=== PATIENT | female | born 1985 | race Caucasian/White ===

== ENCOUNTER 2018-04-23 23:20 | Emergency (ER) | payer MEDICAID, SELFPAY ==
--- NOTE | 2018-04-23 13:37 | EKG12_ITS ---
Test Reason : DIZZINESS Blood Pressure : / mmHG Vent. Rate : 071 BPM Atrial Rate : 071 BPM P-R Int : 126 ms QRS Dur : 092 ms QT Int : 412 ms P-R-T Axes : 044 021 024 degrees QTc Int : 447 ms Normal sinus rhythm Normal ECG Confirmed by TIGRE CALLAHAN, ROHINI ([id number]), associate editor TAMI UMANZOR ([id number]) on 04/26/2018 5:55:45 PM Referred By: Orion Clemons Confirmed By:ROHINI LANDEROS MD
--- NOTE | 2018-04-23 23:20 | DT_ITS ---
This patient was seen during an EMR downtime April 17, 2018 - April 24, 2018. This patient may have a combination of paper and electronic documentation or all paper documentation. All documentation is viewable within the e-chart portion of [facility] for each patient visit.
--- NOTE | 2018-04-24 00:03 | CT_ITS ---
STUDY: CTA OF THE BRAIN REASON FOR EXAM: Female, 32 years old. Vertigo, nausea, shortness of breath. Sensation of pressure inside head. RADIATION DOSAGE (If Supplied By Facility): CTDIvol = ( 26.12 ) mGy, DLP = ( 1205.43 ) mGycm TECHNIQUE: CT angiography was performed with a multi-detector CT scanner. Data acquisition was obtained from the skull base through the vertex following intravenous administration of 100 ml of Isovue-370 . MIP images were reconstructed from the axial data set. Post-processing of the angiographic images was performed, with multiplanar reformation and 3D reconstruction. Individualized dose optimization techniques were used for this CT. COMPARISON: None. FINDINGS: Normal bilateral petrous carotid arteries. Normal right cavernous carotid artery with a normal supraclinoid bifurcation. Normal left cavernous carotid artery with a normal supraclinoid bifurcation. Normal right A1 segments of the anterior cerebral artery. Normal left A1 segments of the anterior cerebral artery. Normal intact anterior communicating artery (ACOM). Normal bilateral A2 segments of the anterior cerebral arteries. Normal right M1 and M2 segments of the middle cerebral arteries, with a normal M1 bifurcation. Normal left M1 and M2 segments of the middle cerebral arteries, with a normal M1 bifurcation. Normal right posterior communicating artery (PCOM). Normal left posterior communicating artery (PCOM). Normal bilateral vertebral arteries. Normal basilar artery with a normal basilar bifurcation. The visualized bilateral superior cerebellar (SCA) arteries are normal. Normal bilateral P1, P2 and visualized P3 segments of the posterior cerebral arteries. There is no demonstrated aneurysm of the mohegan of Garza. There is no demonstrated abnormality of the visualized brain. CT/CTA Head W/WO Contrast IMPRESSION: Normal mohegan of [place] without a demonstrated aneurysm or hemodynamically significant stenosis. Electronically Signed: Brendan Segura MD at 1:28 EDT , Service support ,
[2018-04-25 11:20] LABS: Anion Gap 6 (5-15); BUN 12 mg/dL (7-18); Calcium,Total 8.7 mg/dL (8.5-10.1); Chloride 111 mmol/L (98-107); EST Glomerular Filtration Rate 55 mL/min (>60); Est Glom Filt Rate - Afr Amer 67 mL/min (>60); Glucose 113 mg/dL (74-106); Potassium 3.9 mmol/L (3.5-5.1); Sodium Level 141 mmol/L (136-145)
[2018-04-25 11:21] LABS: Pregnancy, Serum, hCG Quali. NEGATIVE Negative (0-9 Nonpreg)
[2018-04-25 13:38] LABS: Hematocrit 39.7 % (37-47); Mean Corp Hgb Conc 32.7 g/gl (32-36); Mean Corpuscular Hgb 30.9 pg (27.0-32.0); Mean Corpuscular Volume 94.3 fL (81-99); RBC Distribution Width CV 13.7 % (11.6-14.6); Red Blood Count 4.21 M/mm3 (4.2-5.4); White Blood Count 7.7 K/mm3 (4.4-11.0)
[2018-04-25 13:39] LABS: Absolute Lymphocyte Count 2.54 X10^3/ul (0.83-4.51); Absolute Neutrophil Count 4.4 X10^3/uL (2.0-7.7); Basophil% 0.5 % (0-1); Eosinophils% 2.3 % (0-5); Lymphocyte # 2.54 X10^3/ul (4.0); Lymphocyte % 32.9 % (19-41); Monocyte% 7.2 % (0-10); Neutrophil # 4.39 X10^3/uL (2.7-7.7); Neutrophil % 56.8 % (47-70); POSITIVE COUNT NO; POSITIVE DIFFERENTIAL NO; POSITIVE MORPHOLOGY NO; Platelet Count 421 K/mm3 (150-450); RBC Distribution Width SD 45.2 fl (35.1-43.9)
== END 2018-04-24 02:00 | disposition home or self-care (01) ==
PROVIDERS: Emergency Provider Emergency Medicine; Family Provider Student in an Organized Health Care Education/Training Program; PCP Student in an Organized Health Care Education/Training Program
DX: R42 Dizziness and giddiness (principal); R51 Headache; E78.00 Pure hypercholesterolemia, unspecified; M79.7 Fibromyalgia; F32.9 Major depressive disorder, single episode, unspecified; Z90.49 Acquired absence of other specified parts of digestive tract; Z79.899 Other long term (current) drug therapy
CPT/HCPCS: 70496; 80048; 84703; 85025; 93005; 96374; 96375; 99283; J7030; Q9967; A4216; J2405

== ENCOUNTER → 2018-12-14 18:08 | Outpatient (CLI) | payer MEDICAID, SELFPAY ==
--- NOTE | 2018-12-14 | IMM_PTH ---
PATIENT: SAAD ROBERT LOC: [facility] U#:[id number] AGE/SX: 40/F ROOM: RE12/14/[address]: Dr. Romana Zendejas MD : 1985 BED: DIS: SPEC #: [id number] RECD: 12/18/18 14:07 STATUS: MILLY JAMIE #: [id number] FIDEL: 12/14/18 00:[address]: Romana Zendejas DEPT: IMMUNOHISTOCHEMISTRY RECD BY: Bambi Luu ENTERED: 12/18/18 14:08 SP TYPE: IMMUNO OTHR DR: Dr. Victor Manuel Tyler DO Tissues: Vulva, NOS Procedures: p16 (initial) KI-67 (add) PHYSICIAN & INSTITUTION [place] [id number] SPECIMEN INFORMATION: Tissue Source: Left vulva, punch biopsy Clinical Info: Left vulva Specimen Number: [id number] CPT code: 15276, 07821 METHODOLOGY: Deparaffinized sections of prefer/formalin-fixed tissue or PAP/DQ stained slides are incubated with monoclonal/polyclonal antibodies/oligonucleotide probes. Localization is made via biotin free immunoperoxidase method. Appropriate controls are performed and reacted as expected. Results on target cell population are indicated in the following table: RESULTS: ANTIBODY / CLONE RESULT P16 (E6H4) negative Ki-67 (30-9) negative These tests were developed and their performance characteristics determined by [facility]. They may not have been cleared or approved by the U.S. Food and Drug Administration. The FDA has determined that such clearance or approval is not necessary. INTERPRETATION: Left vulva, punch biopsy: No evidence of dysplasia. AM:gonzalo 12/19/18
--- NOTE | 2018-12-14 | VUL_PTH ---
PATIENT: SAAD ROBERT LOC: [facility] U#:[id number] AGE/SX: 40/F ROOM: RE12/14/[address]: Dr. Romana Zendejas MD : 1985 BED: DIS: SPEC #: [id number] RECD: 12/15/18 18:06 STATUS: MILLY JAMIE #: [id number] FIDEL: 12/14/18 00:[address]: Romana Zendejas DEPT: SURGICAL PATHOLOGY RECD BY: Silvino Grijalva ENTERED: 12/15/18 09:11 SP TYPE: VULVA BX OTHR DR: Dr. Victor Manuel Tyler DO Tissues: Vulva, NOS Procedures: PAS Fungus (control) Special Stain Group I Surgery Specimen Level IV HEADER OPERATION: Punch biopsy vulva PRE-OP DIAGNOSIS: Punch biopsy vulva TISSUE SUBMITTED: Left vulva MICROSCOPIC DIAGNOSIS Left vulva, punch biopsy: Fragments of squamous mucosa with mild chronic inflammation and vascular ectasia. Focal acute inflammation. Negative for fungal organisms. See comment. AM:gonzalo 12/18/18 COMMENT Results from immunohistochemistry ([id number]) for surrogate HPV marker (p16) will be reported separately. PASF stain with matched control was used in the evaluation of this case. MICROSCOPIC DESCRIPTION Slides are reviewed. GROSS DESCRIPTION Received is one container labeled with the patient's name and not further designated. The specimen consists of an irregular fragment of light limon soft tissue measuring 0.1 x 0.1 x <0.1 cm. The specimen is totally submitted in one cassette. / AM:gonzalo 12/15/18 TC:2 CPT: 15076, 81865
[2018-12-14 15:30] VITALS: BMI 35.4
== END ==
PROVIDERS: Family Provider Student in an Organized Health Care Education/Training Program; PCP Student in an Organized Health Care Education/Training Program; Referring Provider Obstetrics & Gynecology; Visit Provider Obstetrics & Gynecology
DX: N89.8 Other specified noninflammatory disorders of vagina (principal)
CPT/HCPCS: 87070; 87077; 87106; 87205; 88305; 88312; 88341; 88342

== ENCOUNTER 2019-04-16 09:55 | Day surgery (SDC) | payer MEDICAID, SELFPAY ==
[2019-01-29 10:51] VITALS: BMI 35.4
--- NOTE | 2019-04-11 13:54 | EKG12_ITS ---
Test Reason : HJ Blood Pressure : / mmHG Vent. Rate : 085 BPM Atrial Rate : 085 BPM P-R Int : 118 ms QRS Dur : 086 ms QT Int : 390 ms P-R-T Axes : 063 055 021 degrees QTc Int : 464 ms Normal sinus rhythm Normal ECG Confirmed by MAYANK ZURITA ([id number]), electronic news gathering editor JACEK NEGRO ([id number]) on 04/12/2019 8:26:13 AM Referred By: Clinton Horne Confirmed By:MAYANK ZURITA
[2019-04-11 15:09] LABS: Hematocrit 40.6 % (37-47); Hemoglobin 13.2 g/dl (12.0-15.0); Mean Corp Hgb Conc 32.5 g/gl (32-36); Mean Corpuscular Hgb 29.9 pg (27.0-32.0); Mean Corpuscular Volume 91.9 fL (81-99); Mean Platelet Vol. 9.1 fl (6.2-12.0); Platelet Count 380 K/mm3 (150-450); RBC Distribution Width CV 13.8 % (11.6-14.6); RBC Distribution Width SD 46.4 fl (35.1-43.9); Red Blood Count 4.42 M/mm3 (4.2-5.4); White Blood Count 10.2 K/mm3 (4.4-11.0)
[2019-04-11 15:13] LABS: Scan Indicated on CBC? Y/N NO
[2019-04-11 15:17] LABS: Anion Gap 8 (5-15); BUN 14 mg/dL (7-18); Calcium,Total 8.8 mg/dL (8.5-10.1); Chloride 112 mmol/L (98-107); EST Glomerular Filtration Rate 68 mL/min (>60); Est Glom Filt Rate - Afr Amer 82 mL/min (>60); Glucose 86 mg/dL (74-106); Sodium Level 143 mmol/L (136-145)
[2019-04-16 10:30] VITALS: BP 106/63; PULSE 84; RESP 14; TEMP 36.4; O2SAT 97; BMI 35.5
[2019-04-16 10:46] LABS: Internal QC Validated? YES +Cl - CLEAR BKGD; Pregnancy, Urine Negative Negative
--- NOTE | 2019-04-16 11:30 | TUR_PTH ---
PATIENT: SAAD ROBERT LOC: [facility] [place] U#:[id number] AGE/SX: 33/F ROOM: RE04/16/[address]: Dr. Clinton Horne MD : 1985 BED: DIS: 04/16/2019 SPEC #: [id number] RECD: 04/16/19 16:16 STATUS: MILLY JAMIE #: [id number] FIDEL: 04/16/19 11:[address]: Clinton Horne DEPT: SURGICAL PATHOLOGY RECD BY: Bob Buck ENTERED: 04/17/19 09:25 SP TYPE: TURBINATES OTHR DR: Dr. Victor Manuel Tyler, DO Tissues: Nasal turbinate, NOS Procedures: Surgery Specimen Level III HEADER OPERATION: Septoplasty PRE-OP DIAGNOSIS: Nasal congestion, hypertrophy nasal turbinates TISSUE SUBMITTED: Inferior turbinates MICROSCOPIC DIAGNOSIS Inferior turbinates, excision: Benign respiratory epithelial tissue and organizing blood clots. AM:gonzalo 04/18/19 MICROSCOPIC DESCRIPTION Slides are reviewed. GROSS DESCRIPTION Received in fixative is one container labeled with the patient's name and designated inferior turbinates. The specimen consists of multiple irregular fragments of dark limon soft tissue that in aggregate measure 2.1 x 0.5 x <0.1 cm. The specimen is totally submitted in one cassette. / AM:gonzalo 04/17/19 TC:5 CPT: 59717
--- NOTE | 2019-04-16 11:46 | PCM.DC ---
You will use the following diet at home:: Regular Your food should be the consistency of: Regular Discharge Activity: Return to Normal Activity Additional Activity Instructions:: No nose blowing. Use saline nasal spray 3 sprays each nostril 3x/day starting 04/17/19. Allergies/Adverse Reactions: Allergies adhesive tape Allergy (Mild, Verified 04/10/19 13:21) Other sumatriptan [From Imitrex] Allergy (Mild, Verified 04/10/19 13:21) Other Medications to take at Discharge cholecalciferol (vitamin D3) 2,000 unit capsule 2,000 unit PO DAILY 12/14/18 cyclobenzaprine 10 mg tablet 10 mg PO TID PRN 12/14/18 dextroamphetamine-amphetamine 10 mg tablet 10 mg PO 1400 12/14/18 dextroamphetamine-amphetamine ER 20 mg 24hr capsule,extend release 40 mg PO DAILY 12/14/18 duloxetine 60 mg capsule,delayed release 60 mg PO DAILY 12/14/18 levocetirizine 5 mg tablet 5 mg PO QHS 12/14/18 montelukast 10 mg tablet 10 mg PO QPM 12/14/18 norethindrone acetate-ethinyl estradiol 1.5 mg-30 mcg tablet 1 tab PO DAILY 12/14/18 rizatriptan 5 mg disintegrating tablet 5 mg PO ONCE PRN 12/14/18 simvastatin 10 mg tablet 10 mg PO QHS 12/14/18 topiramate 50 mg tablet 50 mg PO QHS 12/14/18 trazodone 100 mg tablet 400 mg PO QHS 12/14/18 zinc oxide 20 % topical ointment 1 applic TOPICAL 4-8XD PRN #30 g 12/14/18 lidocaine 4 % topical gel 1 applic TOPICAL BID-QID PRN #10 g 12/19/18 Cyanocobalamin [Vitamin B12] 100 mcg IM Q30D 04/10/19 Fluconazole 150 mg PO QWEEK 04/10/19 Pantoprazole Sodium [Protonix] 40 mg PO DAILY 04/10/19 Orders to be completed after discharge: 12 Lead EKG [CVS] Time Frame: 04/10/19, Facility: [facility], Location: Cardiovascular Services Basic Metabolic Profile (BMP) Time Frame: 04/10/19, Location: Laboratory CBC-Complete Blood Cnt No Diff Time Frame: 04/10/19, Location: Laboratory Primary Care Physician: Victor Manuel Tyler DO [Primary Care Provider] - Test Results: Test results from this visit will be discussed in further detail at your follow-up appointment, if applicable.
--- NOTE | 2019-04-16 12:48 | PCM.OPRPT ---
Report of Operation Date of Procedure: 04/16/19 Pre-Operative Diagnosis: nasal airway obstruction. inferior turbinate hypertrophy Post-Operative Diagnosis: same Surgery/Procedure Performed:: bilateral submucous resection inferior turbinates Type of Anesthesia:: General Anesthesiologist: Tu Golden Specimen's removed: turbinate contents Estimated Blood Loss (mL): minimal Description of Procedure: The patient was taken to the OR on . She was placed in the supine position on the OR table. She was given sufficient general anesthesia. The head of the bed was elevated 30 degrees. She was draped steriley. An incision was made at the anterior aspect of the right inferior turbinate at the mucocutaneous junction. A submucous plane was established with a [place] elevator. Submucous resection was carried out with a microdebrider. The incision was closed with 4-0 chromic. Next, an incision was made and the anterior aspect of the left inferior turbinate at the mucocutaneous junction. A submucous plane was established with a Graeme elevator. Submucous resection was carried out with a microdebrider. The incision was closed with 4-0 chromic. Hemostasis was achieved with Afrin on pledgets and Ruben. Yarbrough nasal splints were applied to each side of the septum and sewn through and through with 3-0 silk. The patient was then awoken and brought to the recovery room in stable condition. Blood loss minimal, replacement none. Sponge, needle and instrument count were correct at the end of the procedure.
--- NOTE | 2019-04-16 12:51 | OP.PCM_ITS ---
Report of Operation Date of Procedure: 04/16/19 Pre-Operative Diagnosis: nasal airway obstruction. inferior turbinate hyp ertrophy Post-Operative Diagnosis: same Surgery/Procedure Performed:: bilateral submucous resection inferior turbinates Type of Anesthesia:: General Anesthesiologist: Tu Golden Specimen's removed: turbinate contents Estimated Blood Loss (mL): minimal Description of Procedure: The patient was taken to the OR on . She was placed in the supine position on the OR table. She was given sufficient general anesthesia. The head of the bed was elevated 30 degrees. She was draped steriley. An incision was made at the anterior aspect of the right inferior turbinate at the mucocutaneous junction. A submucous plane was established with a Teller elevator. Submucous resection was carried out with a microdebrider. The incision was closed with 4- 0 chromic. Next, an incision was made and the anterior aspect of the left inferior turbinate at the mucocutaneous junction. A submucous plane was established with a Graeme elevator. Submucous resection was carried out with a microdebrider. The incision was closed with 4-0 chromic. Hemostasis was achieved with Afrin on pledgets and Ruben. Yarbrough nasal splints were applied to each side of the septum and sewn through and through with 3-0 silk. The patient was then awoken and brought to the recovery room in stable condition. Blood loss minimal, replacement none. Sponge, needle and instrument count were correct at the end of the procedure.
[2019-04-16 12:55] VITALS: BP 106/63; BP 119/75; PULSE 88; RESP 16; TEMP 36.1; O2SAT 98
[2019-04-16 13:00] VITALS: BP 106/63; BP 119/77; PULSE 75; RESP 16; O2SAT 97
[2019-04-16 13:15] VITALS: BP 106/63; BP 114/68; PULSE 84; RESP 16; O2SAT 97
[2019-04-16 13:30] VITALS: BP 106/63; BP 108/67; PULSE 78; RESP 16; TEMP 36.4; O2SAT 95
[2019-04-16] MEDS: HYDROcodone Bitartrate/Apap 5/325 Tablet PO (14:12)
[2019-04-16 14:55] VITALS: BP 106/63; BP 116/83; PULSE 90; RESP 18; TEMP 36.9; O2SAT 98
== END 2019-04-16 14:57 | disposition home or self-care (01) ==
LOC: SDC 11:29 → AC 12:14
PROVIDERS: Anesthesiology; Family Provider Student in an Organized Health Care Education/Training Program; PCP Student in an Organized Health Care Education/Training Program; Referring Provider Otolaryngology; Visit Provider Otolaryngology
PROC: (CPT 30520; principal; 2019-04-16 11:15)
DX: J34.3 Hypertrophy of nasal turbinates (principal); E78.00 Pure hypercholesterolemia, unspecified; F32.9 Major depressive disorder, single episode, unspecified; F41.9 Anxiety disorder, unspecified; M79.7 Fibromyalgia; D89.89 Other specified disorders involving the immune mechanism, not elsewhere classified; G47.30 Sleep apnea, unspecified; G43.909 Migraine, unspecified, not intractable, without status migrainosus; K21.9 Gastro-esophageal reflux disease without esophagitis; Z79.899 Other long term (current) drug therapy
CPT/HCPCS: 30140; 36415; 80048; 81025; 85027; 88304; 93005; J7120; J2405

== ENCOUNTER → 2019-11-19 17:37 | Outpatient (CLI) | payer MEDICAID, SELFPAY ==
[2019-11-19 14:25] VITALS: BMI 35.5
== END ==
PROVIDERS: Family Provider Student in an Organized Health Care Education/Training Program; PCP Student in an Organized Health Care Education/Training Program; Visit Provider Obstetrics & Gynecology
DX: N76.0 Acute vaginitis (principal)
CPT/HCPCS: 87070; 87205

== ENCOUNTER → 2020-02-04 15:56 | Outpatient (CLI) | payer MEDICAID, SELFPAY ==
[2020-02-04 13:11] VITALS: BMI 35.5
[2020-02-06 20:33] LABS: HPV APTIMA, High Risk Negative (Negative)
== END ==
PROVIDERS: PCP Student in an Organized Health Care Education/Training Program; Visit Provider Nurse Practitioner Women's Health
DX: Z12.4 Encounter for screening for malignant neoplasm of cervix (principal)
CPT/HCPCS: 87624; 88175; G0145

== ENCOUNTER 2020-11-19 15:55 | Emergency (ER) | payer MEDICAID, SELFPAY ==
[2020-02-04 13:11] VITALS: BMI 35.5
[2020-11-19 15:55] VITALS: BP 138/79; PULSE 62; PULSE 69; RESP 22; TEMP 35.8; O2SAT 98; BMI 33.1
--- NOTE | 2020-11-19 16:11 | ED.VIS.GEN ---
History of Present Illness Chief Complaint: Abd Pain Informant: Patient Narrative: 35-year-old female with history of fibromyalgia and IBS presenting with left lower quadrant abdominal pain. She states it started at 1630 and is slowly progressed to intense pain. She states that she has associated symptoms of nausea/vomiting. She does admit to some left flank pain as well. Patient has no history of kidney stones or diverticulitis. Has not had a fever, chills. No urinary symptoms. No vaginal complaints. - Past Medical History (1) Anxiety and depression Status: Chronic (2) Fibromyalgia Status: Chronic (3) IBS (irritable colon syndrome) Status: Chronic Past Medical History - Allergies and Home Meds Allergies/Adverse Reactions: Allergies adhesive tape Allergy (Mild, Verified 02/04/20 13:07) Other sumatriptan [From Imitrex] Allergy (Mild, Verified 02/04/20 13:07) Other Primary Care Physician: Victor Manuel Tyler DO [Primary Care Provider] - Prior records reviewed: Yes Past Medical History: - - Reviewed in problem list Surgical History: cholecystectomy Lives: Alone Smoking Status: Never smoker Alcohol: None Drugs: None Review of Systems General: Denies: Chills, Fever, Sweats Eyes: Denies: Visual changes - bilaterally, Diplopia ENT: Denies: Rhinorrhea, Sore throat Cardiovascular: Denies: Chest pain, Palpitations Respiratory: Denies: Dyspnea, Cough, Dyspnea on exertion Gastrointestinal: Reports: Abdominal pain, Nausea, Vomiting. Denies: Diarrhea, Constipation Genitourinary: Denies: Dysuria, Hematuria Musculoskeletal: Denies: Myalgias, Arthralgias Skin: Denies: Rash, Abscess Neurological: Denies: Headache, Parasthesia, Numbness Psych: Denies: Depression, Anxiety Physical Exam Vital Signs/Narrative: Vital Signs Temp Pulse Resp BP Pulse Ox 11/19/20 15:55 96.4 F L 69 22 H 138/79 H 98 Inital Vital Signs reviewed: Yes General: Well nourished, - - Holding left lower quadrant appears to be in pain. Head: Normocephalic, Atraumatic Eyes: Perrl, EOMI. Negative for: Pale conjunctiva ENT: Moist mucous membranes, No rhinorrhea Cardiovascular: Regular rate, Regular rhythm Respiratory: No distress, CTA bilaterally Abdomen: Soft, Nondistended, Tender - Tenderness to palpation left lower quadrant. Back: CVA tenderness - Left. Negative for: Spinal tenderness Extremities: Nontender, No edema Skin: Normal color, No rash Neurological: Alert, Oriented x3, Cranial nerves II-XII grossly intact Psychological: Tearful, Agitated Diagnostic/Tx/Re-eval Clinical Impression(s) from Imaging Studies Transvaginal US 11/19/20 16:45 IMPRESSION: 2 small intrauterine fibroids measuring 2.4 x 2.7 x 2.2 cm and 1.4 x 1 x 0.7 cm Electronically Signed: Yonis Castillo MD at 17:58 EST , Service support , Abdomen/Pelvis CT 11/19/20 18:26 IMPRESSION: No acute abnormality status post cholecystectomy Electronically Signed: Yonis Castillo MD at 19:11 EST , Service support , Laboratory Data 11/19/20 11/19/20 11/19/20 17:03 17:03 17:03 WBC 10.1 RBC 4.31 Hgb 13.4 Hct 40.6 MCV 94.2 MCH 31.1 MCHC 33.0 RDW Std Deviation 44.3 H RDW Coeff of Kulwinder 12.7 Plt Count 393 MPV 8.6 Immature Gran % (Auto) 0.300 Neut % (Auto) 70.6 H Lymph % (Auto) 20.5 [place] % (Auto) 7.2 Eos % (Auto) 1.0 Baso % (Auto) 0.4 Absolute Neuts (auto) 7.1 Absolute Lymphs (auto) 2.07 Nucleated RBC % 0 Sodium 138 Potassium 3.3 L Chloride 110 H Carbon Dioxide 20.0 L Anion Gap 8 BUN 11 Creatinine 1.28 H Estim Creat Clear Calc 55.20 Est GFR (MDRD) Af Amer 61 Est GFR (MDRD) Non-Af 50 L BUN/Creatinine Ratio 8.6 L Glucose 120 H Calcium 8.9 Serum , Qual NEGATIVE Urine Color Urine Clarity Urine pH Ur Specific [place] Urine Protein Urine Glucose (UA) Urine Ketones Urine Occult Blood Urine Nitrite Urine Bilirubin Urine Urobilinogen Ur Leukocyte Esterase Urine RBC Urine WBC Ur Squamous Epith Cells Urine Bacteria Urine Mucus 11/19/20 18:20 WBC RBC Hgb Hct MCV MCH MCHC RDW Std Deviation RDW Coeff of Kulwinder Plt Count MPV Immature Gran % (Auto) Neut % (Auto) Lymph % (Auto) [place] % (Auto) Eos % (Auto) Baso % (Auto) Absolute Neuts (auto) Absolute Lymphs (auto) Nucleated RBC % Sodium Potassium Chloride Carbon Dioxide Anion Gap BUN Creatinine Estim Creat Clear Calc Est GFR (MDRD) Af Amer Est GFR (MDRD) Non-Af BUN/Creatinine Ratio Glucose Calcium Serum , Qual Urine Color Yellow Urine Clarity Clear Urine pH 6.0 Ur Specific [place] 1.025 Urine Protein 30 H Urine Glucose (UA) Normal Urine Ketones 50 H Urine Occult Blood 250 H Urine Nitrite Negative Urine Bilirubin Negative Urine Urobilinogen 1 H Ur Leukocyte Esterase 100 H Urine RBC 5-10 SEEN Urine WBC 0-5 SEEN Ur Squamous Epith Cells 5-10 SEEN Urine Bacteria 0 SEEN Urine Mucus 2+ - Medical Decision Making 35-year-old female presenting with left lower quadrant abdominal pain. It did appear to be lower in the pelvis on first examination. For this reason patient had transvaginal ultrasound to rule out there ovarian torsion which was negative. She does have uterine fibroids. Patient's urinalysis shows hematuria without UTI. CBC is unremarkable. BMP shows slight increase in creatinine and a potassium of 3.3 which I do not feel that he needs to be emergently treated. Patient was treated with 2 doses of morphine as well as Zofran and while awaiting CT she passed a kidney stone in the ED. This was approximately 2 mm. Patient still wanted to have a CT of her abdomen and pelvis to make sure she did not have any more kidney stones that she has not had this in the past. I did obtain 1 which was negative for calculi or other acute process. Patient was given oxycodone and Zofran prior to discharge. Should be sent home with oxycodone, Zofran for home and was counseled on the use as if needed. Patient acknowledged understanding. She can return precautions. Patient stable for discharge at this time. Impression: 1. Hematuria 2. Passed kidney stone ED Disposition - Plan for ED Patient: Disposition: Home or Assisted Living Instructions: ED Kidney Stone, Passed Prescriptions: Oxycodone [Oxyir] 5 mg PO Q6H PRN PRN 3 Days #12 tab PRN Reason: Pain Prescription Printed Ondansetron [Zofran Odt] 4 mg PO Q8H PRN PRN #10 tab PRN Reason: Nausea Prescription Printed Referrals: Victor Manuel Tyler DO [Primary Care Provider] -
--- NOTE | 2020-11-19 16:45 | US_ITS ---
STUDY: ULTRASOUND OF THE FEMALE PELVIS - COMPLETE REASON FOR EXAM: Female, 35 years old. SEVERE LLQ PAIN LMP: TECHNIQUE: Transabdominal and transvaginal TECHNICAL QUALITY: Adequate. COMPARISON: None. FINDINGS: The uterus is anteverted and is in a midline position. The uterus measures 6.9 x 4.8 x 3.4 cm. Normal uterine cervix. The endometrium measures 4 mm in thickness, and is hyperechoic. There is no demonstrated endometrial mass. There are 2 fibroids measuring 2.4 x 2.7 x 2.2 cm and 1.4 x 1 x 0.7 cm.. I.U.D. - The patient does not have an I.U.D. The right ovary is visualized. The right ovary measures 2.1 x 1.2 x 1.1 cm. There is no right ovarian cyst or ovarian mass. There is no visualized right adnexal mass or complex lesion. There is normal arterial and normal venous vascularity. The left ovary is visualized. The left ovary measures 1.9 x 1.3 x 1.3 cm. There is no left ovarian cyst or ovarian mass. There is no visualized left adnexal mass or complex lesion. There is normal arterial and normal venous vascularity. There is no fluid in the cul-de-sac. . US/Transvaginal Non- IMPRESSION: 2 small intrauterine fibroids measuring 2.4 x 2.7 x 2.2 cm and 1.4 x 1 x 0.7 cm Electronically Signed: Yonis Castillo MD at 17:58 EST , Service support ,
[2020-11-19] MEDS: Morphine 4 MG/ML Syringe IM (16:49)
[2020-11-19] MEDS: 0.9% Normal Saline 1,000 ML 1000 ML IV (17:08)
[2020-11-19] MEDS: Ondansetron 4 MG/2 ML Vial IV (17:08)
[2020-11-19] MEDS: Morphine 4 MG/ML Syringe IV (17:08)
[2020-11-19] MEDS: Ketorolac 15 MG/ML Vial IV (17:08)
[2020-11-19 17:18] LABS: Absolute Lymphocyte Count 2.07 X10^3/uL (0.83-4.51); Absolute Neutrophil Count 7.1 X10^3/uL (2.0-7.7); Basophil# 0.04 X10^3/uL; Basophil% 0.4 % (0-1); Hematocrit 40.6 % (37-47); Hemoglobin 13.4 g/dL (12.0-15.0); Lymphocyte # 2.07 X10^3/ul (4.0); Lymphocyte % 20.5 % (19-41); Mean Corpuscular Hgb 31.1 pg (27.0-32.0); Mean Corpuscular Volume 94.2 fL (81-99); Mean Platelet Vol. 8.6 fl (6.2-12.0); Monocyte# 0.73 X10^3/uL; Monocyte% 7.2 % (0-10); NRBC Flagged by Analyzer 0 % (0-5); Neutrophil # 7.12 X10^3/uL (2.7-7.7); Neutrophil % 70.6 % (47-70); Platelet Count 393 K/mm3 (150-450); RBC Distribution Width CV 12.7 % (11.6-14.6); RBC Distribution Width SD 44.3 fl (35.1-43.9); Red Blood Count 4.31 M/mm3 (4.2-5.4); White Blood Count 10.1 K/mm3 (4.4-11.0)
[2020-11-19 17:32] LABS: Internal QC Validated? YES +Cl - CLEAR BKGD; Pregnancy, Serum, hCG Quali. NEGATIVE Negative
[2020-11-19 17:39] LABS: Anion Gap 8 (5-15); BUN 11 mg/dL (7-18); BUN/Creat Ratio 8.6 RATIO (10-20); Calcium,Total 8.9 mg/dL (8.5-10.1); Chloride 110 mmol/L (98-107); Creatinine, Serum 1.28 mg/dL (0.55-1.02); EST Glomerular Filtration Rate 50 mL/min (>60); Est Glom Filt Rate - Afr Amer 61 mL/min (>60); Glucose 120 mg/dL (74-106); Potassium 3.3 mmol/L (3.5-5.1); Sodium Level 138 mmol/L (136-145)
--- NOTE | 2020-11-19 18:26 | CT_ITS ---
STUDY: CT ABDOMEN AND PELVIS WITHOUT CONTRAST REASON FOR EXAM: Female, 35 years old. LLQ PAIN TODAY STARTED AT 2:30 PM. H/O FIBROIDS. RADIATION DOSAGE (If Supplied By Facility): CTDIvol = ( 13.81 ) mGy, DLP = ( 724.32 ) mGycm TECHNIQUE: Transaxial images were obtained from the dome of the diaphragm to the symphysis pubis without oral contrast, and without intravenous contrast. Sagittal and coronal images were reconstructed. Individualized dose optimization techniques were used for this CT. COMPARISON: None. FINDINGS: The visualized lung bases are unremarkable. The visualized portions of the heart are within normal limits. Normal liver. Gallbladder not visualized which may be consistent with cholecystectomy.. Normal spleen. Normal pancreas. Normal bilateral adrenal glands. Normal right kidney. Normal left kidney. Normal visualized stomach. Normal small intestine. Normal colon. No evidence for acute appendicitis. Normal abdominal aorta. Normal inferior vena cava. Normal retroperitoneum. Incompletely distended thick-walled bladder likely of no significance. Normal abdominal wall. Normal osseous structures. CT/Abdomen/Pelvis without Cont IMPRESSION: No acute abnormality status post cholecystectomy Electronically Signed: Yonis Castillo MD at 19:11 EST , Service support ,
[2020-11-19 18:28] LABS: Bacteria 0 SEEN /hpf (None Seen)
[2020-11-19 18:34] LABS: Color, Urine Yellow (Yellow); Glucose, Dipstick Normal (Normal); Ketone-Dipstick 50 mg/dl (Negative); Leukocyte Esterase-Dipstick 100 /ul (Negative); Nitrite-Dipstick Negative (Negative); Occult Blood-Urine 250 /ul (Negative); Protein-Dipstick 30 mg/dl (Negative); Specific Gravity, Urine 1.025 (1.002-1.030); Urine Bilirubin Dipstick Negative (Negative); Urine Clarity Clear (Clear); Urine Urobilinogen 1 mg/dl (Normal)
[2020-11-19 18:40] LABS: Red Blood Cells-Urine 5-10 SEEN /hpf (0-5)
[2020-11-19 18:41] LABS: Mucous, Urine 2+ /hpf (<or=2+); Squamous Epithelial Cells - UA 5-10 SEEN /hpf (5-10); White Blood Cells 0-5 SEEN /hpf (0-5)
[2020-11-19 19:16] VITALS: BP 135/82; PULSE 81; RESP 18; O2SAT 98
[2020-11-19] MEDS: oxyCODONE 5 MG Tablet PO (19:49)
[2020-11-19] MEDS: Ondansetron ODT 4 MG Tablet PO (19:49)
== END 2020-11-19 19:52 | disposition home or self-care (01) ==
PROVIDERS: Emergency Provider Student in an Organized Health Care Education/Training Program; PCP Student in an Organized Health Care Education/Training Program
DX: N20.0 Calculus of kidney (principal); D25.9 Leiomyoma of uterus, unspecified; K58.9 Irritable bowel syndrome, unspecified; M79.7 Fibromyalgia; Z90.49 Acquired absence of other specified parts of digestive tract
CPT/HCPCS: 74176; 76830; 80048; 81001; 84703; 85025; 93976; 96361; 96372; 96374; 96375; 96376; 99283; J7030; A4216; J2405

== ENCOUNTER 2022-07-13 15:59 | Outpatient (CLI) | payer MEDICAID, SELFPAY ==
[2022-07-22 16:36] LABS: HPV APTIMA, High Risk Negative (Negative)
== END 2022-07-13 23:59 | disposition home or self-care (01) ==
LOC: LABSPEC 16:00
PROVIDERS: PCP Student in an Organized Health Care Education/Training Program; Referring Provider Obstetrics & Gynecology; Visit Provider Obstetrics & Gynecology
DX: Z12.4 Encounter for screening for malignant neoplasm of cervix (principal)
CPT/HCPCS: 87624; 88175; G0145

== ENCOUNTER → 2023-08-01 | Outpatient (CLI) | payer MEDICAID, SELFPAY ==
--- NOTE | 2023-08-01 10:02 | RAD_ITS ---
STUDY: X-RAY - ESOPHAGUS (BARIUM SWALLOW) WITH FLUOROSCOPY REASON FOR EXAM: Female, 37 years old. DYSPHAGIA TECHNIQUE: 17 view(s) of the esophagus were obtained following swallowing of barium. FLUOROSCOPY TIME (if supplied): (36 seconds) minutes/seconds. 22.95 mGy COMPARISON: None. FINDINGS: There is no demonstrated esophageal foreign body. There is no demonstrated stricture or mucosal abnormality. Normal gastroesophageal junction, without a demonstrated hiatal hernia. The patient ingested a 12 mm tablet of barium without any difficulty. There is evidence of organoaxial rotation of the stomach on the upright projection. This reverts to normal on the supine projection. Normal visualized aortic arch and descending thoracic aorta. Normal visualized pulmonary parenchyma. Normal visualized osseous structures of the thorax. RAD/Esophagus Dual Contrast IMPRESSION: Normal plain film x-ray examination (barium swallow) of the esophagus. Electronically Signed: Darek Ahumada MD at 11:00 EDT ,
== END | disposition home or self-care (01) ==
LOC: RAD 09:55
PROVIDERS: PCP Student in an Organized Health Care Education/Training Program; Referring Provider Otolaryngology; Visit Provider Otolaryngology
DX: R13.10 Dysphagia, unspecified (principal)
CPT/HCPCS: 74221

== ENCOUNTER → 2023-10-13 | Outpatient (CLI) | payer MEDICAID, SELFPAY ==
--- NOTE | 2023-10-13 11:23 | US_ITS ---
STUDY: ULTRASOUND OF THE FEMALE PELVIS - COMPLETE REASON FOR EXAM: Female, 38 years old. endometriosis LMP: TECHNIQUE: Transabdominal and Transvaginal TECHNICAL QUALITY: Adequate. COMPARISON: 11/19/2020 FINDINGS: The uterus is anteverted and is in a midline position. The uterus measures 7.9 x 4.8 x 3.7 cm. Normal uterine cervix. The endometrium measures 6 mm in thickness, and is hyperechoic. There is no demonstrated endometrial mass. 2.2 cm round hypoechoic mass within the left side of the uterus consistent with a subserosal fibroid. 1 cm hypoechoic mass within the posterior fundus the uterus consistent with an intramural fibroid. I.U.D. - The patient does not have an I.U.D. The right ovary is visualized. The right ovary measures 1.6 x 1.2 x 0.9 cm. There is no right ovarian cyst or ovarian mass. There is no visualized right adnexal mass or complex lesion. There is normal arterial and normal venous vascularity. The left ovary is visualized. The left ovary measures 2.2 x 1.9 x 1.1 cm. There is no left ovarian cyst or ovarian mass. There is no visualized left adnexal mass or complex lesion. There is normal arterial and normal venous vascularity. There is no fluid in the cul-de-sac. The pre void volume of the bladder was ml. The post void volume of the bladder was ml. Polycystic ovary disease: No. US/Pelvic w/ Transvaginal IMPRESSION: Small fibroids but overall normal size of the uterus. Electronically Signed: Maurice Park MD at 22:46 EST ,
== END | disposition home or self-care (01) ==
LOC: US 11:22
PROVIDERS: PCP Student in an Organized Health Care Education/Training Program; Referring Provider Obstetrics & Gynecology; Visit Provider Obstetrics & Gynecology
DX: R10.2 Pelvic and perineal pain (principal); N80.9 Endometriosis, unspecified
CPT/HCPCS: 76830; 76856

== ENCOUNTER → 2023-12-15 | Outpatient (CLI) | payer MEDICAID, SELFPAY ==
--- NOTE | 2023-12-15 07:03 | CT_ITS ---
STUDY: CT ABDOMEN AND PELVIS WITHOUT CONTRAST REASON FOR EXAM: Female, 38 years old. PAINFUL DEFECATION WHEN ON MENSES KNOWN FIBROIDS SURG-GB RADIATION DOSAGE (If Supplied By Facility): CTDIvol = ( 12.45 ) mGy, DLP = ( 628.38 ) mGycm TECHNIQUE: Transaxial images were obtained from the dome of the diaphragm to the symphysis pubis with oral contrast, and without intravenous contrast. Sagittal and coronal images were reconstructed. Individualized dose optimization techniques were used for this CT. COMPARISON: CT of abdomen and pelvis dated November 19, 2020. Pelvic ultrasound dated October 13, 2023. FINDINGS: The visualized lung bases are unremarkable. The visualized portions of the heart are within normal limits. Normal liver. Normal gallbladder and extrahepatic biliary system. Normal spleen. Normal pancreas. Normal bilateral adrenal glands. Normal right kidney. Normal left kidney. No radiopaque kidney stones or hydronephrosis or hydroureter is present. Normal visualized stomach. Normal small intestine. There are multiple descending and sigmoid colonic diverticula consistent with diverticulosis. The remaining colonic loops are unremarkable. A small amount of stool is present in the proximal and transverse colon. There is no evidence of bowel dilatation or obstruction. No inflammatory stranding is present. No abscess or free air is present. The appendix is visualized and appears normal. Normal abdominal aorta. Normal inferior vena cava. Normal retroperitoneum. Normal urinary bladder. Grossly unremarkable uterus and adnexa by CT criteria. Pelvic ultrasound revealed fibroids please refer to that study. Normal abdominal wall. Normal osseous structures. CT/Abdomen/Pel W ORAL Cont Only IMPRESSION: Colonic diverticulosis 1. There are multiple descending and sigmoid colonic diverticula consistent with diverticulosis. The remaining colonic loops are unremarkable. A small amount of stool is present in the proximal and transverse colon. There is no evidence of bowel dilatation or obstruction. No inflammatory stranding is present. No abscess or free air is present. The appendix is visualized and appears normal. Electronically Signed: Hunter Limon MD at 9:18 EST ,
--- OUTSIDE RECORDS SUMMARY | 2023-12-15 07:07 | XMS RPT_ITS | CCD ---
Author Name Unknown Address [address] [place] [address] Organization [facility] Care Team Providers Care Specialty Plant Supervisor Name Role Phone MANAN SHOEMAKER (BONE PROCESS OPERATOR) Unavailable Unavailable TylerVictor Manuel palencia DO Primary Care Provider Fatoumata Arrieta PA-C Unavailable [phone] TylerVictor Manuel somers DO Primary Care Provider Victor Manuel Tyler DO Primary Care Provider [phone] TylerVictor Manuel somers DO Primary Care Provider [phone] SELF Referring Unavailable TYLER, VICTOR MANUEL L Primary Care Unavailable PONCE, IMAN K Attending Unavailable TYLER, VICTOR MANUEL L Primary Care Unavailable ALLIE DURAN Attending Unavailable TYLER, VICTOR MANUEL L Primary Care Unavailable ALONDRA RING J Attending Unavailable TYLER, VICTOR MANUEL L Primary Care Unavailable ALLIE DURAN Attending Unavailable YUE ALEXANDRE Referring Unavailable TYLER, VICTOR MANUEL Lise Primary Care Unavailable TYLER, VICTOR MANUEL L Primary Care Unavailable PONCE, IMAN K Referring Unavailable PONCE, IMAN K Attending Unavailable TYLER, VICTOR MANUEL L Primary Care Unavailable JENNYFER, ALONDRA J Attending Unavailable TYLER, VICTOR MANUEL L Primary Care Unavailable TYLER, VICTOR MANUEL L Attending Unavailable TYLER, VICTOR MANUEL L Primary Care Unavailable TYLER, VICTOR MANUEL L Attending Unavailable PATY SHI Attending Unavailable TYLER, VICTOR MANUEL L Primary Care Unavailable PONCE, IMAN K Referring Unavailable ASHLY JOHN Attending Unavaila ble TYLER, VICTOR MANUEL L Primary Care Unavailable TYLER, VICTOR MANUEL L Primary Care Unavailable ALONDRA RING Attending Unavailable YUE ALEXANDRE Attending Unavailable TYLER, VICTOR MANUEL Lise Primary Care Unavailable TYLER, VICTOR MANUEL L Referring Unavailable EMILY CABRAL Attending Unavailable TYLER, VICTOR MANUEL L Primary Care Unavailable TESTYUE ADAN Referring Unavailable TYLER, VICTOR MANUEL L Primary Care Unavailable TYLER, VICTOR MANUEL L Primary Care Unavailable TYLER, VICTOR MANUEL L Referring Unavailable TYLER, VICTOR MANUEL L Primary Care Unavailable ALONDRA RING Attending Unavailable TYLER, VICTOR MANULE L Primary Care Unavailable TYLER, VICTOR MANUEL L Referring Unavailable TYLER, VICTOR MANUEL L Primary Care Unavailable TYLER, VICTOR MANUEL L Attending Unavailable TYLER, VICTOR MANUEL L Primary Care Unavailable TYLER, VICTOR MANUEL L Referring Unavailable CABRAL, EMILY Referring Unavailable TYLER, VICTOR MANUEL L Primary Care Unavailable TYLER, VICTOR MANUEL L Primary Care Unavailable RAJGUSALBADOR, ALONDRA J Attending Unavailable CABRAL, EMILY Referring Unavailable TYLER, VICTOR MANUEL L Primary Care Unavailable TYLER, VICTOR MANUEL L Primary Care Unavailable RAJALONDRA NINA J Attending Unavailable TYLER, VICTOR MANUEL L Primary Care Unavailable ALONDRA RING J Attending Unavailable TYLER, VICTOR MANUEL L Primary Care Unavailable ALLIE DURAN Attending Unavailable SALUD GARCIA Attending Unavailable TYLER, VICTOR MANUEL L Primary Care Unavailable TYLER, VICTOR MANUEL L Attending Unavailable TYLER, VICTOR MANUEL L Primary Care Unavailable QUINTANA, IVETT Referring Unavailable CABRAL, EMILY Attending Unavailable TYLER, VICTOR MANUEL L Primary Care Unavailable TYLER, VICTOR MANUEL L Primary Care Unavailable TYLER, VICTOR MANUEL L Primary Care Unavailable YUE ALEXANDRE Referring Unavailable YUE ALEXANDRE Attending Unavailable TYLER, VICTOR MANUEL L Primary Care Unavailable QUINTANA, IVETT Attending Unavailable TYLER, VICTOR MANUEL L Primary Care Unavailable TYLER, VICTOR MANUEL L Primary Care Unavailable SOHAM HENRY Referring Unavailable Allergies Allergy Classification Reported Allergen(s) Allergy Type Date of Onset Reaction(s) Facility (1 source) Latex; Translations: [LATEX] Propensity to adverse reactions to drug (disorder) 5 AOF [facility] Repository (20 sources) Seasonal allergy; Translations: [SEASONAL ALLERGIES] Propensity to adverse reactions (disorder) 7 Unknown [facility] Repository (17 sources) Angiotensin-con verting enzyme inhibitor agent; Translations: [JANE INHIBITORS] Propensity to adverse reactions to drug 9 Contraindicati on-Medical Surgical [facility] Work Phone: (16 sources) beta-Blocking agent; Translations: [BETA-BLOCKERS (BETA-ADRENERGI C BLOCKING AGTS)] Propensity to adverse reactions to drug 9 Contraindicati on-Medical Surgical [facility] Work Phone: (20 sources) [place] silk preparation; Translations: [CORN] Drug Allergy 1 Hives [facility] Work Phone: (20 sources) DULoxetine; Translations: [DULOXETINE] Drug Allergy 9 Other: See Comments [facility] Work Phone: (20 sources) linaclotide; Translations: [LINACLOTIDE] Drug Allergy 9 Diarrhea [facility] Work Phone: (20 sources) SUMAtriptan; Translations: [SUMATRIPTAN SUCCINATE] Drug Allergy 8 Vomiting [facility] Work Phone: (20 sources) venlafaxine; Translations: [VENLAFAXINE ANALOGUES] Drug Allergy 9 Other: See Comments [facility] Work Phone: (16 sources) Marijuana Drug Intolerance 0 Intolerance [facility] Work Phone: (1 source) Adrenergic Beta-Antagonist s drug allergy 2 [facility] Work Phone: (1 source) House dust mite; Translations: [DUST MITES] allergy to substance 2 [facility] Work Phone: (1 source) [place] Animal[place]; Translations: [ANIMALS] allergy to substance 2 [facility] Work Phone: (1 source) Mold Extract; Translations: [MOLD] Drug Allergy 2 [facility] Work Phone: (1 source) Pollen; Translations: [POLLEN] allergy to substance 2 [facility] Work Phone: (1 source) ADHESIVES; Translations: [ADHESIVES] allergy to substance 2 [facility] Work Phone: (20 sources) Angiotensin-con verting enzyme inhibitor agent Propensity to adverse reactions to drug 9 Contraindicati on-Medical Surgical [facility] Work Phone: (20 sources) beta-Blocking agent Propensity to adverse reactions to drug 9 Contraindicati on-Medical Surgical [facility] Work Phone: (20 sources) Marijuana (Cannabis); Translations: [MARIJUANA (CANNABIS)] Drug Intolerance 0 Intolerance [facility] Work Phone: (20 sources) Adhesive Tape-Silicones; Translations: [ADHESIVE TAPE-SILICONES] Propensity to adverse reactions to drug 2 Intolerance [facility] (20 sources) Nirmatrelvir-Ri tonavir; Translations: [NIRMATRELVIR-R ITONAVIR] Drug Intolerance 2 Other: See Comments [facility] Work Phone: Medications Current Medications Medication Drug Class(es) Dates Sig (Normalized) Sig (Original) acetaminophen 325 mg oral tablet (3 sources) Start: 06-10-2022 End: 06-29-2022 take 2 tablets by mouth every six hours acetaminophen (TYLENOL) 325 mg tablet Take 2 tablets by mouth every 6 hours for 5 days, THEN 2 tablets every 6 hours as needed for pain for up to 14 days. Do not take more than 4,000 mg of acetaminophen (Tylenol) from ALL sources in a 24 hour period. Do not take more than 2,000 mg per day if you have a history of liver disease.. 0 06/10/2022 06/29/2022 Active Completed/Discontinued Medications Medication Drug Class(es) Dates Sig (Normalized) Sig (Original) amylase 664392 unt / lipase 96214 unt / protease [id number] unt delayed release oral capsule (20 sources) Start: 01-19-2021 take 1 capsule by mouth at mealtime CREON 36,000-114,000- 180,000 unit capsule TAKE 1 CAPSULE BY MOUTH PRIOR TO ALL MEALS AND SNACKS 0 01/19/2021 Active Problems Active Problems Problem Classification Problem Date Documented Da te Episodic/Chronic Adjustment disorders (20 sources) Adjustment disorder with mixed anxiety and depressed mood; Translations: [Adjustment disorder with mixed anxiety and depressed mood] Onset: 5 11-28-2014 Chronic Anxiety disorders (20 sources) Generalized anxiety disorder; Translations: [Generalized anxiety disorder] Onset: 1 10-17-2021 Chronic Contraceptive and procreative management (1 source) Oral contraception; Translations: [Encounter for surveillance of contraceptive pills] Episodic Disorders of lipid metabolism (20 sources) Pure hypercholesterolemia; Translations: [Pure hypercholesterolemia, unspecified] Onset: 8 10-31-2018 Chronic Esophageal disorders (20 sources) Gastroesophageal reflux disease; Translations: [Gastro-esophageal reflux disease without esophagitis] Onset: 6 06-17-2016 Chronic Genitourinary symptoms and ill-defined conditions (20 sources) Female stress incontinence; Translations: [Stress incontinence (female) (male)] Onset: 6 10-08-2016 Chronic Headache; including migraine (20 sources) Migraine; Translations: [Migraine, unspecified, not intractable, without status migrainosus] Onset: 4 12-24-2013 Chronic Hemorrhoids (1 source) Internal hemorrhoids; Translations: [Other hemorrhoids] Episodic Malaise and fatigue (20 sources) Fatigue; Translations: [Chronic fatigue, unspecified] Onset: 7 Chronic Menstrual disorders (20 sources) Irregular periods; Translations: [Irregular menstruation, unspecified] Onset: 3 10-23-2013 Chronic Miscellaneous mental health disorders (20 sources) Insomnia; Translations: [Other insomnia not due to a substance or known physiological condition] Onset: 4 08-05-2021 Chronic Mood disorders (20 sources) Bipolar II disorder; Translations: [Bipolar II disorder] Onset: 1 10-17-2021 Chronic Nutritional deficiencies (20 sources) Vitamin D deficiency; Translations: [Vitamin D deficiency, unspecified] Onset: 8 01-24-2018 Chronic Osteoarthritis (1 source) Osteoarthrosis of the carpometacarpal joint of the thumb; Translations: [Osteoarthritis of first carpometacarpal joint, unspecified] Onset: 2 03-04-2022 Chronic Other congenital anomalies (3 sources) Talipes cavus; Translations: [Congenital pes cavus, unspecified foot] Chronic Other connective tissue disease (3 sources) Disorder of lower extremity; Translations: [Other muscle spasm] Episodic Other connective tissue disease (1 source) Tendinitis of hip; Translations: [Other specified enthesopathies of left lower limb, excluding foot] Onset: 2 02-22-2022 Episodic Other disorders of stomach and duodenum (1 source) Functional dyspepsia; Translations: [Functional dyspepsia] Onset: 8 Episodic Other endocrine disorders (1 source) Lockport's syndrome, unspecified; 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)] Onset: 3 Chronic Other eye disorders (1 source) Meibomian gland dysfunction of bilateral eyes; Translations: [Meibomian gland dysfunction right eye, upper and lower eyelids] 08-03-2023 Episodic Other eye disorders (1 source) Epiphora of right eye due to tear drainage disorder; Translations: [Epiphora due to insufficient drainage, right side] 08-12-2023 Episodic Other eye disorders (1 source) Acquired nasolacrimal duct obstruction; Translations: [Acquired stenosis of right nasolacrimal duct] 08-12-2023 Episodic Other eye disorders (1 source) Bilateral epiphora of eyes; Translations: [Unspecified epiphora, bilateral] 09-26-2023 Episodic Other gastrointestinal disorders (20 sources) Intolerance to food; Translations: [Malabsorption due to intolerance, not elsewhere classified] Onset: 2 Chronic Other gastrointestinal disorders (20 sources) Irritable bowel syndrome; Translations: [Irritable bowel syndrome without diarrhea] Onset: 4 09-25-2014 Chronic Other gastrointestinal disorders (1 source) Mixed irritable bowel syndrome; Translations: [Irritable bowel syndrome with both constipation and diarrhea] Onset: 9 Chronic Other gastrointestinal disorders (1 source) Functional intestinal disorder, unspecified; Translations: [Functional intestinal disorder, unspecified] Onset: 8 Episodic Other inflammatory condition of skin (11 sources) Rosacea; Translations: [Rosacea, unspecified] Onset: 4 07-13-2023 Chronic Other injuries and conditions due to external causes (1 source) Other injury of unspecified body region, initial encounter; Translations: [Open wound(s) (multiple) of unspecified site(s), without mention of complication] Episodic Other nervous system disorders (20 sources) Bilateral carpal tunnel syndrome; Translations: [Carpal tunnel syndrome, bilateral upper limbs] Onset: 9 01-29-2019 Chronic Other nervous system disorders (20 sources) Disturbance of attention; Translations: [Attention and concentration deficit] Onset: 2 Chronic Other nervous system disorders (1 source) Numbness of hand; Translations: [Anesthesia of skin] Onset: 2 03-04-2022 Episodic Other nervous system disorders (20 sources) H/O: Fagan's palsy; Translations: [Personal history of other diseases of the nervous system and sense organs] Episodic Other nutritional; endocrine; and metabolic disorders (20 sources) Obese class I; Translations: [Obesity, unspecified] Onset: 3 05-11-2021 Chronic Other nutritional; endocrine; and metabolic disorders (20 sources) Central obesity; Translations: [Localized adiposity] Onset: 2 Chronic Other nutritional; endocrine; and metabolic disorders (20 sources) Metabolic syndrome X; Translations: [Metabolic syndrome] Onset: 2 Chronic Other nutritional; endocrine; and metabolic disorders (1 source) Metabolic syndrome; Translations: [Dysmetabolic syndrome] Onset: 2 Chronic Other skin disorders (1 source) Eruption; Translations: [Rash and other nonspecific skin eruption] Episodic Other skin disorders (1 source) Papular eruption; Translations: [Rash and other nonspecific skin eruption] Episodic Other skin disorders (1 source) Ingrowing nail of toe of right foot; Translations: [Ingrowing nail] 06-20-2023 Episodic Other upper respiratory disease (2 sources) Seasonal allergic rhinitis; Translations: [Other allergic rhinitis] Chronic Other upper respiratory disease (20 sources) Allergic rhinitis; Translations: [Allergic rhinitis, unspecified] Onset: 8 02-09-2022 Chronic Other upper respiratory disease (20 sources) Allergic rhinitis due to pollen; Translations: [Allergic rhinitis due to pollen] Onset: 9 12-21-2018 Chronic Pneumonia (except that caused by tuberculosis or sexually transmitted disease) (19 sources) Bacterial pneumonia; Translations: [Unspecified bacterial pneumonia] Onset: 2 Episodic Residual codes; unclassified (20 sources) Obstructive sleep apnea syndrome; Translations: [Obstructive sleep apnea (adult) (pediatric)] Onset: 5 03-16-2021 Chronic Residual codes; unclassified (2 sources) Postoperative state; Translations: [Other specified postprocedural states] Episodic Residual codes; unclassified (1 source) History of hepatitis B vaccination; Translations: [Personal history of other drug therapy] Episodic Residual codes; unclassified (1 source) Memory impairment; Translations: [Other amnesia] 11-27-2023 Episodic Thyroid disorders (20 sources) T>3< thyrotoxicosis; Translations: [Thyrotoxicosis, unspecified without thyrotoxic crisis or storm] Onset: 7 08-31-2017 Chronic Unclassified (16 sources) SUMMARY Onset: 4 11-09-2021 Unclassified (1 source) APPOINTMENT CANCELLED Unclassified (1 source) Congenital pes cavus, unspecified foot; Translations: [High foot arch] Onset: 3 Viral infection (1 source) Disease caused by 2019-nCoV; Translations: [COVID-19] Episodic Past or Other Problems Problem Classification Problem Date Documented Da te Episodic/Chronic Abdominal pain (20 sources) Generalized abdominal pain; Translations: [Unspecified abdominal pain] Onset: 02-17-2018 02-15-2020 Episodic Acute and unspecified renal failure (16 sources) Acute injury of kidney; Translations: [Acute kidney failure, unspecified] Onset: 07-11-2020 07-11-2020 Episodic Allergic reactions (20 sources) Eczema; Translations: [Dermatitis, unspecified] Onset: 05-22-2014 05-22-2014 Episodic Cardiac dysrhythmias (20 sources) Palpitations; Translations: [Palpitations] Onset: 02-09-2022 Episodic Genitourinary symptoms and ill-defined conditions (16 sources) Abnormal urine odor; Translations: [Unspecified abnormal findings in urine] Onset: 08-31-2017 08-31-2017 Episodic Inflammatory diseases of female pelvic organs (16 sources) Acute vaginitis; Translations: [Acute vaginitis] Onset: 10-31-2018 10-31-2018 Episodic Nausea and vomiting (2 sources) Nausea; Translations: [Nausea] Onset: 12-01-2022 Episodic Nonmalignant breast conditions (20 sources) Large breast; Translations: [Hypertrophy of breast] Onset: 05-12-2022 Episodic Nutritional deficiencies (20 sources) Cobalamin deficiency; Translations: [Deficiency of other specified B group vitamins] Onset: 01-04-2023 Episodic Other connective tissue disease (20 sources) Fibromyalgia; Translations: [Fibromyalgia] Onset: 04-06-2016 Episodic Other connective tissue disease (20 sources) Iliotibial band friction syndrome; Translations: [Iliotibial band syndrome, unspecified leg] Onset: 10-26-2017 10-26-2017 Episodic Other connective tissue disease (20 sources) Trochanteric bursitis; Translations: [Trochanteric bursitis, right hip] Onset: 10-26-2017 10-26-2017 Episodic Other connective tissue disease (20 sources) Muscle spasm of cervical muscle of neck; Translations: [Other muscle spasm] Onset: 12-10-2019 12-10-2019 Episodic Other connective tissue disease (20 sources) Cramp; Translations: [Cramp and spasm] Onset: 07-11-2020 07-11-2020 Episodic Other connective tissue disease (20 sources) Tenosynovitis of right radial styloid; Translations: [Radial styloid tenosynovitis [de Quervain]] Onset: 08-05-2021 08-05-2021 Episodic Other connective tissue disease (14 sources) Pain in both feet; Translations: [Pain in right foot] Onset: 07-12-2023 Episodic Other connective tissue disease (1 source) Fibromyalgia; Translations: [Fibromyalgia] Onset: 04-06-2016 Episodic Other connective tissue disease (1 source) Pain in right foot; Translations: [Foot pain, bilateral] Onset: 05-02-2023 Episodic Other connective tissue disease (1 source) Pain in left foot; Translations: [Foot pain, bilateral] Onset: 05-02-2023 Episodic Other eye disorders (20 sources) Tear film insufficiency; Translations: [Dry eye syndrome of unspecified lacrimal gland] Onset: 02-07-2017 02-07-2017 Episodic Other eye disorders (9 sources) Epiphora of left eye due to excessive tear production; Translations: [Epiphora due to excess lacrimation, left lacrimal gland] Onset: 07-13-2023 07-13-2023 Episodic Other eye disorders (10 sources) Obstruction of lacrimal canaliculus; Translations: [Stenosis of left lacrimal canaliculi] Onset: 07-13-2023 07-13-2023 Episodic Other eye disorders (9 sources) Discharge from eye; Translations: [Other specified disorders of eye and adnexa] Onset: 07-13-2023 07-13-2023 Episodic Other eye disorders (1 source) Epiphora due to insufficient drainage, right side; Translations: [Epiphora due to insufficient drainage of right side] Onset: 08-12-2023 Episodic Other eye disorders (1 source) Acquired stenosis of right nasolacrimal duct; Translations: [Nldo, acquired (nasolacrimal duct obstruction), right] Onset: 08-12-2023 Episodic Other eye disorders (1 source) Dry eye syndrome of bilateral lacrimal glands; Translations: [Dry eye syndrome of both eyes] Onset: 02-07-2017 Episodic Other eye disorders (1 source) Meibomian gland dysfunction right eye, upper and lower eyelids; Translations: [Meibomian gland dysfunction (MGD) of upper and lower lids of both eyes] Onset: 03-02-2023 Episodic Other eye disorders (1 source) Meibomian gland dysfunction left eye, upper and lower eyelids; Translations: [Meibomian gland dysfunction (MGD) of upper and lower lids of both eyes] Onset: 03-02-2023 Episodic Other gastrointestinal disorders (20 sources) Abdominal bloating; Translations: [Abdominal distension (gaseous)] Onset: 02-15-2020 02-15-2020 Episodic Other gastrointestinal disorders (1 source) Abdominal distension (gaseous); Translations: [Bloating] Onset: 02-15-2020 Episodic Other non-traumatic joint disorders (20 sources) Ankle pain; Translations: [Pain in right ankle and joints of right foot] Onset: 07-17-2015 08-05-2021 Episodic Other non-traumatic joint disorders (20 sources) Multiple joint pain; Translations: [Pain in unspecified joint] Onset: 01-29-2019 01-29-2019 Episodic Other non-traumatic joint disorders (20 sources) Shoulder joint pain; Translations: [Pain in left shoulder] Onset: 12-10-2019 12-10-2019 Episodic Other non-traumatic joint disorders (15 sources) Shoulder pain; Translations: [Pain in right shoulder] Onset: 05-25-2021 05-25-2021 Episodic Other non-traumatic joint disorders (20 sources) Bilateral chronic pain of upper limbs; Translations: [Pain in right shoulder] Onset: 05-25-2021 05-25-2021 Episodic Other nutritional; endocrine; and metabolic disorders (11 sources) Overweight in adulthood with body mass index of 25 or more but less than 30; Translations: [Overweight] Onset: 07-12-2023 07-12-2023 Episodic Other screening for suspected conditions (not mental disorders or infectious disease) (20 sources) Elevated C-reactive protein; Translations: [Elevated C-reactive protein (CRP)] Onset: 04-22-2016 Episodic Other skin disorders (20 sources) Keratosis pilaris; Translations: [Other specified epidermal thickening] Onset: 05-22-2014 05-22-2014 Episodic Other skin disorders (20 sources) Skin lesion; Translations: [Disorder of the skin and subcutaneous tissue, unspecified] Onset: 05-22-2014 Episodic Other skin disorders (1 source) Ingrowing nail; Translations: [Ingrown nail of fifth toe of right foot] Onset: 06-20-2023 Episodic Other upper respiratory disease (16 sources) Nasal obstruction; Translations: [Other specified disorders of nose and nasal sinuses] Onset: 12-27-2018 12-27-2018 Episodic Other upper respiratory infections (16 sources) Acute maxillary sinusitis; Translations: [Acute maxillary sinusitis, unspecified] Onset: 01-29-2019 01-29-2019 Episodic Otitis media and related conditions (20 sources) Bacterial ear infection; Translations: [Otitis media, unspecified, bilateral] Onset: 01-07-2023 Episodic Residual codes; unclassified (1 source) Other specified postprocedural states; Translations: [S/P LASIK (laser assisted in situ keratomileusis) of both eyes] Onset: 03-02-2023 Episodic Spondylosis; intervertebral disc disorders; other back problems (20 sources) Neck pain; Translations: [Cervicalgia] Onset: 05-12-2022 Episodic Unclassified (1 source) Problem Results Test Name Value Interpretation Reference Range Facil ity Vital Signs Date Time Vital Sign Value Performing Clinician Facility 11-22-2023 09:32-0500 Body weight 86.18 kg Alondra Rajishmaelru CANDY FORMING MACHINE OPERATOR.WAREHOUSE OPERATOR Work Phone: [facility] 11-22-2023 09:32-0500 Diastolic blood pressure 70 mm[Hg] Alondra Rajguru CANDY FORMING MACHINE OPERATOR.WAREHOUSE OPERATOR Work Phone: [facility] 11-22-2023 09:32-0500 Heart rate 84 /min Alondra Rajishmaelru CANDY FORMING MACHINE OPERATOR.WAREHOUSE OPERATOR Work Phone: [facility] 11-22-2023 09:32-0500 Systolic blood pressure 120 mm[Hg] Alondra Rajguru CANDY FORMING MACHINE OPERATOR.WAREHOUSE OPERATOR Work Phone: [facility] 10-12-2023 10:04-0500 Body temperature 97 [degF] Victor Manuel Tyler DO Work Phone: [facility] 10-12-2023 10:04-0500 Body weight 85.73 kg Victor Manuel Tyler DO Work Phone: [facility] 10-12-2023 10:04-0500 Diastolic blood pressure 80 mm[Hg] Victor Manuel Tyler DO Work Phone: [facility] 10-12-2023 10:04-0500 Heart rate 80 /min Victor Manuel Tyler DO Work Phone: [facility] 10-12-2023 10:04-0500 Respiratory rate 16 /min Victor Manuel Tyler DO Work Phone: [facility] 10-12-2023 10:04-0500 Systolic blood pressure 120 mm[Hg] Victor Manuel Tyler DO Work Phone: [facility] 07-12-2023 09:42-0400 Body temperature 97.5 [degF] Victor Manuel Tyler DO Work Phone: [facility] 07-12-2023 09:42-0400 Body weight 83.01 kg Victor Manuel Tyler DO Work Phone: [facility] 07-12-2023 09:42-0400 Diastolic blood pressure 80 mm[Hg] Victor Manuel Tyler DO Work Phone: [facility] 07-12-2023 09:42-0400 Heart rate 88 /min Victor Manuel Tyler DO Work Phone: [facility] 07-12-2023 09:42-0400 Respiratory rate 16 /min Victor Manuel Tyler DO Work Phone: [facility] 07-12-2023 09:42-0400 Systolic blood pressure 110 mm[Hg] Victor Manuel Tyler DO Work Phone: [facility] 06-20-2023 14:37-0400 Body weight 82.46 kg Ivett Quintana CANDY FORMING MACHINE OPERATOR.WAREHOUSE OPERATOR Work Phone: [facility] 06-20-2023 14:37-0400 Diastolic blood pressure 62 mm[Hg] Ivett Quintana CANDY FORMING MACHINE OPERATOR.WAREHOUSE OPERATOR Work Phone: [facility] 06-20-2023 14:37-0400 Heart rate 72 /min Ivett Quintana CANDY FORMING MACHINE OPERATOR.WAREHOUSE OPERATOR Work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 LAPAROSCOPY DIAGNOSTIC 05/06/2015 [place] LAPS SURG CHOLECYSTECTOMY W/CHOLANGIOGRAPHY 05/04/2016 Normal IOC PAST SURGICAL HISTORY OF 03/2019 nasal turbinate removed REVISE MEDIAN N/CARPAL TUNNEL SURG Right 04/2022 SEPTOPLASTY 02/17/2015 Current Outpatient Medications Medication Sig Dispense Refill cyclobenzaprine (FLEXERIL) 10 mg tablet Take 1 tablet by mouth three times a day as needed for muscle spasm. 90 tablet 3 [START ON 12/23/2023] amphetamine-dextroamphetamine XR (ADDERALL XR) 20 mg capsule Take 2 capsules by mouth once daily for 30 days. Do not start before December 23, 2023. 60 capsule 0 [START ON 11/24/2023] amphetamine-dextroamphetamine XR (ADDERALL XR) 20 mg capsule Take 2 capsules by mouth once daily for 30 days. Do not start before November 24, 2023. 60 capsule 0 amphetamine-dextroamphetamine XR (ADDERALL XR) 20 mg capsule Take 2 capsules by mouth once daily for 30 days. Do not start before October 26, 2023. 60 capsule 0 ketoconazole (NIZORAL) 2 % cream Apply to affected area two times a day. 60 g 1 lamoTRIgine (LAMICTAL) 100 mg tablet Take 1 tablet by mouth daily at bedtime. [address] (PROTONIX) 40 mg tablet Take 1 tablet by mouth daily before breakfast. Take on empty stomach, 1/2 hr before meal. 90 tablet 3 Cholecalciferol, Vitamin D3, 125 mcg (5,000 unit) cap Take 1 capsule by mouth once daily. 90 capsule 3 busPIRone HCl 30 mg tablet traZODone (DESYREL) 100 mg tablet Take 2 tablets at bedtime 360 tablet 3 TAB-A-YESSI MULTIVITAMIN W-IRON 15 mg iron- 400 mcg tab Take 1 tablet by mouth once daily. 100 tablet 3 montelukast (SINGULAIR) 10 mg tablet Take 1 tablet by mouth daily at bedtime. 90 tablet 3 loratadine-pseudoephedrine ER (CLARITIN-D 12 HOUR) 5-120 mg per tablet Take 1 tablet by mouth twice daily. 60 tablet 3 fluorometholone (FML LIQUID FILM) 0.1 % ophthalmic suspension Use 1 Drop in both eyes twice daily. 5 mL 0 lifitegrast (XIIDRA) 5 % ophthalmic drops Use 1 Drop in both eyes twice daily. 60 Each 3 mupirocin (BACTROBAN) 2 % ointment Apply 1 application to affected area three times daily. 30 g 2 cyanocobalamin 1,000 mcg/mL 1 mL SQ monthly 10 mL 3 Norethindrone Acet-Ethinyl Est (LOESTRIN .5,) 1.5-30 mg-mcg Take 1 tablet by mouth once daily. Take continuously. Do not take inactive pills 84 tablet 0 ondansetron orally disintegrating (ZOFRAN ODT) 8 mg disintegrating tablet Take 1 tablet by mouth every 8 hours as needed for nausea/vomiting. 6 tablet 0 Mghgeshq-Ktfv-Ykc-Folic Acid 18-0.4 mg tab Take 1 tablet by mouth once daily. 100 tablet 3 fluconazole (DIFLUCAN) 100 mg tablet Take 100 mg by mouth once daily. Daily MAGNESIUM ORAL Take 1,500 mg by mouth daily at bedtime. Clindamycin Phosphate (CLEOCIN T) 1 % lotion Apply to affected area twice daily. On face as needed for rosacea 60 mL 2 Clobetasol Propionate (TEMOVATE) 0.05 % external solution Apply 1 application to affected area once daily as needed (arm and leg skin lesion). 50 mL 1 famotidine (PEPCID) 10 mg tablet Take 20 mg by mouth twice daily. docusate sodium (COLACE) 100 mg capsule Take 200 mg by mouth twice daily. Lactobacillus acidophilus (ACIDOPHILUS ORAL) Take by mouth. rizatriptan (MAXALT TAKE OFF WORKER) 5 mg disintegrating tablet Take 1 tablet by mouth as needed. For migraine., May repeat in 2 hours if needed 10 tablet 3 diclofenac (VOLTAREN ARTHRITIS PAIN) 1 % topical gel Apply 2 g to affected area four times daily as needed (right thumb pain). 100 g 0 CPAP New set up: AutoBiPAP Settings IPAP max 12 & EPAP min 4 and PS 4- 6 cm H2O, suitable mask per pt preference, chin strap, head gear, humidity, tubing, lifetime supplies. G47.33 JYOTHI 1 Device 0 CREON 36,000-114,000- 180,000 unit capsule TAKE 1 CAPSULE BY MOUTH PRIOR TO ALL MEALS AND SNACKS erythromycin ophthalmic ointment Use 1 application in both eyes daily at bedtime. 3.5 g 2 Insulin Syringe-Needle U-100 (BD INSULIN SYRINGE ULTRA-FINE) 1 mL 31 gauge x 5/16 1 Each as directed. 1 Box 1 PEG 400-Propylene Glycol (SYSTANE HYDRATION PF) 0.4-0.3 % dpet Use 1 Each in both eyes four times daily. 1 Each 4 Back Brace misc 1 Device as directed. 1 Each 0 clobetasol (TEMOVATE) 0.05 % ointment Apply 1 application to affected area twice daily. For 2 weeks then once a day for 2 weeks (Patient taking differently: Apply 1 application to affected area as needed. For 2 weeks then once a day for 2 weeks) 60 g 1 CARBOXYMETHYLCELLULOSE SODIUM (REFRESH TEARS OPHTHALMIC) Use 1 Drop in eyes four times daily. as needed No current facility-administered medications for this visit. ROS: See HPI PFSH: See HPI VITAL SIGNS: 11/22/23 0932 BP: 120/70 Pulse: 84 Weight: 86.2 kg (190 lb) MENTAL STATUS EXAM: CONSTITUTIONAL: Well groomed, Appropriately dressed ORIENTATION: Person, Place, Time and Situation MEMORY: Recent intact, Remote intact, Immediate intact CONCENTRATION: Variable MOOD: sad about the recent situation with AFFECT: Full and appropriate to topic SPEECH : Clear & distinct LANGUAGE : Normal ASSOCIATIONS: Intact THOUGHT PROCESS : Logical, Coherent, and Rational PROGRESSION : There was no evidence of disturbance in thought perception or progression. FUND OF KNOWLEDGE : Appropriate and Adequate SUICIDE: None HOMICIDE: None DATA REVIEWED: Psychiatric scales, Labs, and Electronic medical record DIAGNOSIS: PRIMARY: Bipolar 2 disorder Secondary : Generalized Anxiety Disorder Other : OCD and Memory difficulty GAF: -60-51 Moderate symptoms or moderate difficulty in social, occupational or school functioning. TREATMENT PLAN: 1. Increase Lamictal back to the previous dose due to patient not being able to tolerate the lower dose due to difficulty with sleep. 2. Continue Buspar, Trazodone, and Celebrex at the same dose. 3. Schedule an appointment for neuropsychiatric testing. 4. Schedule an appointment for individual psychiatric testing. MEDICATION CHANGES: - Lamictal was increased back to 200 mg. Prescriptions given - Reviewed Lamictal titration & risk of severe rash. Instructed to call [facility]LE[facility] if this occurs. Follow Up: 2 months I spent a total of 38 minutes on the date of the service which included preparing to see the patient, [id number] patient care, completing clinical documentation, obtaining and/or reviewing separately obtained history, performing a medically appropriate examination, counseling and educating the patient/family/caregiver, ordering medications, tests, or procedures, communicating with other HCPs (not separately reported), independently interpreting results (not separately reported), and communicating results to the patient/family/caregiver. ADD ON PSYCHOTHERAPY CODE : No SIGNATURE: Alondra Ring APRN.CNP PATIENT NAME: Sharri Menon DATE: November 22, 2023 TIME: 9:42 AM documented in this encounter [facility] 10-12-2023 Note HNO ID: [id number] Author: Victor Manuel Tyler, DO Service: ? Author Type: Physician Type: Progress Notes Filed: 10/12/2023 10:31 PM Note Text: CC: Sharri Menon is a 38 year old female who presents to the office for follow up HPI: Last seen in office June 2023 as below Saw Linux Programmer. Was told to try shoe inserts. Feels like this bothered her after 10 minutes, caused foot pain. Didn't feel like it fit her arches well. Feels that she wears out the heel of her shoes quickly, more than having arch or toe concerns. ADD, taking Adderall as prescribed. No SE with medication. Tearing of left > right eye. Seems to be worse when wearing makeup. Has tried to cut down on use of eye liner without improvement. Has been using Xidra drops and Refresh tears. Knows needs to make appt with [facility] Allergic rhinitis, hasn't recently had immunotherapy. Has had a lot of PND which is causing irritation with tonsil stones. Has noticed some swallowing concerns. Getting symptoms that pills are getting stuck in the back of her throat/esophagus area. Wondering if this is causing her tonsil stones to be worse GERD, taking Protonix medication still. Feels this has been stable. Also tries to diet control with avoiding spicy foods etc. Fibromyalgia, knows she would benefit from routine massage therapy and rn care manager. States doesn't feel she can afford these therapies at this time due to insurance limited coverage. Taking medications as prescribed. Anxiety, depression. Knows she is in a relationship with her long standing boyfriend that isn't likely a healthy relationship with emotional and verbal control over her. No physical or sexual abuse. Hasn't discussed extensively with therapy but plans on doing this. Seeing Alondra BRITO with Psychiatry and taking medications as prescribed. Currently Anxiety, depression. Knows she is in a relationship with her long standing boyfriend that isn't likely a healthy relationship with emotional and verbal control over her. No physical or sexual abuse. Has begun to discuss extensively with therapy and has met with 180 to see if any other resources available to her. Seeing Alondra BRITO with Psychiatry and taking medications as prescribed. ADD, taking Adderall as prescribed. No SE with medication. Does get some lip licking as a side effect occasionally Fibromyalgia, knows she would benefit from routine massage therapy and rn care manager. States doesn't feel she can afford these therapies at this time due to insurance limited coverage. Taking medications as prescribed. Recently neck and mid back and low back pain has been flared up due to helping her boyfriend cut and stack wood for winter and cleaning out the pond. Needing rx refilled for muscle relaxant PAST MEDICAL HISTORY Diagnosis Date Abnormal biliary HIDA scan 04/22/2016 Acne vulgaris: Inflammatory Grade II to III 05/25/2014 Acute and chronic cholecystitis 05/13/2016 Adjustment disorder with mixed anxiety and depressed mood 11/28/2014 Ankle weakness 07/17/2015 Bilateral low back pain with sciatica 01/26/2016 Calculus, tonsil 12/17/2013 Chronic fatigue Depression, major, recurrent, mild (HCC) 08/14/2015 Deviated nasal septum s/p septoplasty Dry eye syndrome 12/27/2016 Eczematous dermatitis 05/22/2014 Exposure keratopathy 01/01/2016 Fatigue 02/05/2015 Female stress incontinence 10/08/2016 Fibromyalgia Flushing reaction 04/04/2014 GERD (gastroesophageal reflux disease) 06/17/2016 Hemorrhoids 09/25/2014 Hiatal hernia History of Fagan's palsy IBS (irritable bowel syndrome) 2006 had EGD, colonoscopy Insomnia 10/23/2014 Irregular periods 10/23/2013 Left ankle pain 07/17/2015 Migraines 12/24/2013 Milial cyst 05/22/2014 Nasal septal deviation 01/22/2015 Obesity (BMI 30-39.9) 10/23/2013 JYOTHI (obstructive sleep apnea) ahi 16 52r 01/01/2015 Photodermatitis 04/04/2014 Rosacea 04/04/2014 S/P LASIK (laser assisted in situ keratomileusis) of both eyes - Both Eyes 04/2014 Snoring 11/05/2015 Steroid acne 04/04/2014 Urinary leakage 04/06/2016 Vitreous floaters of both eyes 12/27/2016 Weakness of both lower extremities 01/26/2016 Xerosis cutis 05/22/2014 PAST SURGICAL HISTORY Procedure Laterality Date COLONOSCOPY 2005 COLONOSCOPY FLX DX W/COLLJ SPEC WHEN PFRMD 07/01/2016 CYSTOSCOPY with hydrodistention for IC EGD 2006 ESOPHAGOGASTRODUODENOSCOPY TRANSORAL DIAGNOSTIC 04/21/2016 L'SCOPE DX W/WO BRUSHINGS/WASHINGS 2006 LAPAROSCOPY DIAGNOSTIC 05/06/2015 [place] LAPS SURG CHOLECYSTECTOMY W/CHOLANGIOGRAPHY 05/04/2016 Normal IOC PAST SURGICAL HISTORY OF 03/2019 nasal turbinate removed REVISE MEDIAN N/CARPAL TUNNEL SURG Right 04/2022 SEPTOPLASTY 02/17/2015 Current Outpatient Medications Medication Sig lamoTRIgine (LAMICTAL) 100 mg tablet Take 1 tablet by mouth daily at bedtime. pantoprazole DR (PROTONIX) 40 mg tablet Take 1 tablet by (more content not included)... [facility] 10-12-2023 History of Present illness Narrative CC: Sharri Menon is a 38 year old female who presents to the office for follow up HPI: Last seen in office June 2023 as below Saw Linux Programmer. Was told to try shoe inserts. Feels like this bothered her after 10 minutes, caused foot pain. Didn't feel like it fit her arches well. Feels that she wears out the heel of her shoes quickly, more than having arch or toe concerns. ADD, taking Adderall as prescribed. No SE with medication. Tearing of left > right eye. Seems to be worse when wearing makeup. Has tried to cut down on use of eye liner without improvement. Has been using Xidra drops and Refresh tears. Knows needs to make appt with Home Performance Consultant Allergic rhinitis, hasn't recently had immunotherapy. Has had a lot of PND which is causing irritation with tonsil stones. Has noticed some swallowing concerns. Getting symptoms that pills are getting stuck in the back of her throat/esophagus area. Wondering if this is causing her tonsil stones to be worse GERD, taking Protonix medication still. Feels this has been stable. Also tries to diet control with avoiding spicy foods etc. Fibromyalgia, knows she would benefit from routine massage therapy and rn care manager. States doesn't feel she can afford these therapies at this time due to insurance limited coverage. Taking medications as prescribed. Anxiety, depression. Knows she is in a relationship with her long standing boyfriend that isn't likely a healthy relationship with emotional and verbal control over her. No physical or sexual abuse. Hasn't discussed extensively with therapy but plans on doing this. Seeing Alondra BRITO with Psychiatry and taking medications as prescribed. Currently Anxiety, depression. Knows she is in a relationship with her long standing boyfriend that isn't likely a healthy relationship with emotional and verbal control over her. No physical or sexual abuse. Has begun to discuss extensively with therapy and has met with 180 to see if any other resources available to her. Seeing Alondra BRITO with Psychiatry and taking medications as prescribed. ADD, taking Adderall as prescribed. No SE with medication. Does get some lip licking as a side effect occasionally Fibromyalgia, knows she would benefit from routine massage therapy and rn care manager. States doesn't feel she can afford these therapies at this time due to insurance limited coverage. Taking medications as prescribed. Recently neck and mid back and low back pain has been flared up due to helping her boyfriend cut and stack wood for winter and cleaning out the pond. Needing rx refilled for muscle relaxant PAST MEDICAL HISTORY Diagnosis Date Abnormal biliary HIDA scan 04/22/2016 Acne vulgaris: Inflammatory Grade II to III 05/25/2014 Acute and chronic cholecystitis 05/13/2016 Adjustment disorder with mixed anxiety and depressed mood 11/28/2014 Ankle weakness 07/17/2015 Bilateral low back pain with sciatica 01/26/2016 Calculus, tonsil 12/17/2013 Chronic fatigue Depression, major, recurrent, mild (HCC) 08/14/2015 Deviated nasal septum s/p septoplasty Dry eye syndrome 12/27/2016 Eczematous dermatitis 05/22/2014 Exposure keratopathy 01/01/2016 Fatigue 02/05/2015 Female stress incontinence 10/08/2016 Fibromyalgia Flushing reaction 04/04/2014 GERD (gastroesophageal reflux disease) 06/17/2016 Hemorrhoids 09/25/2014 Hiatal hernia History of Fagan's palsy IBS (irritable bowel syndrome) 2006 had EGD, colonoscopy Insomnia 10/23/2014 Irregular periods 10/23/2013 Left ankle pain 07/17/2015 Migraines 12/24/2013 Milial cyst 05/22/2014 Nasal septal deviation 01/22/2015 Obesity (BMI 30-39.9) 10/23/2013 JYOTHI (obstructive sleep apnea) ahi 16 52r 01/01/2015 Photodermatitis 04/04/2014 Rosacea 04/04/2014 S/P LASIK (laser assisted in situ keratomileusis) of both eyes - Both Eyes 04/2014 Snoring 11/05/2015 Steroid acne 04/04/2014 Urinary leakage 04/06/2016 Vitreous floaters of both eyes 12/27/2016 Weakness of both lower extremities 01/26/2016 Xerosis cutis 05/22/2014 PAST SURGICAL HISTORY Procedure Laterality Date COLONOSCOPY 2006 COLONOSCOPY FLX DX W/COLLJ SPEC WHEN PFRMD 07/01/2016 CYSTOSCOPY with hydrodistention for IC EGD 2006 ESOPHAGOGASTRODUODENOSCOPY TRANSORAL DIAGNOSTIC 04/21/2016 L'SCOPE DX W/WO BRUSHINGS/WASHINGS 2005 LAPAROSCOPY DIAGNOSTIC 05/06/2015 [place] LAPS SURG CHOLECYSTECTOMY W/CHOLANGIOGRAPHY 05/04/2016 Normal IOC PAST SURGICAL HISTORY OF 03/2019 nasal turbinate removed REVISE MEDIAN N/CARPAL TUNNEL SURG Right 04/2022 SEPTOPLASTY 02/17/2015 Current Outpatient Medications Medication Sig lamoTRIgine (LAMICTAL) 100 mg tablet Take 1 tablet by mouth daily at bedtime. pantoprazole DR (PROTONIX) 40 mg tablet Take 1 tablet by mouth daily before breakfast. Take on empty stomach, 1/2 hr before meal. Cholecalciferol, Vitamin D3, 125 mcg (5,000 unit) cap Take 1 capsule by mouth once daily. busPIRone HCl 30 mg tablet traZODone (DESYREL) 100 mg tablet Take 2 tablets at bedtime celecoxib (CELEBREX) 100 mg capsule Take 2 capsules by mouth twice daily. TAB-A-YESSI MULTIVITAMIN W-IRON 15 mg iron- 400 mcg tab Take 1 tablet by mouth once daily. montelukast (SINGULAIR) 10 mg tablet Take 1 tablet by mouth daily at bedtime. loratadine-pseudoephedrine ER (CLARITIN-D 12 HOUR) 5-120 mg per tablet Take 1 tablet by mouth twice daily. fluorometholone (FML LIQUID FILM) 0.1 % ophthalmic suspension Use 1 Drop in both eyes twice daily. lifitegrast (XIIDRA) 5 % ophthalmic drops Use 1 Drop in both eyes twice daily. mupirocin (BACTROBAN) 2 % ointment Apply 1 application to affected area three times daily. cyanocobalamin 1,000 mcg/mL 1 mL SQ monthly Norethindrone Acet-Ethinyl Est (LOESTRIN 1.5/30, 21,) 1.5-30 mg-mcg Take 1 tablet by mouth once daily. Take continuously. Do not take inactive pills ondansetron orally disintegrating (ZOFRAN ODT) 8 mg disintegrating tablet Take 1 tablet by mouth every 8 hours as needed for nausea/vomiting. Ybzvvsvs-Vxtv-Sfm-Folic Acid 18-0.4 mg tab Take 1 tablet by mouth once daily. fluconazole (DIFLUCAN) 100 mg tablet Take 100 mg by mouth once daily. Daily MAGNESIUM ORAL Take 1,500 mg by mouth daily at bedtime. Clindamycin Phosphate (CLEOCIN T) 1 % lotion Apply to affected area twice daily. On face as needed for rosacea Clobetasol Propionate (TEMOVATE) 0.05 % external solution Apply 1 application to affected area once daily as needed (arm and leg skin lesion). famotidine (PEPCID) 10 mg tablet Take 20 mg by mouth twice daily. docusate sodium (COLACE) 100 mg capsule Take 200 mg by mouth twice daily. Lactobacillus acidophilus (ACIDOPHILUS ORAL) Take by mouth. rizatriptan (MAXALT TAKE OFF WORKER) 5 mg disintegrating tablet Take 1 tablet by mouth as needed. For migraine., May repeat in 2 hours if needed diclofenac (VOLTAREN ARTHRITIS PAIN) 1 % topical gel Apply 2 g to affected area four times daily as needed (right thumb pain). CPAP New set up: AutoBiPAP Settings IPAP max 12 & EPAP min 4 and PS 4- 6 cm H2O, suitable mask per pt preference, chin strap, head gear, humidity, tubing, lifetime supplies. G47.33 JYOTHI CREON 36,000-114,000- 180,000 unit capsule TAKE 1 CAPSULE BY MOUTH PRIOR TO ALL MEALS AND SNACKS erythromycin ophthalmic ointment Use 1 application in both eyes daily at bedtime. Insulin Syringe-Needle U-100 (BD INSULIN SYRINGE ULTRA-FINE) 1 mL 31 gauge x 5/16 1 Each as directed. PEG 400-Propylene Glycol (SYSTANE HYDRATION PF) 0.4-0.3 % dpet Use 1 Each in both eyes four times daily. Back Brace misc 1 Device as directed. clobetasol (TEMOVATE) 0.05 % ointment Apply 1 application to affected area twice daily. For 2 weeks then once a day for 2 weeks (Patient taking differently: Apply 1 application to affected area as needed. For 2 weeks then once a day for 2 weeks) CARBOXYMETHYLCELLULOSE SODIUM (REFRESH TEARS OPHTHALMIC) Use 1 Drop in eyes four times daily. as needed cyclobenzaprine (FLEXERIL) 10 mg tablet Take 1 tablet by mouth three times a day as needed for muscle spasm. methylPREDNISolone (MEDROL, TOÑA,) 4 mg Dose-Pack Follow dosing instructions, take with food. [START ON 12/23/2023] amphetamine-dextroamphetamine XR (ADDERALL XR) 20 mg capsule Take 2 capsules by mouth once daily for 30 days. Do not start before December 23, 2023. [START ON 11/24/2023] amphetamine-dextroamphetamine XR (ADDERALL XR) 20 mg capsule Take 2 capsules by mouth once daily for 30 days. Do not start before November 24, 2023. [START ON 10/26/2023] amphetamine-dextroamphetamine XR (ADDERALL XR) 20 mg capsule Take 2 capsules by mouth once daily for 30 days. Do not start before October 26, 2023. No current facility-administered medications for this visit. ALLERGIES Allergen Reactions Adhesive Tape-Silic* Intolerance Burn Beta Blockers [Beta* Contraindication-Medical Surgical Avoid use of beta blockers while patient is on allergy immunotherapy [place] Hives Cymbalta [Duloxetin* Other: See Comments Sweating side effect Effexor [Venlafaxin* Other: See Comments Sweating side effect Imitrex [Sumatripta* Vomiting GI upset and vomiting Linzess [Linaclotid* Diarrhea Vomiting, diarrhea Marijuana (Cannabis) Intolerance GI distress, diarrhea with oral use -sublingual tincture Paxlovid (Eua) [Cj* Other: See Comments Restless legs, leg pain Seasonal Allergies Unknown Molds and grasses verified by skin testing Social History Tobacco Use Smoking status: Never Smokeless tobacco: Never Vaping Use Vaping Use: Never used Substance Use Topics Alcohol use: Yes Comment: 1 drink per month Drug use: Not Currently Types: Marijuana Comment: has medical marijuana script but gave GI sx ROS: See HPI PE: BP 120/80 Pulse 80 Temp (Src) 97 (Right Tympanic) Resp 16 Wt 189 lb (85.7kg) LMP 10/12/2023 Gen: A&OX3, NAD, non-toxic appearing HEENT: PERRLA, EOMs intact b/l, nares without drainage, pharynx without erythema, exudate, lesions, or drainage. Uvula midline. Neck: No LAD, no thyromegaly, no meningismus. CV: RRR, no murmur, normal s1s2 Lungs: CTA b/l, no wheezing Skin: No rashes, lesions, or wounds on exposed skin. Restricted ROM cervical and thoracic and lumbar spine No edema legs, normal peripheral pulses ASSESSMENT/PLAN: 1. Muscle spasms of both lower extremities - ICD9: 728.85, ICD10: M62.838 (primary diagnosis) rx refilled for prn use, if symptoms increase with pain, consider starting Medrol rx as prescribed, need for good sleep and stress mgmt - CYCLOBENZAPRINE 10 MG TABLET 2. Fibromyalgia - ICD9: 729.1, ICD10: M79.7 rx refilled for prn use, if symptoms increase with pain, consider starting Medrol rx as prescribed, need for good sleep and stress mgmt - METHYLPREDNISOLONE 4 MG TABLETS IN A DOSE PACK - DEXTROAMPHETAMINE-AMPHETAMINE ER 20 MG 24HR CAPSULE,EXTEND RELEASE - DEXTROAMPHETAMINE-AMPHETAMINE ER 20 MG 24HR CAPSULE,EXTEND RELEASE - DEXTROAMPHETAMINE-AMPHETAMINE ER 20 MG 24HR CAPSULE,EXTEND RELEASE - TSH BLD - T4 FREE/FREE THYROX - T3 FREE BLD - COMP METABOLIC PANEL - CBC + DIFF - C-REACTIVE PROTEIN (CRP) - SED RATE WESTERGREN 3. Chronic fatigue - ICD9: 780.79, ICD10: R53.82 rx refilled for prn use, if symptoms increase with pain, consider starting Medrol rx as prescribed, need for good sleep and stress mgmt - DEXTROAMPHETAMINE-AMPHETAMINE ER 20 MG 24HR CAPSULE,EXTEND RELEASE - DEXTROAMPHETAMINE-AMPHETAMINE ER 20 MG 24HR CAPSULE,EXTEND RELEASE - DEXTROAMPHETAMINE-AMPHETAMINE ER 20 MG 24HR CAPSULE,EXTEND RELEASE - TSH BLD - T4 FREE/FREE THYROX - T3 FREE BLD - COMP METABOLIC PANEL - CBC + DIFF - C-REACTIVE PROTEIN (CRP) - SED RATE WESTERGREN 4. Hyperlipidemia, mixed - ICD9: 272.2, ICD10: E78.2 - Control undetermined, due for labs - Counseled on healthy diet and regular exercise - LIPID PANEL BASIC 5. Vitamin D deficiency - ICD9: 268.9, ICD10: E55.9 Continue supplement 6. URIEL (generalized anxiety disorder) - ICD9: 300.02, ICD10: F41.1 Continue mgmt per psychiatrist 7. Multiple joint pain - ICD9: 719.49, ICD10: M25.50 rx refilled for prn use, if symptoms increase with pain, consider starting Medrol rx as prescribed, need for good sleep and stress mgmt 8. High serum triiodothyronine (T3) - ICD9: 790.99, ICD10: R79.89 Recheck labs today 9. Vitamin B12 deficiency - ICD9: 266.2, ICD10: E53.8 Continue supplement Victor Manuel Tyler DO PDMP website checked and validated. All prescriptions have been APPROPRIATELY filled. No suspicious activity was identified. 10/12/2023 by Victor Manuel Tyler DO Return if no improvement. Follow up with Victor Manuel Tyler DO. To ER if develops chest pain, shortness of breath. Discussed risks, benefits, alternatives, and potential side effects of medications. Patient/Guardian expressed understanding and agreed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 affected area four times daily as needed (right thumb pain). CPAP New set up: AutoBiPAP Settings IPAP max 12 & EPAP min 4 and PS 4- 6 cm H2O, suitable mask per pt preference, chin strap, head gear, humidity, tubing, lifetime supplies. G47.33 JYOTHI CREON 36,000-114,000- 180,000 unit capsule TAKE 1 CAPSULE BY MOUTH PRIOR TO ALL MEALS AND SNACKS erythromycin ophthalmic ointment Use 1 application in both eyes daily at bedtime. Insulin Syringe-Needle U-100 (BD INSULIN SYRINGE ULTRA-FINE) 1 mL 31 gauge x 5/16 1 Each as directed. PEG 400-Propylene Glycol (SYSTANE HYDRATION PF) 0.4-0.3 % dpet Use 1 Each in both eyes four times daily. Back Brace misc 1 Device as directed. clobetasol (TEMOVATE) 0.05 % ointment Apply 1 application to affected area twice daily. For 2 weeks then once a day for 2 weeks (Patient taking differently: Apply 1 application to affected area as needed. For 2 weeks then once a day for 2 weeks) CARBOXYMETHYLCELLULOSE SODIUM (REFRESH TEARS OPHTHALMIC) Use 1 Drop in eyes four times daily. as needed [START ON 09/17/2023] amphetamine-dextroamphetamine XR (ADDERALL XR) 20 mg capsule Take 2 capsules by mouth once daily for 30 days. Do not start before September 17, 2023. topiramate (TOPAMAX) 25 mg tablet Take 1 tablet by mouth daily at bedtime. TAB-A-YESSI MULTIVITAMIN W-IRON 15 mg iron- 400 mcg tab Take 1 tablet by mouth once daily. Cholecalciferol, Vitamin D3, 125 mcg (5,000 unit) cap Take 1 capsule by mouth once daily. montelukast (SINGULAIR) 10 mg tablet Take 1 tablet by mouth daily at bedtime. loratadine-pseudoephedrine ER (CLARITIN-D 12 HOUR) 5-120 mg per tablet Take 1 tablet by mouth twice daily. [START ON 08/19/2023] amphetamine-dextroamphetamine XR (ADDERALL XR) 20 mg capsule Take 2 capsules by mouth once daily for 30 days. Do not start before August 19, 2023. [START ON 07/22/2023] amphetamine-dextroamphetamine XR (ADDERALL XR) 20 mg capsule Take 2 capsules by mouth once daily for 30 days. Do not start before July 22, 2023. methylPREDNISolone (MEDROL, TOÑA,) 4 mg Dose-Pack Follow dosing instructions, take with food. Allergies: ALLERGIES Allergen Reactions Adhesive Tape-Silic* Intolerance Burn Beta Blockers [Beta* Contraindication-Medical Surgical Avoid use of beta blockers while patient is on allergy immunotherapy [place] Hives Cymbalta [Duloxetin* Other: See Comments Sweating side effect Effexor [Venlafaxin* Other: See Comments Sweating side effect Imitrex [Sumatripta* Vomiting GI upset and vomiting Linzess [Linaclotid* Diarrhea Vomiting, diarrhea Marijuana (Cannabis) Intolerance GI distress, diarrhea with oral use -sublingual tincture Paxlovid (Eua) [Cj* Other: See Comments Restless legs, leg pain Seasonal Allergies Unknown Molds and grasses verified by skin testing ROS: See HPI PE: 07/12/23 0942 BP: 110/80 Pulse: 88 Resp: 16 Temp: 36.4 C (97.5 F) TempSrc: Right Tympanic Weight: 83 kg (183 lb) Gen: A&O, NAD, non-toxic appearing, Pleasant, cooperative HEENT: NT/AC, PERRLA, watery drainage from left >right eye, EOMs intact b/l, nares clear and patent b/l, pharynx without erythema, exudate or lesions. Uvula midline. MMM, EACs without erythema or debris. TMs pearly leong with intact landmarks b/l. Neck: supple, No cervical LAD, no thyromegaly, no carotid bruits CV: RRR, normal S1 and S2, no murmurs, no gallops, no rubs, Pulses 2+ and symmetric in UE and LE b/l Lungs: normal respiratory effort, CTA b/l, no wheezing or rhonchi or rales Abd: soft, NT, ND, +BS, no hepatosplenomegaly MS: reduced ROM of spine and neck, muscle tension spinal present, no bony TTP Neuro: CN II-XII intact b/l, strength 5/5 b/l UE and LE, DTRs 2/4 UE and LE, sensation intact. Skin: warm, dry, intact, No rashes or lesions on exposed skin. ASSESSMENT/PLAN: 1. Fibromyalgia - ICD9: 729.1, ICD10: M79.7 (primary diagnosis) Recommend follow up with massage therapy and chiropractic or accupuncture to help her manage her symptoms as well as stretches and routine exercise as d/w her today - DEXTROAMPHETAMINE-AMPHETAMINE ER 20 MG 24HR CAPSULE,EXTEND RELEASE - TOPIRAMATE 25 MG TABLET - DEXTROAMPHETAMINE-AMPHETAMINE ER 20 MG 24HR CAPSULE,EXTEND RELEASE - DEXTROAMPHETAMINE-AMPHETAMINE ER 20 MG 24HR CAPSULE,EXTEND RELEASE - METHYLPREDNISOLONE 4 MG TABLETS IN A DOSE PACK 2. Chronic fatigue - ICD9: 780.79, ICD10: R53.82 Recommend follow up with massage therapy and chiropractic or accupuncture to help her manage her symptoms as well as stretches and routine exercise as d/w her today rx refilled. - DEXTROAMPHETAMINE-AMPHETAMINE ER 20 MG 24HR CAPSULE,EXTEND RELEASE - DEXTROAMPHETAMINE-AMPHETAMINE ER 20 MG 24HR CAPSULE,EXTEND RELEASE - DEXTROAMPHETAMINE-AMPHETAMINE ER 20 MG 24HR CAPSULE,EXTEND RELEASE 3. Vitamin D deficiency - ICD9: 268.9, ICD10: E55.9 Continue supplement - CHOLECALCIFEROL (VITAMIN D3) 125 MCG (5,000 UNIT) CAPSULE 4. Seasonal allergic rhinitis due to other allergic trigger - ICD9: 477.8, ICD10: J30.89 Continue rx prn, f/u with [employer] T[employer] if interested in immunotherapy again - CLARITIN-D 12 HOUR 5 MG-120 MG TABLET,EXTENDED RELEASE 5. Foot pain, bilateral - ICD9: 729.5, ICD10: M79.671, M79.672 - f/u with Linux Programmer, agree with need for good supportive shoes. 6. URIEL (generalized anxiety disorder) - ICD9: 300.02, ICD10: F41.1 - chronic, situational stressors with her unstable relationship with her boyfriend. Needs to be taking with therapist 7. Dysmetabolic syndrome - ICD9: 277.7, ICD10: E88.81 See above, weight is decreasing 8. Multiple joint pain - ICD9: 719.49, ICD10: M25.50 - see above 9. Overweight with body mass index (BMI) of 29 to 29.9 in adult - ICD9: 278.02, V85.25, ICD10: E66.3, Z68.29 Stable - Behavioral intervention, - PSMF, and - Eat well program Victor Manuel Tyler DO PDMP website checked and validated. All prescriptions have been APPROPRIATELY filled. No suspicious activity was identified. 07/12/2023 by Victor Manuel Tyler DO To ER if develops chest pain, shortness of breath, or severe worsening of symptoms. Discussed risks, benefits, alternatives, and potential side effects of medications. Patient expressed understanding and agreed with the plan. Victor Manuel Tyler DO [address] [place] [address] documented in this encounter [facility] 07-04-2023 Note HNO ID: [id number] Author: Padmini Valenzuela RT(R) Service: ? Author Type: Technologist Type: Progress Notes Filed: 07/04/2023 8:11 AM Note Text: Radiology Service Progress Note PATIENT NAME: Sharri Menon DATE OF SERVICE: July 04, 2023 TIME: 8:06 AM PATIENT IDENTITY VERIFICATION COMPLETED USING TWO (2) IDENTIFIERS: Name and Date of confirmed by patient verbally. FALL SCREENING: Has the patient had 2 falls in the last year or 1 fall with injury or currently using an Ambulatory Assistive Device (Walker, Cane, Wheelchair, Crutches, etc.)? No PATIENT GENDER DATA: Female. status: : No status: NO. PATIENT RELEVANT IMPLANT DATA REVIEWED: Yes RADIOLOGY DEPARTMENT: MR; Exam(s) Completed: Spine: Lumbar spine PERIPHERAL IV DATA: Not applicable SIGNED BY: RT Aidan(R) July 04, 2023 8:06 AM [facility] 07-04-2023 History of Present illness Narrative Radiology Service Progress Note PATIENT NAME: Sharri Menon DATE OF SERVICE: July 04, 2023 TIME: 8:06 AM PATIENT IDENTITY VERIFICATION COMPLETED USING TWO (2) IDENTIFIERS: Name and Date of confirmed by patient verbally. FALL SCREENING: Has the patient had 2 falls in the last year or 1 fall with injury or currently using an Ambulatory Assistive Device (Walker, Cane, Wheelchair, Crutches, etc.)? No PATIENT GENDER DATA: Female. status: : No status: NO. PATIENT RELEVANT IMPLANT DATA REVIEWED: Yes RADIOLOGY DEPARTMENT: MR; Exam(s) Completed: Spine: Lumbar spine PERIPHERAL IV DATA: Not applicable SIGNED BY: RT Aidan(Kapil) July 04, 2023 8:06 AM documented in this encounter [facility] 06-20-2023 Note HNO ID: [id number] Author: Ivett Quintana APRN.WAREHOUSE OPERATOR Service: ? Author Type: Nurse Practitioner Type: Progress Notes Filed: 06/20/2023 3:12 PM Note Text: Chief Complaint Patient presents with: Toe Injury: Kicked a door stoop by accident carrying things a week ago hurt second toe on rt foot HPI Sharri Menon is a 37 year old female who presents here today for Above Complaints. Sharri is an established patient of Dr. Jayson DO and myself. Concerns today... Toe pain -- 2nd toe of R foot was stumped about 1 week ago on cement stairs d/t tripping while carrying a box. Now c/o discomfort around the nail and drainage x2 episodes of creamy white/yellow pus. No hx of ingrown toe nails. Able to walk without difficulty. Able to bear weight. Able to wiggle toes normally. Area around toe is swollen and red. Sees Dr. Testrake routinely. Past medical history, appointments, medications, allergies reviewed. Previous Medical History PAST MEDICAL HISTORY Diagnosis Date Abnormal biliary HIDA scan 04/22/2016 Acne vulgaris: Inflammatory Grade II to III 05/25/2014 Acute and chronic cholecystitis 05/13/2016 Adjustment disorder with mixed anxiety and depressed mood 11/28/2014 Ankle weakness 07/17/2015 Bilateral low back pain with sciatica 01/26/2016 Calculus, tonsil 12/17/2013 Chronic fatigue Depression, major, recurrent, mild (HCC) 08/14/2015 Deviated nasal septum s/p septoplasty Dry eye syndrome 12/27/2016 Eczematous dermatitis 05/22/2014 Exposure keratopathy 01/01/2016 Fatigue 02/05/2015 Female stress incontinence 10/08/2016 Fibromyalgia Flushing reaction 04/04/2014 GERD (gastroesophageal reflux disease) 06/17/2016 Hemorrhoids 09/25/2014 Hiatal hernia History of Fagan's palsy IBS (irritable bowel syndrome) 2006 had EGD, colonoscopy Insomnia 10/23/2014 Irregular periods 10/23/2013 Left ankle pain 07/17/2015 Migraines 12/24/2013 Milial cyst 05/22/2014 Nasal septal deviation 01/22/2015 Obesity (BMI 30-39.9) 10/23/2013 JYOTHI (obstructive sleep apnea) ahi 16 52r 01/01/2015 Photodermatitis 04/04/2014 Rosacea 04/04/2014 S/P LASIK (laser assisted in situ keratomileusis) of both eyes - Both Eyes 04/2014 Snoring 11/05/2015 Steroid acne 04/04/2014 Urinary leakage 04/06/2016 Vitreous floaters of both eyes 12/27/2016 Weakness of both lower extremities 01/26/2016 Xerosis cutis 05/22/2014 Previous Surgical History PAST SURGICAL HISTORY Procedure Laterality Date COLONOSCOPY 2006 COLONOSCOPY FLX DX W/COLLJ SPEC WHEN PFRMD 07/01/2016 CYSTOSCOPY with hydrodistention for IC EGD 2006 ESOPHAGOGASTRODUODENOSCOPY TRANSORAL DIAGNOSTIC 04/21/2016 L'SCOPE DX W/WO BRUSHINGS/WASHINGS 2006 LAPAROSCOPY DIAGNOSTIC 05/06/2015 [place] LAPS SURG CHOLECYSTECTOMY W/CHOLANGIOGRAPHY 05/04/2016 Normal IOC PAST SURGICAL HISTORY OF 03/2019 nasal turbinate removed REVISE MEDIAN N/CARPAL TUNNEL SURG Right 04/2022 SEPTOPLASTY 02/17/2015 Family History FAMILY HISTORY Problem Relation Age of Onset Hypertension Father Lipids Father Cataract Father Hypertension Mother Hyperlipidemia Mother other (drug addiction) Sister Headache Sister Cataract Maternal Grandmother Heart Maternal Grandfather Thyroid Paternal Grandmother Cataract Paternal Grandmother Patient Allergies ALLERGIES Allergen Reactions Adhesive Tape-Silic* Intolerance Burn Beta Blockers [Beta* Contraindication-Medical Surgical Avoid use of beta blockers while patient is on allergy immunotherapy [place] Hives Cymbalta [Duloxetin* Other: See Comments Sweating side effect Effexor [Venlafaxin* Other: See Comments Sweating side effect Imitrex [Sumatripta* Vomiting GI upset and vomiting Linzess [Linaclotid* Diarrhea Vomiting, diarrhea Marijuana (Cannabis) Intolerance GI distress, diarrhea with oral use -sublingual tincture Paxlovid (Eua) [Cj* Other: See Comments Restless legs, leg pain Seasonal Allergies Unknown Molds and grasses verified by skin testing Current Medications Current Outpatient Medications on File Prior to Visit Medication Sig amphetamine-dextroamphetamine XR (ADDERALL XR) 20 mg biphasic capsule Take 2 capsules by mouth once daily for 30 days. fluorometholone (FML LIQUID FILM) 0.1 % ophthalmic suspension Use 1 Drop in both eyes twice daily. lamoTRIgine (LAMICTAL) 200 mg tablet Take 0.5 tablets by mouth every morning AND 1 tablet daily at bedtime. traZODone (DESYREL) 100 mg tablet Take 2 tablets at bedtime TAB-A-YESSI MULTIVITAMIN W-IRON 15 mg iron- 400 mcg tab Take 1 tablet by mouth once daily. lifitegrast (XIIDRA) 5 % ophthalmic drops Use 1 Drop in both eyes twice daily. topiramate (TOPAMAX) 25 mg tablet Take 1 tablet by mouth daily at bedtime. mupirocin (BACTROBAN) 2 % ointment Apply 1 application to affected area three times daily. cyanocobalamin 1,000 mcg/mL 1 mL SQ monthly Cholecalciferol, Vitamin D3, 125 mcg (5,000 unit) cap Fransico (more content not included)... [facility] 06-20-2023 History of Present illness Narrative Chief Complaint Patient presents with: Toe Injury: Kicked a door stoop by accident carrying things a week ago hurt second toe on rt foot HPI Sharri Menon is a 37 year old female who presents here today for Above Complaints. Sharri is an established patient of Dr. Tyler, and myself. Concerns today... Toe pain -- 2nd toe of R foot was stumped about 1 week ago on cement stairs d/t tripping while carrying a box. Now c/o discomfort around the nail and drainage x2 episodes of creamy white/yellow pus. No hx of ingrown toe nails. Able to walk without difficulty. Able to bear weight. Able to wiggle toes normally. Area around toe is swollen and red. Sees Dr. Alexandre routinely. Past medical history, appointments, medications, allergies reviewed. Previous Medical History PAST MEDICAL HISTORY Diagnosis Date Abnormal biliary HIDA scan 04/22/2016 Acne vulgaris: Inflammatory Grade II to III 05/25/2014 Acute and chronic cholecystitis 05/13/2016 Adjustment disorder with mixed anxiety and depressed mood 11/28/2014 Ankle weakness 07/17/2015 Bilateral low back pain with sciatica 01/26/2016 Calculus, tonsil 12/17/2013 Chronic fatigue Depression, major, recurrent, mild (HCC) 08/14/2015 Deviated nasal septum s/p septoplasty Dry eye syndrome 12/27/2016 Eczematous dermatitis 05/22/2014 Exposure keratopathy 01/01/2016 Fatigue 02/05/2015 Female stress incontinence 10/08/2016 Fibromyalgia Flushing reaction 04/04/2014 GERD (gastroesophageal reflux disease) 06/17/2016 Hemorrhoids 09/25/2014 Hiatal hernia History of Fagan's palsy IBS (irritable bowel syndrome) 2006 had EGD, colonoscopy Insomnia 10/23/2014 Irregular periods 10/23/2013 Left ankle pain 07/17/2015 Migraines 12/24/2013 Milial cyst 05/22/2014 Nasal septal deviation 01/22/2015 Obesity (BMI 30-39.9) 10/23/2013 JYOTHI (obstructive sleep apnea) ahi 16 52r 01/01/2015 Photodermatitis 04/04/2014 Rosacea 04/04/2014 S/P LASIK (laser assisted in situ keratomileusis) of both eyes - Both Eyes 04/2014 Snoring 11/05/2015 Steroid acne 04/04/2014 Urinary leakage 04/06/2016 Vitreous floaters of both eyes 12/27/2016 Weakness of both lower extremities 01/26/2016 Xerosis cutis 05/22/2014 Previous Surgical History PAST SURGICAL HISTORY Procedure Laterality Date COLONOSCOPY 2006 COLONOSCOPY FLX DX W/COLLJ SPEC WHEN PFRMD 07/01/2016 CYSTOSCOPY with hydrodistention for IC EGD 2006 ESOPHAGOGASTRODUODENOSCOPY TRANSORAL DIAGNOSTIC 04/21/2016 L'SCOPE DX W/WO BRUSHINGS/WASHINGS 2006 LAPAROSCOPY DIAGNOSTIC 05/06/2015 [place] LAPS SURG CHOLECYSTECTOMY W/CHOLANGIOGRAPHY 05/04/2016 Normal IOC PAST SURGICAL HISTORY OF 03/2019 nasal turbinate removed REVISE MEDIAN N/CARPAL TUNNEL SURG Right 04/2022 SEPTOPLASTY 02/17/2015 Family History FAMILY HISTORY Problem Relation Age of Onset Hypertension Father Lipids Father Cataract Father Hypertension Mother Hyperlipidemia Mother other (drug addiction) Sister Headache Sister Cataract Maternal Grandmother Heart Maternal Grandfather Thyroid Paternal Grandmother Cataract Paternal Grandmother Patient Allergies ALLERGIES Allergen Reactions Adhesive Tape-Silic* Intolerance Burn Beta Blockers [Beta* Contraindication-Medical Surgical Avoid use of beta blockers while patient is on allergy immunotherapy [place] Hives Cymbalta [Duloxetin* Other: See Comments Sweating side effect Effexor [Venlafaxin* Other: See Comments Sweating side effect Imitrex [Sumatripta* Vomiting GI upset and vomiting Linzess [Linaclotid* Diarrhea Vomiting, diarrhea Marijuana (Cannabis) Intolerance GI distress, diarrhea with oral use -sublingual tincture Paxlovid (Eua) [Cj* Other: See Comments Restless legs, leg pain Seasonal Allergies Unknown Molds and grasses verified by skin testing Current Medications Current Outpatient Medications on File Prior to Visit Medication Sig amphetamine-dextroamphetamine XR (ADDERALL XR) 20 mg biphasic capsule Take 2 capsules by mouth once daily for 30 days. fluorometholone (FML LIQUID FILM) 0.1 % ophthalmic suspension Use 1 Drop in both eyes twice daily. lamoTRIgine (LAMICTAL) 200 mg tablet Take 0.5 tablets by mouth every morning AND 1 tablet daily at bedtime. traZODone (DESYREL) 100 mg tablet Take 2 tablets at bedtime TAB-A-YESSI MULTIVITAMIN W-IRON 15 mg iron- 400 mcg tab Take 1 tablet by mouth once daily. lifitegrast (XIIDRA) 5 % ophthalmic drops Use 1 Drop in both eyes twice daily. topiramate (TOPAMAX) 25 mg tablet Take 1 tablet by mouth daily at bedtime. mupirocin (BACTROBAN) 2 % ointment Apply 1 application to affected area three times daily. cyanocobalamin 1,000 mcg/mL 1 mL SQ monthly Cholecalciferol, Vitamin D3, 125 mcg (5,000 unit) cap Take 1 capsule by mouth once daily. pantoprazole DR (PROTONIX) 40 mg tablet Take 1 tablet by mouth daily before breakfast. Take on empty stomach, 1/2 hr before meal. montelukast (SINGULAIR) 10 mg tablet Take 1 tablet by mouth daily at bedtime. Norethindrone Acet-Ethinyl Est (LOESTRIN 1.5, ,) 1.5-30 mg-mcg Take 1 tablet by mouth once daily. Take continuously. Do not take inactive pills ondansetron orally disintegrating (ZOFRAN ODT) 8 mg disintegrating tablet Take 1 tablet by mouth every 8 hours as needed for nausea/vomiting. Sdwtuqrt-Gpcv-Zhl-Folic Acid 18-0.4 mg tab Take 1 tablet by mouth once daily. fluconazole (DIFLUCAN) 100 mg tablet Take 100 mg by mouth once daily. Daily MAGNESIUM ORAL Take 1,500 mg by mouth daily at bedtime. Clindamycin Phosphate (CLEOCIN T) 1 % lotion Apply to affected area twice daily. On face as needed for rosacea Clobetasol Propionate (TEMOVATE) 0.05 % external solution Apply 1 application to affected area once daily as needed (arm and leg skin lesion). cyclobenzaprine (FLEXERIL) 10 mg tablet Take 1 tablet by mouth three times daily as needed for muscle spasm. loratadine-pseudoephedrine ER (CLARITIN-D 12 HOUR) 5-120 mg per tablet Take 1 tablet by mouth twice daily. (Patient taking differently: Take 1 tablet by mouth as needed.) famotidine (PEPCID) 10 mg tablet Take 20 mg by mouth twice daily. docusate sodium (COLACE) 100 mg capsule Take 200 mg by mouth twice daily. Lactobacillus acidophilus (ACIDOPHILUS ORAL) Take by mouth. rizatriptan (MAXALT TAKE OFF WORKER) 5 mg disintegrating tablet Take 1 tablet by mouth as needed. For migraine., May repeat in 2 hours if needed diclofenac (VOLTAREN ARTHRITIS PAIN) 1 % topical gel Apply 2 g to affected area four times daily as needed (right thumb pain). CPAP New set up: AutoBiPAP Settings IPAP max 12 & EPAP min 4 and PS 4- 6 cm H2O, suitable mask per pt preference, chin strap, head gear, humidity, tubing, lifetime supplies. G47.33 JYOTHI CREON 36,000-114,000- 180,000 unit capsule TAKE 1 CAPSULE BY MOUTH PRIOR TO ALL MEALS AND SNACKS erythromycin ophthalmic ointment Use 1 application in both eyes daily at bedtime. Insulin Syringe-Needle U-100 (BD INSULIN SYRINGE ULTRA-FINE) 1 mL 31 gauge x 5/16 1 Each as directed. PEG 400-Propylene Glycol (SYSTANE HYDRATION PF) 0.4-0.3 % dpet Use 1 Each in both eyes four times daily. Back Brace misc 1 Device as directed. clobetasol (TEMOVATE) 0.05 % ointment Apply 1 application to affected area twice daily. For 2 weeks then once a day for 2 weeks (Patient taking differently: Apply 1 application to affected area as needed. For 2 weeks then once a day for 2 weeks) CARBOXYMETHYLCELLULOSE SODIUM (REFRESH TEARS OPHTHALMIC) Use 1 Drop in eyes four times daily. as needed No current facility-administered medications on file prior to visit. Social History Social History Tobacco Use Smoking status: Never Smokeless tobacco: Never Vaping Use Vaping Use: Never used Substance Use Topics Alcohol use: Yes Comment: 1 drink per month Drug use: Not Currently Types: Marijuana Comment: has medical marijuana script but gave GI sx REVIEW OF SYSTEMS: as above Reviewed relevant PMHx, PSHx, Social Hx, current medications and allergies. Review of Symptoms REVIEW OF SYSTEMS See HPI. EXAM: BP 104/62 (BP Site: Left Arm, BP Position: Sitting, BP Cuff Size: Large Adult) Pulse 72 Resp 14 Wt 82.5 kg (181 lb 12.8 oz) LMP 04/28/2022 (Approximate) BMI 29.79 kg/m General Appearance: Well appearing, alert, in no acute distress, well-hydrated, well nourished.. Extremities: Positive findings: R foot, 2nd digit with R sided swelling and erythema around nailbed. No drainage noted. No bruising. Health Maintenance List HIV SCREENING Never done HEPATITIS B(3 of 3 - 19+ 3-dose series) due on 07/07/2023 COVID-19 VACCINE(1) due on 11/24/2023 INFLUENZA(1) due on 07/15/2023 PAP TESTING due on 02/03/2025 HPV TESTING due on 02/03/2025 DTAP,TDAP,TD(3 - Td or Tdap) due on 04/25/2029 DEPRESSION ASSESSMENT Completed HEPATITIS C SCREENING Completed HPV VACCINE Aged Out ASSESSMENT/PLAN: 1. Ingrown nail of fifth toe of right foot - ICD9: 703.0, ICD10: L60.0 Concern for infection vs irritation Doxcycyline BID x 5 days. Soak foot in warm, soapy water or epsom salt solution. Wear comfortable foot wear. OTC tylenol or motrin as needed. If no improvement, follow-up with Dr. Alexandre for possible removal of part of the nail. - DOXYCYCLINE HYCLATE 100 MG TABLET RTO if no improvement in 5 days. Prescription instructions reviewed with patient as applicable. Potential red flag symptoms discussed with the patient. Reviewed appropriate action plan to take if red flag symptoms occur. Patient agreeable to treatment plan. Ivett Strange APRN.CNP [address] [place] [address] documented in this encounter [facility] 05-10-2023 Note HNO ID: [id number] Author: Yue Alexandre Service: ? Author Type: Physician Type: Progress Notes Filed: 05/10/2023 12:00 PM Note Text: FOLLOW UP PODIATRIC OFFICE VISIT Chief Complaint: This 37 year old who presents for follow up:numbness and burning in both lower extremity Patient presents to clinic for follow-up numbness and burning of b/l lower extremity She continues to experience burning in both lower extremity. She has tried the powerstep inserts and found the inserts to be uncomfortable. She has purchased new shoes (asics) and has found that the new shoes do help but when she is stationary, she still experiences tingling in her toes. She does have emg which was negative. She was on lyrica in the past but she did not tolerate the side effects. Patient does see pain management in [place]. PAIN EVALUATION 05/10/2023 0939 Pain Level: 0 2/10 when on her feet Pain Location: Other: See Comment bilateral feet Description: Aching Frequency: Intermittent Intervention/Comfort measure: Relaxation;Reposition Hemoglobin A1C Date Value Ref Range Status 07/14/2022 5.0 4.3 - 5.6 % Final Comment: [place] [employer] guidelines indicate that patients with HgbA1c in the range 5.7-6.4% are at increased risk for development of diabetes, and intervention by lifestyle modification may be beneficial. HgbA1c greater or equal to 6.5% is considered diagnostic of diabetes. PCP: Victor Manuel Tyler DO PAST MEDICAL HISTORY Diagnosis Date Abnormal biliary HIDA scan 04/22/2016 Acne vulgaris: Inflammatory Grade II to III 05/25/2014 Acute and chronic cholecystitis 05/13/2016 Adjustment disorder with mixed anxiety and depressed mood 11/28/2014 Ankle weakness 07/17/2015 Bilateral low back pain with sciatica 01/26/2016 Calculus, tonsil 12/17/2013 Chronic fatigue Depression, major, recurrent, mild (HCC) 08/14/2015 Deviated nasal septum s/p septoplasty Dry eye syndrome 12/27/2016 Eczematous dermatitis 05/22/2014 Exposure keratopathy 01/01/2016 Fatigue 02/05/2015 Female stress incontinence 10/08/2016 Fibromyalgia Flushing reaction 04/04/2014 GERD (gastroesophageal reflux disease) 06/17/2016 Hemorrhoids 09/25/2014 Hiatal hernia History of Fagan's palsy IBS (irritable bowel syndrome) 2006 had EGD, colonoscopy Insomnia 10/23/2014 Irregular periods 10/23/2013 Left ankle pain 07/17/2015 Migraines 12/24/2013 Milial cyst 05/22/2014 Nasal septal deviation 01/22/2015 Obesity (BMI 30-39.9) 10/23/2013 JYOTHI (obstructive sleep apnea) ahi 16 52r 01/01/2015 Photodermatitis 04/04/2014 Rosacea 04/04/2014 S/P LASIK (laser assisted in situ keratomileusis) of both eyes - Both Eyes 04/2014 Snoring 11/05/2015 Steroid acne 04/04/2014 Urinary leakage 04/06/2016 Vitreous floaters of both eyes 12/27/2016 Weakness of both lower extremities 01/26/2016 Xerosis cutis 05/22/2014 Current Outpatient Medications Medication Sig fluorometholone (FML LIQUID FILM) 0.1 % ophthalmic suspension Use 1 Drop in both eyes twice daily. amphetamine-dextroamphetamine XR (ADDERALL XR) 20 mg 24 hr capsule Take 2 capsules by mouth once daily for 30 days. Do not start before April 21, 2023. busPIRone HCl 30 mg tablet Take 1 tablet by mouth daily at bedtime. celecoxib (CELEBREX) 100 mg capsule Take 2 capsules by mouth twice daily. lamoTRIgine (LAMICTAL) 200 mg tablet Take 0.5 tablets by mouth every morning AND 1 tablet daily at bedtime. traZODone (DESYREL) 100 mg tablet Take 2 tablets at bedtime TAB-A-YESSI MULTIVITAMIN W-IRON 15 mg iron- 400 mcg tab Take 1 tablet by mouth once daily. lifitegrast (XIIDRA) 5 % ophthalmic drops Use 1 Drop in both eyes twice daily. topiramate (TOPAMAX) 25 mg tablet Take 1 tablet by mouth daily at bedtime. mupirocin (BACTROBAN) 2 % ointment Apply 1 application to affected area three times daily. cyanocobalamin 1,000 mcg/mL 1 mL SQ monthly Cholecalciferol, Vitamin D3, 125 mcg (5,000 unit) cap Take 1 capsule by mouth once daily. pantoprazole DR (PROTONIX) 40 mg tablet Take 1 tablet by mouth daily before breakfast. Take on empty stomach, 1/2 hr before meal. montelukast (SINGULAIR) 10 mg tablet Take 1 tablet by mouth daily at bedtime. Norethindrone Acet-Ethinyl Est (LOESTRIN 1.,) 1.5-30 mg-mcg Take 1 tablet by mouth once daily. Take continuously. Do not take inactive pills ondansetron orally disintegrating (ZOFRAN ODT) 8 mg disintegrating tablet Take 1 tablet by mouth every 8 hours as needed for nausea/vomiting. Acnesbmm-Xglm-Mqh-Folic Acid 18-0.4 mg tab Take 1 tablet by mouth once daily. fluconazole (DIFLUCAN) 100 mg tablet Take 100 mg by mouth once daily. Daily MAGNESIUM ORAL Take 1,500 mg by mouth daily at bedtime. Clindamycin Phosphate (CLEOCIN T) 1 % lotion Apply to affected area twice daily. On face as needed for rosacea Clobetasol Propionate (TEMOVATE) 0.05 % external solution Apply 1 application to affected (more content not included)... [facility] 05-10-2023 Note HNO ID: [id number] Author: Breonna Perez RN Service: ? Author Type: Registered Nurse Type: Progress Notes Filed: 05/10/2023 12:00 PM Note Text: AMB ROOMING INTAKE FLOWSHEET DATA Pain Pain Level: 0 (2/10 when on her feet) Pain Location: Other: See Comment (bilateral feet) Description: Aching Frequency: Intermittent Intervention/Comfort measure: Relaxation, Reposition Patient presents with: Left Foot - Established Patient, Follow Up, Pain Right Foot - Established Patient, Follow Up, Pain Patient presents for follow up of results EMG and X-Rays. Patient states that she has been trying to use the Powerstep Original inserts, but she states that after about a half hour they make her feet hurt. She did get a pair of Asic shoes and they help when walking, but she states when she stands still her toes get tingly. [facility] 05-10-2023 History of Present illness Narrative Images from the original note were not included. FOLLOW UP PODIATRIC OFFICE VISIT Chief Complaint: This 37 year old who presents for follow up:numbness and burning in both lower extremity Patient presents to clinic for follow-up numbness and burning of b/l lower extremity She continues to experience burning in both lower extremity. She has tried the powerstep inserts and found the inserts to be uncomfortable. She has purchased new shoes (asics) and has found that the new shoes do help but when she is stationary, she still experiences tingling in her toes. She does have emg which was negative. She was on lyrica in the past but she did not tolerate the side effects. Patient does see pain management in [place]. PAIN EVALUATION 05/10/2023 0939 Pain Level: 0 2/10 when on her feet Pain Location: Other: See Comment bilateral feet Description: Aching Frequency: Intermittent Intervention/Comfort measure: Relaxation;Reposition Hemoglobin A1C Date Value Ref Range Status 07/14/2022 5.0 4.3 - 5.6 % Final Comment: [place] [employer] guidelines indicate that patients with HgbA1c in the range 5.7-6.4% are at increased risk for development of diabetes, and intervention by lifestyle modification may be beneficial. HgbA1c greater or equal to 6.5% is considered diagnostic of diabetes. PCP: Victor Manuel Tyler DO PAST MEDICAL HISTORY Diagnosis Date Abnormal biliary HIDA scan 04/22/2016 Acne vulgaris: Inflammatory Grade II to III 05/25/2014 Acute and chronic cholecystitis 05/13/2016 Adjustment disorder with mixed anxiety and depressed mood 11/28/2014 Ankle weakness 07/17/2015 Bilateral low back pain with sciatica 01/26/2016 Calculus, tonsil 12/17/2013 Chronic fatigue Depression, major, recurrent, mild (HCC) 08/14/2015 Deviated nasal septum s/p septoplasty Dry eye syndrome 12/27/2016 Eczematous dermatitis 05/22/2014 Exposure keratopathy 01/01/2016 Fatigue 02/05/2015 Female stress incontinence 10/08/2016 Fibromyalgia Flushing reaction 04/04/2014 GERD (gastroesophageal reflux disease) 06/17/2016 Hemorrhoids 09/25/2014 Hiatal hernia History of Fagan's palsy IBS (irritable bowel syndrome) 2006 had EGD, colonoscopy Insomnia 10/23/2014 Irregular periods 10/23/2013 Left ankle pain 07/17/2015 Migraines 12/24/2013 Milial cyst 05/22/2014 Nasal septal deviation 01/22/2015 Obesity (BMI 30-39.9) 10/23/2013 JYOTHI (obstructive sleep apnea) ahi 16 52r 01/01/2015 Photodermatitis 04/04/2014 Rosacea 04/04/2014 S/P LASIK (laser assisted in situ keratomileusis) of both eyes - Both Eyes 04/2014 Snoring 11/05/2015 Steroid acne 04/04/2014 Urinary leakage 04/06/2016 Vitreous floaters of both eyes 12/27/2016 Weakness of both lower extremities 01/26/2016 Xerosis cutis 05/22/2014 Current Outpatient Medications Medication Sig fluorometholone (FML LIQUID FILM) 0.1 % ophthalmic suspension Use 1 Drop in both eyes twice daily. amphetamine-dextroamphetamine XR (ADDERALL XR) 20 mg 24 hr capsule Take 2 capsules by mouth once daily for 30 days. Do not start before April 21, 2023. busPIRone HCl 30 mg tablet Take 1 tablet by mouth daily at bedtime. celecoxib (CELEBREX) 100 mg capsule Take 2 capsules by mouth twice daily. lamoTRIgine (LAMICTAL) 200 mg tablet Take 0.5 tablets by mouth every morning AND 1 tablet daily at bedtime. traZODone (DESYREL) 100 mg tablet Take 2 tablets at bedtime TAB-A-YESSI MULTIVITAMIN W-IRON 15 mg iron- 400 mcg tab Take 1 tablet by mouth once daily. lifitegrast (XIIDRA) 5 % ophthalmic drops Use 1 Drop in both eyes twice daily. topiramate (TOPAMAX) 25 mg tablet Take 1 tablet by mouth daily at bedtime. mupirocin (BACTROBAN) 2 % ointment Apply 1 application to affected area three times daily. cyanocobalamin 1,000 mcg/mL 1 mL SQ monthly Cholecalciferol, Vitamin D3, 125 mcg (5,000 unit) cap Take 1 capsule by mouth once daily. pantoprazole DR (PROTONIX) 40 mg tablet Take 1 tablet by mouth daily before breakfast. Take on empty stomach, 1/2 hr before meal. montelukast (SINGULAIR) 10 mg tablet Take 1 tablet by mouth daily at bedtime. Norethindrone Acet-Ethinyl Est (LOESTRIN 1.5, ,) 1.5-30 mg-mcg Take 1 tablet by mouth once daily. Take continuously. Do not take inactive pills ondansetron orally disintegrating (ZOFRAN ODT) 8 mg disintegrating tablet Take 1 tablet by mouth every 8 hours as needed for nausea/vomiting. Rvrmxgxz-Qaaw-Nyc-Folic Acid 18-0.4 mg tab Take 1 tablet by mouth once daily. fluconazole (DIFLUCAN) 100 mg tablet Take 100 mg by mouth once daily. Daily MAGNESIUM ORAL Take 1,500 mg by mouth daily at bedtime. Clindamycin Phosphate (CLEOCIN T) 1 % lotion Apply to affected area twice daily. On face as needed for rosacea Clobetasol Propionate (TEMOVATE) 0.05 % external solution Apply 1 application to affected area once daily as needed (arm and leg skin lesion). cyclobenzaprine (FLEXERIL) 10 mg tablet Take 1 tablet by mouth three times daily as needed for muscle spasm. loratadine-pseudoephedrine ER (CLARITIN-D 12 HOUR) 5-120 mg per tablet Take 1 tablet by mouth twice daily. (Patient taking differently: Take 1 tablet by mouth as needed.) famotidine (PEPCID) 10 mg tablet Take 20 mg by mouth twice daily. docusate sodium (COLACE) 100 mg capsule Take 200 mg by mouth twice daily. Lactobacillus acidophilus (ACIDOPHILUS ORAL) Take by mouth. rizatriptan (MAXALT TAKE OFF WORKER) 5 mg disintegrating tablet Take 1 tablet by mouth as needed. For migraine., May repeat in 2 hours if needed diclofenac (VOLTAREN ARTHRITIS PAIN) 1 % topical gel Apply 2 g to affected area four times daily as needed (right thumb pain). CPAP New set up: AutoBiPAP Settings IPAP max 12 & EPAP min 4 and PS 4- 6 cm H2O, suitable mask per pt preference, chin strap, head gear, humidity, tubing, lifetime supplies. G47.33 JYOTHI CREON 36,000-114,000- 180,000 unit capsule TAKE 1 CAPSULE BY MOUTH PRIOR TO ALL MEALS AND SNACKS erythromycin ophthalmic ointment Use 1 application in both eyes daily at bedtime. Insulin Syringe-Needle U-100 (BD INSULIN SYRINGE ULTRA-FINE) 1 mL 31 gauge x 5/16 1 Each as directed. PEG 400-Propylene Glycol (SYSTANE HYDRATION PF) 0.4-0.3 % dpet Use 1 Each in both eyes four times daily. Back Brace misc 1 Device as directed. clobetasol (TEMOVATE) 0.05 % ointment Apply 1 application to affected area twice daily. For 2 weeks then once a day for 2 weeks (Patient taking differently: Apply 1 application to affected area as needed. For 2 weeks then once a day for 2 weeks) CARBOXYMETHYLCELLULOSE SODIUM (REFRESH TEARS OPHTHALMIC) Use 1 Drop in eyes four times daily. as needed No current facility-administered medications for this visit. ALLERGIES Allergen Reactions Adhesive Tape-Silic* Intolerance Burn Beta Blockers [Beta* Contraindication-Medical Surgical Avoid use of beta blockers while patient is on allergy immunotherapy [place] Hives Cymbalta [Duloxetin* Other: See Comments Sweating side effect Effexor [Venlafaxin* Other: See Comments Sweating side effect Imitrex [Sumatripta* Vomiting GI upset and vomiting Linzess [Linaclotid* Diarrhea Vomiting, diarrhea Marijuana (Cannabis) Intolerance GI distress, diarrhea with oral use -sublingual tincture Paxlovid (Eua) [Cj* Other: See Comments Restless legs, leg pain Seasonal Allergies Unknown Molds and grasses verified by skin testing PAST SURGICAL HISTORY Procedure Laterality Date COLONOSCOPY 2006 COLONOSCOPY FLX DX W/COLLJ SPEC WHEN PFRMD 07/01/2016 CYSTOSCOPY with hydrodistention for IC EGD 2006 ESOPHAGOGASTRODUODENOSCOPY TRANSORAL DIAGNOSTIC 04/21/2016 L'SCOPE DX W/WO BRUSHINGS/WASHINGS 2005 LAPAROSCOPY DIAGNOSTIC 05/06/2015 [place] LAPS SURG CHOLECYSTECTOMY W/CHOLANGIOGRAPHY 05/04/2016 Normal IOC PAST SURGICAL HISTORY OF 03/2019 nasal turbinate removed REVISE MEDIAN N/CARPAL TUNNEL SURG Right 04/2022 SEPTOPLASTY 02/17/2015 Physical Exam: OBJECTIVE: Constitutional: Pt is a well developed 37 year old female who is alert, oriented, cooperative and in no apparent distress. Eyes: Following during examination. No redness or drainage. Respiratory: RR normal and nonlabored. Even breathing. No evidence of distress. Psychology: Patient is engaged during conversation. Normal affect and mood. Does not appear depressed or anxious. Vascular: DP and PT pulses are palpable to b/l lower extremity. CFT is brisk. Skin temperature is warm to warm. Dermatological: Nails 1-5 b/l are normal. Webspaces clean and dry 1-4 b/l. Skin appears well hydrated and supple. good color, texture, turgor. No open lesions present. No callosities present. Musculoskeletal/Orthopaedic: Patient has no pain to palpation of b/l feet Slightly elevated arch of b/l feet Emg is normal ASSESSMENT: (M79.671, M79.672) Foot pain, bilateral (primary encounter diagnosis) (Q66.70) High foot arch (M54.17) Radiculopathy, lumbosacral region PLAN: Discussed burning in both feet Reviewed emg which was normal Would continue with good supportive shoes. Discussed possible use of neurontin. She will discuss with pain management. Follow-up prn Yue Alexandre DPM AMB ROOMING INTAKE FLOWSHEET DATA Pain Pain Level: 0 (2/10 when on her feet) Pain Location: Other: See Comment (bilateral feet) Description: Aching Frequency: Intermittent Intervention/Comfort measure: Relaxation, Reposition Patient presents with: Left Foot - Established Patient, Follow Up, Pain Right Foot - Established Patient, Follow Up, Pain Patient presents for follow up of results EMG and X-Rays. Patient states that she has been trying to use the Powerstep Original inserts, but she states that after about a half hour they make her feet hurt. She did get a pair of Asic shoes and they help when walking, but she states when she stands still her toes get tingly. documented in this encounter [facility] 05-02-2023 Note HNO ID: [id number] Author: Fady Ford MD Service: ? Author Type: Physician Type: Progress Notes Filed: 05/02/2023 12:12 PM Note Text: UNIVERSAL PROTOCOL / SAFETY CHECKLIST Procedure to be Performed: EMG Sign In: A Moment of CARE was completed. Personnel directly involved with the procedure wore the appropriate PPE (Personal Protective Equipment). Patient/Surrogate Stated/Verified: PATIENT VERIFIED(optional for EMERGENT procedures): Patient name, Date of , Relevant allergies, and The intended procedure Time Out Communication: Intended patient and procedure match the source documents. Correct side/site marked and visible. Sign Out: SIGN OUT (optional for EMERGENT procedures): Post-procedure follow-up management communicated and Plan of Care Visit completed when applicable. Kapil Kamara MD [facility] 05-02-2023 History of Present illness Narrative UNIVERSAL PROTOCOL / SAFETY CHECKLIST Procedure to be Performed: EMG Sign In: A Moment of CARE was completed. Personnel directly involved with the procedure wore the appropriate PPE (Personal Protective Equipment). Patient/Surrogate Stated/Verified: PATIENT VERIFIED(optional for EMERGENT procedures): Patient name, Date of , Relevant allergies, and The intended procedure Time Out Communication: Intended patient and procedure match the source documents. Correct side/site marked and visible. Sign Out: SIGN OUT (optional for EMERGENT procedures): Post-procedure follow-up management communicated and Plan of Care Visit completed when applicable. Kapil Kamara Spolter, MD documented in this encounter [facility] 04-28-2023 Note HNO ID: [id number] Author: RT Zeinab(R) Service: Radiology Author Type: Technologist Type: Progress Notes Filed: 04/28/2023 1:13 PM Note Text: Radiology Service Progress Note PATIENT NAME: Sharri Menon DATE OF SERVICE: April 28, 2023 TIME: 12:56 PM PATIENT IDENTITY VERIFICATION COMPLETED USING TWO (2) IDENTIFIERS: Name and Date of confirmed by patient verbally. FALL SCREENING: Has the patient had 2 falls in the last year or 1 fall with injury or currently using an Ambulatory Assistive Device (Walker, Cane, Wheelchair, Crutches, etc.)? No PATIENT GENDER DATA: Female. status: : No status: NO. PATIENT RELEVANT IMPLANT DATA REVIEWED: Yes RADIOLOGY DEPARTMENT: General X-ray: Exam(s) Completed: Spine X-Ray(s): Lumbar AP / LAT / L5-S1 Lower Extremity X-Ray(s): Foot, Bilateral and Wt. Bearing PERIPHERAL IV DATA: Not applicable SIGNED BY: Amparo Wolf RT(R) April 28, 2023 12:56 PM [facility] 04-28-2023 History of Present illness Narrative Radiology Service Progress Note PATIENT NAME: Sharri Menon DATE OF SERVICE: April 28, 2023 TIME: 12:56 PM PATIENT IDENTITY VERIFICATION COMPLETED USING TWO (2) IDENTIFIERS: Name and Date of confirmed by patient verbally. FALL SCREENING: Has the patient had 2 falls in the last year or 1 fall with injury or currently using an Ambulatory Assistive Device (Walker, Cane, Wheelchair, Crutches, etc.)? No PATIENT GENDER DATA: Female. status: : No status: NO. PATIENT RELEVANT IMPLANT DATA REVIEWED: Yes RADIOLOGY DEPARTMENT: General X-ray: Exam(s) Completed: Spine X-Ray(s): Lumbar AP / LAT / L5-S1 Lower Extremity X-Ray(s): Foot, Bilateral and Wt. Bearing PERIPHERAL IV DATA: Not applicable SIGNED BY: RT Zeinab(R) April 28, 2023 12:56 PM documented in this encounter [facility] 04-27-2023 Note HNO ID: [id number] Author: Allie Duran MD Service: ? Author Type: Physician Type: Progress Notes Filed: 04/27/2023 9:18 AM Note Text: Assessment and Plan 1. Dry eye syndrome of both eyes - Main complaint is watering, foreign body sensation - Previous use of Xiidra was not effective - Eye symptoms flared up at time of Fibromyalgia flare-up - seeing pain medicine (Dr. Mackenzie in [place] - had nerve block injection recently) - Patient has history use of Restasis, but only used for 1 week -concerned that punctal plugs would be very painful in setting of fibromyalgia and would rather not have them placed -restasis made things worse -Ivizia (did not work noticed that eyelashes were falling out used for 1 week twice daily) -Systane Ultra (did not help used for about 1 month more than twice daily) -Refresh (did not help used for about 1 month more than twice daily) -Systane Ultra gel (did not help used for about 1 month more than twice daily) -Systane Complete (did not help used for about 1 month more than twice daily) 2. Hx of LASIK -Bilateral in April 2014 -Patient happy with visual outcome Plan: -was doing better now flare-up (mother diagnosed with AML) -underlying neuropathic component -significant Meibomian gland dysfunction and ocular surface staining on exam -Hot compresses twice a day -artificial tears four times daily in both eyes -xiidra twice a day both eyes (helps) -will try FML twice a day both eyes x 1 week then stop -erythromycin ointment at bedtime both eyes -to consider serum tear vs albumin drops vs punctal plugs Follow up in 3 months / sooner as needed -functional medicine if worse in the future? I have confirmed and edited as necessary the relevant ophthalmic history, ROS, and the neuro exam findings as obtained by others. I have seen and examined Sharri Menon. I have discussed the case and the management of this patient's care with the Resident/Fellow, if applicable. I also have reviewed and agree with the assessment and plan as stated above and agree with all of its relevant components. Allie Duran MD [facility] 04-21-2023 Miscellaneous Notes Faxed. Kanchan Mays MA Order ready to be faxed. Pt has a referral to allergy/immunology placed by pcp however pt states her insurance requires the referral to include the drs name that she is seeing. Pt is seeing Dr Wade Veliz & appt is today at 9:40AM. Can Dr Veliz's name be added to referral? Please fax to [phone]. Kallie Pena LPN documented in this encounter [facility] 04-07-2023 Note HNO ID: [id number] Author: Yue Alexandre Service: ? Author Type: Physician Type: Progress Notes Filed: 04/07/2023 10:31 AM Note Text: Consultation requested by Dr. Tyler for an opinion regarding pain in foot. My final recommendations will be communicated back to the requesting physician by way of shared Medical record or letter to requesting physician via US mail. Initial Podiatric Office Visit: Chief Complaint: This 37 year old female who presents with chief complaint:left foot pain and numbness HPI Patient presents to clinic for evaluation of left foot. Patient's largest complaint is numbness in the left foot. Patient notes numbness in her arch extending to her toes. She states this happens the longer she is on her foot. She states the numbness has been present for several months She also has noticed that there is pain with increased walking. She states that she is trying to lose weight so she is doing more walking. When she is walking, she states that she will experience numbness in both feet and it extends up her legs She hsa history of fibromyalgia. PAIN EVALUATION 04/07/2023 0957 Pain Level: 2 7/10 at end of the day left worse than right Pain Location: Other: See Comment bilateral feet and legs Description: Tingling;Aching Duration Amount of Time: 3 Duration Units: Months Frequency: Intermittent Intervention/Comfort measure: Relaxation;Reposition Hemoglobin A1C (%) Date Value 07/14/2022 5.0 11/12/2021 5.6 07/11/2020 5.4 11/19/2019 5.4 01/24/2019 5.4 PCP: Victor Manuel Tyler DO PAST MEDICAL HISTORY Diagnosis Date Abnormal biliary HIDA scan 04/22/2016 Acne vulgaris: Inflammatory Grade II to III 05/25/2014 Acute and chronic cholecystitis 05/13/2016 Adjustment disorder with mixed anxiety and depressed mood 11/28/2014 Ankle weakness 07/17/2015 Bilateral low back pain with sciatica 01/26/2016 Calculus, tonsil 12/17/2013 Chronic fatigue Depression, major, recurrent, mild (HCC) 08/14/2015 Deviated nasal septum s/p septoplasty Dry eye syndrome 12/27/2016 Eczematous dermatitis 05/22/2014 Exposure keratopathy 01/01/2016 Fatigue 02/05/2015 Female stress incontinence 10/08/2016 Fibromyalgia Flushing reaction 04/04/2014 GERD (gastroesophageal reflux disease) 06/17/2016 Hemorrhoids 09/25/2014 Hiatal hernia History of Fagan's palsy IBS (irritable bowel syndrome) 2006 had EGD, colonoscopy Insomnia 10/23/2014 Irregular periods 10/23/2013 Left ankle pain 07/17/2015 Migraines 12/24/2013 Milial cyst 05/22/2014 Nasal septal deviation 01/22/2015 Obesity (BMI 30-39.9) 10/23/2013 JYOTHI (obstructive sleep apnea) ahi 16 52r 01/01/2015 Photodermatitis 04/04/2014 Rosacea 04/04/2014 S/P LASIK (laser assisted in situ keratomileusis) of both eyes - Both Eyes 04/2014 Snoring 11/05/2015 Steroid acne 04/04/2014 Urinary leakage 04/06/2016 Vitreous floaters of both eyes 12/27/2016 Weakness of both lower extremities 01/26/2016 Xerosis cutis 05/22/2014 Current Outpatient Medications Medication Sig methylPREDNISolone (MEDROL, TOÑA,) 4 mg Dose-Pack Follow dosing instructions, take with food. [START ON 04/21/2023] amphetamine-dextroamphetamine XR (ADDERALL XR) 20 mg 24 hr capsule Take 2 capsules by mouth once daily for 30 days. Do not start before April 21, 2023. busPIRone HCl 30 mg tablet Take 1 tablet by mouth daily at bedtime. busPIRone (BUSPAR) 10 mg tablet Take 1 tablet by mouth three times daily as needed. celecoxib (CELEBREX) 100 mg capsule Take 2 capsules by mouth twice daily. lamoTRIgine (LAMICTAL) 200 mg tablet Take 0.5 tablets by mouth every morning AND 1 tablet daily at bedtime. traZODone (DESYREL) 100 mg tablet Take 2 tablets at bedtime lifitegrast (XIIDRA) 5 % ophthalmic drops Use 1 Drop in both eyes twice daily. topiramate (TOPAMAX) 25 mg tablet Take 1 tablet by mouth daily at bedtime. mupirocin (BACTROBAN) 2 % ointment Apply 1 application to affected area three times daily. cyanocobalamin 1,000 mcg/mL 1 mL SQ monthly Cholecalciferol, Vitamin D3, 125 mcg (5,000 unit) cap Take 1 capsule by mouth once daily. pantoprazole DR (PROTONIX) 40 mg tablet Take 1 tablet by mouth daily before breakfast. Take on empty stomach, 1/2 hr before meal. montelukast (SINGULAIR) 10 mg tablet Take 1 tablet by mouth daily at bedtime. Norethindrone Acet-Ethinyl Est (LOESTRIN .,) 1.5-30 mg-mcg Take 1 tablet by mouth once daily. Take continuously. Do not take inactive pills ondansetron orally disintegrating (ZOFRAN ODT) 8 mg disintegrating tablet Take 1 tablet by mouth every 8 hours as needed for nausea/vomiting. Qzrivjsa-Xgpf-Rxq-Folic Acid 18-0.4 mg tab Take 1 tablet by mouth once daily. fluconazole (DIFLUCAN) 100 mg tablet Take 100 mg by mouth once daily. Daily MAGNESIUM ORAL Take 1,500 mg by mouth daily at bedtime. Clindamycin Phosphate (CLEOCIN T) 1 % lotion Apply to affected area twice daily. On (more content not included)... [facility] 04-07-2023 Note HNO ID: [id number] Author: Breonna Perez RN Service: ? Author Type: Registered Nurse Type: Progress Notes Filed: 04/07/2023 10:31 AM Note Text: AMB ROOMING INTAKE FLOWSHEET DATA Pain Pain Level: 2 (7/10 at end of the day left worse than right) Pain Location: Other: See Comment (bilateral feet and legs) Description: Tingling, Aching Duration Amount of Time: 3 Duration Units: Months Frequency: Intermittent Intervention/Comfort measure: Relaxation, Reposition Patient presents with: Left Foot - New, Pain Right Foot - New, Pain Patient presents for bilateral foot pain that has gotten worse over the last few months. States that she is on her feet all day and by the end of the day her left leg is tingly. Patient states that she has increased her walking in the last month and a half. Has a history of sciatica, high arches and heel walking. Patient states that she wears shoes inside the home as well and makes sure she wears shoes with thick soles. [facility] 04-06-2023 Note HNO ID: [id number] Author: Victor Manuel Tyler DO Service: ? Author Type: Physician Type: Progress Notes Filed: 04/06/2023 12:07 PM Note Text: CC: Sharri Menon is a 37 year old female who presents to the office for follow up HPI: ADD, taking Adderall as prescribed, no SE with medication Has been regularly exercising at least 2 miles or 30 minutes of power walking. Is working on weight loss. Has lost about 20 lbs in the last 3 months. Has had some pain since then so has started to back off- feet were developing paresthesias. Has also had referral of pain up calves and thighs and hips. Has high arches. High T3 levels. Last checked of Dec Still having some skin concerns. Sun triggers, some skin burning/stinging feeling even when sun protection is used. Skin isn't dry. + skin itches and then feels like when she goes to scratch her arms then causes her to have burning/irritation. Hands, arms and upper back- seemed to improve somewhat with Cerave Tub cream. Upper neck skin flares as well. Not improved with clindamycin. Did seem to improve with clobetasol. Fibromyalgia, hasn't seen the pain physician in [place] x 1 year, interested in a 2nd opinion some time. PAST MEDICAL HISTORY Diagnosis Date Abnormal biliary HIDA scan 04/22/2016 Acne vulgaris: Inflammatory Grade II to III 05/25/2014 Acute and chronic cholecystitis 05/13/2016 Adjustment disorder with mixed anxiety and depressed mood 11/28/2014 Ankle weakness 07/17/2015 Bilateral low back pain with sciatica 01/26/2016 Calculus, tonsil 12/17/2013 Chronic fatigue Depression, major, recurrent, mild (HCC) 08/14/2015 Deviated nasal septum s/p septoplasty Dry eye syndrome 12/27/2016 Eczematous dermatitis 05/22/2014 Exposure keratopathy 01/01/2016 Fatigue 02/05/2015 Female stress incontinence 10/08/2016 Fibromyalgia Flushing reaction 04/04/2014 GERD (gastroesophageal reflux disease) 06/17/2016 Hemorrhoids 09/25/2014 Hiatal hernia History of Fagan's palsy IBS (irritable bowel syndrome) 2006 had EGD, colonoscopy Insomnia 10/23/2014 Irregular periods 10/23/2013 Left ankle pain 07/17/2015 Migraines 12/24/2013 Milial cyst 05/22/2014 Nasal septal deviation 01/22/2015 Obesity (BMI 30-39.9) 10/23/2013 JYOTHI (obstructive sleep apnea) ahi 16 52r 01/01/2015 Photodermatitis 04/04/2014 Rosacea 04/04/2014 S/P LASIK (laser assisted in situ keratomileusis) of both eyes - Both Eyes 04/2014 Snoring 11/05/2015 Steroid acne 04/04/2014 Urinary leakage 04/06/2016 Vitreous floaters of both eyes 12/27/2016 Weakness of both lower extremities 01/26/2016 Xerosis cutis 05/22/2014 PAST SURGICAL HISTORY Procedure Laterality Date COLONOSCOPY 2006 COLONOSCOPY FLX DX W/COLLJ SPEC WHEN PFRMD 07/01/2016 CYSTOSCOPY with hydrodistention for IC EGD 2006 ESOPHAGOGASTRODUODENOSCOPY TRANSORAL DIAGNOSTIC 04/21/2016 L'SCOPE DX W/WO BRUSHINGS/WASHINGS 2006 LAPAROSCOPY DIAGNOSTIC 05/06/2015 [place] LAPS SURG CHOLECYSTECTOMY W/CHOLANGIOGRAPHY 05/04/2016 Normal IOC PAST SURGICAL HISTORY OF 03/2019 nasal turbinate removed REVISE MEDIAN N/CARPAL TUNNEL SURG Right 04/2022 SEPTOPLASTY 02/17/2015 Current Outpatient Medications Medication Sig busPIRone HCl 30 mg tablet Take 1 tablet by mouth daily at bedtime. busPIRone (BUSPAR) 10 mg tablet Take 1 tablet by mouth three times daily as needed. celecoxib (CELEBREX) 100 mg capsule Take 2 capsules by mouth twice daily. lamoTRIgine (LAMICTAL) 200 mg tablet Take 0.5 tablets by mouth every morning AND 1 tablet daily at bedtime. traZODone (DESYREL) 100 mg tablet Take 2 tablets at bedtime TAB-A-YESSI MULTIVITAMIN W-IRON 15 mg iron- 400 mcg tab Take 1 tablet by mouth once daily. lifitegrast (XIIDRA) 5 % ophthalmic drops Use 1 Drop in both eyes twice daily. topiramate (TOPAMAX) 25 mg tablet Take 1 tablet by mouth daily at bedtime. amphetamine-dextroamphetamine XR (ADDERALL XR) 20 mg 24 hr capsule Take 2 capsules by mouth once daily for 30 days. mupirocin (BACTROBAN) 2 % ointment Apply 1 application to affected area three times daily. cyanocobalamin 1,000 mcg/mL 1 mL SQ monthly Cholecalciferol, Vitamin D3, 125 mcg (5,000 unit) cap Take 1 capsule by mouth once daily. pantoprazole DR (PROTONIX) 40 mg tablet Take 1 tablet by mouth daily before breakfast. Take on empty stomach, 1/2 hr before meal. montelukast (SINGULAIR) 10 mg tablet Take 1 tablet by mouth daily at bedtime. Norethindrone Acet-Ethinyl Est (LOESTRIN 1.5, ,) 1.5-30 mg-mcg Take 1 tablet by mouth once daily. Take continuously. Do not take inactive pills ondansetron orally disintegrating (ZOFRAN ODT) 8 mg disintegrating tablet Take 1 tablet by mouth every 8 hours as needed for nausea/vomiting. Dzkzgjoe-Wzaz-Ezw-Folic Acid 18-0.4 mg tab Take 1 tablet by mouth once daily. fluconazole (DIFLUCAN) 100 mg tablet Take 100 mg by mouth once daily. Daily MAGNESIUM ORAL Take 1,500 mg by mouth (more content not included)... [facility] 03-14-2023 Note HNO ID: [id number] Author: ROGER Buenrostro Service: ? Author Type: Clinical Corporate Communications Specialist Type: Progress Notes Filed: 03/14/2023 8:58 AM Note Text: LACTULOSE HYDROGEN BREATH TEST FOR SMALL BOWEL BACTERIAL OVERGROWTH Date: March 14, 2023 Referring Physician: Emily Alicea PA-C Chief Complaint Bloating Constipation Acid Reflux/Heartburn Flatulence/Gas Diarrhea Symptoms prior to start of study: None [] 4 week restrictions [] 72 hour restrictions [] 12 hour fasting [] Followed the special diet Baseline Hydrogen PPM: 1 Methane PPM: 1 Manolo [place], [place] Lactulose 15mL given at: 940am Start Time:945am 20 minutes Hydrogen PPM: 5 Methane PPM: 0 Manolo Hannah, CT 40 minutes Hydrogen PPM: 8 Methane PPM: 2 Manolo Hannah, CT 1 hour Hydrogen PPM: 5 Methane PPM: 3 Manolo Hannah, CT 1 hour 20 minutes Hydrogen PPM: 6 Methane PPM: 2 Manolo Hannah, CT 1 hour, 40 minutes Hydrogen PPM: 4 Methane PPM: 2 Manolo Hannah, CT 2 hours Hydrogen PPM: 8 Methane PPM: 0 Manolo Hannah, CT 2 hours, 20 minutes Hydrogen PPM: 4 Methane PPM: 2 Manolo Hannah, CT 2 hours, 40 minutes Hydrogen PPM: 2 Methane PPM: 2 Manolo Hannah, CT 3 hours Hydrogen PPM: 2 Methane PPM: 2 Manolo Hannah, CT Symptoms developed during the study period: Abdominal bloating, Flatulence/Gas Patient Results Preliminary Test Results (not given to patient): pending ROGER Buenrostro [facility] 03-08-2023 Note HNO ID: [id number] Author: Alondra Ring APRN.[facility] Service: ? Author Type: Nurse Practitioner Type: Progress Notes Filed: 03/08/2023 9:25 AM Note Text: PSYC FOLLOW UP - PSYCHIATRIC PROGRESS NOTE DIAGNOSIS: Bipolar 2 disorder OCD Generalized Anxiety Disorder Chronic Fatigue Fibromyalgia GAF: -70-61 Some mild symptoms or some difficulty in social, occupational, or school functioning, but generally functioning pretty well. TREATMENT PLAN: Utilize Buspar 10 mg PRN dose during the day to help with anxiety that may be manifesting in irritability. Continue bedtime dose of Buspar. Continue Lamictal and Trazodone at the same dose. Encouraged to consistently take the Celebrex dose twice daily. Has been consistent with it for the past 10 days. Schedule an appointment for individual psychotherapy. Continue Adderall as prescribed by PCP for chronic fatigue. Follow up in July Medication Update: Buspar 10 mg - take 1 tablet up to three times daily as needed. 2. Continue the rest of the psychiatric medications at the same dose. The effects and side effects of all the medications were reviewed in detail with the patient. She is in agreement with the treatment plan and aware to reach out with any questions, concerns, or worsening of symptoms prior to the next appointment. Patient is aware of the rash side effect associated with Lamictal. CC: Follow up regarding mood and anxiety With the patient consent, visit was performed virtually. I have communicated my name and active licensure. The patient's identity and physical location were verified at the time of this visit. Either the patient or their legal u.s. representative has been informed of the risks and benefits of -- and alternatives to -- treatment through a remote evaluation and consents to proceed with the evaluation remotely. HPI: Sharri Menon is a 37 year old Female with a history of Bipolar 2 disorder, OCD, URIEL, chronic fatigue, and fibromyalgia presenting today for follow-up. Date of last visit: 01/31/2023 Plan from last visit: Increase Lamictal to see if it helps with her increased irritability symptoms. Take an additional dose of Buspar as needed at night to help with her anxiety. Continue the rest of the psychiatric medications at the same dose. Discussed the importance of scheduling an appointment for individual psychotherapy. Follow up in 4 to 6 weeks. Today Sharri shares that yesterday was a busy day as they are trying to get work done around the house. Reports that anxiety and stress levels are up. She does report improvement since last month. She continues to worry about her mother not listening to doctors. She is working on letting go and not letting it bother her. Her mother asked her to be her caregiver and patient had a hard time saying no but wanted to set a boundary. She was able to get a note from her PCP. She felt better after that. Doesn't feel that her parents understand her physical limitations. Her father will be her mother's primary career coach. Her mother has had her transplant. She will be attending a meeting at the hospital for mom's after care. She has been more active and doing more things around the yard outside. Denies any changes in her appetite. She has been feeling much better since she has been taking Adderall versus Vyvanse. She still has the minor tic of licking her lips. She is using gum as a way of redirecting herself. It has been more helpful. Her is trying to diet. She has noticed that when she eats healthier, she feels better the next day. She has switched from coffee to green tea. Denies any side effects from increase in Lamictal and PRN Buspar at night in addition to her routine dose of Buspar. It helps with her anxiety, ruminating thoughts, and sleep. She has been consistent in taking the Celebrex for the past 10 days. Continues to experience some episodes of irritability and anxiety. In agreement to try Buspar during the day as we discussed how irritability could be a side effect of Adderall as well as a manifestation of her anxiety. She has not scheduled for individual psychotherapy therapy yet. The importance of this was discussed and and resources discussed. Patient is motivated to work on identifying a therapist. Interval Progress: Slightly improved Risks and benefits of the medication, including any black box warnings, were discussed with the patient. Social History: See HPI PATIENT DATA: Generalized Anxiety Disorder Scale (URIEL-7) URIEL - 7 SCORES 01/30/2023 03/07/2023 03/08/2023 URIEL-7 Score 6 11 9 (0-4) minimal anxiety, (5-9) mild anxiety, (10-14) moderate anxiety, (15-21) severe anxiety Patient Health Questionnaire (PHQ-9) PHQ-9 01/30/2023 03/07/2023 03/08/2023 Score 5 3 4 (0-4) minimal depression, (5-9) mild depression, (10-14) moderate depression, (15-19) moderately severe depression, (20-27) severe depression ROS: See (more content not included)... [facility] 03-08-2023 History of Present illness Narrative Images from the original note were not included. PSYC FOLLOW UP - PSYCHIATRIC PROGRESS NOTE DIAGNOSIS: Bipolar 2 disorder OCD Generalized Anxiety Disorder Chronic Fatigue Fibromyalgia GAF: -70-61 Some mild symptoms or some difficulty in social, occupational, or school functioning, but generally functioning pretty well. TREATMENT PLAN: Utilize Buspar 10 mg PRN dose during the day to help with anxiety that may be manifesting in irritability. Continue bedtime dose of Buspar. Continue Lamictal and Trazodone at the same dose. Encouraged to consistently take the Celebrex dose twice daily. Has been consistent with it for the past 10 days. Schedule an appointment for individual psychotherapy. Continue Adderall as prescribed by PCP for chronic fatigue. Follow up in July Medication Update: Buspar 10 mg - take 1 tablet up to three times daily as needed. 2. Continue the rest of the psychiatric medications at the same dose. The effects and side effects of all the medications were reviewed in detail with the patient. She is in agreement with the treatment plan and aware to reach out with any questions, concerns, or worsening of symptoms prior to the next appointment. Patient is aware of the rash side effect associated with Lamictal. CC: Follow up regarding mood and anxiety With the patient consent, visit was performed virtually. I have communicated my name and active licensure. The patient's identity and physical location were verified at the time of this visit. Either the patient or their legal u.s. representative has been informed of the risks and benefits of -- and alternatives to -- treatment through a remote evaluation and consents to proceed with the evaluation remotely. HPI: Sharri Menon is a 37 year old Female with a history of Bipolar 2 disorder, OCD, URIEL, chronic fatigue, and fibromyalgia presenting today for follow-up. Date of last visit: 01/31/2023 Plan from last visit: Increase Lamictal to see if it helps with her increased irritability symptoms. Take an additional dose of Buspar as needed at night to help with her anxiety. Continue the rest of the psychiatric medications at the same dose. Discussed the importance of scheduling an appointment for individual psychotherapy. Follow up in 4 to 6 weeks. Today Sharri shares that yesterday was a busy day as they are trying to get work done around the house. Reports that anxiety and stress levels are up. She does report improvement since last month. She continues to worry about her mother not listening to doctors. She is working on letting go and not letting it bother her. Her mother asked her to be her caregiver and patient had a hard time saying no but wanted to set a boundary. She was able to get a note from her PCP. She felt better after that. Doesn't feel that her parents understand her physical limitations. Her father will be her mother's primary career coach. Her mother has had her transplant. She will be attending a meeting at the hospital for mom's after care. She has been more active and doing more things around the yard outside. Denies any changes in her appetite. She has been feeling much better since she has been taking Adderall versus Vyvanse. She still has the minor tic of licking her lips. She is using gum as a way of redirecting herself. It has been more helpful. Her is trying to diet. She has noticed that when she eats healthier, she feels better the next day. She has switched from coffee to green tea. Denies any side effects from increase in Lamictal and PRN Buspar at night in addition to her routine dose of Buspar. It helps with her anxiety, ruminating thoughts, and sleep. She has been consistent in taking the Celebrex for the past 10 days. Continues to experience some episodes of irritability and anxiety. In agreement to try Buspar during the day as we discussed how irritability could be a side effect of Adderall as well as a manifestation of her anxiety. She has not scheduled for individual psychotherapy therapy yet. The importance of this was discussed and and resources discussed. Patient is motivated to work on identifying a therapist. Interval Progress: Slightly improved Risks and benefits of the medication, including any black box warnings, were discussed with the patient. Social History: See HPI PATIENT DATA: Generalized Anxiety Disorder Scale (URIEL-7) URIEL - 7 SCORES 01/30/2023 03/07/2023 03/08/2023 URIEL-7 Score 6 11 9 (0-4) minimal anxiety, (5-9) mild anxiety, (10-14) moderate anxiety, (15-21) severe anxiety Patient Health Questionnaire (PHQ-9) PHQ-9 01/30/2023 03/07/2023 03/08/2023 Score 5 3 4 (0-4) minimal depression, (5-9) mild depression, (10-14) moderate depression, (15-19) moderately severe depression, (20-27) severe depression ROS: See HPI General: Negative for fever, malaise, unintentional weight loss HEENT: Negative for recent changes in vision or hearing, no nasal drainage Respiratory: Negative for cough, wheezing or SOB Cardiovascular: Negative for chest pain GI: Negative for nausea, vomiting, change in bowel habits MUSCULOSKELETAL: Negative for acute back or joint pain SKIN: Negative for rash NEURO: Negative for headaches, seizures, focal neurological deficits All other systems negative. VITAL SIGNS: BP Temp Pulse Resp SpO2 MENTAL STATUS EXAMINATION: Appearance: Appropriately groomed, appears stated age Behavior: Appropriately engaged Psychomotor: No psychomotor agitation Cognition Level of Consciousness: Awake and alert. No fluctuation in wakefulness. Orientation: Grossly oriented Memory: Intact Attention/Concentration: Good Fund of Knowledge: Able to demonstrate an awareness of current events. Mood: Euthymic Affect: Congruent to mood Speech/Language: Appropriate tone, prosody, presley, phonetics, and syntax Thought Form: Goal-directed. No loosening of associations. Thought Content: No delusions noted or endorsed. Perceptual Disturbances: Did not appear to respond to auditory stimuli. Safety: Suicidal Ideations: No suicidal ideation, intent or plan. Homicidal Ideations: No homicidal ideation, intent or plan. Insight: Appropriate Judgment: Appropriate I spent a total of 52 minutes on the date of the service which included preparing to see the patient, [id number] patient care, completing clinical documentation, and counseling and educating the patient/family/caregiver, ordering medications/labs, and communicating with other healthcare providers. Alondra Ring APRN.CNP March 08, 2023 8:30 AM This note was partially generated using [employer] voice recognition system. Note was reviewed for accuracy. There may be minor misspellings or grammar miscues with [employer] voice recognition. documented in this encounter [facility] 03-07-2023 Note HNO ID: [id number] Author: Alondra Ring APRN.CNP Service: ? Author Type: Nurse Practitioner Type: Progress Notes Filed: 03/07/2023 9:37 AM Note Text: Patient requested to reschedule the visit due to having individuals working in her house who were running late. Has been rescheduled for tomorrow morning. [facility] 03-07-2023 History of Present illness Narrative Patient requested to reschedule the visit due to having individuals working in her house who were running late. Has been rescheduled for tomorrow morning. documented in this encounter [facility] 03-02-2023 Note HNO ID: [id number] Author: Allie Duran MD Service: ? Author Type: Physician Type: Progress Notes Filed: 03/02/2023 8:52 AM Note Text: Assessment and Plan 1. Dry eye syndrome of both eyes - Main complaint is watering, foreign body sensation - Previous use of Xiidra was not effective - Eye symptoms flared up at time of Fibromyalgia flare-up - seeing pain medicine (Dr. Mackenzie in [place] - had nerve block injection recently) - Patient has history use of Restasis, but only used for 1 week -concerned that punctal plugs would be very painful in setting of fibromyalgia and would rather not have them placed -restasis made things worse -Ivizia (did not work noticed that eyelashes were falling out used for 1 week twice daily) -Systane Ultra (did not help used for about 1 month more than twice daily) -Refresh (did not help used for about 1 month more than twice daily) -Systane Ultra gel (did not help used for about 1 month more than twice daily) -Systane Complete (did not help used for about 1 month more than twice daily) 2. Hx of LASIK - Bilateral in April 2014 - Patient happy with visual outcome Plan: -was doing better now flare-up (mother diagnosed with AML) -underlying neuropathic component -Hot compresses twice a day -artificial tears four times daily in both eyes -xiidra twice a day both eyes (helps) -erythromycin ointment at bedtime both eyes Follow up in 1-2 months / sooner as needed. To consider serum tears then? -functional medicine if worse in the future? I have confirmed and edited as necessary the relevant ophthalmic history, ROS, and the neuro exam findings as obtained by others. I have seen and examined Sharri Menon. I have discussed the case and the management of this patient's care with the Resident/Fellow, if applicable. I also have reviewed and agree with the assessment and plan as stated above and agree with all of its relevant components. Allie Duran MD [facility] 02-15-2023 Miscellaneous Notes Patient has been identified by name and date of : Patient phones for refill(s): Requested Prescriptions Pending Prescriptions Disp Refills topiramate (TOPAMAX) 25 mg tablet 90 tablet 1 Sig: Take 1 tablet by mouth daily at bedtime. Date of last office visit in primary care: 01/07/23 Last 2 Encounter Wt Readings: Date: Wt: 01/11/2023 92.2 kg (203 lb 4.8 oz) 01/07/2023 90.3 kg (199 lb) Previous labs/tests for medication: Not applicable Please advise. Thank you. Ashly Bourgeois LPN documented in this encounter [facility] 01-31-2023 Note HNO ID: [id number] Author: Alondra Ring APRN.WAREHOUSE OPERATOR Service: ? Author Type: Nurse Practitioner Type: Progress Notes Filed: 01/31/2023 10:40 AM Note Text: PSYC FOLLOW UP - PSYCHIATRIC PROGRESS NOTE DIAGNOSIS: Bipolar 2 disorder OCD Generalized Anxiety Disorder GAF: -60-51 Moderate symptoms or moderate difficulty in social, occupational or school functioning. TREATMENT PLAN: Increase Lamictal to see if it helps with her increased irritability symptoms. Take an additional dose of Buspar as needed at night to help with her anxiety. Continue the rest of the psychiatric medications at the same dose. Discussed the importance of scheduling an appointment for individual psychotherapy. Follow up in 4 to 6 weeks. Medication Update: Lamictal 200 mg - take 1/2 tablet in the morning and 1 tablet at bedtime. Buspar 10 mg - take 1 tablet at bedtime as needed to manage sleep anxiety. Continue Buspar 30 mg at the same dose. Continue the rest of the psychiatric medications at the same dose. The effects and side effects of all the medications were reviewed in detail with the patient. She is aware of the rash side effect associated with Lamictal. Patient is in agreement with the treatment plan and aware to reach out with any questions, concerns, or worsening of symptoms prior to the next appointment. CC: Follow up regarding mood and anxiety With the patient consent, visit was performed virtually. I have communicated my name and active licensure. The patient's identity and physical location were verified at the time of this visit. Either the patient or their legal u.s. representative has been informed of the risks and benefits of -- and alternatives to -- treatment through a remote evaluation and consents to proceed with the evaluation remotely. HPI: Sharri Menon is a 37 year old Female with a history of Bipolar 2 disorder, OCD, and URIEL presenting today for follow-up. Date of last visit: 11/22/2022 Plan from last visit: Encouraged to consistently take her Celebrex morning dose Encouraged to schedule an appointment for individual psychotherapy. Encouraged to engage in more self-care and exercise based activities. Continue the rest of the psychiatric medications at the same dose. Follow up in 2 to 3 months. Today Sharri shares that things have been very busy for her. Her mother has been back home in between chemotherapy. She completed round 2 of chemotherapy. Mom is scheduled for a bone marrow transplant in February. She has been very involved in taking care of her mother and planning her treatments. Her young sister who has 4 children was caught by her father having drugs in the house. They decided to call children services. Her older sister has been willing to take the 4 children. Her mother had guardianship of the older 2 children. She has been better at managing the stress related to her family. Her mother's behavior still tends to trigger irritability. She worries about her mother not being as careful due to her immunocompromised state. She did well in consistently taking her medications for 1 month. Her morning routine is challenging and different. This has made it hard for her take her morning medications consistently. She was switched from Vyvanse to Adderall. Has noticed some minor tics related behavior. She has noticed that she is struggling to manage interruptions from her or anyone. She feels better on the Adderall. She has more energy and desire to do more things. Concerned about more irritability related to interruptions. In agreement to try a higher dose of Lamictal. She does struggle with anxiety related to sleep. She takes an extra Buspar 10 mg on certain days and it helps with her sleep and ruminations. She has not had a chance to find a new counselor yet. She plans on working on it after her mother goes in the hospital at the beginning of February. Interval Progress: Slightly worse Risks and benefits of the medication, including any black box warnings, were discussed with the patient. Social History: See HPI PATIENT DATA: Generalized Anxiety Disorder Scale (URIEL-7) URIEL - 7 SCORES 09/20/2022 11/21/2022 01/30/2023 URIEL-7 Score 10 10 6 (0-4) minimal anxiety, (5-9) mild anxiety, (10-14) moderate anxiety, (15-21) severe anxiety Patient Health Questionnaire (PHQ-9) PHQ-9 09/20/2022 11/21/2022 01/30/2023 Score 6 5 5 (0-4) minimal depression, (5-9) mild depression, (10-14) moderate depression, (15-19) moderately severe depression, (20-27) severe depression ROS: See HPI General: Negative for fever, malaise, unintentional weight loss HEENT: Negative for recent changes in vision or hearing, no nasal drainage Respiratory: Negative for cough, wheezing or SOB Cardiovascular: Negative for chest pain GI: Negative for nausea, vomiting, change in bowel habits MUSCULOSKELETAL: Negative for acute back or joint pain SKIN: Negative for rash NEURO: Negativ (more content not included)... [facility] 01-31-2023 Instructions Alondra Ring APRN.CNP - 01/31/2023 10:33 AM EDT Queenie Harrell, It was good to talk with you today. Below is a summary of the plan that we discussed during your appointment for reference. Of course, if you have any questions or concerns do not hesitate to reach out to me via a message or call. Best, Alondra Ring APRN.CNP PLAN AND FOLLOW UP: YOU SHOULD SEEK IMMEDIATE MEDICAL ATTENTION AT THE NEAREST EMERGENCY DEPARTMENT OR BY CALLING 911, IF ANY OF THE FOLLOWING OCCURS: - New or worsening thoughts of harming yourself (suicidal thoughts) or others (homicidal thoughts) - Not feeling safe at home or worrying about your ability to remain safe at home If you are having thoughts of harming yourself or others, then you can: - Call the National Suicide Hotline at 8-956-UIJGKGD ( ) or 0-957-936-TALK (7625) - Text 4HOPE to 163431 Medication Update: Lamictal 200 mg - take 1/2 tablet in the morning and 1 tablet at bedtime. Buspar 10 mg - take 1 tablet at bedtime as needed to manage sleep anxiety. Continue Buspar 30 mg at the same dose. Continue the rest of the psychiatric medications at the same dose. Next appointment: --Schedule in 4 to 6 weeks or sooner if needed -- You may call the department appointment line at [phone] to schedule your appointment. -- Please call my nurse Miriam at [phone] or send me a message in [employer] with any questions or concerns between appointments. documented in this encounter [facility] 01-31-2023 History of Present illness Narrative Images from the original note were not included. PSYC FOLLOW UP - PSYCHIATRIC PROGRESS NOTE DIAGNOSIS: Bipolar 2 disorder OCD Generalized Anxiety Disorder GAF: -60-51 Moderate symptoms or moderate difficulty in social, occupational or school functioning. TREATMENT PLAN: Increase Lamictal to see if it helps with her increased irritability symptoms. Take an additional dose of Buspar as needed at night to help with her anxiety. Continue the rest of the psychiatric medications at the same dose. Discussed the importance of scheduling an appointment for individual psychotherapy. Follow up in 4 to 6 weeks. Medication Update: Lamictal 200 mg - take 1/2 tablet in the morning and 1 tablet at bedtime. Buspar 10 mg - take 1 tablet at bedtime as needed to manage sleep anxiety. Continue Buspar 30 mg at the same dose. Continue the rest of the psychiatric medications at the same dose. The effects and side effects of all the medications were reviewed in detail with the patient. She is aware of the rash side effect associated with Lamictal. Patient is in agreement with the treatment plan and aware to reach out with any questions, concerns, or worsening of symptoms prior to the next appointment. CC: Follow up regarding mood and anxiety With the patient consent, visit was performed virtually. I have communicated my name and active licensure. The patient's identity and physical location were verified at the time of this visit. Either the patient or their legal u.s. representative has been informed of the risks and benefits of -- and alternatives to -- treatment through a remote evaluation and consents to proceed with the evaluation remotely. HPI: Sharri Menon is a 37 year old Female with a history of Bipolar 2 disorder, OCD, and URIEL presenting today for follow-up. Date of last visit: 11/22/2022 Plan from last visit: Encouraged to consistently take her Celebrex morning dose Encouraged to schedule an appointment for individual psychotherapy. Encouraged to engage in more self-care and exercise based activities. Continue the rest of the psychiatric medications at the same dose. Follow up in 2 to 3 months. Today Sharri shares that things have been very busy for her. Her mother has been back home in between chemotherapy. She completed round 2 of chemotherapy. Mom is scheduled for a bone marrow transplant in February. She has been very involved in taking care of her mother and planning her treatments. Her young sister who has 4 children was caught by her father having drugs in the house. They decided to call children services. Her older sister has been willing to take the 4 children. Her mother had guardianship of the older 2 children. She has been better at managing the stress related to her family. Her mother's behavior still tends to trigger irritability. She worries about her mother not being as careful due to her immunocompromised state. She did well in consistently taking her medications for 1 month. Her morning routine is challenging and different. This has made it hard for her take her morning medications consistently. She was switched from Vyvanse to Adderall. Has noticed some minor tics related behavior. She has noticed that she is struggling to manage interruptions from her or anyone. She feels better on the Adderall. She has more energy and desire to do more things. Concerned about more irritability related to interruptions. In agreement to try a higher dose of Lamictal. She does struggle with anxiety related to sleep. She takes an extra Buspar 10 mg on certain days and it helps with her sleep and ruminations. She has not had a chance to find a new counselor yet. She plans on working on it after her mother goes in the hospital at the beginning of February. Interval Progress: Slightly worse Risks and benefits of the medication, including any black box warnings, were discussed with the patient. Social History: See HPI PATIENT DATA: Generalized Anxiety Disorder Scale (URIEL-7) URIEL - 7 SCORES 09/20/2022 11/21/2022 01/30/2023 URIEL-7 Score 10 10 6 (0-4) minimal anxiety, (5-9) mild anxiety, (10-14) moderate anxiety, (15-21) severe anxiety Patient Health Questionnaire (PHQ-9) PHQ-9 09/20/2022 11/21/2022 01/30/2023 Score 6 5 5 (0-4) minimal depression, (5-9) mild depression, (10-14) moderate depression, (15-19) moderately severe depression, (20-27) severe depression ROS: See HPI General: Negative for fever, malaise, unintentional weight loss HEENT: Negative for recent changes in vision or hearing, no nasal drainage Respiratory: Negative for cough, wheezing or SOB Cardiovascular: Negative for chest pain GI: Negative for nausea, vomiting, change in bowel habits MUSCULOSKELETAL: Negative for acute back or joint pain SKIN: Negative for rash NEURO: Negative for headaches, seizures, focal neurological deficits All other systems negative. VITAL SIGNS: BP Temp Pulse Resp SpO2 MENTAL STATUS EXAMINATION: Appearance: Appropriately groomed, appears stated age Behavior: Appropriately engaged Psychomotor: No psychomotor agitation Cognition Level of Consciousness: Awake and alert. No fluctuation in wakefulness. Orientation: Grossly oriented Memory: Intact Attention/Concentration: Good Fund of Knowledge: Able to demonstrate an awareness of current events. Mood: Sad, Anxious Affect: Congruent to mood Speech/Language: Appropriate tone, prosody, presley, phonetics, and syntax Thought Form: Goal-directed. No loosening of associations. Thought Content: No delusions noted or endorsed. Perceptual Disturbances: Did not appear to respond to auditory stimuli. Safety: Suicidal Ideations: No suicidal ideation, intent or plan. Homicidal Ideations: No homicidal ideation, intent or plan. Insight: Appropriate Judgment: Appropriate I spent a total of 38 minutes on the date of the service which included preparing to see the patient, [id number] patient care, completing clinical documentation, and counseling and educating the patient/family/caregiver, ordering medications/labs. Alondra Ring APRN.CNP January 31, 2023 9:56 AM This note was partially generated using [employer] voice recognition system. Note was reviewed for accuracy. There may be minor misspellings or grammar miscues with [employer] voice recognition. documented in this encounter [facility] 01-11-2023 Note HNO ID: [id number] Author: Emily Alicea PA-C Service: ? Author Type: Physician Tool Design Draftsperson Type: Progress Notes Filed: 01/11/2023 11:09 AM Note Text: CHIEF COMPLAINT: Patient presents with: Recheck: IBS-stool testing and xray done [place] HPI Sharri Menon is a 37 year old female here today for Recheck (IBS-stool testing and xray done [place] ) PMHx of migraine, insomnia, fibromyalgia, JYOTHI Patient tells me that she had another flare of her symptoms on Tuesday. Thinking nuts and seeds are her biggest trigger. Did eat oatmeal with liza seeds on Tuesday. Gets diarrhea and gas with these flares. Bowel movements are regular. On Diflucan 100 mg daily by her osteopathic neurologist. Abdominal x-ray 12/01/2022: IMPRESSION: No acute process is seen. Last OV with me 11/30/2022: Assessment/Plan (K58.2) Irritable bowel syndrome with both constipation and diarrhea (primary encounter diagnosis) (R11.0) Nausea (K64.8) Internal hemorrhoids 1. Irritable bowel syndrome with both constipation and diarrhea -- Patient with IBS mixed. Notes that she is having small, liquid stools. -- Concern for potential overflow diarrhea -- Will check abd x-ray -- Calprotectin, fecal fat, pancreatic elastase ordered - CALPROTECTIN,FECAL - FAT, FECAL QUAL - PANC ELASTASE, FECAL - XR ABDOMEN 2V ROUTINE SUPINE W UPRIGHT/DECUB/CTL; Future 2. Nausea -- Concern for potential overflow diarrhea -- Will check abd x-ray -- Calprotectin, fecal fat, pancreatic elastase ordered -- Consider SIBO testing - CALPROTECTIN,FECAL - FAT, FECAL QUAL - PANC ELASTASE, FECAL - XR ABDOMEN 2V ROUTINE SUPINE W UPRIGHT/DECUB/CTL; Future 3. Internal hemorrhoids - hydrocortisone (ANUSOL-HC) 2.5 % rectal cream; by RECTAL route twice daily for 10 days. Dispense: 28 g; Refill: 1 Follow up in office 6 weeks/PRN. Component Latest Ref Rng AND Units 12/13/2022 01/07/2023 Fat,Fecal-Neutral Normal Normal Fat, Fecal - Split Normal Normal TSI Qualitative Negative Negative TSI <0.55 IU/L <0.10 Calprotectin, Fecal 0 - 50 mg/kg 47.0 Panc Elastase, Fecal >=100 ug/g 358 Current Outpatient Medications Medication Sig triamcinolone acetonide (KENALOG) 0.1 % ointment Apply to affected area three times daily for 14 days. On groin skin sore amoxicillin-clavulanic acid (AUGMENTIN) 875-125 mg per tablet Take 1 tablet by mouth twice daily for 10 days. amphetamine-dextroamphetamine XR (ADDERALL XR) 20 mg 24 hr capsule Take 2 capsules by mouth once daily for 30 days. lamoTRIgine (LAMICTAL) 200 mg tablet Take 1 tablet by mouth daily at bedtime. traZODone (DESYREL) 100 mg tablet Take 2 tablets at bedtime mupirocin (BACTROBAN) 2 % ointment Apply 1 application to affected area three times daily. lisdexamfetamine (VYVANSE) 40 mg capsule Take 1 capsule by mouth once daily for 30 days. Do not start before December 20, 2022. cyanocobalamin 1,000 mcg/mL 1 mL SQ monthly Cholecalciferol, Vitamin D3, 125 mcg (5,000 unit) cap Take 1 capsule by mouth once daily. pantoprazole DR (PROTONIX) 40 mg tablet Take 1 tablet by mouth daily before breakfast. Take on empty stomach, 1/2 hr before meal. montelukast (SINGULAIR) 10 mg tablet Take 1 tablet by mouth daily at bedtime. topiramate (TOPAMAX) 25 mg tablet Take 1 tablet by mouth daily at bedtime. Norethindrone Acet-Ethinyl Est (LOESTRIN 1.5, ,) 1.5-30 mg-mcg Take 1 tablet by mouth once daily. Take continuously. Do not take inactive pills ondansetron orally disintegrating (ZOFRAN ODT) 8 mg disintegrating tablet Take 1 tablet by mouth every 8 hours as needed for nausea/vomiting. Oicqerrd-Facb-Bow-Folic Acid 18-0.4 mg tab Take 1 tablet by mouth once daily. fluconazole (DIFLUCAN) 100 mg tablet Take 100 mg by mouth once daily. Daily MAGNESIUM ORAL Take 1,500 mg by mouth daily at bedtime. Clindamycin Phosphate (CLEOCIN T) 1 % lotion Apply to affected area twice daily. On face as needed for rosacea Clobetasol Propionate (TEMOVATE) 0.05 % external solution Apply 1 application to affected area once daily as needed (arm and leg skin lesion). cyclobenzaprine (FLEXERIL) 10 mg tablet Take 1 tablet by mouth three times daily as needed for muscle spasm. loratadine-pseudoephedrine ER (CLARITIN-D 12 HOUR) 5-120 mg per tablet Take 1 tablet by mouth twice daily. (Patient taking differently: Take 1 tablet by mouth as needed.) famotidine (PEPCID) 10 mg tablet Take 20 mg by mouth twice daily. docusate sodium (COLACE) 100 mg capsule Take 200 mg by mouth twice daily. Lactobacillus acidophilus (ACIDOPHILUS ORAL) Take by mouth. rizatriptan (MAXALT TAKE OFF WORKER) 5 mg disintegrating tablet Take 1 tablet by mouth as needed. For migraine., May repeat in 2 hours if needed diclofenac (VOLTAREN ARTHRITIS PAIN) 1 % topical gel Apply 2 g to affected area four times daily as needed (right thumb pain). CREON 36,000-114,000- 180,000 unit capsule TAKE 1 CAPSULE BY MOUTH PRIOR TO ALL MEALS AND SNACKS erythromycin ophthalm (more content not included)... [facility] 01-11-2023 History of Present illness Narrative CHIEF COMPLAINT: Patient presents with: Recheck: IBS-stool testing and xray done [place] HPI Sharri Menon is a 37 year old female here today for Recheck (IBS-stool testing and xray done [place] ) PMHx of migraine, insomnia, fibromyalgia, JYOTHI Patient tells me that she had another flare of her symptoms on Tuesday. Thinking nuts and seeds are her biggest trigger. Did eat oatmeal with liza seeds on Tuesday. Gets diarrhea and gas with these flares. Bowel movements are regular. On Diflucan 100 mg daily by her osteopathic neurologist. Abdominal x-ray 12/01/2022: IMPRESSION: No acute process is seen. Last OV with me 11/30/2022: Assessment/Plan (K58.2) Irritable bowel syndrome with both constipation and diarrhea (primary encounter diagnosis) (R11.0) Nausea (K64.8) Internal hemorrhoids 1. Irritable bowel syndrome with both constipation and diarrhea -- Patient with IBS mixed. Notes that she is having small, liquid stools. -- Concern for potential overflow diarrhea -- Will check abd x-ray -- Calprotectin, fecal fat, pancreatic elastase ordered - CALPROTECTIN,FECAL - FAT, FECAL QUAL - PANC ELASTASE, FECAL - XR ABDOMEN 2V ROUTINE SUPINE W UPRIGHT/DECUB/CTL; Future 2. Nausea -- Concern for potential overflow diarrhea -- Will check abd x-ray -- Calprotectin, fecal fat, pancreatic elastase ordered -- Consider SIBO testing - CALPROTECTIN,FECAL - FAT, FECAL QUAL - PANC ELASTASE, FECAL - XR ABDOMEN 2V ROUTINE SUPINE W UPRIGHT/DECUB/CTL; Future 3. Internal hemorrhoids - hydrocortisone (ANUSOL-HC) 2.5 % rectal cream; by RECTAL route twice daily for 10 days. Dispense: 28 g; Refill: 1 Follow up in office 6 weeks/PRN. Component Latest Ref Rng & Units 12/13/2022 01/07/2023 Fat,Fecal-Neutral Normal Normal Fat, Fecal - Split Normal Normal TSI Qualitative Negative Negative TSI <0.55 IU/L <0.10 Calprotectin, Fecal 0 - 50 mg/kg 47.0 Panc Elastase, Fecal >=100 ug/g 358 Current Outpatient Medications Medication Sig triamcinolone acetonide (KENALOG) 0.1 % ointment Apply to affected area three times daily for 14 days. On groin skin sore amoxicillin-clavulanic acid (AUGMENTIN) 875-125 mg per tablet Take 1 tablet by mouth twice daily for 10 days. amphetamine-dextroamphetamine XR (ADDERALL XR) 20 mg 24 hr capsule Take 2 capsules by mouth once daily for 30 days. lamoTRIgine (LAMICTAL) 200 mg tablet Take 1 tablet by mouth daily at bedtime. traZODone (DESYREL) 100 mg tablet Take 2 tablets at bedtime mupirocin (BACTROBAN) 2 % ointment Apply 1 application to affected area three times daily. lisdexamfetamine (VYVANSE) 40 mg capsule Take 1 capsule by mouth once daily for 30 days. Do not start before December 20, 2022. cyanocobalamin 1,000 mcg/mL 1 mL SQ monthly Cholecalciferol, Vitamin D3, 125 mcg (5,000 unit) cap Take 1 capsule by mouth once daily. pantoprazole DR (PROTONIX) 40 mg tablet Take 1 tablet by mouth daily before breakfast. Take on empty stomach, 1/2 hr before meal. montelukast (SINGULAIR) 10 mg tablet Take 1 tablet by mouth daily at bedtime. topiramate (TOPAMAX) 25 mg tablet Take 1 tablet by mouth daily at bedtime. Norethindrone Acet-Ethinyl Est (LOESTRIN 1.530, 21,) 1.5-30 mg-mcg Take 1 tablet by mouth once daily. Take continuously. Do not take inactive pills ondansetron orally disintegrating (ZOFRAN ODT) 8 mg disintegrating tablet Take 1 tablet by mouth every 8 hours as needed for nausea/vomiting. Cxvbyspk-Krqm-Gwf-Folic Acid 18-0.4 mg tab Take 1 tablet by mouth once daily. fluconazole (DIFLUCAN) 100 mg tablet Take 100 mg by mouth once daily. Daily MAGNESIUM ORAL Take 1,500 mg by mouth daily at bedtime. Clindamycin Phosphate (CLEOCIN T) 1 % lotion Apply to affected area twice daily. On face as needed for rosacea Clobetasol Propionate (TEMOVATE) 0.05 % external solution Apply 1 application to affected area once daily as needed (arm and leg skin lesion). cyclobenzaprine (FLEXERIL) 10 mg tablet Take 1 tablet by mouth three times daily as needed for muscle spasm. loratadine-pseudoephedrine ER (CLARITIN-D 12 HOUR) 5-120 mg per tablet Take 1 tablet by mouth twice daily. (Patient taking differently: Take 1 tablet by mouth as needed.) famotidine (PEPCID) 10 mg tablet Take 20 mg by mouth twice daily. docusate sodium (COLACE) 100 mg capsule Take 200 mg by mouth twice daily. Lactobacillus acidophilus (ACIDOPHILUS ORAL) Take by mouth. rizatriptan (MAXALT TAKE OFF WORKER) 5 mg disintegrating tablet Take 1 tablet by mouth as needed. For migraine., May repeat in 2 hours if needed diclofenac (VOLTAREN ARTHRITIS PAIN) 1 % topical gel Apply 2 g to affected area four times daily as needed (right thumb pain). CREON 36,000-114,000- 180,000 unit capsule TAKE 1 CAPSULE BY MOUTH PRIOR TO ALL MEALS AND SNACKS erythromycin ophthalmic ointment Use 1 application in both eyes daily at bedtime. Insulin Syringe-Needle U-100 (BD INSULIN SYRINGE ULTRA-FINE) 1 mL 31 gauge x 5/16 1 Each as directed. PEG 400-Propylene Glycol (SYSTANE HYDRATION PF) 0.4-0.3 % dpet Use 1 Each in both eyes four times daily. Back Brace misc 1 Device as directed. clobetasol (TEMOVATE) 0.05 % ointment Apply 1 application to affected area twice daily. For 2 weeks then once a day for 2 weeks (Patient taking differently: Apply 1 application to affected area as needed. For 2 weeks then once a day for 2 weeks) CARBOXYMETHYLCELLULOSE SODIUM (REFRESH TEARS OPHTHALMIC) Use 1 Drop in eyes four times daily. as needed hydrocortisone (ANUSOL-HC) 25 mg suppository 1 Suppository by RECTAL route twice daily as needed (hemorrhoids/rectal pain). (Patient not taking: Reported on 01/11/2023) fluconazole (DIFLUCAN) 150 mg tablet Take 1 tablet by mouth one time a week. For yeast prophylaxis. (Patient not taking: Reported on 01/11/2023) CPAP New set up: AutoBiPAP Settings IPAP max 12 & EPAP min 4 and PS 4- 6 cm H2O, suitable mask per pt preference, chin strap, head gear, humidity, tubing, lifetime supplies. G47.33 JYOTHI (Patient not taking: Reported on 01/11/2023) No current facility-administered medications for this visit. ALLERGIES Allergen Reactions Jane Inhibitors Contraindication-Medical Surgical Avoid use of JANE inhibitors while patient is on allergy immunotherapy Adhesive Tape-Silic* Intolerance Burn Beta Blockers [Beta* Contraindication-Medical Surgical Avoid use of beta blockers while patient is on allergy immunotherapy [place] Hives Cymbalta [Duloxetin* Other: See Comments Sweating side effect Effexor [Venlafaxin* Other: See Comments Sweating side effect Imitrex [Sumatripta* Vomiting GI upset and vomiting Linzess [Linaclotid* Diarrhea Vomiting, diarrhea Marijuana (Cannabis) Intolerance GI distress, diarrhea with oral use -sublingual tincture Paxlovid (Eua) [Cj* Other: See Comments Restless legs, leg pain Seasonal Allergies Unknown Molds and grasses verified by skin testing Social History Tobacco Use Smoking status: Never Smokeless tobacco: Never Vaping Use Vaping Use: Never used Substance Use Topics Alcohol use: Yes Comment: 1 drink per month Drug use: Not Currently Types: Marijuana Comment: has medical marijuana script but gave GI sx PAST MEDICAL HISTORY Diagnosis Date Abnormal biliary HIDA scan 04/22/2016 Acne vulgaris: Inflammatory Grade II to III 05/25/2014 Acute and chronic cholecystitis 05/13/2016 Adjustment disorder with mixed anxiety and depressed mood 11/28/2014 Ankle weakness 07/17/2015 Bilateral low back pain with sciatica 01/26/2016 Calculus, tonsil 12/17/2013 Chronic fatigue Depression, major, recurrent, mild (HCC) 08/14/2015 Deviated nasal septum s/p septoplasty Dry eye syndrome 12/27/2016 Eczematous dermatitis 05/22/2014 Exposure keratopathy 01/01/2016 Fatigue 02/05/2015 Female stress incontinence 10/08/2016 Fibromyalgia Flushing reaction 04/04/2014 GERD (gastroesophageal reflux disease) 06/17/2016 Hemorrhoids 09/25/2014 Hiatal hernia History of Fagan's palsy IBS (irritable bowel syndrome) 2006 had EGD, colonoscopy Insomnia 10/23/2014 Irregular periods 10/23/2013 Left ankle pain 07/17/2015 Migraines 12/24/2013 Milial cyst 05/22/2014 Nasal septal deviation 01/22/2015 Obesity (BMI 30-39.9) 10/23/2013 JYOTHI (obstructive sleep apnea) ahi 16 52r 01/01/2015 Photodermatitis 04/04/2014 Rosacea 04/04/2014 S/P LASIK (laser assisted in situ keratomileusis) of both eyes - Both Eyes 04/2014 Snoring 11/05/2015 Steroid acne 04/04/2014 Urinary leakage 04/06/2016 Vitreous floaters of both eyes 12/27/2016 Weakness of both lower extremities 01/26/2016 Xerosis cutis 05/22/2014 PAST SURGICAL HISTORY Procedure Laterality Date COLONOSCOPY 2006 COLONOSCOPY FLX DX W/COLLJ SPEC WHEN PFRMD 07/01/2016 CYSTOSCOPY with hydrodistention for IC EGD 2006 ESOPHAGOGASTRODUODENOSCOPY TRANSORAL DIAGNOSTIC 04/21/2016 L'SCOPE DX W/WO BRUSHINGS/WASHINGS 2006 LAPAROSCOPY DIAGNOSTIC 05/06/2015 [place] LAPS SURG CHOLECYSTECTOMY W/CHOLANGIOGRAPHY 05/04/2016 Normal IOC PAST SURGICAL HISTORY OF 03/2019 nasal turbinate removed REVISE MEDIAN N/CARPAL TUNNEL SURG Right 04/2022 SEPTOPLASTY 02/17/2015 FAMILY HISTORY Problem Relation Age of Onset Hypertension Mother Hyperlipidemia Mother Hypertension Father Lipids Father Cataract Father other (drug addiction) Sister Headache Sister Heart Maternal Grandfather Thyroid Paternal Grandmother Cataract Paternal Grandmother REVIEW OF SYSTEMS Review of Systems Gastrointestinal: Positive for abdominal distention and diarrhea. Heartburn All other systems reviewed and are negative. PHYSICAL EXAM BP 102/68 Pulse 96 Ht 5' 5.5 (1.66m) Wt 203 lb 4.8 oz (92.2kg) LMP 04/28/2022 BMI 33.30 kg/(m^2). Physical Exam Constitutional: Appearance: Normal appearance. She is obese. HENT: Head: Normocephalic and atraumatic. Eyes: General: No scleral icterus. Extraocular Movements: Extraocular movements intact. Conjunctiva/sclera: Conjunctivae normal. Pupils: Pupils are equal, round, and reactive to light. Cardiovascular: Rate and Rhythm: Normal rate and regular rhythm. Pulses: Normal pulses. Heart sounds: Normal heart sounds. Pulmonary: Effort: Pulmonary effort is normal. Breath sounds: Normal breath sounds. Abdominal: General: Abdomen is flat. Bowel sounds are normal. Palpations: Abdomen is soft. Tenderness: There is no abdominal tenderness. Musculoskeletal: General: Normal range of motion. Cervical back: Normal range of motion and neck supple. Skin: General: Skin is warm and dry. Coloration: Skin is not jaundiced. Neurological: General: No focal deficit present. Mental Status: She is alert and oriented to person, place, and time. Psychiatric: Mood and Affect: Mood normal. Behavior: Behavior normal. Thought Content: Thought content normal. Judgment: Judgment normal. Assessment/Plan (R10.32) LLQ pain (primary encounter diagnosis) (K58.2) Irritable bowel syndrome with both constipation and diarrhea (R14.0) Bloating 1. LLQ pain -- Patient with another flare of LLQ pain with diarrhea over the weekend. Does think nuts/seeds/popcorn are a big trigger. -- Recommend cutting out this from diet and monitor symptoms. -- Will order Lactulose breath test as patient is also having irregular bowel habits and bloating - BREATH TEST - LACTULOSE; Future 2. Irritable bowel syndrome with both constipation and diarrhea -- Will order Lactulose breath test as patient is also having irregular bowel habits and bloating - BREATH TEST - LACTULOSE; Future 3. Bloating -- Will order Lactulose breath test as patient is also having irregular bowel habits and bloating - BREATH TEST - LACTULOSE; Future Follow up in office PRN. Recommended to please call office/go to ER if fever, chills, chest pain, SOB, diarrhea, nausea, emesis, worsening abdominal pain, dehydration occurs I spent 20 minutes in the visit, with more than 50% of the total [id number] time of the visit in counseling / coordination of care. I have confirmed and edited as necessary, the PFSH and ROS obtained by others. Emily Alicea PA-C January 11, 2023 11:00 AM documented in this encounter [facility] 01-07-2023 Note HNO ID: [id number] Author: Victor Manuel Tyler, DO Service: ? Author Type: Physician Type: Progress Notes Filed: 01/07/2023 10:33 AM Note Text: CC: Sharri Menon is a 37 year old female who presents to the office for follow up HPI: Abdominal pain, diarrhea/constipation alternating, seeing Gastroenterology, adjusting her supplements to try to help with regularity of bowels. She is also still seeing [facility]. Skin spot, purplish in color and sore, no known injury, right groin area Need for hepatitis b vaccine. Is willing to have this done Elevated t3 levels, no known hx of hyperthyroidism, hasn't been on thyroid medication in the past. Struggling with lack of concentration and focusing seems to be getting worse, is taking the vyvnase 40 mg a day, interested in considering trying back on Adderall medication to see if better Mood, working with Alondra Ring CNP in Psychiatry with medication adjustment. Has a lot of stress with her mother and recent cancer diagnosis. Sinus pressure and ear pressure, trying Claritin D supplement and still having post nasal drainage, no fevers or chills. + sick contacts Orthopedics visit with Dr. Monk for her elbow pain, told likely is tendinitis. Had a steroid injection and pain improved only 2 days before the lateral elbow pain returned. Knows needs to be wearing her elbow brace again PAST MEDICAL HISTORY Diagnosis Date Abnormal biliary HIDA scan 04/22/2016 Acne vulgaris: Inflammatory Grade II to III 05/25/2014 Acute and chronic cholecystitis 05/13/2016 Adjustment disorder with mixed anxiety and depressed mood 11/28/2014 Ankle weakness 07/17/2015 Bilateral low back pain with sciatica 01/26/2016 Calculus, tonsil 12/17/2013 Chronic fatigue Depression, major, recurrent, mild (HCC) 08/14/2015 Deviated nasal septum s/p septoplasty Dry eye syndrome 12/27/2016 Eczematous dermatitis 05/22/2014 Exposure keratopathy 01/01/2016 Fatigue 02/05/2015 Female stress incontinence 10/08/2016 Fibromyalgia Flushing reaction 04/04/2014 GERD (gastroesophageal reflux disease) 06/17/2016 Hemorrhoids 09/25/2014 Hiatal hernia History of Fagan's palsy IBS (irritable bowel syndrome) 2006 had EGD, colonoscopy Insomnia 10/23/2014 Irregular periods 10/23/2013 Left ankle pain 07/17/2015 Migraines 12/24/2013 Milial cyst 05/22/2014 Nasal septal deviation 01/22/2015 Obesity (BMI 30-39.9) 10/23/2013 JYOTHI (obstructive sleep apnea) ahi 16 52r 01/01/2015 Photodermatitis 04/04/2014 Rosacea 04/04/2014 S/P LASIK (laser assisted in situ keratomileusis) of both eyes - Both Eyes 04/2014 Snoring 11/05/2015 Steroid acne 04/04/2014 Urinary leakage 04/06/2016 Vitreous floaters of both eyes 12/27/2016 Weakness of both lower extremities 01/26/2016 Xerosis cutis 05/22/2014 PAST SURGICAL HISTORY Procedure Laterality Date COLONOSCOPY 2006 COLONOSCOPY FLX DX W/COLLJ SPEC WHEN PFRMD 07/01/2016 CYSTOSCOPY with hydrodistention for IC EGD 2006 ESOPHAGOGASTRODUODENOSCOPY TRANSORAL DIAGNOSTIC 04/21/2016 L'SCOPE DX W/WO BRUSHINGS/WASHINGS 2006 LAPAROSCOPY DIAGNOSTIC 05/06/2015 [place] LAPS SURG CHOLECYSTECTOMY W/CHOLANGIOGRAPHY 05/04/2016 Normal IOC PAST SURGICAL HISTORY OF 03/2019 nasal turbinate removed REVISE MEDIAN N/CARPAL TUNNEL SURG Right 04/2022 SEPTOPLASTY 02/17/2015 Social History: Social History Tobacco Use Smoking status: Never Smokeless tobacco: Never Vaping Use Vaping Use: Never used Substance Use Topics Alcohol use: Yes Comment: 1 drink per month Drug use: Not Currently Types: Marijuana Comment: has medical marijuana script but gave GI sx FAMILY HISTORY Problem Relation Age of Onset Hypertension Mother Hyperlipidemia Mother Hypertension Father Lipids Father Cataract Father other (drug addiction) Sister Headache Sister Heart Maternal Grandfather Thyroid Paternal Grandmother Cataract Paternal Grandmother Current Outpatient prescriptions: lamoTRIgine (LAMICTAL) 200 mg tablet Take 1 tablet by mouth daily at bedtime. traZODone (DESYREL) 100 mg tablet Take 2 tablets at bedtime mupirocin (BACTROBAN) 2 % ointment Apply 1 application to affected area three times daily. lisdexamfetamine (VYVANSE) 40 mg capsule Take 1 capsule by mouth once daily for 30 days. Do not start before October 22, 2022. cyanocobalamin 1,000 mcg/mL 1 mL SQ monthly Cholecalciferol, Vitamin D3, 125 mcg (5,000 unit) cap Take 1 capsule by mouth once daily. pantoprazole DR (PROTONIX) 40 mg tablet Take 1 tablet by mouth daily before breakfast. Take on empty stomach, 1/2 hr before meal. montelukast (SINGULAIR) 10 mg tablet Take 1 tablet by mouth daily at bedtime. topiramate (TOPAMAX) 25 mg tablet Take 1 tablet by mouth daily at bedtime. Norethindrone Acet-Ethinyl Est (LOESTRIN 1.5, ,) 1.5-30 mg-mcg Take 1 tablet by mouth once daily. Take continuously. Do not take inactive pills ondansetron orally di (more content not included)... [facility] 01-07-2023 History of Present illness Narrative CC: Sharri Menon is a 37 year old female who presents to the office for follow up HPI: Abdominal pain, diarrhea/constipation alternating, seeing Gastroenterology, adjusting her supplements to try to help with regularity of bowels. She is also still seeing [facility]. Skin spot, purplish in color and sore, no known injury, right groin area Need for hepatitis b vaccine. Is willing to have this done Elevated t3 levels, no known hx of hyperthyroidism, hasn't been on thyroid medication in the past. Struggling with lack of concentration and focusing seems to be getting worse, is taking the vyvnase 40 mg a day, interested in considering trying back on Adderall medication to see if better Mood, working with Alondra Ring CNP in Psychiatry with medication adjustment. Has a lot of stress with her mother and recent cancer diagnosis. Sinus pressure and ear pressure, trying Claritin D supplement and still having post nasal drainage, no fevers or chills. + sick contacts Orthopedics visit with Dr. Monk for her elbow pain, told likely is tendinitis. Had a steroid injection and pain improved only 2 days before the lateral elbow pain returned. Knows needs to be wearing her elbow brace again PAST MEDICAL HISTORY Diagnosis Date Abnormal biliary HIDA scan 04/22/2016 Acne vulgaris: Inflammatory Grade II to III 05/25/2014 Acute and chronic cholecystitis 05/13/2016 Adjustment disorder with mixed anxiety and depressed mood 11/28/2014 Ankle weakness 07/17/2015 Bilateral low back pain with sciatica 01/26/2016 Calculus, tonsil 12/17/2013 Chronic fatigue Depression, major, recurrent, mild (HCC) 08/14/2015 Deviated nasal septum s/p septoplasty Dry eye syndrome 12/27/2016 Eczematous dermatitis 05/22/2014 Exposure keratopathy 01/01/2016 Fatigue 02/05/2015 Female stress incontinence 10/08/2016 Fibromyalgia Flushing reaction 04/04/2014 GERD (gastroesophageal reflux disease) 06/17/2016 Hemorrhoids 09/25/2014 Hiatal hernia History of Fagan's palsy IBS (irritable bowel syndrome) 2006 had EGD, colonoscopy Insomnia 10/23/2014 Irregular periods 10/23/2013 Left ankle pain 07/17/2015 Migraines 12/24/2013 Milial cyst 05/22/2014 Nasal septal deviation 01/22/2015 Obesity (BMI 30-39.9) 10/23/2013 JYOTHI (obstructive sleep apnea) ahi 16 52r 01/01/2015 Photodermatitis 04/04/2014 Rosacea 04/04/2014 S/P LASIK (laser assisted in situ keratomileusis) of both eyes - Both Eyes 04/2014 Snoring 11/05/2015 Steroid acne 04/04/2014 Urinary leakage 04/06/2016 Vitreous floaters of both eyes 12/27/2016 Weakness of both lower extremities 01/26/2016 Xerosis cutis 05/22/2014 PAST SURGICAL HISTORY Procedure Laterality Date COLONOSCOPY 2006 COLONOSCOPY FLX DX W/COLLJ SPEC WHEN PFRMD 07/01/2016 CYSTOSCOPY with hydrodistention for IC EGD 2005 ESOPHAGOGASTRODUODENOSCOPY TRANSORAL DIAGNOSTIC 04/21/2016 L'SCOPE DX W/WO BRUSHINGS/WASHINGS 2006 LAPAROSCOPY DIAGNOSTIC 05/06/2015 [place] LAPS SURG CHOLECYSTECTOMY W/CHOLANGIOGRAPHY 05/04/2016 Normal IOC PAST SURGICAL HISTORY OF 03/2019 nasal turbinate removed REVISE MEDIAN N/CARPAL TUNNEL SURG Right 04/2022 SEPTOPLASTY 02/17/2015 Social History: Social History Tobacco Use Smoking status: Never Smokeless tobacco: Never Vaping Use Vaping Use: Never used Substance Use Topics Alcohol use: Yes Comment: 1 drink per month Drug use: Not Currently Types: Marijuana Comment: has medical marijuana script but gave GI sx FAMILY HISTORY Problem Relation Age of Onset Hypertension Mother Hyperlipidemia Mother Hypertension Father Lipids Father Cataract Father other (drug addiction) Sister Headache Sister Heart Maternal Grandfather Thyroid Paternal Grandmother Cataract Paternal Grandmother Current Outpatient prescriptions: lamoTRIgine (LAMICTAL) 200 mg tablet Take 1 tablet by mouth daily at bedtime. traZODone (DESYREL) 100 mg tablet Take 2 tablets at bedtime mupirocin (BACTROBAN) 2 % ointment Apply 1 application to affected area three times daily. lisdexamfetamine (VYVANSE) 40 mg capsule Take 1 capsule by mouth once daily for 30 days. Do not start before October 22, 2022. cyanocobalamin 1,000 mcg/mL 1 mL SQ monthly Cholecalciferol, Vitamin D3, 125 mcg (5,000 unit) cap Take 1 capsule by mouth once daily. pantoprazole DR (PROTONIX) 40 mg tablet Take 1 tablet by mouth daily before breakfast. Take on empty stomach, 1/2 hr before meal. montelukast (SINGULAIR) 10 mg tablet Take 1 tablet by mouth daily at bedtime. topiramate (TOPAMAX) 25 mg tablet Take 1 tablet by mouth daily at bedtime. Norethindrone Acet-Ethinyl Est (LOESTRIN 1.5/30, 21,) 1.5-30 mg-mcg Take 1 tablet by mouth once daily. Take continuously. Do not take inactive pills ondansetron orally disintegrating (ZOFRAN ODT) 8 mg disintegrating tablet Take 1 tablet by mouth every 8 hours as needed for nausea/vomiting. fluconazole (DIFLUCAN) 100 mg tablet Take 100 mg by mouth once daily. Daily MAGNESIUM ORAL Take 1,500 mg by mouth daily at bedtime. Clindamycin Phosphate (CLEOCIN T) 1 % lotion Apply to affected area twice daily. On face as needed for rosacea Clobetasol Propionate (TEMOVATE) 0.05 % external solution Apply 1 application to affected area once daily as needed (arm and leg skin lesion). famotidine (PEPCID) 10 mg tablet Take 20 mg by mouth twice daily. docusate sodium (COLACE) 100 mg capsule Take 200 mg by mouth twice daily. Lactobacillus acidophilus (ACIDOPHILUS ORAL) Take by mouth. diclofenac (VOLTAREN ARTHRITIS PAIN) 1 % topical gel Apply 2 g to affected area four times daily as needed (right thumb pain). fluconazole (DIFLUCAN) 150 mg tablet Take 1 tablet by mouth one time a week. For yeast prophylaxis. CREON 36,000-114,000- 180,000 unit capsule TAKE 1 CAPSULE BY MOUTH PRIOR TO ALL MEALS AND SNACKS Insulin Syringe-Needle U-100 (BD INSULIN SYRINGE ULTRA-FINE) 1 mL 31 gauge x 5/16 1 Each as directed. PEG 400-Propylene Glycol (SYSTANE HYDRATION PF) 0.4-0.3 % dpet Use 1 Each in both eyes four times daily. clobetasol (TEMOVATE) 0.05 % ointment Apply 1 application to affected area twice daily. For 2 weeks then once a day for 2 weeks (Patient taking differently: Apply 1 application to affected area as needed. For 2 weeks then once a day for 2 weeks) CARBOXYMETHYLCELLULOSE SODIUM (REFRESH TEARS OPHTHALMIC) Use 1 Drop in eyes four times daily. as needed hydrocortisone (ANUSOL-HC) 25 mg suppository 1 Suppository by RECTAL route twice daily as needed (hemorrhoids/rectal pain). lisdexamfetamine (VYVANSE) 40 mg capsule Take 1 capsule by mouth once daily for 30 days. Do not start before November 20, 2022. lisdexamfetamine (VYVANSE) 40 mg capsule Take 1 capsule by mouth once daily for 30 days. Do not start before December 20, 2022. Bezyensa-Lahy-Pqr-Folic Acid 18-0.4 mg tab Take 1 tablet by mouth once daily. cyclobenzaprine (FLEXERIL) 10 mg tablet Take 1 tablet by mouth three times daily as needed for muscle spasm. loratadine-pseudoephedrine ER (CLARITIN-D 12 HOUR) 5-120 mg per tablet Take 1 tablet by mouth twice daily. (Patient taking differently: Take 1 tablet by mouth as needed.) rizatriptan (MAXALT TAKE OFF WORKER) 5 mg disintegrating tablet Take 1 tablet by mouth as needed. For migraine., May repeat in 2 hours if needed CPAP New set up: AutoBiPAP Settings IPAP max 12 & EPAP min 4 and PS 4- 6 cm H2O, suitable mask per pt preference, chin strap, head gear, humidity, tubing, lifetime supplies. G47.33 JYOTHI (Patient not taking: Reported on 11/24/2022) erythromycin ophthalmic ointment Use 1 application in both eyes daily at bedtime. Back Brace misc 1 Device as directed. Allergies: ALLERGIES Allergen Reactions Jane Inhibitors Contraindication-Medical Surgical Avoid use of JANE inhibitors while patient is on allergy immunotherapy Adhesive Tape-Silic* Intolerance Burn Beta Blockers [Beta* Contraindication-Medical Surgical Avoid use of beta blockers while patient is on allergy immunotherapy [place] Hives Cymbalta [Duloxetin* Other: See Comments Sweating side effect Effexor [Venlafaxin* Other: See Comments Sweating side effect Imitrex [Sumatripta* Vomiting GI upset and vomiting Linzess [Linaclotid* Diarrhea Vomiting, diarrhea Marijuana (Cannabis) Intolerance GI distress, diarrhea with oral use -sublingual tincture Paxlovid (Eua) [Cj* Other: See Comments Restless legs, leg pain Seasonal Allergies Unknown Molds and grasses verified by skin testing ROS: See HPI PE: 01/07/23 0748 BP: 100/60 Pulse: 80 Resp: 16 Temp: 36.7 C (98 F) TempSrc: Right Tympanic Weight: 90.3 kg (199 lb) Gen: A&O, NAD, non-toxic appearing, Pleasant, cooperative HEENT: NT/AC, PERRLA, EOMs intact b/l, nares congested and turbinates swollen, pharynx without erythema, exudate or lesions, + PND, MMM. Uvula midline. EACs without erythema or debris. TMs pearly leong with intact landmarks b/l. Neck: supple, No cervical LAD, no thyromegaly, no carotid bruits CV: RRR, normal S1 and S2, no murmurs, no gallops, no rubs, Pulses 2+ and symmetric in UE and LE b/l Lungs: normal respiratory effort, CTA b/l, no wheezing or rhonchi or rales Abd: soft, obese, NT, ND, +BS, no hepatosplenomegaly MS: FROM all 4 extremities Neuro: CN II-XII intact b/l, strength 5/5 b/l UE and LE, DTRs 2/4 UE and LE, sensation intact. Skin: warm, dry, intact, inflamed skin abrasion right groin without drainage No edema, normal pulses ASSESSMENT/PLAN: 1. High serum triiodothyronine (T3) - ICD9: 790.99, ICD10: R79.89 (primary diagnosis) Recheck thyroid labs as ordered. - REVERSE T3 - T3 BLD - T3 FREE BLD - T4 FREE/FREE THYROX - TSH BLD - THYROID PEROXIDASE ANTIBODY BLOOD - THYROID STIMULATING IMMUNOGLOBULIN BLOOD 2. Skin sore - ICD9: 709.9, ICD10: L98.9 rx as below, mix with mupirocin ointment - TRIAMCINOLONE ACETONIDE 0.1 % TOPICAL OINTMENT 3. Bacterial ear infection, bilateral - ICD9: 382.9, 041.9, ICD10: H66.93, B96.89 - Will begin treatment with as per antibiotic as written, see orders - AMOXICILLIN 875 MG-POTASSIUM CLAVULANATE 125 MG TABLET 4. Fibromyalgia - ICD9: 729.1, ICD10: M79.7 D/c vyvanse, trial of adderall rx again, she thinks this may have worked better prior - DEXTROAMPHETAMINE-AMPHETAMINE ER 20 MG 24HR CAPSULE,EXTEND RELEASE 5. Chronic fatigue - ICD9: 780.79, ICD10: R53.82 D/c vyvanse, trial of adderall rx again, she thinks this may have worked better prior - DEXTROAMPHETAMINE-AMPHETAMINE ER 20 MG 24HR CAPSULE,EXTEND RELEASE 6. URIEL (generalized anxiety disorder) - ICD9: 300.02, ICD10: F41.1 F/u with Alondra, chronic, stable 7. Irritable bowel syndrome with both constipation and diarrhea - ICD9: 564.1, ICD10: K58.2 Stable, f/u with Gastro 8. Dysmetabolic syndrome - ICD9: 277.7, ICD10: E88.81 - stable, need for weight loss. 9. Dyslipidemia - ICD9: 272.4, ICD10: E78.5 - to be determined upon return of lab results - Encouraged following a low fat, low cholesterol diet. - Discussed the benefits of regular aerobic exercise and weight loss. 10. Vitamin B12 deficiency - ICD9: 266.2, ICD10: E53.8 Continue supplement 11. Vitamin D deficiency - ICD9: 268.9, ICD10: E55.9 Continue supplement 12. Multiple joint pain - ICD9: 719.49, ICD10: M25.50 - stable 13. Concentration deficit - ICD9: 799.51, ICD10: R41.840 See above Victor Manuel Tyler DO PDMP website checked and validated. All prescriptions have been APPROPRIATELY filled. No suspicious activity was identified. 01/07/2023 by Victor Manuel Tyler DO To ER if develops chest pain, shortness of breath, or severe worsening of symptoms. Discussed risks, benefits, alternatives, and potential side effects of medications. Patient expressed understanding and agreed with the plan. Victor Manuel Tyler DO [address] [place] [address] documented in this encounter [facility] 12-01-2022 Note HNO ID: [id number] Author: RT Debbie(R) Service: ? Author Type: Corporate Communications Specialist Type: Progress Notes Filed: 12/01/2022 1:36 PM Note Text: Radiology Service Progress Note PATIENT NAME: Sharri Menon DATE OF SERVICE: December 01, 2022 TIME: 1:20 PM PATIENT IDENTITY VERIFICATION COMPLETED USING TWO (2) IDENTIFIERS: Name and Date of confirmed by patient verbally. FALL SCREENING: Has the patient had 2 falls in the last year or 1 fall with injury or currently using an Ambulatory Assistive Device (Walker, Cane, Wheelchair, Crutches, etc.)? No PATIENT GENDER DATA: Female. status: : No status: NO. PATIENT RELEVANT IMPLANT DATA REVIEWED: Yes RADIOLOGY DEPARTMENT: General X-ray: Exam(s) Completed: Abdomen X-Ray: Abdomen PERIPHERAL IV DATA: Not applicable SIGNED BY: RT Debbie(R) December 01, 2022 1:20 PM [facility] 11-30-2022 Note HNO ID: [id number] Author: Emily Alicea PA-C Service: ? Author Type: Physician Tool Design Draftsperson Type: Progress Notes Filed: 11/30/2022 4:00 PM Note Text: CHIEF COMPLAINT: Patient presents with: Irritable Bowel Syndrome: Labs 11/24/22. Ate lots of red meat on Barbie causing left sided abdominal pain, fatigue and nausea. Has not had a solid BM since Aug. Had another left sided abdominal pain attack last week. This consult was requested by Ivett Quintana APRN.CNP for an opinion regarding IBS. My final recommendations will be communicated to the requesting health care provider by way of the shared medical record for internal providers or letter via the [employer] for external providers. HPI: Sharri Menon is a 37 year old female who presents for Irritable Bowel Syndrome (Labs 11/24/22. Ate lots of red meat on [place] causing left sided abdominal pain, fatigue and nausea. Has not had a solid BM since Aug. Had another left sided abdominal pain attack last week.). PMHx of migraine, insomnia, fibromyalgia, JYOTHI Patient tells me that she hasn't had a formed stool since August. Taking 2,000 mg of Magnesium and 200 mg of Colace daily. Notes that if she reduces this, she will not go. Sometimes she feels like she isn't fully emptying. Has been working with an [employer]. Has tried fiber, Miralax, ex lax in the past as well. Notes she ate a lot of red meat from [place] through New Years. Had significant L sided pain with nausea and gas. Has not noticed any change with the Bentyl. Still very gassy and bloated. Notes more nausea recently. No vomiting. Appetite is good. Taking Creon 36,000 two pills with meals. Tells me that when she gets her period, she feels like something is blocking her rectum. Has to really strain to go. If she is on continuous control, she doesn't seem to have an issue. No smoking. Social alcohol use. Grandmother has diverticulitis. Component Latest Ref Rng AND Units 11/24/2022 WBC 3.70 - 11.00 k/uL 8.32 RBC 3.90 - 5.20 m/uL 4.65 Hemoglobin 11.5 - 15.5 g/dL 14.1 Hematocrit 36.0 - 46.0 % 45.0 MCV 80.0 - 100.0 fL 96.8 MCH 26.0 - 34.0 pg 30.3 MCHC 30.5 - 36.0 g/dL 31.3 RDW-CV 11.5 - 15.0 % 13.1 Platelet Count 150 - 400 k/uL 409 (H) MPV 9.0 - 12.7 fL 10.2 Neut% % 59.9 Abs Neut (ANC) 1.45 - 7.50 k/uL 4.99 Lymph% % 30.3 Abs Lymph 1.00 - 4.00 k/uL 2.52 Kingsbury% % 7.0 Abs [place] <0.87 k/uL 0.58 Eosin% % 1.7 Abs Eosin <0.46 k/uL 0.14 Baso% % 0.6 Abs Baso <0.11 k/uL 0.05 Immature Gran % % 0.5 IMMATURE GRANS (ABS) <0.10 k/uL 0.04 NRBC /100 WBC 0.0 Absolute nRBC <0.01 k/uL <0.01 DTYPE Auto Protein, Total 6.3 - 8.0 g/dL 7.1 Albumin 3.9 - 4.9 g/dL 4.4 Calcium 8.5 - 10.2 mg/dL 9.5 Bilirubin, Total 0.2 - 1.3 mg/dL 0.4 Alkaline Phosphatase 34 - 123 U/L 52 AST 13 - 35 U/L 20 ALT 7 - 38 U/L 16 Glucose 74 - 99 mg/dL 102 (H) BUN 7 - 21 mg/dL 15 Creatinine 0.58 - 0.96 mg/dL 1.13 (H) Sodium 136 - 144 mmol/L 139 Potassium 3.7 - 5.1 mmol/L 4.7 Chloride 97 - 105 mmol/L 107 (H) CO2 22 - 30 mmol/L 21 (L) Anion Gap 9 - 18 mmol/L 11 eGFR >=60 mL/min/1.73mA? 64 CRP <0.9 mg/dL 1.5 (H) WSR 0 - 20 mm/hr 12 YOUNG by EIA, Qual Negative Negative TSH 0.270 - 4.200 mIU/L 1.640 UltraSens C-Reactive Protein <3.1 mg/L 13.1 (H) Record Review: [facility] / Outside records reviewed. PAST MEDICAL HISTORY Diagnosis Date Abnormal biliary HIDA scan 04/22/2016 Acne vulgaris: Inflammatory Grade II to III 05/25/2014 Acute and chronic cholecystitis 05/13/2016 Adjustment disorder with mixed anxiety and depressed mood 11/28/2014 Ankle weakness 07/17/2015 Bilateral low back pain with sciatica 01/26/2016 Calculus, tonsil 12/17/2013 Chronic fatigue Depression, major, recurrent, mild (HCC) 08/14/2015 Deviated nasal septum s/p septoplasty Dry eye syndrome 12/27/2016 Eczematous dermatitis 05/22/2014 Exposure keratopathy 01/01/2016 Fatigue 02/05/2015 Female stress incontinence 10/08/2016 Fibromyalgia Flushing reaction 04/04/2014 GERD (gastroesophageal reflux disease) 06/17/2016 Hemorrhoids 09/25/2014 Hiatal hernia History of Fagan's palsy IBS (irritable bowel syndrome) 2006 had EGD, colonoscopy Insomnia 10/23/2014 Irregular periods 10/23/2013 Left ankle pain 07/17/2015 Migraines 12/24/2013 Milial cyst 05/22/2014 Nasal septal deviation 01/22/2015 Obesity (BMI 30-39.9) 10/23/2013 JYOTHI (obstructive sleep apnea) ahi 16 52r 01/01/2015 Photodermatitis 04/04/2014 Rosacea 04/04/2014 S/P LASIK (laser assisted in situ keratomileusis) of both eyes - Both Eyes 04/2014 Snoring 11/05/2015 Steroid acne 04/04/2014 Urinary leakage 04/06/2016 Vitreous floaters of both eyes 12/27/2016 Weakness of both lower extremities 01/26/2016 Xerosis cutis 05/22/2014 PAST SURGICAL HISTORY Procedure Laterality Date COLONOSCOPY 2006 COLONOSCOPY FLX DX W/COLLJ SPEC WHEN PFRMD 07/01/2016 CYSTOSCOPY with hydrodistention for IC EGD (more content not included)... [facility] 11-30-2022 History of Present illness Narrative CHIEF COMPLAINT: Patient presents with: Irritable Bowel Syndrome: Labs 11/24/22. Ate lots of red meat on Barbie causing left sided abdominal pain, fatigue and nausea. Has not had a solid BM since Aug. Had another left sided abdominal pain attack last week. This consult was requested by Ivett Quintana APRN.CNP for an opinion regarding IBS. My final recommendations will be communicated to the requesting health care provider by way of the shared medical record for internal providers or letter via the [employer] for external providers. HPI: Sharri Menon is a 37 year old female who presents for Irritable Bowel Syndrome (Labs 11/24/22. Ate lots of red meat on [place] causing left sided abdominal pain, fatigue and nausea. Has not had a solid BM since Aug. Had another left sided abdominal pain attack last week.). PMHx of migraine, insomnia, fibromyalgia, JYOTHI Patient tells me that she hasn't had a formed stool since August. Taking 2,000 mg of Magnesium and 200 mg of Colace daily. Notes that if she reduces this, she will not go. Sometimes she feels like she isn't fully emptying. Has been working with an [employer]. Has tried fiber, Miralax, ex lax in the past as well. Notes she ate a lot of red meat from [place] through New Years. Had significant L sided pain with nausea and gas. Has not noticed any change with the Bentyl. Still very gassy and bloated. Notes more nausea recently. No vomiting. Appetite is good. Taking Creon 36,000 two pills with meals. Tells me that when she gets her period, she feels like something is blocking her rectum. Has to really strain to go. If she is on continuous control, she doesn't seem to have an issue. No smoking. Social alcohol use. Grandmother has diverticulitis. Component Latest Ref Rng & Units 11/24/2022 WBC 3.70 - 11.00 k/uL 8.32 RBC 3.90 - 5.20 m/uL 4.65 Hemoglobin 11.5 - 15.5 g/dL 14.1 Hematocrit 36.0 - 46.0 % 45.0 MCV 80.0 - 100.0 fL 96.8 MCH 26.0 - 34.0 pg 30.3 MCHC 30.5 - 36.0 g/dL 31.3 RDW-CV 11.5 - 15.0 % 13.1 Platelet Count 150 - 400 k/uL 409 (H) MPV 9.0 - 12.7 fL 10.2 Neut% % 59.9 Abs Neut (ANC) 1.45 - 7.50 k/uL 4.99 Lymph% % 30.3 Abs Lymph 1.00 - 4.00 k/uL 2.52 [place]% % 7.0 Abs [place] <0.87 k/uL 0.58 Eosin% % 1.7 Abs Eosin <0.46 k/uL 0.14 Baso% % 0.6 Abs Baso <0.11 k/uL 0.05 Immature Gran % % 0.5 IMMATURE GRANS (ABS) <0.10 k/uL 0.04 NRBC /100 WBC 0.0 Absolute nRBC <0.01 k/uL <0.01 DTYPE Auto Protein, Total 6.3 - 8.0 g/dL 7.1 Albumin 3.9 - 4.9 g/dL 4.4 Calcium 8.5 - 10.2 mg/dL 9.5 Bilirubin, Total 0.2 - 1.3 mg/dL 0.4 Alkaline Phosphatase 34 - 123 U/L 52 AST 13 - 35 U/L 20 ALT 7 - 38 U/L 16 Glucose 74 - 99 mg/dL 102 (H) BUN 7 - 21 mg/dL 15 Creatinine 0.58 - 0.96 mg/dL 1.13 (H) Sodium 136 - 144 mmol/L 139 Potassium 3.7 - 5.1 mmol/L 4.7 Chloride 97 - 105 mmol/L 107 (H) CO2 22 - 30 mmol/L 21 (L) Anion Gap 9 - 18 mmol/L 11 eGFR >=60 mL/min/1.73m 64 CRP <0.9 mg/dL 1.5 (H) WSR 0 - 20 mm/hr 12 YOUNG by EIA, Qual Negative Negative TSH 0.270 - 4.200 mIU/L 1.640 UltraSens C-Reactive Protein <3.1 mg/L 13.1 (H) Record Review: [facility] / Outside records reviewed. PAST MEDICAL HISTORY Diagnosis Date Abnormal biliary HIDA scan 04/22/2016 Acne vulgaris: Inflammatory Grade II to III 05/25/2014 Acute and chronic cholecystitis 05/13/2016 Adjustment disorder with mixed anxiety and depressed mood 11/28/2014 Ankle weakness 07/17/2015 Bilateral low back pain with sciatica 01/26/2016 Calculus, tonsil 12/17/2013 Chronic fatigue Depression, major, recurrent, mild (HCC) 08/14/2015 Deviated nasal septum s/p septoplasty Dry eye syndrome 12/27/2016 Eczematous dermatitis 05/22/2014 Exposure keratopathy 01/01/2016 Fatigue 02/05/2015 Female stress incontinence 10/08/2016 Fibromyalgia Flushing reaction 04/04/2014 GERD (gastroesophageal reflux disease) 06/17/2016 Hemorrhoids 09/25/2014 Hiatal hernia History of Fagan's palsy IBS (irritable bowel syndrome) 2006 had EGD, colonoscopy Insomnia 10/23/2014 Irregular periods 10/23/2013 Left ankle pain 07/17/2015 Migraines 12/24/2013 Milial cyst 05/22/2014 Nasal septal deviation 01/22/2015 Obesity (BMI 30-39.9) 10/23/2013 JYOTHI (obstructive sleep apnea) ahi 16 52r 01/01/2015 Photodermatitis 04/04/2014 Rosacea 04/04/2014 S/P LASIK (laser assisted in situ keratomileusis) of both eyes - Both Eyes 04/2014 Snoring 11/05/2015 Steroid acne 04/04/2014 Urinary leakage 04/06/2016 Vitreous floaters of both eyes 12/27/2016 Weakness of both lower extremities 01/26/2016 Xerosis cutis 05/22/2014 PAST SURGICAL HISTORY Procedure Laterality Date COLONOSCOPY 2006 COLONOSCOPY FLX DX W/COLLJ SPEC WHEN PFRMD 07/01/2016 CYSTOSCOPY with hydrodistention for IC EGD 2006 ESOPHAGOGASTRODUODENOSCOPY TRANSORAL DIAGNOSTIC 04/21/2016 L'SCOPE DX W/WO BRUSHINGS/WASHINGS 2006 LAPAROSCOPY DIAGNOSTIC 05/06/2015 [place] LAPS SURG CHOLECYSTECTOMY W/CHOLANGIOGRAPHY 05/04/2016 Normal IOC PAST SURGICAL HISTORY OF 03/2019 nasal turbinate removed REVISE MEDIAN N/CARPAL TUNNEL SURG Right 04/2022 SEPTOPLASTY 02/17/2015 Allergies: ALLERGIES Allergen Reactions Jane Inhibitors Contraindication-Medical Surgical Avoid use of JANE inhibitors while patient is on allergy immunotherapy Adhesive Tape-Silic* Intolerance Burn Beta Blockers [Beta* Contraindication-Medical Surgical Avoid use of beta blockers while patient is on allergy immunotherapy [place] Hives Cymbalta [Duloxetin* Other: See Comments Sweating side effect Effexor [Venlafaxin* Other: See Comments Sweating side effect Imitrex [Sumatripta* Vomiting GI upset and vomiting Linzess [Linaclotid* Diarrhea Vomiting, diarrhea Marijuana (Cannabis) Intolerance GI distress, diarrhea with oral use -sublingual tincture Paxlovid (Eua) [Cj* Other: See Comments Restless legs, leg pain Seasonal Allergies Unknown Molds and grasses verified by skin testing Medications: metroNIDAZOLE (METROGEL) 1 % Topical Gel Apply 1 application to affected area once daily for 14 days. Location: face/cheeks as needed for rosacea dicyclomine (BENTYL) 10 mg capsule Take 1 capsule by mouth before meals and at bedtime. busPIRone HCl 30 mg tablet Take 1 tablet by mouth daily at bedtime. celecoxib (CELEBREX) 100 mg capsule Take 2 capsules by mouth twice daily. lamoTRIgine (LAMICTAL) 200 mg tablet Take 1 tablet by mouth daily at bedtime. mupirocin (BACTROBAN) 2 % ointment Apply 1 application to affected area three times daily. lisdexamfetamine (VYVANSE) 40 mg capsule Take 1 capsule by mouth once daily for 30 days. Do not start before October 22, 2022. cyanocobalamin 1,000 mcg/mL 1 mL SQ monthly Cholecalciferol, Vitamin D3, 125 mcg (5,000 unit) cap Take 1 capsule by mouth once daily. pantoprazole DR (PROTONIX) 40 mg tablet Take 1 tablet by mouth daily before breakfast. Take on empty stomach, 1/2 hr before meal. montelukast (SINGULAIR) 10 mg tablet Take 1 tablet by mouth daily at bedtime. topiramate (TOPAMAX) 25 mg tablet Take 1 tablet by mouth daily at bedtime. Norethindrone Acet-Ethinyl Est (LOESTRIN 1.5/30, 21,) 1.5-30 mg-mcg Take 1 tablet by mouth once daily. Take continuously. Do not take inactive pills ondansetron orally disintegrating (ZOFRAN ODT) 8 mg disintegrating tablet Take 1 tablet by mouth every 8 hours as needed for nausea/vomiting. Adohonhr-Mcia-Qgi-Folic Acid 18-0.4 mg tab Take 1 tablet by mouth once daily. fluconazole (DIFLUCAN) 100 mg tablet Take 100 mg by mouth once daily. Daily MAGNESIUM ORAL Take 1,500 mg by mouth daily at bedtime. Clindamycin Phosphate (CLEOCIN T) 1 % lotion Apply to affected area twice daily. On face as needed for rosacea cyclobenzaprine (FLEXERIL) 10 mg tablet Take 1 tablet by mouth three times daily as needed for muscle spasm. loratadine-pseudoephedrine ER (CLARITIN-D 12 HOUR) 5-120 mg per tablet Take 1 tablet by mouth twice daily. (Patient taking differently: Take 1 tablet by mouth as needed.) famotidine (PEPCID) 10 mg tablet Take 20 mg by mouth twice daily. docusate sodium (COLACE) 100 mg capsule Take 200 mg by mouth twice daily. Lactobacillus acidophilus (ACIDOPHILUS ORAL) Take by mouth. rizatriptan (MAXALT TAKE OFF WORKER) 5 mg disintegrating tablet Take 1 tablet by mouth as needed. For migraine., May repeat in 2 hours if needed diclofenac (VOLTAREN ARTHRITIS PAIN) 1 % topical gel Apply 2 g to affected area four times daily as needed (right thumb pain). CREON 36,000-114,000- 180,000 unit capsule TAKE 1 CAPSULE BY MOUTH PRIOR TO ALL MEALS AND SNACKS erythromycin ophthalmic ointment Use 1 application in both eyes daily at bedtime. Insulin Syringe-Needle U-100 (BD INSULIN SYRINGE ULTRA-FINE) 1 mL 31 gauge x 5/16 1 Each as directed. PEG 400-Propylene Glycol (SYSTANE HYDRATION PF) 0.4-0.3 % dpet Use 1 Each in both eyes four times daily. Back Brace misc 1 Device as directed. clobetasol (TEMOVATE) 0.05 % ointment Apply 1 application to affected area twice daily. For 2 weeks then once a day for 2 weeks (Patient taking differently: Apply 1 application to affected area as needed. For 2 weeks then once a day for 2 weeks) CARBOXYMETHYLCELLULOSE SODIUM (REFRESH TEARS OPHTHALMIC) Use 1 Drop in eyes four times daily. as needed hydrocortisone (ANUSOL-HC) 25 mg suppository 1 Suppository by RECTAL route twice daily as needed (hemorrhoids/rectal pain). traZODone (DESYREL) 100 mg tablet Take 2 tablets at bedtime lisdexamfetamine (VYVANSE) 40 mg capsule Take 1 capsule by mouth once daily for 30 days. Do not start before November 20, 2022. [START ON 12/20/2022] lisdexamfetamine (VYVANSE) 40 mg capsule Take 1 capsule by mouth once daily for 30 days. Do not start before December 20, 2022. Clobetasol Propionate (TEMOVATE) 0.05 % external solution Apply 1 application to affected area once daily as needed (arm and leg skin lesion). (Patient not taking: Reported on 11/24/2022) fluconazole (DIFLUCAN) 150 mg tablet Take 1 tablet by mouth one time a week. For yeast prophylaxis. (Patient not taking: Reported on 11/24/2022) CPAP New set up: AutoBiPAP Settings IPAP max 12 & EPAP min 4 and PS 4- 6 cm H2O, suitable mask per pt preference, chin strap, head gear, humidity, tubing, lifetime supplies. G47.33 JYOTHI (Patient not taking: Reported on 11/24/2022) FAMILY HISTORY Problem Relation Age of Onset Hypertension Mother Hyperlipidemia Mother Hypertension Father Lipids Father Cataract Father other (drug addiction) Sister Headache Sister Heart Maternal Grandfather Thyroid Paternal Grandmother Cataract Paternal Grandmother Employer And Job Title: None on file Years Of Education Completed: 12 years Marital Status: Single with no children Social History Tobacco Use Smoking status: Never Smokeless tobacco: Never Vaping Use Vaping Use: Never used Substance Use Topics Alcohol use: Yes Comment: 1 drink per month Drug use: Not Currently Types: Marijuana Comment: has medical marijuana script but gave GI sx Review of Systems: Review of Systems Constitutional: Positive for fatigue. HENT: Positive for trouble swallowing. Gastrointestinal: Positive for abdominal distention, abdominal pain, diarrhea and nausea. Change in bowel habits, Gas, Heartburn All other systems reviewed and are negative. Are you taking any blood thinners? No Physical Examination: Ht 5' 5.5 (1.66m) Wt 209 lb (94.8kg) LMP 04/28/2022 BMI 34.24 kg/(m^2). Physical Exam Constitutional: Appearance: Normal appearance. She is obese. HENT: Head: Normocephalic and atraumatic. Eyes: General: No scleral icterus. Extraocular Movements: Extraocular movements intact. Conjunctiva/sclera: Conjunctivae normal. Pupils: Pupils are equal, round, and reactive to light. Cardiovascular: Rate and Rhythm: Normal rate and regular rhythm. Pulses: Normal pulses. Heart sounds: Normal heart sounds. Pulmonary: Effort: Pulmonary effort is normal. Breath sounds: Normal breath sounds. Abdominal: General: Abdomen is flat. Palpations: Abdomen is soft. Tenderness: There is no abdominal tenderness. Comments: Hypoactive bowel sounds on exam Musculoskeletal: General: Normal range of motion. Cervical back: Normal range of motion and neck supple. Skin: General: Skin is warm and dry. Coloration: Skin is not jaundiced. Neurological: General: No focal deficit present. Mental Status: She is alert and oriented to person, place, and time. Psychiatric: Mood and Affect: Mood normal. Behavior: Behavior normal. Thought Content: Thought content normal. Judgment: Judgment normal. Assessment/Plan (K58.2) Irritable bowel syndrome with both constipation and diarrhea (primary encounter diagnosis) (R11.0) Nausea (K64.8) Internal hemorrhoids 1. Irritable bowel syndrome with both constipation and diarrhea -- Patient with IBS mixed. Notes that she is having small, liquid stools. -- Concern for potential overflow diarrhea -- Will check abd x-ray -- Calprotectin, fecal fat, pancreatic elastase ordered - CALPROTECTIN,FECAL - FAT, FECAL QUAL - PANC ELASTASE, FECAL - XR ABDOMEN 2V ROUTINE SUPINE W UPRIGHT/DECUB/CTL; Future 2. Nausea -- Concern for potential overflow diarrhea -- Will check abd x-ray -- Calprotectin, fecal fat, pancreatic elastase ordered -- Consider SIBO testing - CALPROTECTIN,FECAL - FAT, FECAL QUAL - PANC ELASTASE, FECAL - XR ABDOMEN 2V ROUTINE SUPINE W UPRIGHT/DECUB/CTL; Future 3. Internal hemorrhoids - hydrocortisone (ANUSOL-HC) 2.5 % rectal cream; by RECTAL route twice daily for 10 days. Dispense: 28 g; Refill: 1 Follow up in office 6 weeks/PRN. Recommended to please call office/go to ER if fever, chills, chest pain, SOB, diarrhea, nausea, emesis, worsening abdominal pain, dehydration occurs I spent 25 minutes in the visit, with more than 50% of the total [id number] time of the visit in counseling / coordination of care. I have confirmed and edited as necessary, the PFSH and ROS obtained by others. Emily Alicea PA-C November 30, 2022 3:52 PM documented in this encounter [facility] 11-26-2022 Miscellaneous Notes Pt. informed. Please call patient and let her know that lab work overall looks really good! I have discussed these findings with Dr. Tyler as well. The specific, diagnostic inflammatory markers were all negative. However, CRP ultra sensitive was positive which just tells us there is some kind of inflammatory, reactive process going on in your body. This can be from anything. Any illness, stress, weight gain, etc. Most likely diagnosis for skin rash is rosacea. I have prescribed some metronidazole ointment to use daily on this area. If no improvement within 2 weeks, I recommend dermatology consult. With intermittent inflammatory markers elevated -- we may want to consider return to rheumatology for further investigation. Lastly, T3 level is slightly elevated with TSH and T4 normal. I recommend repeat thyroid labs in 2 months. If still elevated, we may want to consider US of thyroid and thyroid reuptake testing. Labs ordered. Thank you, Ivett Quintana APRN.ALISHA documented in this encounter [facility] 11-22-2022 History of Present illness Narrative Images from the original note were not included. PSYC FOLLOW UP - PSYCHIATRIC PROGRESS NOTE DIAGNOSIS: Generalized Anxiety Disorder OCD Bipolar 2 disorder Fibromyalgia GAF: -60-51 Moderate symptoms or moderate difficulty in social, occupational or school functioning. TREATMENT PLAN: Encouraged to consistently take her Celebrex morning dose Encouraged to schedule an appointment for individual psychotherapy. Encouraged to engage in more self-care and exercise based activities. Continue the rest of the psychiatric medications at the same dose. Follow up in 2 to 3 months. The effects and side effects of all her medications were reviewed in detail with the patient. She is in agreement with the treatment plan and aware to reach out with any questions, concerns, or worsening of symptoms prior to the next appointment. CC: Follow up regarding mood and anxiety With the patient consent, visit was performed virtually. HPI: Sharri Menon is a 37 year old Female with a history of URIEL, OCD, Bipolar 2 disorder, and Fibromyalgia presenting today for follow-up. Date of last visit: 09/21/2022 Plan from last visit: Increase Buspar to help with her anxiety at bedtime. Discussed ways of being consistent in taking Celebrex. Discontinue Clomipramine as patient self-discontinued at the end of June due to side effects. Continue Lamictal and Trazodone at the same dose. Discussed joining a support group for caregivers of cancer patients. Follow up in 2 months. Today Sharri shares she is trying to hang in there. She still has stress related to caring for her mother. Mother was in the hospital for 6 weeks due to an intestinal infection post Chemo. Mom needed surgery had to have a colostomy bag. Her mom is home now but goes back for a round 2 of Chemo tomorrow. She has noticed that her stress has started taking a physical toll on her body. She has reached out to primary care to request some blood work. She has not had a solid bowel movement in 3 months. She denies concerns with her appetite. Her sleep is inconsistent. She is not able to go back to sleep if she wakes up from her sleep. Initially the Buspar increase was helping her at night. She has been struggling with taking the morning dose of celecoxib.She plans on taking it with her morning coffee. We discussed the importance of restarting therapy. Some referrals provided. With the increased stress, she has noticed some worsening of her OCD symptoms. Her only relaxation is playing games on the phone. She is not exercising. She has not been able to restart swimming. Interval Progress: Same Risks and benefits of the medication, including any black box warnings, were discussed with the patient. Social History: See HPI PATIENT DATA: Generalized Anxiety Disorder Scale (URIEL-7) URIEL - 7 SCORES 06/22/2022 09/20/2022 11/21/2022 URIEL-7 Score 7 10 10 (0-4) minimal anxiety, (5-9) mild anxiety, (10-14) moderate anxiety, (15-21) severe anxiety Patient Health Questionnaire (PHQ-9) PHQ-9 06/22/2022 09/20/2022 11/21/2022 Score 6 6 5 (0-4) minimal depression, (5-9) mild depression, (10-14) moderate depression, (15-19) moderately severe depression, (20-27) severe depression ROS: General: Negative for fever, malaise, unintentional weight loss HEENT: Negative for recent changes in vision or hearing, no nasal drainage Respiratory: Negative for cough, wheezing or SOB Cardiovascular: Negative for chest pain GI: Negative for nausea, vomiting, change in bowel habits MUSCULOSKELETAL: Negative for acute back or joint pain SKIN: Negative for rash NEURO: Negative for headaches, seizures, focal neurological deficits All other systems negative. VITAL SIGNS: BP Temp Pulse Resp SpO2 MENTAL STATUS EXAMINATION: Appearance: Appropriately groomed, appears stated age Behavior: Appropriately engaged Psychomotor: No psychomotor agitation Cognition Level of Consciousness: Awake and alert. No fluctuation in wakefulness. Orientation: Grossly oriented Memory: Intact Attention/Concentration: Good Fund of Knowledge: Able to demonstrate an awareness of current events. Mood: Anxious, Sad Affect: Congruent to mood Speech/Language: Appropriate tone, prosody, presley, phonetics, and syntax Thought Form: Goal-directed. No loosening of associations. Thought Content: No delusions noted or endorsed. Perceptual Disturbances: Did not appear to respond to auditory stimuli. Safety: Suicidal Ideations: No suicidal ideation, intent or plan. Homicidal Ideations: No homicidal ideation, intent or plan. Insight: Appropriate Judgment: Appropriate I spent a total of 45 minutes on the date of the service which included preparing to see the patient, [id number] patient care, completing clinical documentation, and counseling and educating the patient/family/caregiver, ordering medications/labs. Alondra Ring APRN.WAREHOUSE OPERATOR November 22, 2022 2:02 PM This note was partially generated using [employer] voice recognition system. Note was reviewed for accuracy. There may be minor misspellings or grammar miscues with [employer] voice recognition. documented in this encounter [facility] 11-03-2022 Miscellaneous Notes RX INSTRUCTIONS: Patient aware RX will be sent to pharmacy. No need to notify patient. Last OV: 10/12/22 VV with PCP Last refill: 11/25/20 With 30 G and 2 refills Follow up: 01/07/23-3 month F/U with PCP Sola Deleon MA documented in this encounter [facility] 11-03-2022 Miscellaneous Notes message turned into TE. Sola Deleon MA documented in this encounter [facility] 09-23-2022 Miscellaneous Notes The following approved medication requests have been transmitted electronically. Requested Prescriptions Signed Prescriptions Disp Refills lisdexamfetamine (VYVANSE) 40 mg capsule 30 capsule 0 Sig: Take 1 capsule by mouth once daily for 30 days. Authorizing Provider: CHRISTOS HOOVER APRN.ALISHA PDMP website checked and validated. All prescriptions have been APPROPRIATELY filled. No suspicious activity was identified. 09/23/2022 by Christos Hoover CNP. Tamiko--08/16/22 Nov--10/12/22 Last refill--08/11/22 30 with 0 refills Last labs--07/06/22 documented in this encounter [facility] 09-22-2022 Miscellaneous Notes Spoke to Jessee and clarification given Jessee with [facility] calling in regards to prescription received Buspirone 30 mg. Jessee states there are 2 sets of directions and if 2 per day do you want a qty of 60. Please review and advise pharmacy. Mercedes Godinez LPN documented in this encounter [facility] 08-20-2022 Miscellaneous Notes Call to pt who states that she takes 1500 mg of Magnesium nightly. In addition pt wants to add. Pt states that she's not taken new ADD medication Vyvanse, unsure if this helps with anything. She's restless, not sleeping, she's pacing. Feels exhausted when she does something but feels she has to move. Advised pt to complete Paxlovid. Latrice Caban Ma She can try taking magnesium 400-500 mg in the evening to see if this helps her symptoms. Would like her to try to finish out her Paxlovid if able Victor Manuel Tyler DO Pt called and states she has a day and 1/2 left of the medication Paxlovid. Pt states having the following and could the problems below be related to the Paxlovid: *not able to sleep and she is exhausted *having the feeling she needs to be doing something constant and can't focus *restless leg syndrome last night severe she was up pacing for hours last night Pt states she has taken the dose of medication this am. Does she take the dose tonight? What can she do to help with above symptoms. (Pt states she has had some trouble sleeping in the past but nothing like what is going on now). Pt asked to have this message sent to Dr. Tyler. Please advise pt. Mercedes Godinez LPN documented in this encounter [facility] 08-16-2022 History of Present illness Narrative VIRTUAL VISIT PROGRESS NOTE This is a virtual visit using [employer] video visit. It required patient-provider interaction for the medical decision making as documented below. Sharri Menon is a 36 year old female seen for COVID concern. Today: COVID-sx started on 08/15. Positive test today 08/16. Original sx were nasal drainage, cough and a burning sore throat. In the last hour-fever, cough that castro in throat, body weak and achy. Resting. No Tylenol or ibuprofen. Has been increasing her water intake. HISTORY REVIEWED (electronic chart updated): PAST MEDICAL HISTORY Diagnosis Date Abnormal biliary HIDA scan 04/22/2016 Acne vulgaris: Inflammatory Grade II to III 05/25/2014 Acute and chronic cholecystitis 05/13/2016 Adjustment disorder with mixed anxiety and depressed mood 11/28/2014 Ankle weakness 07/17/2015 Bilateral low back pain with sciatica 01/26/2016 Calculus, tonsil 12/17/2013 Chronic fatigue Depression, major, recurrent, mild (HCC) 08/14/2015 Deviated nasal septum s/p septoplasty Dry eye syndrome 12/27/2016 Eczematous dermatitis 05/22/2014 Exposure keratopathy 01/01/2016 Fatigue 02/05/2015 Female stress incontinence 10/08/2016 Fibromyalgia Flushing reaction 04/04/2014 GERD (gastroesophageal reflux disease) 06/17/2016 Hemorrhoids 09/25/2014 Hiatal hernia History of Fagan's palsy IBS (irritable bowel syndrome) 2006 had EGD, colonoscopy Insomnia 10/23/2014 Irregular periods 10/23/2013 Left ankle pain 07/17/2015 Migraines 12/24/2013 Milial cyst 05/22/2014 Nasal septal deviation 01/22/2015 Obesity (BMI 30-39.9) 10/23/2013 JYOTHI (obstructive sleep apnea) ahi 16 52r 01/01/2015 Photodermatitis 04/04/2014 Rosacea 04/04/2014 S/P LASIK (laser assisted in situ keratomileusis) of both eyes - Both Eyes 04/2014 Snoring 11/05/2015 Steroid acne 04/04/2014 Urinary leakage 04/06/2016 Vitreous floaters of both eyes 12/27/2016 Weakness of both lower extremities 01/26/2016 Xerosis cutis 05/22/2014 PAST SURGICAL HISTORY Procedure Laterality Date COLONOSCOPY 2005 COLONOSCOPY FLX DX W/COLLJ SPEC WHEN PFRMD 07/01/2016 CYSTOSCOPY with hydrodistention for IC EGD 2005 ESOPHAGOGASTRODUODENOSCOPY TRANSORAL DIAGNOSTIC 04/21/2016 L'SCOPE DX W/WO BRUSHINGS/WASHINGS 2006 LAPAROSCOPY DIAGNOSTIC 05/06/2015 [place] LAPS SURG CHOLECYSTECTOMY W/CHOLANGIOGRAPHY 05/04/2016 Normal IOC PAST SURGICAL HISTORY OF 03/2019 nasal turbinate removed REVISE MEDIAN N/CARPAL TUNNEL SURG Right 04/2022 SEPTOPLASTY 02/17/2015 FAMILY HISTORY Problem Relation Age of Onset Hypertension Mother Hyperlipidemia Mother Hypertension Father Lipids Father Cataract Father other (drug addiction) Sister Headache Sister Heart Maternal Grandfather Thyroid Paternal Grandmother Cataract Paternal Grandmother Social History Tobacco Use Smoking status: Never Smokeless tobacco: Never Vaping Use Vaping Use: Never used Substance Use Topics Alcohol use: Yes Comment: 1 drink per month Drug use: Not Currently Types: Marijuana Comment: has medical marijuana script but gave GI sx Current Outpatient Medications Medication Sig pantoprazole DR (PROTONIX) 40 mg tablet Take 1 tablet by mouth daily before breakfast. Take on empty stomach, 1/2 hr before meal. montelukast (SINGULAIR) 10 mg tablet Take 1 tablet by mouth daily at bedtime. topiramate (TOPAMAX) 25 mg tablet Take 1 tablet by mouth daily at bedtime. lisdexamfetamine (VYVANSE) 40 mg capsule Take 1 capsule by mouth once daily for 30 days. lamoTRIgine (LAMICTAL) 200 mg tablet Take 1 tablet by mouth daily at bedtime. terazosin (HYTRIN) 1 mg capsule Take 1 capsule by mouth daily at bedtime. Norethindrone Acet-Ethinyl Est (LOESTRIN 1.5/30, 21,) 1.5-30 mg-mcg Take 1 tablet by mouth once daily. Take continuously. Do not take inactive pills ondansetron orally disintegrating (ZOFRAN ODT) 8 mg disintegrating tablet Take 1 tablet by mouth every 8 hours as needed for nausea/vomiting. busPIRone (BUSPAR) 10 mg tablet TAKE 2 TABLETS BY MOUTH ONCE DAILY AT BEDTIME clomiPRAMINE (ANAFRANIL) 50 mg capsule Take 2 capsules by mouth daily at bedtime. Grftqoox-Pvjs-Hzu-Folic Acid 18-0.4 mg tab Take 1 tablet by mouth once daily. fluconazole (DIFLUCAN) 100 mg tablet Take 100 mg by mouth once daily. Daily MAGNESIUM ORAL Take 1,500 mg by mouth daily at bedtime. Clindamycin Phosphate (CLEOCIN T) 1 % lotion Apply to affected area twice daily. On face as needed for rosacea Clobetasol Propionate (TEMOVATE) 0.05 % external solution Apply 1 application to affected area once daily as needed (arm and leg skin lesion). cyclobenzaprine (FLEXERIL) 10 mg tablet Take 1 tablet by mouth three times daily as needed for muscle spasm. loratadine-pseudoephedrine ER (CLARITIN-D 12 HOUR) 5-120 mg per tablet Take 1 tablet by mouth twice daily. (Patient taking differently: Take 1 tablet by mouth as needed.) famotidine (PEPCID) 10 mg tablet Take 20 mg by mouth twice daily. docusate sodium (COLACE) 100 mg capsule Take 200 mg by mouth twice daily. Lactobacillus acidophilus (ACIDOPHILUS ORAL) Take by mouth. traZODone (DESYREL) 100 mg tablet Take 2 tablets at bedtime (Patient taking differently: Take 200 mg by mouth daily at bedtime.) rizatriptan (MAXALT TAKE OFF WORKER) 5 mg disintegrating tablet Take 1 tablet by mouth as needed. For migraine., May repeat in 2 hours if needed Cholecalciferol, Vitamin D3, (VITAMIN D-3) 50 mcg (2,000 unit) cap Take 1 capsule by mouth once daily. diclofenac (VOLTAREN ARTHRITIS PAIN) 1 % topical gel Apply 2 g to affected area four times daily as needed (right thumb pain). fluconazole (DIFLUCAN) 150 mg tablet Take 1 tablet by mouth one time a week. For yeast prophylaxis. CPAP New set up: AutoBiPAP Settings IPAP max 12 & EPAP min 4 and PS 4- 6 cm H2O, suitable mask per pt preference, chin strap, head gear, humidity, tubing, lifetime supplies. G47.33 JYOTHI CREON 36,000-114,000- 180,000 unit capsule TAKE 1 CAPSULE BY MOUTH PRIOR TO ALL MEALS AND SNACKS erythromycin ophthalmic ointment Use 1 application in both eyes daily at bedtime. cyanocobalamin 1,000 mcg/mL 1 mL SQ weekly for 4 weeks, then 1 mL every other week for 2 doses then 1 mL SQ monthly mupirocin (BACTROBAN) 2 % ointment Apply 1 application to affected area three times daily. (Patient taking differently: Apply 1 application to affected area as needed.) Insulin Syringe-Needle U-100 (BD INSULIN SYRINGE ULTRA-FINE) 1 mL 31 gauge x 5/16 1 Each as directed. PEG 400-Propylene Glycol (SYSTANE HYDRATION PF) 0.4-0.3 % dpet Use 1 Each in both eyes four times daily. Back Brace misc 1 Device as directed. clobetasol (TEMOVATE) 0.05 % ointment Apply 1 application to affected area twice daily. For 2 weeks then once a day for 2 weeks (Patient taking differently: Apply 1 application to affected area as needed. For 2 weeks then once a day for 2 weeks) CARBOXYMETHYLCELLULOSE SODIUM (REFRESH TEARS OPHTHALMIC) Use 1 Drop in eyes four times daily. as needed No current facility-administered medications for this visit. ALLERGIES Allergen Reactions Jane Inhibitors Contraindication-Medical Surgical Avoid use of JANE inhibitors while patient is on allergy immunotherapy Adhesive Tape-Silic* Intolerance Burn Beta Blockers [Beta* Contraindication-Medical Surgical Avoid use of beta blockers while patient is on allergy immunotherapy [place] Hives Cymbalta [Duloxetin* Other: See Comments Sweating side effect Effexor [Venlafaxin* Other: See Comments Sweating side effect Imitrex [Sumatripta* Vomiting GI upset and vomiting Linzess [Linaclotid* Diarrhea Vomiting, diarrhea Marijuana (Cannabis) Intolerance GI distress, diarrhea with oral use -sublingual tincture Seasonal Allergies Unknown Molds and grasses verified by skin testing REVIEW OF SYSTEMS: All other ROS: negative As noted in HPI PHYSICAL EXAMINATION: VIDEO EXAM: (if completed, performed via video enabled technology) No exam performed ASSESSMENT: (U07.1) COVID (primary encounter diagnosis) PLAN: Recommend supportive care. Continue with rest and pushing fluids/water. Discussed red flag s/s. Paxlovid. Follow up prn. Christos Hoover APRN.ALISHA Nirmatrelvir/Ritonavir (Paxlovid) Eligibility and Patient Discussion [facility] Formulary Restriction Criteria: Adult outpatients 18 years and older with ALL of the following: [x] Patient has positive SARS-COV-2 viral test (PCR or antigen test) during current illness [x] Patient has symptoms for 5 days or less [x] Not requiring hospitalization at any time for management of COVID-19 [x] Not requiring supplemental oxygen or a change in baseline supplemental oxygen [x] Not utilized for pre-exposure or post-exposure prophylaxis for prevention of COVID-19 [x] Patient does not have severe renal impairment (eGFR < 30 mL/min) or severe hepatic impairment (Child-Ferrari Class C) [x] Meeting at least one of the criteria for high risk of progression to severe COVID-19: [] Age over 65 years [] Cancer [] Chronic kidney disease [] Chronic liver disease [] Chronic lung diseases, including cystic fibrosis [] Dementia or other neurological conditions [] Diabetes (type 1 or type 2) [] Disabilities, including Down syndrome and neurodevelopmental disorders [] Heart conditions [] HIV infection [] Immunocompromised state [x] Mental health conditions [] Medical related technological dependence (tracheostomy, gastrostomy, or positive pressure ventilation (not related to COVID) [x] Overweight and obesity (BMI greater or equal to 25 for adults) [] Physical inactivity [] [] Sickle cell disease or thalassemia [] Smoking, current or former [] Solid organ or blood stem cell transplant [] Stroke or cerebrovascular disease [] Substance use disorders [] Tuberculosis [] People from racial and ethnic minority groups Criteria above are met: Yes Date of Positive Test:08/15/2022 Date of Symptom Onset:08/16/2022 Patient received COVID vaccine: Yes Drug-Drug interactions reviewed: Yes. No drug interactions were identified. I have discussed the use of the investigational therapeutic, nirmatrelvir/ritonavir, for the treatment of mild to moderate COVID-19 and its use under Emergency Use Authorization with the patient. The patient was informed that nirmatrelvir/ritonavir is not an FDA approved drug and that it is authorized for use under this Emergency Use Authorization. The patient was also informed of the significant known benefits and potential risks of nirmatrelvir/ritonavir, and the extent to which such potential risks and benefits are unknown. The patient was informed that there is mandatory reporting of all medication errors and serious adverse events potentially related to nirmatrelvir/ritonavir treatment within 7 calendar days from the onset of the event and that events up to 28 days after completion of therapy need to be reported. The discussion included alternatives to receiving nirmatrelvir/ritonavir, including clinical trials, and potential the risks and benefits of those alternatives. The patient was provided electronically with the Fact Sheet for Patients, Parents and Caregivers . The patient was also instructed that in addition to the treatment with nirmatrelvir/ritonavir, he/she should continue to self-isolate and use infection control measures (e.g., wear mask, isolate, social distance, avoid sharing personal items, clean and disinfect high touch surfaces, and frequent handwashing) according to CDC guidelines. The patient stated understanding and gave verbal consent to proceeding with nirmatrelvir/ritonavir treatment. Christos Hoover APRN.CNP August 16, 2022 3:27 PM documented in this encounter [facility] 08-16-2022 Miscellaneous Notes Noted, thank you. Christos Hoover APRN.CNP Patient calling for appointment to discuss COVID positive home test. Symptoms started 08/15. She has nasal drainage, cough and a burning sore throat. Transferred to timber management technician for virtual visit appointment. Teresita Levine RN documented in this encounter [facility] 07-22-2022 Miscellaneous Notes Pt informed, verbalized understanding. Pt reported that she would like to discuss results further with Jayson at upcoming appt in 3 months. Debbie Torrez Ma Please inform patient that her cortisol levels are slightly high, this may be due to stress or hypercortisolism, recheck in 1 month. Her cholesterol is very elevated. We need to consider her eating a low cholesterol diet, talking to voltmeter operator specialist and consider starting cholesterol medication Crestor 10 mg a day if this doesn't improve. Insulin assay levels are all normal. Her renal function shows creatinine is slightly elevated- needs to make sure she is drinking adequate water of at least 60-80 oz a day Her hepatitis B titer antibody is negative showing she is no longer immune to hep B. Would recommend repeating the hepatitis B series of vaccines as a nurse visit if willing Victor Manuel Tyler DO documented in this encounter [facility] 07-21-2022 Miscellaneous Notes Spoke with the patient in detail about side effects related to Clomipramine such as excessive sweating and some increase in anxiety. Patient discontinued Clomipramine 10 days ago. Continues to struggle with excessive sweating. Treatment options to address this side effects were discussed. Patient would like to monitor this side effect further before adding more medication. Patient will reach out on Tuesday to provide an update regarding the side effect. Patient States she is still experiencing side effects despite decreasing the dosage for one week, then tapering to every other day, then stopping medication. Is asking what she is to expect and when the side effects will subside. Her follow up with Dr. Cha had to be cancelled. Pt called and states she had to stop medication Clomipramine. She was having severe side effects. She tried to decrease medication and was still having the side effects. Pt would like to speak to Provider's nurse. Please call pt at [phone]. Mercedes Godinez LPN documented in this encounter [facility] 07-20-2022 History of Present illness Narrative Plastic Surgery Note CC: Post op 1 month HPI: Sharri is a 36 year old female returning today s/p bilateral breast reduction on 06/10/2022. She complains of pain to her right nipple that has started in the past few weeks, she describes as a stinging pain that occurs randomly. She also has a tight cord on either side of her abdomen leading up to her lateral chest. Pain: 5/10 when she stretches her arm over her head, can go up to 8/10 if she makes a sudden movement. SURG PATHOLOGY: A. Right breast, mammoplasty reduction: -Benign breast tissue and unremarkable skin - 628 grams B. Left breast, mammoplasty reduction: -Benign breast tissue and unremarkable skin -648 grams PE: No s/s of infection No evidence of seroma - breasts are symmetric and soft Bilateral breast incisions healing well Similar to Mondor's noted to bilateral chest with a band on each side with arm elevation Assessment: S/p bilateral breast reduction Plan: Doing well Expected post op course Ok to increase activity as tolerated back to baseline activity level Discontinue bra at night if uncomfortable Continue to monitor for healing, seroma, s/s infection Ok to use warm compress and take advil for pain to the area's of cording/mondor's on her sides - use caution with heat to avoid burn to the skin Follow up in 3 months The patient is seen and examined by Dr. Kelly and the following reflects his service. Scribed by Cata Hicks RN I agree with the Chief Complaint, ROS, and Past Histories independently gathered by the clinical customer support associate and the remaining scribed note accurately describes my personal service to the patient. Óscar Kelly MD documented in this encounter [facility] 07-12-2022 History of Present illness Narrative CC: Sharri Menon is a 36 year old female who presents to the office to physical and follow up. HPI: At appt on 08/03/21 Waiting on being set up for breast reduction surgery, looking forward to see if this helps her shoulder and neck and Upper back pain. Feels that recently she has had a lot of intermittent joint pain, b/l shoulders, wrists, hands, knees. Worse in AM. + associated with fatigue. Also with muscle aches as well. Has had a hard time feeling motivated to get anything done around the house due to this. No rashes. Taking her medications as prescribed, hasn't been overexerting with activity and denies any injuries. ADD, chronic fatigue, taking adderall as prescribed, no obvious SE to medication. Ankle pain, right side, would like 2nd opinion since this is still bothering her despite having seen Orthopedics foot/ankle specialist and assembly inspector helper. Right thumb pain, no known injury. No obvious swelling or skin redness, No use of ice or heating pad use or splint use. At OFFICE VISIT 11/11/21 ADD, chronic fatigue, taking adderall. Likely is what is causing her worsening OCD type symptoms. She is seeing Psychiatry to work on her mood and medication adjustment. She is tapering down on her dose of Trazodone at bedtime. Hasn't seen Gas Specialist or Orthopedics for her left hip pain- has been receiving SI joint and sacral nerve root injections by Dr. Mackenzie with minimal non lasting relief of symptoms. No bowel or bladder changes. Hasn't had inflammation markers rechecked recently Concerned about risk of diabetes, also would like to recheck cholesterol. Has been cutting down on her meat/red meats intake and wonders if this is improved yet. Has been seeing Press Tender [facility] Dr. Veliz, found to have corn allergy. Is trying to limit exposure to this Heart fluttering, palpitations, comes and goes, no known specific trigger, off and on for weeks/months. No chest pain or pressure or dyspnea. At follow up on 02/09/22 Has been seeing Press T[facility] Dr. Veliz, found to have corn allergy. Is trying to limit exposure to this. Is going to be having food testing when able to stop the Trazodone Mood, stable, working with Alondra Ring [facility] psychiatry with medication adjustments, feeling that the buspirone is helpful for her symptoms. Heart fluttering, palpitations, comes and goes, improved symptoms, did have sensitivity of skin to patch of ZIO, hasn't had repeated yet. no known specific trigger, off and on for weeks/months. No chest pain or pressure or dyspnea. ADD, chronic fatigue, stable, taking adderall without SE to medication Had multifocal pneumonia secondary to covid 19 on CXR, did complete antibiotic and feels symptoms have improved, hasn't had repeat CXR yet At last appt on 04/14/22 ADD, feels she is struggling with irritability, difficulty with sleeping at night and everything is bothering me like I can't stand to see a bug in the house, it worries me that there are bugs landing on me when I am outside and I feel like I am irritable lately. she isn't sure if this is due to the Adderall or another cause. Is going to be following up with Psychiatry Alondra Ring CNP in the next 2 weeks. Has a lot of stressors upcoming with carpal tunnel surgery on 05/03 and then also a breast reduction surgery on 06/10., is looking forward to these surgeries being done though. Skin irritation/redness, b/l facial areas, cheeks, no pain or blistering, seems to be worsening over the last few months. Also skin lesions of small areas of redness on arms and legs, individual lesions, no pain or drainage or itching. Unsure of cause- no new lotions or washes etc. Will be seeing Dr. Veliz upcoming for allergy opinion. At follow up on 05/24/22 ADD, stable, is taking the vyvanse 20 mg a day as prescribed, tolerating rx well. Thinks the dose needs to be adjusted up. Is seeing Psychiatrist as well to help with mood mgmt and medication adjustments for mood. Breast reduction surgery is upcoming on 06/10. Is looking forward to this being complete and able to work on healing. Currently Breast reduction surgery, overall is doing well about 1 month post operative now. Has a follow up with the surgeon in 1 week. Feels she is recovering well without many concerns. Mood, depression, anxiety, chronic fatigue. Working with Psychiatry regarding her medications. Struggled with medication Clomipramine recently with increased sweating, heart rate fluctuance and tachycardia as well as fluid retention in joints. She states that she has recently weaned herself off of this. She has a follow up with specialist to discuss further ADD, taking Vyvanse, overall tolerating rx well. Asking for slight dose increase since still struggling at times with work in the afternoon and losing her focus/concentration. No SE with medications. ear pressure, symptoms for a few weeks, popping and cracking. Has had some allergy drainage and PND as well. No fevers or chills. Central obesity, frustrated with difficulty with attempts at weight loss PAST MEDICAL HISTORY Diagnosis Date Abnormal biliary HIDA scan 04/22/2016 Acne vulgaris: Inflammatory Grade II to III 05/25/2014 Acute and chronic cholecystitis 05/13/2016 Adjustment disorder with mixed anxiety and depressed mood 11/28/2014 Ankle weakness 07/17/2015 Bilateral low back pain with sciatica 01/26/2016 Calculus, tonsil 12/17/2013 Chronic fatigue Depression, major, recurrent, mild (HCC) 08/14/2015 Deviated nasal septum s/p septoplasty Dry eye syndrome 12/27/2016 Eczematous dermatitis 05/22/2014 Exposure keratopathy 01/01/2016 Fatigue 02/05/2015 Female stress incontinence 10/08/2016 Fibromyalgia Flushing reaction 04/04/2014 GERD (gastroesophageal reflux disease) 06/17/2016 Hemorrhoids 09/25/2014 Hiatal hernia History of Fagan's palsy IBS (irritable bowel syndrome) 2006 had EGD, colonoscopy Insomnia 10/23/2014 Irregular periods 10/23/2013 Left ankle pain 07/17/2015 Migraines 12/24/2013 Milial cyst 05/22/2014 Nasal septal deviation 01/22/2015 Obesity (BMI 30-39.9) 10/23/2013 JYOTHI (obstructive sleep apnea) ahi 16 52r 01/01/2015 Photodermatitis 04/04/2014 Rosacea 04/04/2014 S/P LASIK (laser assisted in situ keratomileusis) of both eyes - Both Eyes 04/2014 Snoring 11/05/2015 Steroid acne 04/04/2014 Urinary leakage 04/06/2016 Vitreous floaters of both eyes 12/27/2016 Weakness of both lower extremities 01/26/2016 Xerosis cutis 05/22/2014 PAST SURGICAL HISTORY Procedure Laterality Date COLONOSCOPY 2006 COLONOSCOPY FLX DX W/COLLJ SPEC WHEN PFRMD 07/01/2016 CYSTOSCOPY with hydrodistention for IC EGD 2006 ESOPHAGOGASTRODUODENOSCOPY TRANSORAL DIAGNOSTIC 04/21/2016 L'SCOPE DX W/WO BRUSHINGS/WASHINGS 2006 LAPAROSCOPY DIAGNOSTIC 05/06/2015 Rhoda LILLY SURG CHOLECYSTECTOMY W/CHOLANGIOGRAPHY 05/04/2016 Normal IOC PAST SURGICAL HISTORY OF 03/2019 nasal turbinate removed REVISE MEDIAN N/CARPAL TUNNEL SURG Right 04/2022 SEPTOPLASTY 02/17/2015 Social History: Social History Tobacco Use Smoking status: Never Smokeless tobacco: Never Vaping Use Vaping Use: Never used Substance Use Topics Alcohol use: Yes Comment: 1 drink per month Drug use: Not Currently Types: Marijuana Comment: has medical marijuana script but gave GI sx FAMILY HISTORY Problem Relation Age of Onset Hypertension Mother Hyperlipidemia Mother Hypertension Father Lipids Father Cataract Father other (drug addiction) Sister Headache Sister Heart Maternal Grandfather Thyroid Paternal Grandmother Cataract Paternal Grandmother Current Outpatient prescriptions: Norethindrone Acet-Ethinyl Est (LOESTRIN 1.5, ,) 1.5-30 mg-mcg Take 1 tablet by mouth once daily. Take continuously. Do not take inactive pills celecoxib (CELEBREX) 100 mg capsule Take 2 capsules by mouth twice daily. ondansetron orally disintegrating (ZOFRAN ODT) 8 mg disintegrating tablet Take 1 tablet by mouth every 8 hours as needed for nausea/vomiting. busPIRone (BUSPAR) 10 mg tablet TAKE 2 TABLETS BY MOUTH ONCE DAILY AT BEDTIME clomiPRAMINE (ANAFRANIL) 50 mg capsule Take 2 capsules by mouth daily at bedtime. Ymetsfvb-Yrib-Mop-Folic Acid 18-0.4 mg tab Take 1 tablet by mouth once daily. lamoTRIgine (LAMICTAL) 200 mg tablet TAKE 1 TABLET BY MOUTH ONCE DAILY IN THE EVENING fluconazole (DIFLUCAN) 100 mg tablet Take 100 mg by mouth once daily. Daily MAGNESIUM ORAL Take 1,500 mg by mouth daily at bedtime. Clindamycin Phosphate (CLEOCIN T) 1 % lotion Apply to affected area twice daily. On face as needed for rosacea Clobetasol Propionate (TEMOVATE) 0.05 % external solution Apply 1 application to affected area once daily as needed (arm and leg skin lesion). cyclobenzaprine (FLEXERIL) 10 mg tablet Take 1 tablet by mouth three times daily as needed for muscle spasm. topiramate (TOPAMAX) 25 mg tablet Take 1 tablet by mouth daily at bedtime. loratadine-pseudoephedrine ER (CLARITIN-D 12 HOUR) 5-120 mg per tablet Take 1 tablet by mouth twice daily. (Patient taking differently: Take 1 tablet by mouth as needed. ) famotidine (PEPCID) 10 mg tablet Take 20 mg by mouth twice daily. docusate sodium (COLACE) 100 mg capsule Take 200 mg by mouth twice daily. Lactobacillus acidophilus (ACIDOPHILUS ORAL) Take by mouth. traZODone (DESYREL) 100 mg tablet Take 2 tablets at bedtime (Patient taking differently: Take 200 mg by mouth daily at bedtime. ) rizatriptan (MAXALT TAKE OFF WORKER) 5 mg disintegrating tablet Take 1 tablet by mouth as needed. For migraine., May repeat in 2 hours if needed pantoprazole DR (PROTONIX) 40 mg tablet Take 1 tablet by mouth daily before breakfast. Take on empty stomach, 1/2 hr before meal. montelukast (SINGULAIR) 10 mg tablet Take 1 tablet by mouth daily at bedtime. Cholecalciferol, Vitamin D3, (VITAMIN D-3) 50 mcg (2,000 unit) cap Take 1 capsule by mouth once daily. diclofenac (VOLTAREN ARTHRITIS PAIN) 1 % topical gel Apply 2 g to affected area four times daily as needed (right thumb pain). fluconazole (DIFLUCAN) 150 mg tablet Take 1 tablet by mouth one time a week. For yeast prophylaxis. CPAP New set up: AutoBiPAP Settings IPAP max 12 & EPAP min 4 and PS 4- 6 cm H2O, suitable mask per pt preference, chin strap, head gear, humidity, tubing, lifetime supplies. G47.33 JYOTHI CREON 36,000-114,000- 180,000 unit capsule TAKE 1 CAPSULE BY MOUTH PRIOR TO ALL MEALS AND SNACKS erythromycin ophthalmic ointment Use 1 application in both eyes daily at bedtime. cyanocobalamin 1,000 mcg/mL 1 mL SQ weekly for 4 weeks, then 1 mL every other week for 2 doses then 1 mL SQ monthly mupirocin (BACTROBAN) 2 % ointment Apply 1 application to affected area three times daily. (Patient taking differently: Apply 1 application to affected area as needed. ) Insulin Syringe-Needle U-100 (BD INSULIN SYRINGE ULTRA-FINE) 1 mL 31 gauge x 5/16 1 Each as directed. PEG 400-Propylene Glycol (SYSTANE HYDRATION PF) 0.4-0.3 % dpet Use 1 Each in both eyes four times daily. Back Brace misc 1 Device as directed. clobetasol (TEMOVATE) 0.05 % ointment Apply 1 application to affected area twice daily. For 2 weeks then once a day for 2 weeks (Patient taking differently: Apply 1 application to affected area as needed. For 2 weeks then once a day for 2 weeks ) CARBOXYMETHYLCELLULOSE SODIUM (REFRESH TEARS OPHTHALMIC) Use 1 Drop in eyes four times daily. as needed lisdexamfetamine (VYVANSE) 40 mg capsule Take 1 capsule by mouth once daily for 30 days. methylPREDNISolone (MEDROL, TOÑA,) 4 mg Dose-Pack Follow dosing instructions, take with food. Allergies: ALLERGIES Allergen Reactions Jane Inhibitors Contraindication-Medical Surgical Avoid use of JANE inhibitors while patient is on allergy immunotherapy Adhesive Tape-Silic* Intolerance Burn Beta Blockers [Beta* Contraindication-Medical Surgical Avoid use of beta blockers while patient is on allergy immunotherapy [place] Hives Cymbalta [Duloxetin* Other: See Comments Sweating side effect Effexor [Venlafaxin* Other: See Comments Sweating side effect Imitrex [Sumatripta* Vomiting GI upset and vomiting Linzess [Linaclotid* Diarrhea Vomiting, diarrhea Marijuana (Cannabis) Intolerance GI distress, diarrhea with oral use -sublingual tincture Seasonal Allergies Unknown Molds and grasses verified by skin testing ROS: See HPI PE: 07/12/22 1419 BP: 112/74 Pulse: 88 Resp: 20 Temp: 36.7 C (98 F) TempSrc: Right Tympanic Weight: 94.3 kg (208 lb) Height: 166.4 cm (5' 5.5 ) Gen: A&O, NAD, non-toxic appearing, Pleasant, cooperative HEENT: NT/AC, PERRLA, EOMs intact b/l, nares clear and patent b/l, pharynx without erythema, exudate or lesions. + clear PND and posteior pharynx cobblestoning present, Uvula midline. MMM, EACs without erythema or debris. TMs pearly leong with serous clear effusion b/l Neck: supple, No cervical LAD, no thyromegaly, no carotid bruits CV: RRR, normal S1 and S2, no murmurs, no gallops, no rubs, Pulses 2+ and symmetric in UE and LE b/l Lungs: normal respiratory effort, CTA b/l, no wheezing or rhonchi or rales Abd: soft, obese, NT, ND, +BS, no hepatosplenomegaly MS: FROM all 4 extremities Neuro: CN II-XII intact b/l Trace leg edema non pitting Skin: warm, dry, intact, No rashes or lesions on exposed skin. ASSESSMENT/PLAN: 1. Routine physical examination - ICD9: V70.0, ICD10: Z00.00 (primary diagnosis) - Counseled on healthy diet and regular exercise - Calcium intake with supplements or by diet of 1000 mg/day for under 50, 6123-7287 mg/day for 50+ - Discussed need and benefit for weight loss. BMI 34.09 kg/(m^2) 2. Fibromyalgia - ICD9: 729.1, ICD10: M79.7 Need for weight loss, adequate sleep and good eating routine. 3. Central obesity - ICD9: 278.1, ICD10: E65 - labs as ordered, unsure if any insulin resistance or other cause, consider follow up with Blending Coordinator - HGB A1C - INSULIN ASSAY BLOOD - C-PEPTIDE BLD - COMP METABOLIC PANEL - CBC + DIFF - CORTISOL BLD - TSH BLD - T3 FREE BLD - T4 FREE/FREE THYROX 4. Dysmetabolic syndrome - ICD9: 277.7, ICD10: E88.81 - labs as ordered, unsure if any insulin resistance or other cause, consider follow up with Blending Coordinator - HGB A1C - INSULIN ASSAY BLOOD - C-PEPTIDE BLD - COMP METABOLIC PANEL - CBC + DIFF - CORTISOL BLD - LIPID PANEL BASIC - TSH BLD - T3 FREE BLD - T4 FREE/FREE THYROX 5. Dyslipidemia - ICD9: 272.4, ICD10: E78.5 - to be determined upon return of lab results - Encouraged following a low fat, low cholesterol diet. - Discussed the benefits of regular aerobic exercise and weight loss. - LIPID PANEL BASIC 6. History of hepatitis B vaccination - ICD9: V49.89, ICD10: Z92.29 - HEP B SURF AB QUAL 7. Acute effusion of both middle ears - ICD9: 381.00, ICD10: H65.193 - rx as below, continue antihistamine and nasal spray as well - METHYLPREDNISOLONE 4 MG TABLETS IN A DOSE PACK 8. Concentration deficit - ICD9: 799.51, ICD10: R41.840 - increase dose to 40 mg Vyvanse daily and f/u in 2-3 months in office - LISDEXAMFETAMINE 40 MG CAPSULE 9. Chronic fatigue - ICD9: 780.79, ICD10: R53.82 - see above 10. Multiple joint pain - ICD9: 719.49, ICD10: M25.50 - see above 11. Obesity, Class I, BMI 30-34.9 - ICD9: 278.00, ICD10: E66.9 Stable - Behavioral intervention Victor Manuel Tyler DO PDMP website checked and validated. All prescriptions have been APPROPRIATELY filled. No suspicious activity was identified. 07/13/2022 by Victor Manuel Tyler DO To ER if develops chest pain, shortness of breath, or severe worsening of symptoms. Discussed risks, benefits, alternatives, and potential side effects of medications. Patient expressed understanding and agreed with the plan. Victor Manuel Tylre DO [address] [place] [address] documented in this encounter [facility] 06-28-2022 Miscellaneous Notes Last annual with 06/10/21. [employer] message sent. Requested Prescriptions Pending Prescriptions Disp Refills Norethindrone Acet-Ethinyl Est (LOESTRIN 1.,) 1.5-30 mg-mcg 84 tablet 0 Sig: Take 1 tablet by mouth once daily. Take continuously. Do not take inactive pills RX INSTRUCTIONS: Mychart request Marci Richey RN documented in this encounter [facility] 06-22-2022 History of Present illness Narrative Images from the original note were not included. PSYC FOLLOW UP - PSYCHIATRIC PROGRESS NOTE DIAGNOSIS: Bipolar 2 Disorder Fibromyalgia URIEL OCD GAF: 55-60-51 Moderate symptoms or moderate difficulty in social, occupational or school functioning. TREATMENT PLAN: Begin Celecoxib 200 mg BID Continue Clomipramine 100 mg Continue Lamictal, Trazodone and Buspar at the same dose. Discussed the possibility and indications of the use of Celocoxib as a possible treatment for depression. Collaborate care with PCP regarding this treatment decision. Follow up in 4 weeks. The effects and side effects of all the medications were reviewed in detail with the patient. She is in agreement with the treatment plan and aware to reach out with any questions, concerns, or worsening of symptoms prior to the next appointment. CC: OCD, anxiety, mood, and sleep difficulties. With the patient consent, visit was performed virtually. HPI: Sharri Menon is a 36 year old female with a history of bipolar 2 disorder, URIEL, OCD chronic fatigue and fibromyalgia presenting today for follow-up. Date of last visit: 05/25/2022 Plan from last visit: Continue Clomipramine 100 mg at the same dose. Patient has only taken the 100 mg dose of 1 week at the time of this appointment. Continue Lamictal , Trazodone and Buspar at the same dose. Discussed the possibility and indications of the use of Celocoxib as a possible treatment for depression. Collaborate care with PCP regarding this treatment decision. Follow up in 4 weeks. Patient was seen for her appointment by Dr. Mayte Cha along with this provider. Sharri states that she has been feeling better and has felt more energy to be able to do various activities in her life. Sharri has had no trouble going to sleep but has been having trouble staying asleep around 3-4 AM each night. She states that her night sweats have come back since starting the clomipramine. She has a areli size bed and has had to use the whole bed each night due to having to move to a dry spot multiple times overnight. We decided that, for now, we will add celecoxib and continue the clomipramine for now. We discussed that it would be off-label use and the risks and benefits of the medication, which she understood and agreed with. Interval Progress: Slightly improved Risks and benefits of the medication, including any black box warnings, were discussed with the patient. Social History: No change PATIENT DATA: Generalized Anxiety Disorder Scale (URIEL-7) URIEL - 7 SCORES 04/27/2022 05/25/2022 06/22/2022 URIEL-7 Score 5 8 7 (0-4) minimal anxiety, (5-9) mild anxiety, (10-14) moderate anxiety, (15-21) severe anxiety Patient Health Questionnaire (PHQ-9) PHQ-9 04/27/2022 05/25/2022 06/22/2022 Score 4 7 6 (0-4) minimal depression, (5-9) mild depression, (10-14) moderate depression, (15-19) moderately severe depression, (20-27) severe depression ROS: General: Negative for fever, malaise, unintentional weight loss HEENT: Negative for recent changes in vision or hearing, no nasal drainage Respiratory: Negative for cough, wheezing or SOB Cardiovascular: Negative for chest pain GI: Negative for nausea, vomiting, change in bowel habits MUSCULOSKELETAL: Negative for acute back or joint pain SKIN: Negative for rash NEURO: Negative for headaches, seizures, focal neurological deficits All other systems negative. VITAL SIGNS: None obtained due to virtual visit BP Temp Pulse Resp SpO2 MENTAL STATUS EXAMINATION: Appearance: Appropriately groomed, appears stated age Behavior: Appropriately engaged Psychomotor: No psychomotor agitation Cognition Level of Consciousness: Awake and alert. No fluctuation in wakefulness. Orientation: Grossly oriented Memory: Intact Attention/Concentration: Good Fund of Knowledge: Able to demonstrate an awareness of current events. Mood: Eythymic Affect: Full range, slightly rushed Speech/Language: Appropriate tone, prosody, presley, phonetics, and syntax Thought Form: Goal-directed. No loosening of associations. Thought Content: No delusions noted or endorsed. Perceptual Disturbances: Did not appear to respond to auditory stimuli. Safety: Suicidal Ideations: No suicidal ideation, intent or plan. Homicidal Ideations: No homicidal ideation, intent or plan. Insight: Appropriate Judgment: Appropriate I spent a total of 40 minutes on the date of the service which included preparing to see the patient, [id number] patient care, completing clinical documentation, and counseling and educating the patient/family/caregiver, ordering medications/labs, and collaboration with other healthcare providers. Alondra Ring APRN.[facility] June 22, 2022 3:51 PM This note was partially generated using [employer] voice recognition system. Note was reviewed for accuracy. There may be minor misspellings or grammar miscues with [employer] voice recognition. By signing my name below, I, Caitlyn Parikh, attest that this documentation has been prepared under the direction and in the presence of Dr. Mayte Cha. Electronically signed, GEORGIA Starks June 22, 2022 3:51 PM documented in this encounter [facility] 06-16-2022 History of Present illness Narrative Plastic Surgery Note CC: Post op 6 days HPI: Sharri is a 36 year old female returning today s/p bilateral breast reduction on 06/10/2022. Patient states she is doing well. She is overall happy with her results and size of her breasts. SURG PATHOLOGY: FINAL DIAGNOSIS A. Right breast, mammoplasty reduction: -Benign breast tissue and unremarkable skin - 628 grams B. Left breast, mammoplasty reduction: -Benign breast tissue and unremarkable skin -648 grams Objective: LMP 04/28/2022 (Approximate) PE: A&O x 3; NAD No s/s of infection No evidence of seroma Bilateral breast incisions healing well Steri strips present Ecchymosis as expected post op Assessment: S/p bilateral breast reduction Doing well Expected post op course Plan: Continue to monitor for healing, seroma, s/s infection Activity restrictions reviewed Steri strips removed Use neosporin or vaseline on areas where there are scabs along incision to keep moist Follow up in 3 weeks The patient is seen and examined by Dr. Kelly and the following reflects his service. Scribed by YANY Pires and Jennifer Fairbanks RN. I agree with the Chief Complaint, ROS, and Past Histories independently gathered by the clinical customer support associate and the remaining scribed note accurately describes my personal service to the patient. Óscar Kelly MD documented in this encounter [facility] 06-02-2022 History of Present illness Narrative Plastic Surgery Note CC: Follow up/Preop HPI: Sharri is a 36 year old female who presents today for a pre-op discussion and to sign consent for a breast reduction on 06/10/2022 at OR. PACC: 05/12/2022 LABS: 05/12/2022 COVID: Extended Recovery: Lives in [place] PAST MEDICAL HISTORY Diagnosis Date Abnormal biliary HIDA scan 04/22/2016 Acne vulgaris: Inflammatory Grade II to III 05/25/2014 Acute and chronic cholecystitis 05/13/2016 Adjustment disorder with mixed anxiety and depressed mood 11/28/2014 Ankle weakness 07/17/2015 Bilateral low back pain with sciatica 01/26/2016 Calculus, tonsil 12/17/2013 Chronic fatigue Depression, major, recurrent, mild (HCC) 08/14/2015 Deviated nasal septum s/p septoplasty Dry eye syndrome 12/27/2016 Eczematous dermatitis 05/22/2014 Exposure keratopathy 01/01/2016 Fatigue 02/05/2015 Female stress incontinence 10/08/2016 Fibromyalgia Flushing reaction 04/04/2014 GERD (gastroesophageal reflux disease) 06/17/2016 Hemorrhoids 09/25/2014 Hiatal hernia History of Fagan's palsy IBS (irritable bowel syndrome) 2006 had EGD, colonoscopy Insomnia 10/23/2014 Irregular periods 10/23/2013 Left ankle pain 07/17/2015 Migraines 12/24/2013 Milial cyst 05/22/2014 Nasal septal deviation 01/22/2015 Obesity (BMI 30-39.9) 10/23/2013 JYOTHI (obstructive sleep apnea) ahi 16 52r 01/01/2015 Photodermatitis 04/04/2014 Rosacea 04/04/2014 S/P LASIK (laser assisted in situ keratomileusis) of both eyes - Both Eyes 04/2014 Snoring 11/05/2015 Steroid acne 04/04/2014 Urinary leakage 04/06/2016 Vitreous floaters of both eyes 12/27/2016 Weakness of both lower extremities 01/26/2016 Xerosis cutis 05/22/2014 PAST SURGICAL HISTORY Procedure Laterality Date COLONOSCOPY 2006 COLONOSCOPY FLX DX W/COLLJ SPEC WHEN PFRMD 07/01/2016 CYSTOSCOPY with hydrodistention for IC EGD 2006 ESOPHAGOGASTRODUODENOSCOPY TRANSORAL DIAGNOSTIC 04/21/2016 L'SCOPE DX W/WO BRUSHINGS/WASHINGS 2006 LAPAROSCOPY DIAGNOSTIC 05/06/2015 [place] LAPS SURG CHOLECYSTECTOMY W/CHOLANGIOGRAPHY 05/04/2016 Normal IOC PAST SURGICAL HISTORY OF 03/2019 nasal turbinate removed REVISE MEDIAN N/CARPAL TUNNEL SURG Right 04/2022 SEPTOPLASTY 02/17/2015 Current Outpatient Medications Medication Sig Dispense Refill busPIRone (BUSPAR) 10 mg tablet TAKE 2 TABLETS BY MOUTH ONCE DAILY AT BEDTIME 60 tablet 2 clomiPRAMINE (ANAFRANIL) 50 mg capsule Take 2 capsules by mouth daily at bedtime. 60 capsule 2 lisdexamfetamine (VYVANSE) 30 mg capsule Take 1 capsule by mouth once daily for 30 days. 30 capsule 0 [START ON 06/23/2022] lisdexamfetamine (VYVANSE) 30 mg capsule Take 1 capsule by mouth once daily for 30 days. Do not start before June 23, 2022. 30 capsule 0 [START ON 07/23/2022] lisdexamfetamine (VYVANSE) 30 mg capsule Take 1 capsule by mouth once daily for 30 days. Do not start before July 23, 2022. 30 capsule 0 Afzdsbzx-Fvde-Xxh-Folic Acid 18-0.4 mg tab Take 1 tablet by mouth once daily. 100 tablet 3 lamoTRIgine (LAMICTAL) 200 mg tablet TAKE 1 TABLET BY MOUTH ONCE DAILY IN THE EVENING 90 tablet 0 fluconazole (DIFLUCAN) 100 mg tablet Take 100 mg by mouth once daily. Daily MAGNESIUM ORAL Take 1,500 mg by mouth daily at bedtime. Clindamycin Phosphate (CLEOCIN T) 1 % lotion Apply to affected area twice daily. On face as needed for rosacea 60 mL 2 Clobetasol Propionate (TEMOVATE) 0.05 % external solution Apply 1 application to affected area once daily as needed (arm and leg skin lesion). 50 mL 1 cyclobenzaprine (FLEXERIL) 10 mg tablet Take 1 tablet by mouth three times daily as needed for muscle spasm. 90 tablet 0 topiramate (TOPAMAX) 25 mg tablet Take 1 tablet by mouth daily at bedtime. 90 tablet 1 loratadine-pseudoephedrine ER (CLARITIN-D 12 HOUR) 5-120 mg per tablet Take 1 tablet by mouth twice daily. (Patient taking differently: Take 1 tablet by mouth as needed. ) 60 tablet 1 famotidine (PEPCID) 10 mg tablet Take 20 mg by mouth twice daily. docusate sodium (COLACE) 100 mg capsule Take 200 mg by mouth twice daily. Lactobacillus acidophilus (ACIDOPHILUS ORAL) Take by mouth. traZODone (DESYREL) 100 mg tablet Take 2 tablets at bedtime (Patient taking differently: Take 200 mg by mouth daily at bedtime. ) 360 tablet 3 rizatriptan (MAXALT TAKE OFF WORKER) 5 mg disintegrating tablet Take 1 tablet by mouth as needed. For migraine., May repeat in 2 hours if needed [address] (PROTONIX) 40 mg tablet Take 1 tablet by mouth daily before breakfast. Take on empty stomach, 1/2 hr before meal. 90 tablet 3 montelukast (SINGULAIR) 10 mg tablet Take 1 tablet by mouth daily at bedtime. 90 tablet 3 Cholecalciferol, Vitamin D3, (VITAMIN D-3) 50 mcg (2,000 unit) cap Take 1 capsule by mouth once daily. 90 capsule 3 diclofenac (VOLTAREN ARTHRITIS PAIN) 1 % topical gel Apply 2 g to affected area four times daily as needed (right thumb pain). 100 g 0 Norethindrone Acet-Ethinyl Est (LOESTRIN 1.5,) 1.5-30 mg-mcg Take 1 tablet by mouth once daily. Take continuously. Do not take inactive pills 3 Package 4 fluconazole (DIFLUCAN) 150 mg tablet Take 1 tablet by mouth one time a week. For yeast prophylaxis. 8 tablet 3 CPAP New set up: AutoBiPAP Settings IPAP max 12 & EPAP min 4 and PS 4- 6 cm H2O, suitable mask per pt preference, chin strap, head gear, humidity, tubing, lifetime supplies. G47.33 JYOTHI 1 Device 0 CREON 36,000-114,000- 180,000 unit capsule TAKE 1 CAPSULE BY MOUTH PRIOR TO ALL MEALS AND SNACKS erythromycin ophthalmic ointment Use 1 application in both eyes daily at bedtime. 3.5 g 2 cyanocobalamin 1,000 mcg/mL 1 mL SQ weekly for 4 weeks, then 1 mL every other week for 2 doses then 1 mL SQ monthly 10 mL 3 mupirocin (BACTROBAN) 2 % ointment Apply 1 application to affected area three times daily. (Patient taking differently: Apply 1 application to affected area as needed. ) 30 g 2 Insulin Syringe-Needle U-100 (BD INSULIN SYRINGE ULTRA-FINE) 1 mL 31 gauge x 5/16 1 Each as directed. 1 Box 1 PEG 400-Propylene Glycol (SYSTANE HYDRATION PF) 0.4-0.3 % dpet Use 1 Each in both eyes four times daily. 1 Each 4 Back Brace misc 1 Device as directed. 1 Each 0 clobetasol (TEMOVATE) 0.05 % ointment Apply 1 application to affected area twice daily. For 2 weeks then once a day for 2 weeks (Patient taking differently: Apply 1 application to affected area as needed. For 2 weeks then once a day for 2 weeks ) 60 g 1 CARBOXYMETHYLCELLULOSE SODIUM (REFRESH TEARS OPHTHALMIC) Use 1 Drop in eyes four times daily. as needed No current facility-administered medications for this visit. ALLERGIES Allergen Reactions Jane Inhibitors Contraindication-Medical Surgical Avoid use of JANE inhibitors while patient is on allergy immunotherapy Adhesive Tape-Silic* Intolerance Burn Beta Blockers [Beta* Contraindication-Medical Surgical Avoid use of beta blockers while patient is on allergy immunotherapy [place] Hives Cymbalta [Duloxetin* Other: See Comments Sweating side effect Effexor [Venlafaxin* Other: See Comments Sweating side effect Imitrex [Sumatripta* Vomiting GI upset and vomiting Linzess [Linaclotid* Diarrhea Vomiting, diarrhea Marijuana (Cannabis) Intolerance GI distress, diarrhea with oral use -sublingual tincture Seasonal Allergies Unknown Molds and grasses verified by skin testing Objective: LMP 04/28/2022 (Approximate) PE: A&O x 3; NAD Essentially unchanged from consult appointment BREAST EXAM from 05/22/2021: soft, non-tender, no skin changes, no nipple discharge, no axillary nodes, pendulous bilaterally very large ptotic breasts. Rounding of the shoulders and upper back. Grooving of the shoulders from the bra straps. Asymmetry: R>L Masses: no Axillary Lymphadenopathy: no Scars: no ESTIMATED GRAMS OF TISSUE TO BE REMOVED: Left: Estimated 700-800 gms Right: Estimated 700-800gms May be more or less based on density Assessment: 35 year old female with symptomatic breast hypertrophy Patient scheduled for bilateral breast reduction. We discussed the risk, benefits, alternatives. Likely inferior pedicle technique with a 16-17 cm inferior pedicle. This is still low risk for nipple necrosis however we discussed this as a potential possibility, nipple sensation was discussed. The scars were discussed in detail. The postop complications were discussed in detail. Therefore, the risk, benefits, terms, expectations were discussed and the patient signed consent The patient is seen and examined by Dr. Kelly and the following reflects his/her service. Scribed by Steph Min RN I agree with the Chief Complaint, ROS, and Past Histories independently gathered by the clinical customer support associate and the remaining scribed note accurately describes my personal service to the patient. Óscar Kelly MD documented in this encounter [facility] 05-26-2022 History of Present illness Narrative CC: Sharri Menon is a 36 year old female who presents to the office for follow up HPI: At appt on 08/03/21 Waiting on being set up for breast reduction surgery, looking forward to see if this helps her shoulder and neck and Upper back pain. Feels that recently she has had a lot of intermittent joint pain, b/l shoulders, wrists, hands, knees. Worse in AM. + associated with fatigue. Also with muscle aches as well. Has had a hard time feeling motivated to get anything done around the house due to this. No rashes. Taking her medications as prescribed, hasn't been overexerting with activity and denies any injuries. ADD, chronic fatigue, taking adderall as prescribed, no obvious SE to medication. Ankle pain, right side, would like 2nd opinion since this is still bothering her despite having seen Orthopedics foot/ankle specialist and assembly inspector helper. Right thumb pain, no known injury. No obvious swelling or skin redness, No use of ice or heating pad use or splint use. At OFFICE VISIT 11/11/21 ADD, chronic fatigue, taking adderall. Likely is what is causing her worsening OCD type symptoms. She is seeing Psychiatry to work on her mood and medication adjustment. She is tapering down on her dose of Trazodone at bedtime. Hasn't seen Gas Specialist or Orthopedics for her left hip pain- has been receiving SI joint and sacral nerve root injections by Dr. Mackenzie with minimal non lasting relief of symptoms. No bowel or bladder changes. Hasn't had inflammation markers rechecked recently Concerned about risk of diabetes, also would like to recheck cholesterol. Has been cutting down on her meat/red meats intake and wonders if this is improved yet. Has been seeing Press Tender [facility] Dr. Veliz, found to have corn allergy. Is trying to limit exposure to this Heart fluttering, palpitations, comes and goes, no known specific trigger, off and on for weeks/months. No chest pain or pressure or dyspnea. At follow up on 02/09/22 Has been seeing Press T[facility] Dr. Veliz, found to have corn allergy. Is trying to limit exposure to this. Is going to be having food testing when able to stop the Trazodone Mood, stable, working with Alondra Ring CNP psychiatry with medication adjustments, feeling that the buspirone is helpful for her symptoms. Heart fluttering, palpitations, comes and goes, improved symptoms, did have sensitivity of skin to patch of ZIO, hasn't had repeated yet. no known specific trigger, off and on for weeks/months. No chest pain or pressure or dyspnea. ADD, chronic fatigue, stable, taking adderall without SE to medication Had multifocal pneumonia secondary to covid 19 on CXR, did complete antibiotic and feels symptoms have improved, hasn't had repeat CXR yet At last appt on 04/14/22 ADD, feels she is struggling with irritability, difficulty with sleeping at night and everything is bothering me like I can't stand to see a bug in the house, it worries me that there are bugs landing on me when I am outside and I feel like I am irritable lately. she isn't sure if this is due to the Adderall or another cause. Is going to be following up with Psychiatry Alondra Ring CNP in the next 2 weeks. Has a lot of stressors upcoming with carpal tunnel surgery on 05/03 and then also a breast reduction surgery on 06/10., is looking forward to these surgeries being done though. Skin irritation/redness, b/l facial areas, cheeks, no pain or blistering, seems to be worsening over the last few months. Also skin lesions of small areas of redness on arms and legs, individual lesions, no pain or drainage or itching. Unsure of cause- no new lotions or washes etc. Will be seeing Dr. Veliz upcoming for allergy opinion. Currently ADD, stable, is taking the vyvanse 20 mg a day as prescribed, tolerating rx well. Thinks the dose needs to be adjusted up. Is seeing Psychiatrist as well to help with mood mgmt and medication adjustments for mood. Breast reduction surgery is upcoming on 06/10. Is looking forward to this being complete and able to work on healing. PAST MEDICAL HISTORY Diagnosis Date Abnormal biliary HIDA scan 04/22/2016 Acne vulgaris: Inflammatory Grade II to III 05/25/2014 Acute and chronic cholecystitis 05/13/2016 Adjustment disorder with mixed anxiety and depressed mood 11/28/2014 Ankle weakness 07/17/2015 Bilateral low back pain with sciatica 01/26/2016 Calculus, tonsil 12/17/2013 Chronic fatigue Depression, major, recurrent, mild (HCC) 08/14/2015 Deviated nasal septum s/p septoplasty Dry eye syndrome 12/27/2016 Eczematous dermatitis 05/22/2014 Exposure keratopathy 01/01/2016 Fatigue 02/05/2015 Female stress incontinence 10/08/2016 Fibromyalgia Flushing reaction 04/04/2014 GERD (gastroesophageal reflux disease) 06/17/2016 Hemorrhoids 09/25/2014 Hiatal hernia History of Fagan's palsy IBS (irritable bowel syndrome) 2006 had EGD, colonoscopy Insomnia 10/23/2014 Irregular periods 10/23/2013 Left ankle pain 07/17/2015 Migraines 12/24/2013 Milial cyst 05/22/2014 Nasal septal deviation 01/22/2015 Obesity (BMI 30-39.9) 10/23/2013 JYOTHI (obstructive sleep apnea) ahi 16 52r 01/01/2015 Photodermatitis 04/04/2014 Rosacea 04/04/2014 S/P LASIK (laser assisted in situ keratomileusis) of both eyes - Both Eyes 04/2014 Snoring 11/05/2015 Steroid acne 04/04/2014 Urinary leakage 04/06/2016 Vitreous floaters of both eyes 12/27/2016 Weakness of both lower extremities 01/26/2016 Xerosis cutis 05/22/2014 PAST SURGICAL HISTORY Procedure Laterality Date COLONOSCOPY 2006 COLONOSCOPY FLX DX W/COLLJ SPEC WHEN PFRMD 07/01/2016 CYSTOSCOPY with hydrodistention for IC EGD 2006 ESOPHAGOGASTRODUODENOSCOPY TRANSORAL DIAGNOSTIC 04/21/2016 L'SCOPE DX W/WO BRUSHINGS/WASHINGS 2006 LAPAROSCOPY DIAGNOSTIC 05/06/2015 [place] LAPS SURG CHOLECYSTECTOMY W/CHOLANGIOGRAPHY 05/04/2016 Normal [facility] PAST SURGICAL HISTORY OF 03/2019 nasal turbinate removed REVISE MEDIAN N/CARPAL TUNNEL SURG Right 04/2022 SEPTOPLASTY 02/17/2015 Current Outpatient Medications Medication Sig lamoTRIgine (LAMICTAL) 200 mg tablet TAKE 1 TABLET BY MOUTH ONCE DAILY IN THE EVENING fluconazole (DIFLUCAN) 100 mg tablet Take 100 mg by mouth once daily. Daily MAGNESIUM ORAL Take 1,500 mg by mouth daily at bedtime. Clindamycin Phosphate (CLEOCIN T) 1 % lotion Apply to affected area twice daily. On face as needed for rosacea Clobetasol Propionate (TEMOVATE) 0.05 % external solution Apply 1 application to affected area once daily as needed (arm and leg skin lesion). cyclobenzaprine (FLEXERIL) 10 mg tablet Take 1 tablet by mouth three times daily as needed for muscle spasm. topiramate (TOPAMAX) 25 mg tablet Take 1 tablet by mouth daily at bedtime. loratadine-pseudoephedrine ER (CLARITIN-D 12 HOUR) 5-120 mg per tablet Take 1 tablet by mouth twice daily. (Patient taking differently: Take 1 tablet by mouth as needed. ) famotidine (PEPCID) 10 mg tablet Take 20 mg by mouth twice daily. docusate sodium (COLACE) 100 mg capsule Take 200 mg by mouth twice daily. Lactobacillus acidophilus (ACIDOPHILUS ORAL) Take by mouth. traZODone (DESYREL) 100 mg tablet Take 2 tablets at bedtime (Patient taking differently: Take 200 mg by mouth daily at bedtime. ) rizatriptan (MAXALT TAKE OFF WORKER) 5 mg disintegrating tablet Take 1 tablet by mouth as needed. For migraine., May repeat in 2 hours if needed pantoprazole DR (PROTONIX) 40 mg tablet Take 1 tablet by mouth daily before breakfast. Take on empty stomach, 1/2 hr before meal. montelukast (SINGULAIR) 10 mg tablet Take 1 tablet by mouth daily at bedtime. Cholecalciferol, Vitamin D3, (VITAMIN D-3) 50 mcg (2,000 unit) cap Take 1 capsule by mouth once daily. diclofenac (VOLTAREN ARTHRITIS PAIN) 1 % topical gel Apply 2 g to affected area four times daily as needed (right thumb pain). Norethindrone Acet-Ethinyl Est (LOESTRIN 1.5/30, ,) 1.5-30 mg-mcg Take 1 tablet by mouth once daily. Take continuously. Do not take inactive pills fluconazole (DIFLUCAN) 150 mg tablet Take 1 tablet by mouth one time a week. For yeast prophylaxis. CPAP New set up: AutoBiPAP Settings IPAP max 12 & EPAP min 4 and PS 4- 6 cm H2O, suitable mask per pt preference, chin strap, head gear, humidity, tubing, lifetime supplies. G47.33 JYOTHI CREON 36,000-114,000- 180,000 unit capsule TAKE 1 CAPSULE BY MOUTH PRIOR TO ALL MEALS AND SNACKS erythromycin ophthalmic ointment Use 1 application in both eyes daily at bedtime. cyanocobalamin 1,000 mcg/mL 1 mL SQ weekly for 4 weeks, then 1 mL every other week for 2 doses then 1 mL SQ monthly mupirocin (BACTROBAN) 2 % ointment Apply 1 application to affected area three times daily. (Patient taking differently: Apply 1 application to affected area as needed. ) Insulin Syringe-Needle U-100 (BD INSULIN SYRINGE ULTRA-FINE) 1 mL 31 gauge x 5/16 1 Each as directed. PEG 400-Propylene Glycol (SYSTANE HYDRATION PF) 0.4-0.3 % dpet Use 1 Each in both eyes four times daily. Back Brace misc 1 Device as directed. clobetasol (TEMOVATE) 0.05 % ointment Apply 1 application to affected area twice daily. For 2 weeks then once a day for 2 weeks (Patient taking differently: Apply 1 application to affected area as needed. For 2 weeks then once a day for 2 weeks ) CARBOXYMETHYLCELLULOSE SODIUM (REFRESH TEARS OPHTHALMIC) Use 1 Drop in eyes four times daily. as needed busPIRone (BUSPAR) 10 mg tablet TAKE 2 TABLETS BY MOUTH ONCE DAILY AT BEDTIME clomiPRAMINE (ANAFRANIL) 50 mg capsule Take 2 capsules by mouth daily at bedtime. lisdexamfetamine (VYVANSE) 30 mg capsule Take 1 capsule by mouth once daily for 30 days. [START ON 06/23/2022] lisdexamfetamine (VYVANSE) 30 mg capsule Take 1 capsule by mouth once daily for 30 days. Do not start before June 23, 2022. [START ON 07/23/2022] lisdexamfetamine (VYVANSE) 30 mg capsule Take 1 capsule by mouth once daily for 30 days. Do not start before July 23, 2022. Zgjitmjh-Adyv-Zhg-Folic Acid 18-0.4 mg tab Take 1 tablet by mouth once daily. No current facility-administered medications for this visit. ALLERGIES Allergen Reactions Jane Inhibitors Contraindication-Medical Surgical Avoid use of JANE inhibitors while patient is on allergy immunotherapy Adhesive Tape-Silic* Intolerance Burn Beta Blockers [Beta* Contraindication-Medical Surgical Avoid use of beta blockers while patient is on allergy immunotherapy [place] Hives Cymbalta [Duloxetin* Other: See Comments Sweating side effect Effexor [Venlafaxin* Other: See Comments Sweating side effect Imitrex [Sumatripta* Vomiting GI upset and vomiting Linzess [Linaclotid* Diarrhea Vomiting, diarrhea Marijuana (Cannabis) Intolerance GI distress, diarrhea with oral use -sublingual tincture Seasonal Allergies Unknown Molds and grasses verified by skin testing Social History Tobacco Use Smoking status: Never Smoker Smokeless tobacco: Never Used Vaping Use Vaping Use: Never used Substance Use Topics Alcohol use: Yes Comment: 1 drink per month Drug use: Not Currently Types: Marijuana Comment: has medical marijuana script but gave GI sx ROS: See HPI PE: BP 100/60 Pulse 80 Temp (Src) 98.1 (Right Tympanic) Resp 16 Wt 205 lb (93.0kg) LMP 04/28/2022 Gen: A&OX3, NAD, non-toxic appearing HEENT: PERRLA, EOMs intact b/l, nares without drainage, pharynx without erythema, exudate, lesions, or drainage. Uvula midline. Neck: No LAD, no thyromegaly, no meningismus. CV: RRR, no murmur Lungs: CTA b/l, no wheezing Skin: No rashes, lesions, or wounds on exposed skin. No edema, normal pulses Well dressed, pleasant Fatigued appearing ASSESSMENT/PLAN: 1. Fibromyalgia - ICD9: 729.1, ICD10: M79.7 - rx refilled at slightly higher dose, chronic, tolerating without any SE to meidcation - LISDEXAMFETAMINE 30 MG CAPSULE - LISDEXAMFETAMINE 30 MG CAPSULE - LISDEXAMFETAMINE 30 MG CAPSULE 2. Chronic fatigue - ICD9: 780.79, ICD10: R53.82 - rx refilled at slightly higher dose, chronic, tolerating without any SE to meidcation - LISDEXAMFETAMINE 30 MG CAPSULE - LISDEXAMFETAMINE 30 MG CAPSULE - LISDEXAMFETAMINE 30 MG CAPSULE 3. Concentration deficit - ICD9: 799.51, ICD10: R41.840 - rx refilled at slightly higher dose, chronic, tolerating without any SE to meidcation - LISDEXAMFETAMINE 30 MG CAPSULE - LISDEXAMFETAMINE 30 MG CAPSULE - LISDEXAMFETAMINE 30 MG CAPSULE Victor Manuel Tyler DO PDMP website checked and validated. All prescriptions have been APPROPRIATELY filled. No suspicious activity was identified. 05/26/2022 by Victor Manuel Tyler DO Return if no improvement. Follow up with Victor Manuel Tyler DO. To ER if develops chest pain, shortness of breath Discussed risks, benefits, alternatives, and potential side effects of medications. Patient/Guardian expressed understanding and agreed with the plan. See patient instructions. Victor Manuel Tyler DO [address] [place] [address] documented in this encounter [facility] 05-18-2022 Miscellaneous Notes Pharmacy electronically requesting refill(s): [facility] Last appt: 04/27/22 Upcoming appt: 05/25/22 Pending Prescriptions Disp Refills LAMOTRIGINE 200 MG TABLET 90 tablet 0 Sig: TAKE 1 TABLET BY MOUTH ONCE DAILY IN THE EVENING KAYLYN: Yes Please review and process accordingly. Thank you! Katlyn Schrader documented in this encounter [facility] 05-12-2022 History and physical note HISTORY AND PHYSICAL EXAMINATION SERVICE DATE: 05/12/2022 SERVICE TIME: 10:49 AM PRIMARY CARE PHYSICIAN: Victor Manuel Tyler DO REASON FOR VISIT: Sharri Menon is a 36 year old female who is scheduled for REDUCTION BREAST BILATERAL at the request of Dr. Óscar Kelly MD for consultation. My final recommendation will be communicated back to the requesting physician by way of shared medical record or letter. Subjective The patient has the following: ACTIVE PROBLEM LIST Obesity, Class I, Bmi 30-34.9 Irregular Periods Migraines Keratosis Pilaris Eczematous Dermatitis Situational Insomnia Adjustment Disorder With Mixed Anxiety and Depressed Mood JYOTHI (obstructive sleep apnea) ahi 16 52r Right Ankle Pain Fibromyalgia Abnormal Biliary Hida Scan Female Stress Incontinence Dry Eye Syndrome S/P Lasik (Laser Assisted in Situ Keratomileusis) Chronic Fatigue T3 Thyrotoxicosis Iliotibial Band Syndrome Greater Trochanteric Bursitis of Both Hips Vitamin D Deficiency Pure Hypercholesterolemia Allergic Rhinitis Due to Allergen Seasonal Allergic Rhinitis Due to Pollen Carpal Tunnel Syndrome, Bilateral Gerd With Esophagitis Multiple Joint Pain Irritable Bowel Syndrome With Both Constipation and Diarrhea Trigger Point of Shoulder Region, Left Trapezius Muscle Spasm Generalized Abdominal Pain Bloating Muscle Cramp Chronic Pain of Both Shoulders De Quervain's Tenosynovitis, Right Uriel (Generalized Anxiety Disorder) Bipolar 2 Disorder (Hcc) Palpitations Food Intolerance Crp Elevated Neck Pain Large Breasts History of Fagan's Palsy COVID-19 Immunization Status Postponed - COVID-19 VACCINE (1) Postponed until 11/11/2022 11/11/2021 Postponed until 11/11/2022 by Ashly Bourgeois LPN (Declined at this time) Patient reports being not vaccinated against COVID-19. Patient reports a prior COVID-19 infection, with an infection date of 12/2021. CHIEF COMPLAINT: Pre-Op Exam HPI: 36 year old female presents with large breasts. Patient states she has had shoulder pain related to her breasts for at least 15 years. She has also been diagnosed with Fibromyalgia and thinks the breasts are making it worst. She has intermittent shoulder pain which is aching and cramping in sensation. She has a lot of difficulty finding a bra that fits and is comfortable. She gets grooves in her shoulders from her bra. If she wears a bra for too long she will also start to experience neck pain. She also experiences itching and irritation underneath her breasts. She uses moisture wicking pads which do help with this. REVIEW OF SYSTEMS: General: Positive for: malaise (Chronic fatigue - on Vyvanse). Negative for: fever. Neurological: (+) H/O Fagan's Palsy - bilateral Positive for: headaches (Migraines on Rx, Maxalt PRN) and impaired sensorium (Carpal tunnel - L). Negative for: multiple sclerosis, Parkinson's disease, seizures, TIA and strokes. Respiratory: Positive for: prior COVID-19 infection and obstructive sleep apnea (not using CPAP). Date of COVID-19 infection: 12/2021. Negative for: asthma, bronchitis, COPD, current cough, dyspnea, home oxygen, orthopnea, pneumonia within 6 weeks and tobacco use. Cardiovascular: Positive for: arrhythmia (Occasional palpitations - Holter earlier this year) and hyperlipidemia (No current Rx) Negative for: atrial fibrillation, CAD, chest pain, CHF, DVT/PE, hypertension, recent CO and murmur/valvular heart disease. GI: Positive for: abdominal pain (Occasional), dysphagia (Bigger pills, feels like things get stuck), GERD (Somewhat controlled on Rx, watches yeast/gluten intake) and irritable bowel syndrome (Colace, Probiotic. Alternating) Negative for: diverticulitis, GI bleed <30 days, hepatitis, inflammatory bowel disease, liver disease, nausea and vomiting. : No history of dysuria, frequency or incontinence, stones or chronic kidney disease. No difficulty urinating, nocturia > 1 time per night or hematuria. DIE MAKER TRIM: Negative for abnormal vaginal bleeding, abnormal vaginal discharge. Endocrine: No history of diabetes. Has not taken steroids within the past 30 days. No history of endocrinological symptoms or problems. Hematology: Positive for: bruises/bleeds easily. Negative for: anemia, factor V Leiden, thrombocytopenia, von Willebrand disease and chronic anti-coagulation/platelet meds. Oncology: No history of CA metastasis, chemo within 30 days, or radiotherapy within 90 days. No history of oncological symptoms or problems. Psych: Positive for: anxiety (on Rx), bipolar disorder (Stable on Rx, working on Rx medication) and depression. Musculoskeletal: Positive for: joint pain (SEE HPI. Fibromyalgia. Hip). Negative for: swelling. Skin: Negative for lesions, rash and itching. PAST MEDICAL HISTORY Diagnosis Date Abnormal biliary HIDA scan 04/22/2016 Acne vulgaris: Inflammatory Grade II to III 05/25/2014 Acute and chronic cholecystitis 05/13/2016 Adjustment disorder with mixed anxiety and depressed mood 11/28/2014 Ankle weakness 07/17/2015 Bilateral low back pain with sciatica 01/26/2016 Calculus, tonsil 12/17/2013 Chronic fatigue Depression, major, recurrent, mild (HCC) 08/14/2015 Deviated nasal septum s/p septoplasty Dry eye syndrome 12/27/2016 Eczematous dermatitis 05/22/2014 Exposure keratopathy 01/01/2016 Fatigue 02/05/2015 Female stress incontinence 10/08/2016 Fibromyalgia Flushing reaction 04/04/2014 GERD (gastroesophageal reflux disease) 06/17/2016 Hemorrhoids 09/25/2014 Hiatal hernia History of Fagan's palsy IBS (irritable bowel syndrome) 2006 had EGD, colonoscopy Insomnia 10/23/2014 Irregular periods 10/23/2013 Left ankle pain 07/17/2015 Migraines 12/24/2013 Milial cyst 05/22/2014 Nasal septal deviation 01/22/2015 Obesity (BMI 30-39.9) 10/23/2013 JYOTHI (obstructive sleep apnea) ahi 16 52r 01/01/2015 Photodermatitis 04/04/2014 Rosacea 04/04/2014 S/P LASIK (laser assisted in situ keratomileusis) of both eyes - Both Eyes 04/2014 Snoring 11/05/2015 Steroid acne 04/04/2014 Urinary leakage 04/06/2016 Vitreous floaters of both eyes 12/27/2016 Weakness of both lower extremities 01/26/2016 Xerosis cutis 05/22/2014 PAST SURGICAL HISTORY Procedure Laterality Date COLONOSCOPY 2006 COLONOSCOPY FLX DX W/COLLJ SPEC WHEN PFRMD 07/01/2016 CYSTOSCOPY with hydrodistention for IC EGD 2006 ESOPHAGOGASTRODUODENOSCOPY TRANSORAL DIAGNOSTIC 04/21/2016 L'SCOPE DX W/WO BRUSHINGS/WASHINGS 2006 LAPAROSCOPY DIAGNOSTIC 05/06/2015 [place] LAPS SURG CHOLECYSTECTOMY W/CHOLANGIOGRAPHY 05/04/2016 Normal [facility] PAST SURGICAL HISTORY OF 03/2019 nasal turbinate removed REVISE MEDIAN N/CARPAL TUNNEL SURG Right 04/2022 SEPTOPLASTY 02/17/2015 FAMILY HISTORY Problem Relation Age of Onset Hypertension Mother Hyperlipidemia Mother Hypertension Father Lipids Father Cataract Father other (drug addiction) Sister Headache Sister Heart Maternal Grandfather Thyroid Paternal Grandmother Cataract Paternal Grandmother Social History Tobacco Use Smoking status: Never Smoker Smokeless tobacco: Never Used Vaping Use Vaping Use: Never used Substance Use Topics Alcohol use: Yes Comment: 1 drink per month Drug use: Not Currently Types: Marijuana Comment: has medical marijuana script but gave GI sx Prior to Admission medications as of 05/12/22 1118 Medication Sig Last Dose Taking fluconazole (DIFLUCAN) 100 mg tablet Take 100 mg by mouth once daily. Daily Taking Yes MAGNESIUM ORAL Take 1,500 mg by mouth daily at bedtime. Taking Yes amoxicillin-clavulanic acid (AUGMENTIN) 875-125 mg per tablet Take 1 tablet by mouth twice daily for 10 days. Taking Yes lisdexamfetamine (VYVANSE) 20 mg capsule Take 1 capsule by mouth once daily for 30 days. Taking Yes busPIRone (BUSPAR) 10 mg tablet TAKE 2 TABLETS BY MOUTH ONCE DAILY AT BEDTIME Taking Yes clomiPRAMINE (ANAFRANIL) 50 mg capsule Take 1 capsule by mouth daily at bedtime for 14 days, THEN 2 capsules daily at bedtime for 14 days. Taking Yes Clindamycin Phosphate (CLEOCIN T) 1 % lotion Apply to affected area twice daily. On face as needed for rosacea Taking Yes Clobetasol Propionate (TEMOVATE) 0.05 % external solution Apply 1 application to affected area once daily as needed (arm and leg skin lesion). Taking Yes lamoTRIgine (LAMICTAL) 200 mg tablet Take 1 tablet by mouth every evening. Taking Yes cyclobenzaprine (FLEXERIL) 10 mg tablet Take 1 tablet by mouth three times daily as needed for muscle spasm. Taking Yes topiramate (TOPAMAX) 25 mg tablet Take 1 tablet by mouth daily at bedtime. Taking Yes loratadine-pseudoephedrine ER (CLARITIN-D 12 HOUR) 5-120 mg per tablet Take 1 tablet by mouth twice daily. Patient taking differently: Take 1 tablet by mouth as needed. Taking Differently Yes famotidine (PEPCID) 10 mg tablet Take 20 mg by mouth twice daily. Taking Yes docusate sodium (COLACE) 100 mg capsule Take 200 mg by mouth twice daily. Taking Yes Lactobacillus acidophilus (ACIDOPHILUS ORAL) Take by mouth. Taking Yes traZODone (DESYREL) 100 mg tablet Take 2 tablets at bedtime Patient taking differently: Take 200 mg by mouth daily at bedtime. Taking Differently Yes rizatriptan (MAXALT TAKE OFF WORKER) 5 mg disintegrating tablet Take 1 tablet by mouth as needed. For migraine., May repeat in 2 hours if needed Taking Yes pantoprazole DR (PROTONIX) 40 mg tablet Take 1 tablet by mouth daily before breakfast. Take on empty stomach, 1/2 hr before meal. Taking Yes montelukast (SINGULAIR) 10 mg tablet Take 1 tablet by mouth daily at bedtime. Taking Yes Cholecalciferol, Vitamin D3, (VITAMIN D-3) 50 mcg (2,000 unit) cap Take 1 capsule by mouth once daily. Taking Yes diclofenac (VOLTAREN ARTHRITIS PAIN) 1 % topical gel Apply 2 g to affected area four times daily as needed (right thumb pain). Taking Yes Norethindrone Acet-Ethinyl Est (LOESTRIN 1.5/30, 21,) 1.5-30 mg-mcg Take 1 tablet by mouth once daily. Take continuously. Do not take inactive pills Taking Yes CREON 36,000-114,000- 180,000 unit capsule TAKE 1 CAPSULE BY MOUTH PRIOR TO ALL MEALS AND SNACKS Taking Yes erythromycin ophthalmic ointment Use 1 application in both eyes daily at bedtime. Taking Yes cyanocobalamin 1,000 mcg/mL 1 mL SQ weekly for 4 weeks, then 1 mL every other week for 2 doses then 1 mL SQ monthly Taking Yes mupirocin (BACTROBAN) 2 % ointment Apply 1 application to affected area three times daily. Patient taking differently: Apply 1 application to affected area as needed. Taking Differently Yes Insulin Syringe-Needle U-100 (BD INSULIN SYRINGE ULTRA-FINE) 1 mL 31 gauge x 5/16 1 Each as directed. Taking Yes PEG 400-Propylene Glycol (SYSTANE HYDRATION PF) 0.4-0.3 % dpet Use 1 Each in both eyes four times daily. Taking Yes Back Brace misc 1 Device as directed. Taking Yes clobetasol (TEMOVATE) 0.05 % ointment Apply 1 application to affected area twice daily. For 2 weeks then once a day for 2 weeks Patient taking differently: Apply 1 application to affected area as needed. For 2 weeks then once a day for 2 weeks Taking Yes CARBOXYMETHYLCELLULOSE SODIUM (REFRESH TEARS OPHTHALMIC) Use 1 Drop in eyes four times daily. as needed Taking Yes desvenlafaxine ER (PRISTIQ) 25 mg 24 hr tablet Take 1 tablet by mouth once daily. Patient not taking: Reported on 05/12/2022 Not Taking fluconazole (DIFLUCAN) 150 mg tablet Take 1 tablet by mouth one time a week. For yeast prophylaxis. Patient not taking: Reported on 05/12/2022 Not Taking CPAP New set up: AutoBiPAP Settings IPAP max 12 & EPAP min 4 and PS 4- 6 cm H2O, suitable mask per pt preference, chin strap, head gear, humidity, tubing, lifetime supplies. G47.33 JYOTHI Patient not taking: Reported on 05/12/2022 Not Taking No medication comments found. ALLERGIES Allergen Reactions Jane Inhibitors Contraindication-Medical Surgical Avoid use of JANE inhibitors while patient is on allergy immunotherapy Adhesive Tape-Silic* Intolerance Burn Beta Blockers [Beta* Contraindication-Medical Surgical Avoid use of beta blockers while patient is on allergy immunotherapy [place] Hives Cymbalta [Duloxetin* Other: See Comments Sweating side effect Effexor [Venlafaxin* Other: See Comments Sweating side effect Imitrex [Sumatripta* Vomiting GI upset and vomiting Linzess [Linaclotid* Diarrhea Vomiting, diarrhea Marijuana (Cannabis) Intolerance GI distress, diarrhea with oral use -sublingual tincture Seasonal Allergies Unknown Molds and grasses verified by skin testing Objective PHYSICAL EXAM: General: alert and oriented and obese. Pertinent negatives noted - not distressed. Skin: normal color, no rash or lesions. HEENT: pupils equal round and pupils reactive to light. Pertinent negatives noted - no carotid bruit. Cardiovascular: regular rate and rhythm, normal S1 and S2, no rub, murmurs, or gallop. Respiratory: normal breath sounds, no wheezes or crackles. No chest wall deformity or tenderness. Abdomen: soft. Pertinent negatives noted - no hernia, no mass, not rigid and not tender. Extremities: no deformity, no edema or tenderness, no joint swelling or clubbing. Neurological: normal cognition and motor skills. Gait normal. No weakness or sensory deficit. PAIN ASSESSMENT: VITALS: BP 112/84 Pulse 96 Temp (Src) 98.4 (Temporal) Resp 16 Ht 5' 5.5 (1.66m) Wt 204 lb (92.5kg) SpO2 97% LMP 04/28/2022 BMI 33.42 kg/(m^2). Diagnostic tests reviewed for today's visit: Lab Value Units Date High Low HB 13.8 g/dL 05/12/2022 15.5 11.5 HCT 42.0 % 05/12/2022 46.0 36.0 WBC 6.96 k/uL 05/12/2022 11.00 3.70 PLT 338 k/uL 05/12/2022 400 150 NA No results within date range. K No results within date range. GLUC No results within date range. BUN No results within date range. CREAT No results within date range. PTSEC No results within date range. INR No results within date range. APTT No results within date range. ALT No results within date range. AST No results within date range. TBILI No results within date range. TSH No results within date range. Lab Value Units Date High Low HCGQT No results within date range. UHCG No results within date range. HCG, BODY* No results within date range. Lab Value Units Date High Low ABORHD No results within date range. ABSCREEN No results within date range. Hemoglobin A1C (%) Date Value 11/12/2021 5.6 07/11/2020 5.4 11/19/2019 5.4 01/24/2019 5.4 Recent Results (from the past 8760 hour(s)) ECG COMPLETE Collection Time: 01/05/22 3:30 PM Result Value Ventricular Rate 93 Atrial Rate 93 P-R Interval 116 QRS Duration 86 QT Interval 364 QTC Calculation (Bazett) 452 Calculated P [place] 47 Calculated R [place] 13 Calculated T [place] 23 Impression NORMAL SINUS RHYTHM NORMAL ECG NO PREVIOUS ECGS AVAILABLE Confirmed by MD RAMONA, CARIDAD ([id number]) on 01/06/2022 8:05:46 AM No results found for this or any previous visit (from the past 02184 hour(s)). Assessment Fibromyalgia Assessment: Generalized pain, especially shoulders and neck. Large breasts making pain/symptoms worse. Chronic fatigue Assessment: Currently stable on Vyvanse, following with PCP. History of Fagan's palsy Assessment: H/O bilateral fagan's palsy, no current facial asymmetry. Migraines Assessment: Currently stable on Topamax. Taking Maxalt PRN. JYOTHI (obstructive sleep apnea) ahi 16 52r Assessment: Unable to tolerate CPAP, gives her too much anxiety. Palpitations Assessment: Normal holter monitor earlier this year, could only wear for 24 hours due to adhesive allergy. Following with PCP. Pure hypercholesterolemia Assessment: No current Rx, working on lifestyle modifications. Irritable bowel syndrome with both constipation and diarrhea Assessment: Alternating constipation, diarrhea. Takes Magnesium, Probiotic, Colace. Occasional abdominal pain. GERD with esophagitis Assessment: Symptoms somewhat controlled on Rx. Has to watch her yeast/gluten intake. Adjustment disorder with mixed anxiety and depressed mood Assessment: Working with psych, taking Rx. Stable per patient. Bipolar 2 disorder (HCC) Assessment: Stable per patient, working with psych. Doing some medication adjustments due to other medical issues. Obesity, Class I, BMI 30-34.9 Assessment: Body mass index is 33.43 kg/m . Guillaume Activity Status Index: METS: Climb a flight of stairs or walk up a hill (5.50 METs) DASI Score: 5.5 Patient denies any chest pain or undue shortness of breath with the above physical activity. Clinical Frailty Scale: 4. Apparently vulnerable STOP-Bang Score: STOP-Bang Score: (JYOTHI not using CPAP) [id number] Score: Age: <65 Sex: female CHF history: No Hypertension history: No Stroke/TIA/thromboembolism history: No Vascular disease history: No Diabetes history: No [id number] Score: 1 ASA Class: 3 ANESTHESIA FINDINGS: Intubation History: No history of difficult intubation. No abnormal airway history Significant Anesthesia Considerations: none Airway History: No history of difficult airway No abnormal airway history I - PHYSICAL EVALUATION AIRWAY Tracheostomy tube not present Mallampati: I. TM distance: >3 FB. Neck ROM: full ROM without neurological symptoms. Mouth opening: adequate. Short neck: yes. Thick neck: no DENTAL Dental findings: teeth intact. Additional comments: Caps. II - ANESTHESIA PLAN ASA Score: 3 Anesthetic Plan: general Prepared for Surgery: optimally prepared for surgery, pending (see comment). Labs CONSULTS: Patient does not require consults for optimization at this time Planned Anesthetic: general The Following Tests/Procedures Have Been Initiated: Orders Placed This Encounter CMP Standing Status: Future Number of Occurrences: 1 Standing Expiration Date: 07/12/2022 CBC with Differential Standing Status: Future Number of Occurrences: 1 Standing Expiration Date: 07/12/2022 Magnesium Standing Status: Future Number of Occurrences: 1 Standing Expiration Date: 07/12/2022 fluconazole (DIFLUCAN) 100 mg tablet Sig: Take 100 mg by mouth once daily. Daily MAGNESIUM ORAL Sig: Take 1,500 mg by mouth daily at bedtime. Instructions Given to Patient: Instructions located in the after visit summary. Patient given verbal and written preop instructions and voices comprehension and compliance. SIGNATURE: Jazmin Quiroga APRN.CNP PATIENT NAME: Sharri Menon DATE: May 12, 2022 TIME: 10:08 AM PAGER/CONTACT #: documented in this encounter [facility] 05-12-2022 Instructions Jazmin Quiroga APRN.CNP - 05/12/2022 10:40 AM EDT PATIENT PREOPERATIVE INSTRUCTIONS Óscar Kelly MD has scheduled you for your procedure at this surgery center: [facility] Scheduling Office: [phone] -[address] [place] [address]. Please read below carefully for your personalized instructions. Dietary Restrictions: - No solid food after midnight. - You may have 12 ounces of clear liquids (water, clear juices such as apple juice or gatorade, carbonated beverages, clear tea, black coffee, jello) until 2 hours before scheduled arrival at facility. - Do not drink any alcohol after midnight the night before your surgery. Medications: Unless instructed differently below, stay on all of your medications until your surgery. Approved medications to take the morning of surgery with a sip of water: Flexeril (if needed), Pepcid and Protonix Take your evening medications the night before surgery as usual If you start any new medications after today's visit, please contact the surgeon's office. Blood Thinning Medications: - Stop NSAIDS (Ibuprofen, Advil, Aleve, Motrin, Celebrex, Mobic, etc.) 7 days before surgery, as directed by your surgeon. - Stop Aspirin 7 days before surgery, as directed by your surgeon. - Stop Vitamin E, ALL multi-vitamins, herbals and dietary supplements 7 days before surgery. - You may take Tylenol (Acetaminophen) or any of your pain medications that do not contain aspirin or NSAIDS as needed. Important Reminders: - Candy, mints, and tobacco products are NOT permitted the morning of surgery. - Hearing aids, dentures and glasses may be worn the morning of surgery. - NO jewelry, body piercings, makeup, hairpins or contacts are to be worn the day of surgery. If you develop symptoms such as a fever, cold, or flu, or have other changes to your health within TWO DAYS of scheduled surgery or the morning of surgery, please contact the surgery center above. Personal Belongings: -Please have photo ID and insurance cards. -If you do not have a copy of advance directives on file with us, please bring a copy with you on the day of surgery. - Leave ALL valuables and money at home or with family members. For Outpatient Procedures: - YOU MUST HAVE A RESPONSIBLE ASSEMBLER FLEXIBLE LEADS TAKE YOU HOME. A HOSPITAL LIBRARIAN OR FENCE SETTER CANNOT BE MADE A RESPONSIBLE ASSEMBLER FLEXIBLE LEADS. - We recommend that a responsible person stays with you overnight to take care of you. - You cannot stay in a hotel alone after outpatient surgery. You will not be permitted to have your surgery, if you do not have someone to take care of you. Arrival Time for Surgery: - To obtain your arrival time for surgery, call your physician's office the day before your surgery. - If your surgery is scheduled for Tuesday, call the Tuesday before. Your surgeon s timber management technician will tell you what time to call the office. - If you have not reached the departmental timber management technician by 5 P.M., call [phone] after 5 P.M. the day before your surgery. Please be aware that emergency situations arise, which may delay or change your surgical time. If this happens, we will notify you as soon as possible and regret any inconvenience. If you already have an Advance Directive, please fax a copy to [phone] or email to for it to be added to your chart. If you do not have an Advance Directive, you can find the appropriate form and more information at [email or web address]. We recommend that you complete the Advance Directive form found on the website and bring it with you the day of your surgery. It can be witnessed and scanned into your chart that day. Jazmin Quiroga APRN.CNP documented in this encounter [facility] 05-10-2022 History of Present illness Narrative Chief Complaint Patient presents with: Ear Problem HPI Sharri Menon is a 36 year old female who presents here today for Above Complaints. Sharri is an established patient of Dr. Jayson DO. Sharri is a new patient to me today. Concerns today.. Ear pain: 1.5 weeks ago used ear wax candle in bilateral ears. A few days ago started with itchiness and irritation to bilateral ears. Forgot that last time she candled her ears she went to her ENT and had bilateral ear infection afterwards. Was told to stop using ear wax removal candles but admits she forgot about that. L > R with irritation. Some relief with heat/warm compress. Did try sweet oil to L ear which gave some relief. Denies any fevers or chills. Asking for refill of vyvanse. Will be out prior to upcoming appt 05/24. Feels this dosage is working well. Took 2-3 days to adjust to switch from adderall to vyvanse but is now doing well on this medication. No complaints. Has upcoming breast reduction surgery at end of May. No other concerns or complaints. Past medical history, appointments, medications, allergies reviewed. Previous Medical History PAST MEDICAL HISTORY Diagnosis Date Abnormal biliary HIDA scan 04/22/2016 Acne vulgaris: Inflammatory Grade II to III 05/25/2014 Acute and chronic cholecystitis 05/13/2016 Adjustment disorder with mixed anxiety and depressed mood 11/28/2014 Ankle weakness 07/17/2015 Bilateral low back pain with sciatica 01/26/2016 Calculus, tonsil 12/17/2013 Chronic fatigue Depression, major, recurrent, mild (HCC) 08/14/2015 Deviated nasal septum s/p septoplasty Dry eye syndrome 12/27/2016 Eczematous dermatitis 05/22/2014 Exposure keratopathy 01/01/2016 Fatigue 02/05/2015 Female stress incontinence 10/08/2016 Fibromyalgia Flushing reaction 04/04/2014 GERD (gastroesophageal reflux disease) 06/17/2016 Hemorrhoids 09/25/2014 Hiatal hernia IBS (irritable bowel syndrome) 2006 had EGD, colonoscopy Insomnia 10/23/2014 Irregular periods 10/23/2013 Keratosis pilaris 05/22/2014 Left ankle pain 07/17/2015 Migraines 12/24/2013 Milial cyst 05/22/2014 Nasal septal deviation 01/22/2015 Obesity (BMI 30-39.9) 10/23/2013 JYOTHI (obstructive sleep apnea) ahi 16 52r 01/01/2015 Photodermatitis 04/04/2014 Rosacea 04/04/2014 S/P LASIK (laser assisted in situ keratomileusis) of both eyes - Both Eyes 04/2014 Snoring 11/05/2015 Steroid acne 04/04/2014 Urinary leakage 04/06/2016 Vitreous floaters of both eyes 12/27/2016 Weakness of both lower extremities 01/26/2016 Xerosis cutis 05/22/2014 Previous Surgical History PAST SURGICAL HISTORY Procedure Laterality Date COLONOSCOPY 2005 COLONOSCOPY FLX DX W/COLLJ SPEC WHEN PFRMD 07/01/2016 Colonoscopy EGD 2006 ESOPHAGOGASTRODUODENOSCOPY TRANSORAL DIAGNOSTIC 04/21/2016 EGD LAPAROSCOPY DIAGNOSTIC 05/06/15 [place] LAPS SURG CHOLECYSTECTOMY W/CHOLANGIOGRAPHY 05/04/16 Normal IOC PAST SURGICAL HISTORY OF 2005 laparoscopy PAST SURGICAL HISTORY OF cystoscopy with hydrodistention for IC PAST SURGICAL HISTORY OF 03/2019 nasal turbinate removed SEPTOPLASTY 02/17/2015 Family History FAMILY HISTORY Problem Relation Age of Onset Hypertension Mother high cholestrol Hypertension Father Lipids Father Cataract Father other (drug addiction) Sister Heart Maternal Grandfather Thyroid Paternal Grandmother Cataract Paternal Grandmother Headache Sister Patient Allergies ALLERGIES Allergen Reactions Jane Inhibitors Contraindication-Medical Surgical Avoid use of JANE inhibitors while patient is on allergy immunotherapy Beta Blockers [Beta* Contraindication-Medical Surgical Avoid use of beta blockers while patient is on allergy immunotherapy [place] Hives Cymbalta [Duloxetin* Other: See Comments Sweating side effect Effexor [Venlafaxin* Other: See Comments Sweating side effect Imitrex [Sumatripta* Vomiting GI upset and vomiting Linzess [Linaclotid* Diarrhea Vomiting, diarrhea Marijuana Intolerance GI distress, diarrhea with oral use -sublingual tincture Seasonal Allergies Unknown Molds and grasses verified by skin testing Current Medications Current Outpatient Medications on File Prior to Visit Medication Sig busPIRone (BUSPAR) 10 mg tablet TAKE 2 TABLETS BY MOUTH ONCE DAILY AT BEDTIME clomiPRAMINE (ANAFRANIL) 50 mg capsule Take 1 capsule by mouth daily at bedtime for 14 days, THEN 2 capsules daily at bedtime for 14 days. Clindamycin Phosphate (CLEOCIN T) 1 % lotion Apply to affected area twice daily. On face as needed for rosacea Clobetasol Propionate (TEMOVATE) 0.05 % external solution Apply 1 application to affected area once daily as needed (arm and leg skin lesion). lisdexamfetamine (VYVANSE) 20 mg capsule Take 1 capsule by mouth once daily for 30 days. desvenlafaxine ER (PRISTIQ) 25 mg 24 hr tablet Take 1 tablet by mouth once daily. lamoTRIgine (LAMICTAL) 200 mg tablet Take 1 tablet by mouth every evening. cyclobenzaprine (FLEXERIL) 10 mg tablet Take 1 tablet by mouth three times daily as needed for muscle spasm. topiramate (TOPAMAX) 25 mg tablet Take 1 tablet by mouth daily at bedtime. loratadine-pseudoephedrine ER (CLARITIN-D 12 HOUR) 5-120 mg per tablet Take 1 tablet by mouth twice daily. famotidine (PEPCID) 10 mg tablet Take 20 mg by mouth twice daily. docusate sodium (COLACE) 100 mg capsule Take 200 mg by mouth twice daily. Lactobacillus acidophilus (ACIDOPHILUS ORAL) Take by mouth. traZODone (DESYREL) 100 mg tablet Take 2 tablets at bedtime rizatriptan (MAXALT TAKE OFF WORKER) 5 mg disintegrating tablet Take 1 tablet by mouth as needed. For migraine., May repeat in 2 hours if needed pantoprazole DR (PROTONIX) 40 mg tablet Take 1 tablet by mouth daily before breakfast. Take on empty stomach, 1/2 hr before meal. montelukast (SINGULAIR) 10 mg tablet Take 1 tablet by mouth daily at bedtime. Cholecalciferol, Vitamin D3, (VITAMIN D-3) 50 mcg (2,000 unit) cap Take 1 capsule by mouth once daily. diclofenac (VOLTAREN ARTHRITIS PAIN) 1 % topical gel Apply 2 g to affected area four times daily as needed (right thumb pain). predniSONE (DELTASONE) 10 mg tablet Take 20mg (2 tabs)/day x1 week, then 10mg (1 tab)/day x1 week, then stop Norethindrone Acet-Ethinyl Est (LOESTRIN 1.5/30, 21,) 1.5-30 mg-mcg Take 1 tablet by mouth once daily. Take continuously. Do not take inactive pills amphetamine-dextroamphetamine XR (ADDERALL XR) 20 mg 24 hr capsule Take 2 capsules by mouth once daily for 30 days. Do not start before July 18, 2021. fluconazole (DIFLUCAN) 150 mg tablet Take 1 tablet by mouth one time a week. For yeast prophylaxis. CPAP New set up: AutoBiPAP Settings IPAP max 12 & EPAP min 4 and PS 4- 6 cm H2O, suitable mask per pt preference, chin strap, head gear, humidity, tubing, lifetime supplies. G47.33 JYOTHI CREON 36,000-114,000- 180,000 unit capsule TAKE 1 CAPSULE BY MOUTH PRIOR TO ALL MEALS AND SNACKS erythromycin ophthalmic ointment Use 1 application in both eyes daily at bedtime. cyanocobalamin 1,000 mcg/mL 1 mL SQ weekly for 4 weeks, then 1 mL every other week for 2 doses then 1 mL SQ monthly mupirocin (BACTROBAN) 2 % ointment Apply 1 application to affected area three times daily. Insulin Syringe-Needle U-100 (BD INSULIN SYRINGE ULTRA-FINE) 1 mL 31 gauge x 5/16 1 Each as directed. PEG 400-Propylene Glycol (SYSTANE HYDRATION PF) 0.4-0.3 % dpet Use 1 Each in both eyes four times daily. Back Brace misc 1 Device as directed. clobetasol (TEMOVATE) 0.05 % ointment Apply 1 application to affected area twice daily. For 2 weeks then once a day for 2 weeks (Patient taking differently: Apply 1 application to affected area as needed. For 2 weeks then once a day for 2 weeks ) CARBOXYMETHYLCELLULOSE SODIUM (REFRESH TEARS OPHTHALMIC) Use 1 Drop in eyes four times daily. as needed No current facility-administered medications on file prior to visit. Social History Social History Tobacco Use Smoking status: Never Smoker Smokeless tobacco: Never Used Vaping Use Vaping Use: Never used Substance Use Topics Alcohol use: Yes Comment: 1 drink per month Drug use: Not Currently Types: Marijuana Comment: has medical marijuana script but gave GI sx REVIEW OF SYSTEMS: as above Reviewed relevant PMHx, PSHx, Social Hx, current medications and allergies. Review of Symptoms See HPI. All other systems are negative. EXAM: BP 120/60 (BP Site: Left Arm, BP Position: Sitting, BP Cuff Size: Large Adult) Pulse 60 Resp 14 Wt 92.3 kg (203 lb 6.4 oz) LMP 06/29/2016 BMI 33.33 kg/m General Appearance: Well appearing, alert, in no acute distress, well-hydrated, well nourished.. Skin: Skin color, texture, turgor normal, no suspicious rashes or lesions. Head: Normocephalic, no masses, lesions, tenderness or abnormalities. Eyes: Anicteric sclera. Pupils are equally round and reactive to light. Extraocular movements are intact. . Ears: Positive findings: R TM: erythematous and bulging, L TM: erythematous and bulging, erythema and edema of ear canal: bilaterally. Nose/Sinuses: Nares normal, septum midline, mucosa normal, no drainage or sinus tenderness. Oropharynx: Lips, mucosa, and tongue normal, teeth and gums normal, oropharynx normal. Back:no pain to palpation of vertebrae, good flexion and extension, good range of motion, no muscle tenderness, reflexes are 2+ and symmetric, motor and sensory appear to be normal, negative SLR test, no evidence of scoliosis Lungs: Lungs clear to auscultation. No wheezing, rhonchi, rales.. Heart: RRR without murmur, gallop, or rubs. No ectopy. Health Maintenance List HIV SCREENING Never done COVID-19 VACCINE(1) due on 11/11/2022 INFLUENZA(Season Ended) due on 07/15/2022 DEPRESSION SCREENING due on 04/27/2023 PAP TESTING due on 02/03/2025 HPV TESTING due on 02/03/2025 DTAP,TDAP,TD(3 - Td or Tdap) due on 04/25/2029 HEPATITIS C SCREENING Completed ASSESSMENT/PLAN: 1. Bacterial ear infection, bilateral - ICD9: 382.9, 041.9, ICD10: H66.93, B96.89 (primary diagnosis) - Will begin treatment with Augmentin 875 mg PO BID for 10 days - The patient should also be given OTC decongestants prn, warm salt water gargles, throat lozenges and/or OTC throat spray as needed and nasal saline gtts and suction prn for the first 5-7 days of treatment. - Supportive care with plenty of fluids, rest, and analgesia prn. - Follow up in 3-5 days if symptoms persist or worsen. - AMOXICILLIN 875 MG-POTASSIUM CLAVULANATE 125 MG TABLET 2. Chronic fatigue - ICD9: 780.79, ICD10: R53.82 Stable. Well controlled on this dosage. Refilled. - LISDEXAMFETAMINE 20 MG CAPSULE 3. Concentration deficit - ICD9: 799.51, ICD10: R41.840 Stable. Well controlled on this dosage. Refilled. - LISDEXAMFETAMINE 20 MG CAPSULE Follow-up as needed if symptoms worsen or do not improve. Prescription instructions reviewed with patient as applicable. Potential red flag symptoms discussed with the patient. Reviewed appropriate action plan to take if red flag symptoms occur. Patient agreeable to treatment plan. Ivett Strange APRN.ALISHA [id number] [place] [address] documented in this encounter [facility] 04-30-2022 Miscellaneous Notes Pharmacy electronically requesting refill(s): [facility] Last appt: 04/27/22 Upcoming appt: 05/25/22 Pending Prescriptions Disp Refills BUSPIRONE 10 MG TABLET 60 tablet 0 Sig: TAKE 2 TABLETS BY MOUTH ONCE DAILY AT BEDTIME KAYLYN: Yes Please review and process accordingly. Thank you! Katlyn Schrader documented in this encounter [facility] 04-27-2022 History of Present illness Narrative Images from the original note were not included. PSYC FOLLOW UP - PSYCHIATRIC PROGRESS NOTE DIAGNOSIS: 1. Bipolar 2 Disorder 2. Fibromyalgia 3. URIEL 4. OCD GAF: 55-60-51 Moderate symptoms or moderate difficulty in social, occupational or school functioning. TREATMENT PLAN: 1. Begin taking Clomipramine 50 mg at bedtime, after 2 weeks increase to 100 mg 2. Discontinue Pristiq due to lack of efficacy. 3. Continue all current psychiatric medications at the same dose 4. Discussed possibility and indications of TMS as well as Celocoxib as possible treatment for depression. Waiting to hear from patient's PCP. 5. Follow up on May 25 at 3 PM CC: OCD qualities exacerbated by anxiety, difficulty sleeping With the patient consent, visit was performed virtually. HPI: Sharri Menon is a 36 year old female with a history of bipolar 2 disorder, URIEL, chronic fatigue and fibromyalgia presenting today for follow-up. Date of last visit: 03/16/2022 Plan from last visit: Continue all current psychiatric medications at same dose, encouraged IOP Patient states that things are about the same for her. She is still not sleeping so her PCP changed her Adderall to Vyvanse which she has been on for about a week. She states that the capsule tastes terrible, but she does feel like it is relaxing her a little bit more. She has some nights where she is able to sleep a little bit more but there is still no consistency. She states she is able to fall asleep easily, but staying asleep is difficult for her. She notes that the plus side is getting up earlier and getting a lot of things accomplished. Her mood overall has been good, but she is feeling stressed with getting things done before surgery. She admits to being easily irritated especially with being interrupted or when plans change. She states she is hoping that the Vyvanse helps relax her need for attention to detail and need for planning which is causing her a lot of anxiety. She states this has worsened within the past year. She feels very disregulated when things do not go as planned. She notes that she hates feeling this way. Patient states she has been having purple spots on her legs and feeling as though even the most gentle touch on her skin feels like her skin is sunburnt. She states her PCP is currently working her up for these symptoms. Patient not able to do IOP at the moment due to multiple upcoming surgeries. She also notes that the allergy testing she was having is no longer going to be done so she is okay with trying a new medication. Interval Progress: Same Risks and benefits of the medication, including any black box warnings, were discussed with the patient. PAST MEDICATION TRIALS: Pristiq - feels that the 50 mg dose made her apathetic. Takes 400 mg dose of Trazodone. Has tried to take a lower dose before but reports that sleep anxiety increased significantly. Topamax, only takes 25 mg at bedtime as it helps with the headaches. She has only been taking Buspar 20 mg at bedtime. Has tried Elavil. Wellbutrin (horrible taste in mouth), Cymbalta (night sweats), Venlafaxine (decreased libido, weight gain, night sweats). Trintellix (denied side effects). Abilify (weight gain), Prozac, Celexa, Paxil, Lexapro. Social History: Patient lives with her fiance. PATIENT DATA: Generalized Anxiety Disorder Scale (URIEL-7) URIEL - 7 SCORES 02/16/2022 03/16/2022 04/27/2022 URIEL-7 Score 7 10 5 (0-4) minimal anxiety, (5-9) mild anxiety, (10-14) moderate anxiety, (15-21) severe anxiety Patient Health Questionnaire (PHQ-9) PHQ-9 02/16/2022 03/16/2022 04/27/2022 Score 6 7 4 (0-4) minimal depression, (5-9) mild depression, (10-14) moderate depression, (15-19) moderately severe depression, (20-27) severe depression ROS: General: Negative for fever, malaise, unintentional weight loss HEENT: Negative for recent changes in vision or hearing, no nasal drainage Respiratory: Negative for cough, wheezing or SOB Cardiovascular: Negative for chest pain GI: Negative for nausea, vomiting, change in bowel habits MUSCULOSKELETAL: Negative for acute back or joint pain SKIN: Negative for rash NEURO: Negative for headaches, seizures, focal neurological deficits All other systems negative. VITAL SIGNS: None obtained due to virtual visit. BP Temp Pulse Resp SpO2 MENTAL STATUS EXAMINATION: Appearance: Appropriately groomed, appears stated age Behavior: Appropriately engaged Psychomotor: No psychomotor agitation Cognition Level of Consciousness: Awake and alert. No fluctuation in wakefulness. Orientation: Grossly oriented Memory: Intact Attention/Concentration: Good Fund of Knowledge: Able to demonstrate an awareness of current events. Mood: Pleasant, Anxious Affect: Full range Speech/Language: Appropriate tone, prosody, presley, phonetics, and syntax Thought Form: Goal-directed. No loosening of associations. Thought Content: No delusions noted or endorsed. Perceptual Disturbances: Did not appear to respond to auditory stimuli. Safety: Suicidal Ideations: No suicidal ideation, intent or plan. Homicidal Ideations: No homicidal ideation, intent or plan. Insight: Appropriate Judgment: Appropriate I spent a total of 45 minutes on the date of the service which included preparing to see the patient, [id number] patient care, completing clinical documentation, and counseling and educating the patient/family/caregiver. ADD ON PSYCHOTHERAPY CODE : No By signing my name below, I, Cielo Groves, attest that this documentation has been prepared under direction and in the presence of Dr. Cha. Electronically signed, TC Spence III April 27, 2022 3:16 PM IMayte, personally performed the services described in this documentation. All medical record entries made by the scribe were at my direction and in my presence. I have reviewed the chart and discharge instructions (if applicable) and agree that the record reflects my personal performance and is accurate and complete. Mayte Cha MD April 27, 2022 3:07 PM documented in this encounter [facility] 04-14-2022 History of Present illness Narrative CC: Sharri Menon is a 36 year old female who presents to the office for several concerns HPI: At appt on 08/03/21 Waiting on being set up for breast reduction surgery, looking forward to see if this helps her shoulder and neck and Upper back pain. Feels that recently she has had a lot of intermittent joint pain, b/l shoulders, wrists, hands, knees. Worse in AM. + associated with fatigue. Also with muscle aches as well. Has had a hard time feeling motivated to get anything done around the house due to this. No rashes. Taking her medications as prescribed, hasn't been overexerting with activity and denies any injuries. ADD, chronic fatigue, taking adderall as prescribed, no obvious SE to medication. Ankle pain, right side, would like 2nd opinion since this is still bothering her despite having seen Orthopedics foot/ankle specialist and assembly inspector helper. Right thumb pain, no known injury. No obvious swelling or skin redness, No use of ice or heating pad use or splint use. At OFFICE VISIT 11/11/21 ADD, chronic fatigue, taking adderall. Likely is what is causing her worsening OCD type symptoms. She is seeing Psychiatry to work on her mood and medication adjustment. She is tapering down on her dose of Trazodone at bedtime. Hasn't seen Gas Specialist or Orthopedics for her left hip pain- has been receiving SI joint and sacral nerve root injections by Dr. Mackenzie with minimal non lasting relief of symptoms. No bowel or bladder changes. Hasn't had inflammation markers rechecked recently Concerned about risk of diabetes, also would like to recheck cholesterol. Has been cutting down on her meat/red meats intake and wonders if this is improved yet. Has been seeing Press T[facility] Dr. Veliz, found to have corn allergy. Is trying to limit exposure to this Heart fluttering, palpitations, comes and goes, no known specific trigger, off and on for weeks/months. No chest pain or pressure or dyspnea. At follow up on 02/09/22 Has been seeing [facility] Dr. Veliz, found to have corn allergy. Is trying to limit exposure to this. Is going to be having food testing when able to stop the Trazodone Mood, stable, working with Alondra Ring CNP psychiatry with medication adjustments, feeling that the buspirone is helpful for her symptoms. Heart fluttering, palpitations, comes and goes, improved symptoms, did have sensitivity of skin to patch of ZIO, hasn't had repeated yet. no known specific trigger, off and on for weeks/months. No chest pain or pressure or dyspnea. ADD, chronic fatigue, stable, taking adderall without SE to medication Had multifocal pneumonia secondary to covid 19 on CXR, did complete antibiotic and feels symptoms have improved, hasn't had repeat CXR yet Currently ADD, feels she is struggling with irritability, difficulty with sleeping at night and everything is bothering me like I can't stand to see a bug in the house, it worries me that there are bugs landing on me when I am outside and I feel like I am irritable lately. she isn't sure if this is due to the Adderall or another cause. Is going to be following up with Psychiatry Alondra Ring CNP in the next 2 weeks. Has a lot of stressors upcoming with carpal tunnel surgery on 05/03 and then also a breast reduction surgery on 06/10., is looking forward to these surgeries being done though. Skin irritation/redness, b/l facial areas, cheeks, no pain or blistering, seems to be worsening over the last few months. Also skin lesions of small areas of redness on arms and legs, individual lesions, no pain or drainage or itching. Unsure of cause- no new lotions or washes etc. Will be seeing Dr. Veliz upcoming for allergy opinion. PAST MEDICAL HISTORY Diagnosis Date Abnormal biliary HIDA scan 04/22/2016 Acne vulgaris: Inflammatory Grade II to III 05/25/2014 Acute and chronic cholecystitis 05/13/2016 Adjustment disorder with mixed anxiety and depressed mood 11/28/2014 Ankle weakness 07/17/2015 Bilateral low back pain with sciatica 01/26/2016 Calculus, tonsil 12/17/2013 Chronic fatigue Depression, major, recurrent, mild (HCC) 08/14/2015 Deviated nasal septum s/p septoplasty Dry eye syndrome 12/27/2016 Eczematous dermatitis 05/22/2014 Exposure keratopathy 01/01/2016 Fatigue 02/05/2015 Female stress incontinence 10/08/2016 Fibromyalgia Flushing reaction 04/04/2014 GERD (gastroesophageal reflux disease) 06/17/2016 Hemorrhoids 09/25/2014 Hiatal hernia IBS (irritable bowel syndrome) 2006 had EGD, colonoscopy Insomnia 10/23/2014 Irregular periods 10/23/2013 Keratosis pilaris 05/22/2014 Left ankle pain 07/17/2015 Migraines 12/24/2013 Milial cyst 05/22/2014 Nasal septal deviation 01/22/2015 Obesity (BMI 30-39.9) 10/23/2013 JYOTHI (obstructive sleep apnea) ahi 16 52r 01/01/2015 Photodermatitis 04/04/2014 Rosacea 04/04/2014 S/P LASIK (laser assisted in situ keratomileusis) of both eyes - Both Eyes 04/2014 Snoring 11/05/2015 Steroid acne 04/04/2014 Urinary leakage 04/06/2016 Vitreous floaters of both eyes 12/27/2016 Weakness of both lower extremities 01/26/2016 Xerosis cutis 05/22/2014 PAST SURGICAL HISTORY Procedure Laterality Date COLONOSCOPY 2006 COLONOSCOPY FLX DX W/COLLJ SPEC WHEN PFRMD 07/01/2016 Colonoscopy EGD 2006 ESOPHAGOGASTRODUODENOSCOPY TRANSORAL DIAGNOSTIC 04/21/2016 EGD LAPAROSCOPY DIAGNOSTIC 05/06/15 Rhoda YARBROUGHS SURG CHOLECYSTECTOMY W/CHOLANGIOGRAPHY 05/04/16 Normal IOC PAST SURGICAL HISTORY OF 2006 laparoscopy PAST SURGICAL HISTORY OF cystoscopy with hydrodistention for IC PAST SURGICAL HISTORY OF 03/2019 nasal turbinate removed SEPTOPLASTY 02/17/2015 Current Outpatient Medications Medication Sig busPIRone (BUSPAR) 10 mg tablet Take 2 tablets by mouth daily at bedtime. desvenlafaxine ER (PRISTIQ) 25 mg 24 hr tablet Take 1 tablet by mouth once daily. lamoTRIgine (LAMICTAL) 200 mg tablet Take 1 tablet by mouth every evening. cyclobenzaprine (FLEXERIL) 10 mg tablet Take 1 tablet by mouth three times daily as needed for muscle spasm. topiramate (TOPAMAX) 25 mg tablet Take 1 tablet by mouth daily at bedtime. loratadine-pseudoephedrine ER (CLARITIN-D 12 HOUR) 5-120 mg per tablet Take 1 tablet by mouth twice daily. famotidine (PEPCID) 10 mg tablet Take 20 mg by mouth twice daily. docusate sodium (COLACE) 100 mg capsule Take 200 mg by mouth twice daily. Lactobacillus acidophilus (ACIDOPHILUS ORAL) Take by mouth. traZODone (DESYREL) 100 mg tablet Take 2 tablets at bedtime rizatriptan (MAXALT TAKE OFF WORKER) 5 mg disintegrating tablet Take 1 tablet by mouth as needed. For migraine., May repeat in 2 hours if needed pantoprazole DR (PROTONIX) 40 mg tablet Take 1 tablet by mouth daily before breakfast. Take on empty stomach, 1/2 hr before meal. montelukast (SINGULAIR) 10 mg tablet Take 1 tablet by mouth daily at bedtime. Cholecalciferol, Vitamin D3, (VITAMIN D-3) 50 mcg (2,000 unit) cap Take 1 capsule by mouth once daily. diclofenac (VOLTAREN ARTHRITIS PAIN) 1 % topical gel Apply 2 g to affected area four times daily as needed (right thumb pain). predniSONE (DELTASONE) 10 mg tablet Take 20mg (2 tabs)/day x1 week, then 10mg (1 tab)/day x1 week, then stop Norethindrone Acet-Ethinyl Est (LOESTRIN 1.5, ,) 1.5-30 mg-mcg Take 1 tablet by mouth once daily. Take continuously. Do not take inactive pills amphetamine-dextroamphetamine XR (ADDERALL XR) 20 mg 24 hr capsule Take 2 capsules by mouth once daily for 30 days. Do not start before July 18, 2021. fluconazole (DIFLUCAN) 150 mg tablet Take 1 tablet by mouth one time a week. For yeast prophylaxis. CPAP New set up: AutoBiPAP Settings IPAP max 12 & EPAP min 4 and PS 4- 6 cm H2O, suitable mask per pt preference, chin strap, head gear, humidity, tubing, lifetime supplies. G47.33 JYOTHI CREON 36,000-114,000- 180,000 unit capsule TAKE 1 CAPSULE BY MOUTH PRIOR TO ALL MEALS AND SNACKS erythromycin ophthalmic ointment Use 1 application in both eyes daily at bedtime. cyanocobalamin 1,000 mcg/mL 1 mL SQ weekly for 4 weeks, then 1 mL every other week for 2 doses then 1 mL SQ monthly mupirocin (BACTROBAN) 2 % ointment Apply 1 application to affected area three times daily. Insulin Syringe-Needle U-100 (BD INSULIN SYRINGE ULTRA-FINE) 1 mL 31 gauge x 5/16 1 Each as directed. PEG 400-Propylene Glycol (SYSTANE HYDRATION PF) 0.4-0.3 % dpet Use 1 Each in both eyes four times daily. Back Brace misc 1 Device as directed. clobetasol (TEMOVATE) 0.05 % ointment Apply 1 application to affected area twice daily. For 2 weeks then once a day for 2 weeks (Patient taking differently: Apply 1 application to affected area as needed. For 2 weeks then once a day for 2 weeks ) CARBOXYMETHYLCELLULOSE SODIUM (REFRESH TEARS OPHTHALMIC) Use 1 Drop in eyes four times daily. as needed Clindamycin Phosphate (CLEOCIN T) 1 % lotion Apply to affected area twice daily. On face as needed for rosacea Clobetasol Propionate (TEMOVATE) 0.05 % external solution Apply 1 application to affected area once daily as needed (arm and leg skin lesion). lisdexamfetamine (VYVANSE) 20 mg capsule Take 1 capsule by mouth once daily for 30 days. No current facility-administered medications for this visit. ALLERGIES Allergen Reactions Jane Inhibitors Contraindication-Medical Surgical Avoid use of JANE inhibitors while patient is on allergy immunotherapy Beta Blockers [Beta* Contraindication-Medical Surgical Avoid use of beta blockers while patient is on allergy immunotherapy [place] Hives Cymbalta [Duloxetin* Other: See Comments Sweating side effect Effexor [Venlafaxin* Other: See Comments Sweating side effect Imitrex [Sumatripta* Vomiting GI upset and vomiting Linzess [Linaclotid* Diarrhea Vomiting, diarrhea Marijuana Intolerance GI distress, diarrhea with oral use -sublingual tincture Seasonal Allergies Unknown Molds and grasses verified by skin testing Social History Tobacco Use Smoking status: Never Smoker Smokeless tobacco: Never Used Vaping Use Vaping Use: Never used Substance Use Topics Alcohol use: Yes Comment: 1 drink per month Drug use: Not Currently Types: Marijuana Comment: has medical marijuana script but gave GI sx ROS: See HPI PE: BP 116/80 Pulse 64 Temp (Src) 97 (Left Tympanic) Resp 16 Wt 199 lb (90.3kg) LMP 06/29/2016 Gen: A&OX3, NAD, non-toxic appearing HEENT: PERRLA, EOMs intact b/l, nares without drainage, pharynx without erythema, exudate, lesions, or drainage. Uvula midline. Neck: No LAD, no thyromegaly, no meningismus. CV: RRR, no murmur Lungs: CTA b/l, no wheezing Skin: mild erythematous papular rash on face on cheeks and nose, sparing nasolabial folds, Few scattered blanchable papules on arms and legs without signs of drainage or infection ASSESSMENT/PLAN: 1. Facial rash - ICD9: 782.1, ICD10: R21 (primary diagnosis) Rx prn as below, ? Rosacea vs. Dermatitis, if not improving then consider opinion by Unit Coordinator - CLINDAMYCIN 1 % LOTION 2. Papular rash - ICD9: 782.1, ICD10: R21 - ? Allergic vs. Reactive in nature, f/u with [facility], if doesn't resolve, then consider seeing dermatology for biopsy - CLOBETASOL 0.05 % SCALP SOLUTION 3. Chronic fatigue - ICD9: 780.79, ICD10: R53.82 D/c Adderall, this may be causing SE / symptoms of feeling irritable/OCD tendencies. Trial of Vyvanse and titrate up if needed. - LISDEXAMFETAMINE 20 MG CAPSULE 4. Concentration deficit - ICD9: 799.51, ICD10: R41.840 - see above - LISDEXAMFETAMINE 20 MG CAPSULE Victor Manuel Tyler DO' PDMP website checked and validated. All prescriptions have been APPROPRIATELY filled. No suspicious activity was identified. 04/14/2022 by Victor Manuel Tyler DO Return if no improvement. Follow up with Victor Manuel Tyler DO. To ER if develops chest pain, shortness of breath. Discussed risks, benefits, alternatives, and potential side effects of medications. Patient/Guardian expressed understanding and agreed with the plan. See patient instructions. Victor Manuel Tyler DO [address] [place] [address] documented in this encounter [facility] 04-14-2022 Instructions Victor Manuel Tyler DO - 04/14/2022 3:39 PM EDT Mayte Hussein Chiropractor Accupuncture Dr. Chelsea Jacobsen documented in this encounter [facility] 03-29-2022 Miscellaneous Notes Patient has been identified by name and date of : Yes Pending Prescriptions Disp Refills BUSPIRONE 10 MG TABLET 60 tablet 0 Sig: Take 2 tablets by mouth daily at bedtime. KAYLYN: No RX INSTRUCTIONS: Patient aware RX will be sent to pharmacy. No need to notify patient. Follow up scheduled 04/27. Miriam Aldana LPN documented in this encounter [facility] 03-26-2022 Miscellaneous Notes Patient scheduled for 03/30 @ 3PM. Patient notified. Sola Deleon MA Please call patient and make her an appointment- can use any of my 3 pm walk in slots available Victor Manuel Tyler DO Patient calling to see if PCP had addressed her my chart message. Patient was asking if she needs to have appt before her May appt scheduled with PCP. Patient phone number is [phone] if needed. documented in this encounter [facility] 03-19-2022 History of Present illness Narrative Radiology Service Progress Note PATIENT NAME: Sharri Menon DATE OF SERVICE: March 19, 2022 TIME: 2:40 PM PATIENT IDENTITY VERIFICATION COMPLETED USING TWO (2) IDENTIFIERS: Name and Date of confirmed by patient verbally. FALL SCREENING: Has the patient had 2 falls in the last year or 1 fall with injury or currently using an Ambulatory Assistive Device (Walker, Cane, Wheelchair, Crutches, etc.)? No PATIENT GENDER DATA: Female. status: : No status: NO. PATIENT RELEVANT IMPLANT DATA REVIEWED: Not Applicable RADIOLOGY DEPARTMENT: General X-ray: Exam(s) Completed: Chest X-Ray PERIPHERAL IV DATA: Not applicable SIGNED BY: RT Tessie(R) March 19, 2022 2:40 PM documented in this encounter [facility] 03-19-2022 History of Present illness Narrative Radiology Service Progress Note PATIENT NAME: Sharri Menon DATE OF SERVICE: March 19, 2022 TIME: 2:56 PM PATIENT IDENTITY VERIFICATION COMPLETED USING TWO (2) IDENTIFIERS: Name and Date of confirmed by patient verbally. FALL SCREENING: Has the patient had 2 falls in the last year or 1 fall with injury or currently using an Ambulatory Assistive Device (Walker, Cane, Wheelchair, Crutches, etc.)? No PATIENT GENDER DATA: Female. status: : No status: NO. PATIENT RELEVANT IMPLANT DATA REVIEWED: Not Applicable RADIOLOGY DEPARTMENT: General X-ray: Exam(s) Completed: Spine X-Ray(s): Cervical AP / LAT / OBL w/odontoid PERIPHERAL IV DATA: Not applicable SIGNED BY: RT Tessie(R) March 19, 2022 2:56 PM documented in this encounter [facility] 03-19-2022 History of Present illness Narrative Radiology Service Progress Note PATIENT NAME: Sharri Menon DATE OF SERVICE: March 19, 2022 TIME: 1:51 PM PATIENT IDENTITY VERIFICATION COMPLETED USING TWO (2) IDENTIFIERS: Name and Date of confirmed by patient verbally. FALL SCREENING: Has the patient had 2 falls in the last year or 1 fall with injury or currently using an Ambulatory Assistive Device (Walker, Cane, Wheelchair, Crutches, etc.)? No PATIENT GENDER DATA: Female. status: : No status: NO. PATIENT RELEVANT IMPLANT DATA REVIEWED: Yes RADIOLOGY DEPARTMENT: MR; Exam(s) Completed: Lower MSK: Hip, left PERIPHERAL IV DATA: Not applicable SIGNED BY: RT Aidan(Kapil) March 19, 2022 1:51 PM documented in this encounter [facility] 03-16-2022 History of Present illness Narrative Images from the original note were not included. PSYC FOLLOW UP - PSYCHIATRIC PROGRESS NOTE DIAGNOSIS: 1. Bipolar 2 Disorder 2. Fibromyalgia 3. URIEL GAF: -60-51 Moderate symptoms or moderate difficulty in social, occupational or school functioning. TREATMENT PLAN: 1. Continue all current psychiatric medications at the same dose. 2. Encouraged patient to consider IOP for her cope with her stressors at home better and deal with her avoidance behavior. 3. Collaborate with PCP to consider novel treatments to address her treatment resistant mood disorder. 4. Follow up in 4 weeks. The effects and side effects of all the medications were reviewed in detail with the patient. She is in agreement with the treatment plan. She is aware to reach out with any questions, concerns, or worsening of symptoms prior to the next appointment. CC: Depression, interrupted sleep and anxiety. With the patient consent, visit was performed virtually. HPI: Sharri Menon is a 36 year old Female with a history of Bipolar 2 disorder, URIEL, Chronic fatigue, and Fibromyalgia presenting today for follow-up. Date of last visit: 02/16/2022 Plan from last visit: 1. Continue all current psychiatric medications at the same dose. 2. Patient to share the details of her allergy testing with the provider after her appointment next Tuesday. 3. Follow up with this provider in [address] Cha saw the patient with this provider and assessed the patient in detail. Today, Sharri shares that she would have to be off her psychiatric medications for 2 months to complete her allergy testing. Unsure if she would want to be off her medications for that long. Her project controls specialist is very thorough. The other option is to treat her symptoms without testing. Her provider has shared that all tricyclics, antidepressant, anti-psychotics, and anti-histamine medications cannot be used while she is getting the allergy testing. Sharri reports some improvement in motivation to clean and do things around the house. Does not have a desire to leave the house more than 1 day a week. Feels that it is unlike her. She used to enjoy going out. Dr. Cha asked if there is a change in energy level or anxiety. Sharri shares that she feels that there might be a dark spirit in her house. There are certain rooms where she feels her energy drain. She feels better after being outside the house. Shares that the only time she can recall struggling with depression before was when she was fired from her job. Her low mood did not last that long and she had a desire to engage in tasks at that time. Feels that the current episode of depression has lasted [address] Cha mentions that there may be some avoidance behavior than lack of motivation. Patient agrees with that assessment. Dr. Cha is concerned about a possibility of worsening executive functioning. Her symptoms appears more as brain fog possibly related to her fibromyalgia. Sharri shares that she has a hard time focusing during conversation with others. Sharri does not feel that the stimulants are helping her currently with her mood and energy level like they used to help. Feels that she has maxed out on the benefit. Has noticed that she has had more flare ups of her fibromyalgia. She reports that she was functioning better prior to the COVID pandemic 2 years ago. She was excited to leave the house. Shares that she has been struggling with her sleep. Reports that if she wakes up at night to go to the bathroom then she is not able to go back to sleep. Experiences racing thoughts which keep her up at that time. She also notices some anxiety and her heart racing. She increased the Trazodone to 300 mg for one night and was able to sleep better through the night. Dr. Cha mentioned that she is concerned that the patient's brain is saturated with medication. Patient agrees that she is on too many medications. Dr. Cha suggested a hard reset to help the patient in the correction. Her feelings of fear related to change in medications was discussed and validated. In the past the patient has had various instances where her medications will only work for a short time. Sharri has also been concerned about more pain related to fibromyalgia. She is looking forward to her breast reduction surgery in May. In the last 6 months patient has been concerned about her lack of functioning like she was able to in the past. She has had thoughts regarding what she is able to offer others. She feels that she has a lack of support from her fiance. He does not understand her struggles with mental health. 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 Dr. Cha discussed some treatment options with the patient. She is concerned about patient's chronic inflammation and its impact on her mental health. Discussed use of minocycline and Celecoxib's role in treatment resistant situations. Will also need to coordinate with primary care team. Also discussed some non-pharmacologic treatment options. Dr. Cha suggest IOP for the patient. Sharri said that she would consider it. Feels that her biggest hesitation is her fiance not accepting her mental health struggles. Concerned about fiance's family judging her. Discussed how the IOP may help her cope with her situation better. Patient will think about the IOP and let us know her decision. She is currently feeling overwhelmed about the time committment involved. She has been thinking about restarting her aquatic therapy to help with her fibromyalgia. She plans on starting them Tuesday and Tuesday. Hoping that it will help with her leg pain. Interval Progress: Same Risks and benefits of the medication, including any black box warnings, were discussed with the patient. Social History: See HPI PATIENT DATA: Generalized Anxiety Disorder Scale (URIEL-7) URIEL - 7 SCORES 02/01/2022 02/16/2022 03/16/2022 URIEL-7 Score 12 7 10 (0-4) minimal anxiety, (5-9) mild anxiety, (10-14) moderate anxiety, (15-21) severe anxiety Patient Health Questionnaire (PHQ-9) PHQ-9 02/01/2022 02/16/2022 03/16/2022 Score 8 6 7 (0-4) minimal depression, (5-9) mild depression, (10-14) moderate depression, (15-19) moderately severe depression, (20-27) severe depression ROS: See HPI General: Negative for fever, unintentional weight loss HEENT: Negative for recent changes in vision or hearing, no nasal drainage Respiratory: Negative for cough, wheezing or SOB Cardiovascular: Negative for chest pain GI: Negative for nausea, vomiting, change in bowel habits MUSCULOSKELETAL: See HPI SKIN: Negative for rash NEURO: Negative for headaches, seizures, focal neurological deficits All other systems negative. VITAL SIGNS: None obtained due to virtual visit. BP Temp Pulse Resp SpO2 MENTAL STATUS EXAMINATION: Appearance: Appropriately groomed, appears stated age Behavior: Appropriately engaged Psychomotor: No psychomotor agitation Cognition Level of Consciousness: Awake and alert. No fluctuation in wakefulness. Orientation: Grossly oriented Memory: Intact Attention/Concentration: Good Fund of Knowledge: Able to demonstrate an awareness of current events. Mood: Anxious and Sad Affect: Congruent to mood Speech/Language: Appropriate tone, prosody, presley, phonetics, and syntax Thought Form: Goal-directed. No loosening of associations. Thought Content: No delusions noted or endorsed. Perceptual Disturbances: Did not appear to respond to auditory stimuli. Safety: Suicidal Ideations: No suicidal ideation, intent or plan. Homicidal Ideations: No homicidal ideation, intent or plan. Insight: Appropriate Judgment: Appropriate I spent a total of 54 minutes on the date of the service which included preparing to see the patient, [id number] patient care, completing clinical documentation, and counseling and educating the patient/family/caregiver, ordering medications/labs. Alondra Ring APRN.ALISHA March 16, 2022 3:19 PM documented in this encounter [facility] Work Phone: [phone] 125-328704-18-2022 Miscellaneous Notes* Telephone Encounter - Miriam Aldana LPN - 03/01/2022 8:22 AM EDT Patient scheduled for 03/16/2022. Will need a refill on her Buspar until then. [facility] Miscellaneous Notes* Telephone Encounter - Tara Amor - 02/22/2022 1:15 PM EDT Patient received disc * Telephone Encounter - ROBSON Bain - 02/22/2022 12:02 PM EDT CD READY FOR [facility]EWELRY [facility] AT [facility] * Telephone Encounter - Tami Ackerman - 02/22/2022 9:43 AM EDT Patient needs MRI from 04/17/2020 and X-ray from 07/23/2019 copied to a disk for hot die picker today around 1PM please . documented in this [facility] History of Present illness Narrative* Alondra Ring APRN.ALISHA - 02/16/2022 3:09 PM EDT Images from the original note were not included. PSYC FOLLOW UP - PSYCHIATRIC PROGRESS NOTE DIAGNOSIS: 1. Bipolar 2 disorder 2. URIEL 3. Fibromyalgia 4. Chronic fatigue GAF: -60-51 Moderate symptoms or moderate difficulty in social, occupational or school functioning. TREATMENT PLAN: 1. Continue all current psychiatric medications at the same dose. 2. Patient to share the details of her allergy testing with the provider after her appointment nextTuesday. 3. Follow up with this provider in 2 to 3 weeks. CC: Depression and Anxiety With the patient consent, visit was performed virtually. HPI: Sharri Menon is a 36 year old Female with a history of Bipolar 2 disorder, URIEL, Chronic fatigue, and Fibromyalgia presenting today for follow-up. Date of last visit: 02/01/2022 Plan from last visit: 1. Discontinue Seroquel due to possible side effects related to apathy. 2. Restart BuSpar along with her trazodone to help with anxiety and sleep difficulties. 3. Continue with Lamictal and Pristiq at the same dose. Patient was seen for this appointment by Dr. Cha as well as this provider. Sharri was educated that Trazodone at higher dose is less sedative but does help with depression at the high doses. Has noticed some increase in depression with the decrease in Trazodone. Feels more anhedonia. Does not feel sad or depressed. She struggles with irritability and lack of motivation. Tries to avoid things that seem inconvenient. She has been struggling with food allergies. They said that she has to be off Trazodone for 2 weeks. She has been concerned about stomach issues which makes her motivated to get off the Trazodone. She has a history of gaining weight on Latuda. Patient was on a combination of Effexor and Cymbaltaat the same time. She experienced night sweats. Of note, she reports that she was on sub therapeutic dose of both. She has a hard time drinking enough water. She has done a sleep study and has been diagnosed with daytime sleepiness. She was not diagnosed with narcolepsy. Has a hard time accepting the results of the sleep studies in her chart. Feels that she was not able to be comfortable in her sleep in the hospital beds due to her fibromyalgia. Shares that the results of her sleep study 10 to 15 years ago at [facility] was more accurate. Those results are not available for review. Dr. 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 She is not able to stay asleep without her Adderall. Has felt better since the discontinuation of Seroquel in terms of her morning grogginess and fatigue but continues to struggle with feelings of depression. She sees her project controls specialist next Tuesday. Asked patient to get a list of all the medications that she would need to stop before allergy tests. She would try to lower the trazodone further. Sharesthat her fiance feels that she is taking too much medication. He does not understand how supportivethe medications are for her. She feels that he is happier when she has been lowering her medications . Has not been able to tolerate SSRIs due to fatigue related side effect. She remembers feeling more apathetic on the higher dose of Pristiq but she was also taking Trazodone 400 mg at that time. She had tried Pristiq at 50 mg for a bout 6 months in the past. Interval Progress: Slightly improved Risks and benefits of the medication, including any black box warnings, were discussed with the patient. Social History: See HPI PATIENT DATA: Generalized Anxiety Disorder Scale (URIEL-7) URIEL - 7 SCORES 12/10/2021 02/01/2022 02/16/2022 URIEL-7 Score 4 12 7 (0-4) minimal anxiety, (5-9) mild anxiety, (10-14) moderate anxiety, (15-21) severe anxiety Patient Health Questionnaire (PHQ-9) PHQ-9 12/10/2021 02/01/2022 02/16/2022 Score 5 8 6 (0-4) minimal depression, (5-9) mild depression, (10-14) moderate depression, (15-19) moderately severe depression, (20-27) severe depression ROS: See HPI MENTAL STATUS EXAMINATION: Appearance: Appropriately groomed, appears stated age Behavior: Appropriately engaged Psychomotor: No psychomotor agitation Cognition Level of Consciousness: Awake and alert. No fluctuation in wakefulness. Orientation: Grossly oriented Memory: Intact Attention/Concentration: Good Fund of Knowledge: Able to demonstrate an awareness of current events. Mood: Sad Affect: Congruent to mood Speech/Language: Appropriate tone, prosody, presley, phonetics, and syntax Thought Form: Goal-directed. No loosening of associations. Thought Content: No delusions noted or endorsed. Perceptual Disturbances: Did not appear to respond to auditory stimuli. Safety: Suicidal Ideations: No suicidal ideation, intent or plan. Homicidal Ideations: No homicidal ideation, intent or plan. Insight: Appropriate Judgment: Appropriate I spent a total of 54 minutes on the date of the service which included preparing to see the patient, [id number] patient care, completing clinical documentation, and counseling and educating the patient/family/caregiver, ordering medications/labs. Alondra Ring APRN.ALISHA February 16, 2022 3:27 PM documented in this encounterMer[facility]03-30-[facility]22 Miscellaneous Notes* Telephone Encounter - Debbie Torrez Ma - 02/10/2022 8:39 AM EDT Pt notified and verbalized understanding. Also scheduled 3 month follow up Debbie Torrez Ma * Telephone Encounter - Victor Manuel Tyler DO - 02/09/2022 4:58 PM EDT Please inform patient that her CXR shows that it is mostly improved but not completely resolved forthe history of pneumonia. Would recommend repeat CXR in 2-4 weeks Victor Manuel Tyler DO documented in this encounterMer[facility]03-29-[facility]22 History of Past illness Narrative* Problem Noted Date Resolved Date Bacterial pneumonia 02/09/2022 05/12/2022 Hx of LASIK 09/16/2020 05/12/2022 Dyslipidemia 07/11/2020 05/12/2022 LISA (acute kidney injury) 07/11/20202021 Acute non-recurrent maxillary sinusitis 01/30/20 19 05/12/2022 Nasal obstruction 12/27/2018 05/12/2022 Acute vaginitis 10/31/2018 05/12/2022 Abnormal urine odor 08/31/2017 05/12/2022 Vitreous floaters of both eyes 12/27/2016 0 01/04/2017 Dry eye syndrome 12/27/2016 01/04/2017 GERD (gastroesophageal reflux disease) 6 05/12/2022 Acute and chronic cholecystitis 05/13/2016 01/04/2017 Nausea and vomiting 04/22/2016 01/04/2017 Gastroesophageal reflux disease without esophagi tis 04/21/2016 04/21/2016 Weakness of both lower extremities 01/26/2016 01/04/2017 Bilateral low back pain with sciatica 01/26/2016 01/04/2017 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 Currently very tired , but stressed because she is moving as she has a lot of work to be done. Nasal septal deviation 01/22/2015 7 Last Assessment & Plan: Had a surgery, waiting for her a cpap machine. IBS (irritable bowel syndrome) 09/25/2014 0 05/12/2022 Last Assessment & Plan: Patient has irritable bowel. Currently is having occasional constipation and a lot of cramps that is worsening her hemorrhoids;she would like to be on something. i discussed with her that her anxiety is the cause for this. i asked her to use benefibre OTC and report to me if that helps. Hemorrhoids 09/25/2014 01/04/2017 Last Assessment & Plan: Has constipation from IBS, Asked her to take benefibre OTC, anusol for now. S/P LASIK (laser assisted in situ keratomileusis) of both eyes - Both Eyes 08/19/2014 01/04/2017 Acne vulgaris: Inflammatory Grade II to III 05/1401/04/2017 Milial cyst 05/22/2014 01/04/2017 Xerosis cutis 05/22/2014 01/04/2017 SUMMARY 04/20/2014 05/12/2022 Overview: Patient was on provigil in the past 2008 , adderal, etc for excessive day time sleepiness. She also was on xanax for anxiety Rosacea 04/04/2014 01/04/2017 Steroid acne 04/04/2014 01/04/2017 Flushing reaction 04/04/2014 01/04/2017 Photodermatitis 04/04/2014 01/04/2017 Calculus, tonsil 12/17/2013 01/04/2017 Tonsillitis 12/17/2013 01/04/2017 Irregular sleep-wake rhythm 10/23/201309/14 Last Assessment & Plan: She feels better on the effexor. Seen Dr Schaefer and who also is monitoring to see if any thing else needs to be done. documented as of this encounter (statuses as of 05/12/2022) [facility] of Past illness Narrative* Problem Noted Date Resolved Date Bacterial pneumonia 02/09/2022 05/12/2022 Hx of LASIK 09/16/2020 05/12/2022 Dyslipidemia 07/11/2020 05/12/2022 LISA (acute kidney injury) 07/11/20202021 Acute non-recurrent maxillary sinusitis 01/30/20 19 05/12/2022 Nasal obstruction 12/27/2018 05/12/2022 Acute vaginitis 10/31/2018 05/12/2022 Abnormal urine odor 08/31/2017 05/12/2022 Vitreous floaters of both eyes 12/27/2016 0 01/04/2017 Dry eye syndrome 12/27/2016 01/04/2017 GERD (gastroesophageal reflux disease) 6 05/12/2022 Acute and chronic cholecystitis 05/13/2016 01/04/2017 Nausea and vomiting 04/22/2016 01/04/2017 Gastroesophageal reflux disease without esophagi tis 04/21/2016 04/21/2016 Weakness of both lower extremities 01/26/2016 01/04/2017 Bilateral low back pain with sciatica 01/26/2016 01/04/2017 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 Currently very tired , but stressed because she is moving as she has a lot of work to be done. Nasal septal deviation 01/22/2015 7 Last Assessment & Plan: Had a surgery, waiting for her a cpap machine. IBS (irritable bowel syndrome) 09/25/2014 0 05/12/2022 Last Assessment & Plan: Patient has irritable bowel. Currently is having occasional constipation and a lot of cramps that is worsening her hemorrhoids;she would like to be on something. i discussed with her that her anxiety is the cause for this. i asked her to use benefibre OTC and report to me if that helps. Hemorrhoids 09/25/2014 01/04/2017 Last Assessment & Plan: Has constipation from IBS, Asked her to take benefibre OTC, anusol for now. S/P LASIK (laser assisted in situ keratomileusis) of both eyes - Both Eyes 08/19/2014 01/04/2017 Acne vulgaris: Inflammatory Grade II to III 05/1401/04/2017 Milial cyst 05/22/2014 01/04/2017 Xerosis cutis 05/22/2014 01/04/2017 SUMMARY 04/20/2014 05/12/2022 Overview: Patient was on provigil in the past 2008 , adderal, etc for excessive day time sleepiness. She also was on xanax for anxiety Rosacea 04/04/2014 01/04/2017 Steroid acne 04/04/2014 01/04/2017 Flushing reaction 04/04/2014 01/04/2017 Photodermatitis 04/04/2014 01/04/2017 Calculus, tonsil 12/17/2013 01/04/2017 Tonsillitis 12/17/2013 01/04/2017 Irregular sleep-wake rhythm 10/23/2013 11/1 12/2013 Last Assessment & Plan: She feels better on the effexor. Seen Dr Schaefer and who also is monitoring to see if any thing else needs to be done. documented as of this encounter (statuses as of 05/18/2022) [facility] Past illness Narrative* Problem Noted Date Resolved Date Bacterial pneumonia 02/09/2022 05/12/2022 Hx of LASIK 09/16/2020 05/12/2022 Dyslipidemia 07/11/2020 05/12/2022 LISA (acute kidney injury) 07/11/20202021 Acute non-recurrent maxillary sinusitis 01/30/20 19 05/12/2022 Nasal obstruction 12/27/2018 05/12/2022 Acute vaginitis 10/31/2018 05/12/2022 Abnormal urine odor 08/31/2017 05/12/2022 Vitreous floaters of both eyes 12/27/2016 0 01/04/2017 Dry eye syndrome 12/27/2016 01/04/2017 GERD (gastroesophageal reflux disease) 6 05/12/2022 Acute and chronic cholecystitis 05/13/2016 01/04/2017 Nausea and vomiting 04/22/2016 01/04/2017 Gastroesophageal reflux disease without esophagi tis 04/21/2016 04/21/2016 Weakness of both lower extremities 01/26/2016 01/04/2017 Bilateral low back pain with sciatica 01/26/2016 01/04/2017 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 Currently very tired , but stressed because she is moving as she has a lot of work to be done. Nasal septal deviation 01/22/2015 7 Last Assessment & Plan: Had a surgery, waiting for her a cpap machine. IBS (irritable bowel syndrome) 09/25/2014 0 05/12/2022 Last Assessment & Plan: Patient has irritable bowel. Currently is having occasional constipation and a lot of cramps that is worsening her hemorrhoids;she would like to be on something. i discussed with her that her anxiety is the cause for this. i asked her to use benefibre OTC and report to me if that helps. Hemorrhoids 09/25/2014 01/04/2017 Last Assessment & Plan: Has constipation from IBS, Asked her to take benefibre OTC, anusol for now. S/P LASIK (laser assisted in situ keratomileusis) of both eyes - Both Eyes 08/19/2014 01/04/2017 Acne vulgaris: Inflammatory Grade II to III 05/1401/04/2017 Milial cyst 05/22/2014 01/04/2017 Xerosis cutis 05/22/2014 01/04/2017 SUMMARY 04/20/2014 05/12/2022 Overview: Patient was on provigil in the past 2008 , adderal, etc for excessive day time sleepiness. She also was on xanax for anxiety Rosacea 04/04/2014 01/04/2017 Steroid acne 04/04/2014 01/04/2017 Flushing reaction 04/04/2014 01/04/2017 Photodermatitis 04/04/2014 01/04/2017 Calculus, tonsil 12/17/2013 01/04/2017 Tonsillitis 12/17/2013 01/04/2017 Irregular sleep-wake rhythm 10/23/201309/14 Last Assessment & Plan: She feels better on the effexor. Seen Dr Schaefer and who also is monitoring to see if any thing else needs to be done. documented as of this encounter (statuses as of 05/27/2022) [facility] Past illness Narrative* Problem Noted Date Resolved Date Bacterial pneumonia 02/09/2022 05/12/2022 Hx of LASIK 09/16/2020 05/12/2022 Dyslipidemia 07/11/2020 05/12/2022 LISA (acute kidney injury) 07/11/20202021 Acute non-recurrent maxillary sinusitis 01/30/20 19 05/12/2022 Nasal obstruction 12/27/2018 05/12/2022 Acute vaginitis 10/31/2018 05/12/2022 Abnormal urine odor 08/31/2017 05/12/2022 Vitreous floaters of both eyes 12/27/2016 0 01/04/2017 Dry eye syndrome 12/27/2016 01/04/2017 GERD (gastroesophageal reflux disease) 6 05/12/2022 Acute and chronic cholecystitis 05/13/2016 01/04/2017 Nausea and vomiting 04/22/2016 01/04/2017 Gastroesophageal reflux disease without esophagi tis 04/21/2016 04/21/2016 Weakness of both lower extremities 01/26/2016 01/04/2017 Bilateral low back pain with sciatica 01/26/2016 01/04/2017 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 Currently very tired , but stressed because she is moving as she has a lot of work to be done. Nasal septal deviation 01/22/2015 7 Last Assessment & Plan: Had a surgery, waiting for her a cpap machine. IBS (irritable bowel syndrome) 09/25/2014 0 05/12/2022 Last Assessment & Plan: Patient has irritable bowel. Currently is having occasional constipation and a lot of cramps that is worsening her hemorrhoids;she would like to be on something. i discussed with her that her anxiety is the cause for this. i asked her to use benefibre OTC and report to me if that helps. Hemorrhoids 09/25/2014 01/04/2017 Last Assessment & Plan: Has constipation from IBS, Asked her to take benefibre OTC, anusol for now. S/P LASIK (laser assisted in situ keratomileusis) of both eyes - Both Eyes 08/19/2014 01/04/2017 Acne vulgaris: Inflammatory Grade II to III 05/1401/04/2017 Milial cyst 05/22/2014 01/04/2017 Xerosis cutis 05/22/2014 01/04/2017 SUMMARY 04/20/2014 05/12/2022 Overview: Patient was on provigil in the past 2008 , adderal, etc for excessive day time sleepiness. She also was on xanax for anxiety Rosacea 04/04/2014 01/04/2017 Steroid acne 04/04/2014 01/04/2017 Flushing reaction 04/04/2014 01/04/2017 Photodermatitis 04/04/2014 01/04/2017 Calculus, tonsil 12/17/2013 01/04/2017 Tonsillitis 12/17/2013 01/04/2017 Irregular sleep-wake rhythm 10/23/201309/14 Last Assessment & Plan: She feels better on the effexor. Seen Dr Schaefer and who also is monitoring to see if any thing else needs to be done. documented as of this encounter (statuses as of 06/02/2022) [facility] Past [facility] Narrative* Problem Noted Date Resolved Date Bacterial pneumonia 02/09/2022 05/12/2022 Hx of LASIK 09/16/2020 05/12/2022 Dyslipidemia 07/11/2020 05/12/2022 LISA (acute kidney injury) 07/11/20202021 Acute non-recurrent maxillary sinusitis 01/30/20 19 05/12/2022 Nasal obstruction 12/27/2018 05/12/2022 Acute vaginitis 10/31/2018 05/12/2022 Abnormal urine odor 08/31/2017 05/12/2022 Vitreous floaters of both eyes 12/27/2016 0 01/04/2017 Dry eye syndrome 12/27/2016 01/04/2017 GERD (gastroesophageal reflux disease) 6 05/12/2022 Acute and chronic cholecystitis 05/13/2016 01/04/2017 Nausea and vomiting 04/22/2016 01/04/2017 Gastroesophageal reflux disease without esophagi tis 04/21/2016 04/21/2016 Weakness of both lower extremities 01/26/2016 01/04/2017 Bilateral low back pain with sciatica 01/26/2016 01/04/2017 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 Currently very tired , but stressed because she is moving as she has a lot of work to be done. Nasal septal deviation 01/22/2015 7 Last Assessment & Plan: Had a surgery, waiting for her a cpap machine. IBS (irritable bowel syndrome) 09/25/2014 0 05/12/2022 Last Assessment & Plan: Patient has irritable bowel. Currently is having occasional constipation and a lot of cramps that is worsening her hemorrhoids;she would like to be on something. i discussed with her that her anxiety is the cause for this. i asked her to use benefibre OTC and report to me if that helps. Hemorrhoids 09/25/2014 01/04/2017 Last Assessment & Plan: Has constipation from IBS, Asked her to take benefibre OTC, anusol for now. S/P LASIK (laser assisted in situ keratomileusis) of both eyes - Both Eyes 08/19/2014 01/04/2017 Acne vulgaris: Inflammatory Grade II to III 05/1401/04/2017 Milial cyst 05/22/2014 01/04/2017 Xerosis cutis 05/22/2014 01/04/2017 SUMMARY 04/20/2014 05/12/2022 Overview: Patient was on provigil in the past 2008 , adderal, etc for excessive day time sleepiness. She also was on xanax for anxiety Rosacea 04/04/2014 01/04/2017 Steroid acne 04/04/2014 01/04/2017 Flushing reaction 04/04/2014 01/04/2017 Photodermatitis 04/04/2014 01/04/2017 Calculus, tonsil 12/17/2013 01/04/2017 Tonsillitis 12/17/2013 01/04/2017 Irregular sleep-wake rhythm 10/23/201309/14 Last Assessment & Plan: She feels better on the effexor. Seen Dr Schaefer and who also is monitoring to see if any thing else needs to be done. documented as of this encounter (statuses as of 06/17/2022) [facility]03-29-2022 History of Past illness Narrative* Problem Noted Date Resolved Date Bacterial pneumonia 02/09/2022 05/12/2022 Hx of LASIK 09/16/2020 05/12/2022 Dyslipidemia 07/11/2020 05/12/2022 LISA (acute kidney injury) 07/11/20202021 Acute non-recurrent maxillary sinusitis 01/30/20 19 05/12/2022 Nasal obstruction 12/27/2018 05/12/2022 Acute vaginitis 10/31/2018 05/12/2022 Abnormal urine odor 08/31/2017 05/12/2022 Vitreous floaters of both eyes 12/27/2016 0 01/04/2017 Dry eye syndrome 12/27/2016 01/04/2017 GERD (gastroesophageal reflux disease) 6 05/12/2022 Acute and chronic cholecystitis 05/13/2016 01/04/2017 Nausea and vomiting 04/22/2016 01/04/2017 Gastroesophageal reflux disease without esophagi tis 04/21/2016 04/21/2016 Weakness of both lower extremities 01/26/2016 01/04/2017 Bilateral low back pain with sciatica 01/26/2016 01/04/2017 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 Currently very tired , but stressed because she is moving as she has a lot of work to be done. Nasal septal deviation 01/22/2015 7 Last Assessment & Plan: Had a surgery, waiting for her a cpap machine. IBS (irritable bowel syndrome) 09/25/2014 0 05/12/2022 Last Assessment & Plan: Patient has irritable bowel. Currently is having occasional constipation and a lot of cramps that is worsening her hemorrhoids;she would like to be on something. i discussed with her that her anxiety is the cause for this. i asked her to use benefibre OTC and report to me if that helps. Hemorrhoids 09/25/2014 01/04/2017 Last Assessment & Plan: Has constipation from IBS, Asked her to take benefibre OTC, anusol for now. S/P LASIK (laser assisted in situ keratomileusis) of both eyes - Both Eyes 08/19/2014 01/04/2017 Acne vulgaris: Inflammatory Grade II to III 05/1401/04/2017 Milial cyst 05/22/2014 01/04/2017 Xerosis cutis 05/22/2014 01/04/2017 SUMMARY 04/20/2014 05/12/2022 Overview: Patient was on provigil in the past 2008 , adderal, etc for excessive day time sleepiness. She also was on xanax for anxiety Rosacea 04/04/2014 01/04/2017 Steroid acne 04/04/2014 01/04/2017 Flushing reaction 04/04/2014 01/04/2017 Photodermatitis 04/04/2014 01/04/2017 Calculus, tonsil 12/17/2013 01/04/2017 Tonsillitis 12/17/2013 01/04/2017 Irregular sleep-wake rhythm 10/23/201309/14 Last Assessment & Plan: She feels better on the effexor. Seen Dr Schaefer and who also is monitoring to see if any thing else needs to be done. documented as of this encounter (statuses as of 06/25/2022) [facility]03-[facility] History of Past illness Narrative* Problem Noted Date Resolved Date Bacterial pneumonia 02/09/2022 05/12/2022 Hx of LASIK 09/16/2020 05/12/2022 Dyslipidemia 07/11/2020 05/12/2022 LISA (acute kidney injury) 07/11/20202021 Acute non-recurrent maxillary sinusitis 01/30/20 19 05/12/2022 Nasal obstruction 12/27/2018 05/12/2022 Acute vaginitis 10/31/2018 05/12/2022 Abnormal urine odor 08/31/2017 05/12/2022 Vitreous floaters of both eyes 12/27/2016 0 01/04/2017 Dry eye syndrome 12/27/2016 01/04/2017 GERD (gastroesophageal reflux disease) 6 05/12/2022 Acute and chronic cholecystitis 05/13/2016 01/04/2017 Nausea and vomiting 04/22/2016 01/04/2017 Gastroesophageal reflux disease without esophagi tis 04/21/2016 04/21/2016 Weakness of both lower extremities 01/26/2016 01/04/2017 Bilateral low back pain with sciatica 01/26/2016 01/04/2017 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 Currently very tired , but stressed because she is moving as she has a lot of work to be done. Nasal septal deviation 01/22/2015 7 Last Assessment & Plan: Had a surgery, waiting for her a cpap machine. IBS (irritable bowel syndrome) 09/25/2014 0 05/12/2022 Last Assessment & Plan: Patient has irritable bowel. Currently is having occasional constipation and a lot of cramps that is worsening her hemorrhoids;she would like to be on something. i discussed with her that her anxiety is the cause for this. i asked her to use benefibre OTC and report to me if that helps. Hemorrhoids 09/25/2014 01/04/2017 Last Assessment & Plan: Has constipation from IBS, Asked her to take benefibre OTC, anusol for now. S/P LASIK (laser assisted in situ keratomileusis) of both eyes - Both Eyes 08/19/2014 01/04/2017 Acne vulgaris: Inflammatory Grade II to III 05/1401/04/2017 Milial cyst 05/22/2014 01/04/2017 Xerosis cutis 05/22/2014 01/04/2017 SUMMARY 04/20/2014 05/12/2022 Overview: Patient was on provigil in the past 2008 , adderal, etc for excessive day time sleepiness. She also was on xanax for anxiety Rosacea 04/04/2014 01/04/2017 Steroid acne 04/04/2014 01/04/2017 Flushing reaction 04/04/2014 01/04/2017 Photodermatitis 04/04/2014 01/04/2017 Calculus, tonsil 12/17/2013 01/04/2017 Tonsillitis 12/17/2013 01/04/2017 Irregular sleep-wake rhythm 10/23/201309/14 Last Assessment & Plan: She feels better on the effexor. Seen Dr Schaefer and who also is monitoring to see if any thing else needs to be done. documented as of this encounter (statuses as of 06/29/2022) [facility]03[facility] History of Past illness Narrative* Problem Noted Date Resolved Date Bacterial pneumonia 02/09/2022 05/12/2022 Hx of LASIK 09/16/2020 05/12/2022 Dyslipidemia 07/11/2020 05/12/2022 LISA (acute kidney injury) 07/11/20202021 Acute non-recurrent maxillary sinusitis 01/30/20 19 05/12/2022 Nasal obstruction 12/27/2018 05/12/2022 Acute vaginitis 10/31/2018 05/12/2022 Abnormal urine odor 08/31/2017 05/12/2022 Vitreous floaters of both eyes 12/27/2016 0 01/04/2017 Dry eye syndrome 12/27/2016 01/04/2017 GERD (gastroesophageal reflux disease) 6 05/12/2022 Acute and chronic cholecystitis 05/13/2016 01/04/2017 Nausea and vomiting 04/22/2016 01/04/2017 Gastroesophageal reflux disease without esophagi tis 04/21/2016 04/21/2016 Weakness of both lower extremities 01/26/2016 01/04/2017 Bilateral low back pain with sciatica 01/26/2016 01/04/2017 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 Currently very tired , but stressed because she is moving as she has a lot of work to be done. Nasal septal deviation 01/22/2015 7 Last Assessment & Plan: Had a surgery, waiting for her a cpap machine. IBS (irritable bowel syndrome) 09/25/2014 0 05/12/2022 Last Assessment & Plan: Patient has irritable bowel. Currently is having occasional constipation and a lot of cramps that is worsening her hemorrhoids;she would like to be on something. i discussed with her that her anxiety is the cause for this. i asked her to use benefibre OTC and report to me if that helps. Hemorrhoids 09/25/2014 01/04/2017 Last Assessment & Plan: Has constipation from IBS, Asked her to take benefibre OTC, anusol for now. S/P LASIK (laser assisted in situ keratomileusis) of both eyes - Both Eyes 08/19/2014 01/04/2017 Acne vulgaris: Inflammatory Grade II to III 05/1401/04/2017 Milial cyst 05/22/2014 01/04/2017 Xerosis cutis 05/22/2014 01/04/2017 SUMMARY 04/20/2014 05/12/2022 Overview: Patient was on provigil in the past 2008 , adderal, etc for excessive day time sleepiness. She also was on xanax for anxiety Rosacea 04/04/2014 01/04/2017 Steroid acne 04/04/2014 01/04/2017 Flushing reaction 04/04/2014 01/04/2017 Photodermatitis 04/04/2014 01/04/2017 Calculus, tonsil 12/17/2013 01/04/2017 Tonsillitis 12/17/2013 01/04/2017 Irregular sleep-wake rhythm 10/23/201309/14 Last Assessment & Plan: She feels better on the effexor. Seen Dr Schaefer and who also is monitoring to see if any thing else needs to be done. documented as of this encounter (statuses as of 07/02/2022) [facility]03[facility] History of Past illness Narrative* Problem Noted Date Resolved Date Bacterial pneumonia 02/09/2022 05/12/2022 Hx of LASIK 09/16/2020 05/12/2022 LISA (acute kidney injury) 07/11/20202021 Acute non-recurrent maxillary sinusitis 01/30/20 19 05/12/2022 Nasal obstruction 12/27/2018 05/12/2022 Acute vaginitis 10/31/2018 05/12/2022 Abnormal urine odor 08/31/2017 05/12/2022 Vitreous floaters of both eyes 12/27/2016 0 01/04/2017 Dry eye syndrome 12/27/2016 01/04/2017 GERD (gastroesophageal reflux disease) 6 05/12/2022 Acute and chronic cholecystitis 05/13/2016 01/04/2017 Nausea and vomiting 04/22/2016 01/04/2017 Gastroesophageal reflux disease without esophagi tis 04/21/2016 04/21/2016 Weakness of both lower extremities 01/26/2016 01/04/2017 Bilateral low back pain with sciatica 01/26/2016 01/04/2017 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 Currently very tired , but stressed because she is moving as she has a lot of work to be done. Nasal septal deviation 01/22/2015 7 Last Assessment & Plan: Had a surgery, waiting for her a cpap machine. IBS (irritable bowel syndrome) 09/25/2014 0 05/12/2022 Last Assessment & Plan: Patient has irritable bowel. Currently is having occasional constipation and a lot of cramps that is worsening her hemorrhoids;she would like to be on something. i discussed with her that her anxiety is the cause for this. i asked her to use benefibre OTC and report to me if that helps. Hemorrhoids 09/25/2014 01/04/2017 Last Assessment & Plan: Has constipation from IBS, Asked her to take benefibre OTC, anusol for now. S/P LASIK (laser assisted in situ keratomileusis) of both eyes - Both Eyes 08/19/2014 01/04/2017 Acne vulgaris: Inflammatory Grade II to III 05/1401/04/2017 Milial cyst 05/22/2014 01/04/2017 Xerosis cutis 05/22/2014 01/04/2017 SUMMARY 04/20/2014 05/12/2022 Overview: Patient was on provigil in the past 2008 , adderal, etc for excessive day time sleepiness. She also was on xanax for anxiety Rosacea 04/04/2014 01/04/2017 Steroid acne 04/04/2014 01/04/2017 Flushing reaction 04/04/2014 01/04/2017 Photodermatitis 04/04/2014 01/04/2017 Calculus, tonsil 12/17/2013 01/04/2017 Tonsillitis 12/17/2013 01/04/2017 Irregular sleep-wake rhythm 10/23/201309/14 Last Assessment & Plan: She feels better on the effexor. Seen Dr Schaefer and who also is monitoring to see if any thing else needs to be done. documented as of this encounter (statuses as of 07/13/2022) [facility]03[facility] History of Past illness Narrative* Problem Noted Date Resolved Date Bacterial pneumonia 02/09/2022 05/12/2022 Hx of LASIK 09/16/2020 05/12/2022 LISA (acute kidney injury) 07/11/20202021 Acute non-recurrent maxillary sinusitis 01/30/20 19 05/12/2022 Nasal obstruction 12/27/2018 05/12/2022 Acute vaginitis 10/31/2018 05/12/2022 Abnormal urine odor 08/31/2017 05/12/2022 Vitreous floaters of both eyes 12/27/2016 0 01/04/2017 Dry eye syndrome 12/27/2016 01/04/2017 GERD (gastroesophageal reflux disease) 6 05/12/2022 Acute and chronic cholecystitis 05/13/2016 01/04/2017 Nausea and vomiting 04/22/2016 01/04/2017 Gastroesophageal reflux disease without esophagi tis 04/21/2016 04/21/2016 Weakness of both lower extremities 01/26/2016 01/04/2017 Bilateral low back pain with sciatica 01/26/2016 01/04/2017 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 Currently very tired , but stressed because she is moving as she has a lot of work to be done. Nasal septal deviation 01/22/2015 Last Assessment & Plan: Had a surgery, waiting for her a cpap machine. IBS (irritable bowel syndrome) 09/25/2014 0 05/12/2022 Last Assessment & Plan: Patient has irritable bowel. Currently is having occasional constipation and a lot of cramps that is worsening her hemorrhoids;she would like to be on something. i discussed with her that her anxiety is the cause for this. i asked her to use benefibre OTC and report to me if that helps. Hemorrhoids 09/25/2014 01/04/2017 Last Assessment & Plan: Has constipation from IBS, Asked her to take benefibre OTC, anusol for now. S/P LASIK (laser assisted in situ keratomileusis) of both eyes - Both Eyes 08/19/2014 01/04/2017 Acne vulgaris: Inflammatory Grade II to III 05/1401/04/2017 Milial cyst 05/22/2014 01/04/2017 Xerosis cutis 05/22/2014 01/04/2017 SUMMARY 04/20/2014 05/12/2022 Overview: Patient was on provigil in the past 2008 , adderal, etc for excessive day time sleepiness. She also was on xanax for anxiety Rosacea 04/04/2014 01/04/2017 Steroid acne 04/04/2014 01/04/2017 Flushing reaction 04/04/2014 01/04/2017 Photodermatitis 04/04/2014 01/04/2017 Calculus, tonsil 12/17/2013 01/04/2017 Tonsillitis 12/17/2013 01/04/2017 Irregular sleep-wake rhythm 10/23/201309/14 Last Assessment & Plan: She feels better on the effexor. Seen Dr Schaefer and who also is monitoring to see if any thing else needs to be done. documented as of this encounter (statuses as of 07/20/2022) [facility]03[facility] History of Past illness Narrative* Problem Noted Date Resolved Date Bacterial pneumonia 02/09/2022 05/12/2022 Hx of LASIK 09/16/2020 05/12/2022 LISA (acute kidney injury) 07/11/20202021 Acute non-recurrent maxillary sinusitis 01/30/20 19 05/12/2022 Nasal obstruction 12/27/2018 05/12/2022 Acute vaginitis 10/31/2018 05/12/2022 Abnormal urine odor 08/31/2017 05/12/2022 Vitreous floaters of both eyes 12/27/2016 0 01/04/2017 Dry eye syndrome 12/27/2016 01/04/2017 GERD (gastroesophageal reflux disease) 6 05/12/2022 Acute and chronic cholecystitis 05/13/2016 01/04/2017 Nausea and vomiting 04/22/2016 01/04/2017 Gastroesophageal reflux disease without esophagi tis 04/21/2016 04/21/2016 Weakness of both lower extremities 01/26/2016 01/04/2017 Bilateral low back pain with sciatica 01/26/2016 01/04/2017 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 Currently very tired , but stressed because she is moving as she has a lot of work to be done. Nasal septal deviation 01/22/2015 7 Last Assessment & Plan: Had a surgery, waiting for her a cpap machine. IBS (irritable bowel syndrome) 09/25/2014 0 05/12/2022 Last Assessment & Plan: Patient has irritable bowel. Currently is having occasional constipation and a lot of cramps that is worsening her hemorrhoids;she would like to be on something. i discussed with her that her anxiety is the cause for this. i asked her to use benefibre OTC and report to me if that helps. Hemorrhoids 09/25/2014 01/04/2017 Last Assessment & Plan: Has constipation from IBS, Asked her to take benefibre OTC, anusol for now. S/P LASIK (laser assisted in situ keratomileusis) of both eyes - Both Eyes 08/19/2014 01/04/2017 Acne vulgaris: Inflammatory Grade II to III 05/1401/04/2017 Milial cyst 05/22/2014 01/04/2017 Xerosis cutis 05/22/2014 01/04/2017 SUMMARY 04/20/2014 05/12/2022 Overview: Patient was on provigil in the past 2008 , adderal, etc for excessive day time sleepiness. She also was on xanax for anxiety Rosacea 04/04/2014 01/04/2017 Steroid acne 04/04/2014 01/04/2017 Flushing reaction 04/04/2014 01/04/2017 Photodermatitis 04/04/2014 01/04/2017 Calculus, tonsil 12/17/2013 01/04/2017 Tonsillitis 12/17/2013 01/04/2017 Irregular sleep-wake rhythm 10/23/201309/14 Last Assessment & Plan: She feels better on the effexor. Seen Dr Schaefer and who also is monitoring to see if any thing else needs to be done. documented as of this encounter (statuses as of 07/22/2022) [facility] History of Past illness Narrative* Problem Noted Date Resolved Date Bacterial pneumonia 02/09/2022 05/12/2022 Hx of LASIK 09/16/2020 05/12/2022 LISA (acute kidney injury) 07/11/20202021 Acute non-recurrent maxillary sinusitis 01/30/20 19 05/12/2022 Nasal obstruction 12/27/2018 05/12/2022 Acute vaginitis 10/31/2018 05/12/2022 Abnormal urine odor 08/31/2017 05/12/2022 Vitreous floaters of both eyes 12/27/2016 0 01/04/2017 Dry eye syndrome 12/27/2016 01/04/2017 GERD (gastroesophageal reflux disease) 6 05/12/2022 Acute and chronic cholecystitis 05/13/2016 01/04/2017 Nausea and vomiting 04/22/2016 01/04/2017 Gastroesophageal reflux disease without esophagi tis 04/21/2016 04/21/2016 Weakness of both lower extremities 01/26/2016 01/04/2017 Bilateral low back pain with sciatica 01/26/2016 01/04/2017 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 Currently very tired , but stressed because she is moving as she has a lot of work to be done. Nasal septal deviation 01/22/2015 7 Last Assessment & Plan: Had a surgery, waiting for her a cpap machine. IBS (irritable bowel syndrome) 09/25/2014 0 05/12/2022 Last Assessment & Plan: Patient has irritable bowel. Currently is having occasional constipation and a lot of cramps that is worsening her hemorrhoids;she would like to be on something. i discussed with her that her anxiety is the cause for this. i asked her to use benefibre OTC and report to me if that helps. Hemorrhoids 09/25/2014 01/04/2017 Last Assessment & Plan: Has constipation from IBS, Asked her to take benefibre OTC, anusol for now. S/P LASIK (laser assisted in situ keratomileusis) of both eyes - Both Eyes 08/19/2014 01/04/2017 Acne vulgaris: Inflammatory Grade II to III 05/1401/04/2017 Milial cyst 05/22/2014 01/04/2017 Xerosis cutis 05/22/2014 01/04/2017 SUMMARY 04/20/2014 05/12/2022 Overview: Patient was on provigil in the past 2008 , adderal, etc for excessive day time sleepiness. She also was on xanax for anxiety Rosacea 04/04/2014 01/04/2017 Steroid acne 04/04/2014 01/04/2017 Flushing reaction 04/04/2014 01/04/2017 Photodermatitis 04/04/2014 01/04/2017 Calculus, tonsil 12/17/2013 01/04/2017 Tonsillitis 12/17/2013 01/04/2017 Irregular sleep-wake rhythm 10/23/201309/14 Last Assessment & Plan: She feels better on the effexor. Seen Dr Schaefer and who also is monitoring to see if any thing else needs to be done. documented as of this encounter (statuses as of 07/28/2022) [facility] History of Past illness Narrative* Problem Noted Date Resolved Date Bacterial pneumonia 02/09/2022 05/12/2022 Hx of LASIK 09/16/2020 05/12/2022 LISA (acute kidney injury) 07/11/20202021 Acute non-recurrent maxillary sinusitis 01/30/20 19 05/12/2022 Nasal obstruction 12/27/2018 05/12/2022 Acute vaginitis 10/31/2018 05/12/2022 Abnormal urine odor 08/31/2017 05/12/2022 Vitreous floaters of both eyes 12/27/2016 0 01/04/2017 Dry eye syndrome 12/27/2016 01/04/2017 GERD (gastroesophageal reflux disease) 6 05/12/2022 Acute and chronic cholecystitis 05/13/2016 01/04/2017 Nausea and vomiting 04/22/2016 01/04/2017 Gastroesophageal reflux disease without esophagi tis 04/21/2016 04/21/2016 Weakness of both lower extremities 01/26/2016 01/04/2017 Bilateral low back pain with sciatica 01/26/2016 01/04/2017 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 Currently very tired , but stressed because she is moving as she has a lot of work to be done. Nasal septal deviation 01/22/2015 7 Last Assessment & Plan: Had a surgery, waiting for her a cpap machine. IBS (irritable bowel syndrome) 09/25/2014 0 05/12/2022 Last Assessment & Plan: Patient has irritable bowel. Currently is having occasional constipation and a lot of cramps that is worsening her hemorrhoids;she would like to be on something. i discussed with her that her anxiety is the cause for this. i asked her to use benefibre OTC and report to me if that helps. Hemorrhoids 09/25/2014 01/04/2017 Last Assessment & Plan: Has constipation from IBS, Asked her to take benefibre OTC, anusol for now. S/P LASIK (laser assisted in situ keratomileusis) of both eyes - Both Eyes 08/19/2014 01/04/2017 Acne vulgaris: Inflammatory Grade II to III 05/1401/04/2017 Milial cyst 05/22/2014 01/04/2017 Xerosis cutis 05/22/2014 01/04/2017 SUMMARY 04/20/2014 05/12/2022 Overview: Patient was on provigil in the past 2008 , adderal, etc for excessive day time sleepiness. She also was on xanax for anxiety Rosacea 04/04/2014 01/04/2017 Steroid acne 04/04/2014 01/04/2017 Flushing reaction 04/04/2014 01/04/2017 Photodermatitis 04/04/2014 01/04/2017 Calculus, tonsil 12/17/2013 01/04/2017 Tonsillitis 12/17/2013 01/04/2017 Irregular sleep-wake rhythm 10/23/201309/14 Last Assessment & Plan: She feels better on the effexor. Seen Dr Schaefer and who also is monitoring to see if any thing else needs to be done. documented as of this encounter (statuses as of 08/03/2022) [facility] History of Past illness Narrative* Problem Noted Date Resolved Date Bacterial pneumonia 02/09/2022 05/12/2022 Hx of LASIK 09/16/2020 05/12/2022 LISA (acute kidney injury) 07/11/20202021 Acute non-recurrent maxillary sinusitis 01/30/20 19 05/12/2022 Nasal obstruction 12/27/2018 05/12/2022 Acute vaginitis 10/31/2018 05/12/2022 Abnormal urine odor 08/31/2017 05/12/2022 Vitreous floaters of both eyes 12/27/2016 0 01/04/2017 Dry eye syndrome 12/27/2016 01/04/2017 GERD (gastroesophageal reflux disease) 6 05/12/2022 Acute and chronic cholecystitis 05/13/2016 01/04/2017 Nausea and vomiting 04/22/2016 01/04/2017 Gastroesophageal reflux disease without esophagi tis 04/21/2016 04/21/2016 Weakness of both lower extremities 01/26/2016 01/04/2017 Bilateral low back pain with sciatica 01/26/2016 01/04/2017 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 Currently very tired , but stressed because she is moving as she has a lot of work to be done. Nasal septal deviation 01/22/2015 7 Last Assessment & Plan: Had a surgery, waiting for her a cpap machine. IBS (irritable bowel syndrome) 09/25/2014 0 05/12/2022 Last Assessment & Plan: Patient has irritable bowel. Currently is having occasional constipation and a lot of cramps that is worsening her hemorrhoids;she would like to be on something. i discussed with her that her anxiety is the cause for this. i asked her to use benefibre OTC and report to me if that helps. Hemorrhoids 09/25/2014 01/04/2017 Last Assessment & Plan: Has constipation from IBS, Asked her to take benefibre OTC, anusol for now. S/P LASIK (laser assisted in situ keratomileusis) of both eyes - Both Eyes 08/19/2014 01/04/2017 Acne vulgaris: Inflammatory Grade II to III 05/1401/04/2017 Milial cyst 05/22/2014 01/04/2017 Xerosis cutis 05/22/2014 01/04/2017 SUMMARY 04/20/2014 05/12/2022 Overview: Patient was on provigil in the past 2008 , adderal, etc for excessive day time sleepiness. She also was on xanax for anxiety Rosacea 04/04/2014 01/04/2017 Steroid acne 04/04/2014 01/04/2017 Flushing reaction 04/04/2014 01/04/2017 Photodermatitis 04/04/2014 01/04/2017 Calculus, tonsil 12/17/2013 01/04/2017 Tonsillitis 12/17/2013 01/04/2017 Irregular sleep-wake rhythm 10/23/201309/14 Last Assessment & Plan: She feels better on the effexor. Seen Dr Schaefer and who also is monitoring to see if any thing else needs to be done. documented as of this encounter (statuses as of 08/16/2022) [facility]03-29-2022 History of Past illness Narrative* Problem Noted Date Resolved Date Bacterial pneumonia 02/09/2022 05/12/2022 Hx of LASIK 09/16/2020 05/12/2022 LISA (acute kidney injury) 07/11/20202021 Acute non-recurrent maxillary sinusitis 01/30/20 19 05/12/2022 Nasal obstruction 12/27/2018 05/12/2022 Acute vaginitis 10/31/2018 05/12/2022 Abnormal urine odor 08/31/2017 05/12/2022 Vitreous floaters of both eyes 12/27/2016 0 01/04/2017 Dry eye syndrome 12/27/2016 01/04/2017 GERD (gastroesophageal reflux disease) 6 05/12/2022 Acute and chronic cholecystitis 05/13/2016 01/04/2017 Nausea and vomiting 04/22/2016 01/04/2017 Gastroesophageal reflux disease without esophagi tis 04/21/2016 04/21/2016 Weakness of both lower extremities 01/26/2016 01/04/2017 Bilateral low back pain with sciatica 01/26/2016 01/04/2017 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 Currently very tired , but stressed because she is moving as she has a lot of work to be done. Nasal septal deviation 01/22/2015 7 Last Assessment & Plan: Had a surgery, waiting for her a cpap machine. IBS (irritable bowel syndrome) 09/25/2014 0 05/12/2022 Last Assessment & Plan: Patient has irritable bowel. Currently is having occasional constipation and a lot of cramps that is worsening her hemorrhoids;she would like to be on something. i discussed with her that her anxiety is the cause for this. i asked her to use benefibre OTC and report to me if that helps. Hemorrhoids 09/25/2014 01/04/2017 Last Assessment & Plan: Has constipation from IBS, Asked her to take benefibre OTC, anusol for now. S/P LASIK (laser assisted in situ keratomileusis) of both eyes - Both Eyes 08/19/2014 01/04/2017 Acne vulgaris: Inflammatory Grade II to III 05/1401/04/2017 Milial cyst 05/22/2014 01/04/2017 Xerosis cutis 05/22/2014 01/04/2017 SUMMARY 04/20/2014 05/12/2022 Overview: Patient was on provigil in the past 2008 , adderal, etc for excessive day time sleepiness. She also was on xanax for anxiety Rosacea 04/04/2014 01/04/2017 Steroid acne 04/04/2014 01/04/2017 Flushing reaction 04/04/2014 01/04/2017 Photodermatitis 04/04/2014 01/04/2017 Calculus, tonsil 12/17/2013 01/04/2017 Tonsillitis 12/17/2013 01/04/2017 Irregular sleep-wake rhythm 10/23/201309/14 Last Assessment & Plan: She feels better on the effexor. Seen Dr Schaefer and who also is monitoring to see if any thing else needs to be done. documented as of this encounter (statuses as of 08/16/2022) [facility]03-[facility]22 History of Past illness Narrative* Problem Noted Date Resolved Date Bacterial pneumonia 02/09/2022 05/12/2022 Hx of LASIK 09/16/2020 05/12/2022 LISA (acute kidney injury) 07/11/20202021 Acute non-recurrent maxillary sinusitis 01/30/20 19 05/12/2022 Nasal obstruction 12/27/2018 05/12/2022 Acute vaginitis 10/31/2018 05/12/2022 Abnormal urine odor 08/31/2017 05/12/2022 Vitreous floaters of both eyes 12/27/2016 0 01/04/2017 Dry eye syndrome 12/27/2016 01/04/2017 GERD (gastroesophageal reflux disease) 6 05/12/2022 Acute and chronic cholecystitis 05/13/2016 01/04/2017 Nausea and vomiting 04/22/2016 01/04/2017 Gastroesophageal reflux disease without esophagi tis 04/21/2016 04/21/2016 Weakness of both lower extremities 01/26/2016 01/04/2017 Bilateral low back pain with sciatica 01/26/2016 01/04/2017 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 Currently very tired , but stressed because she is moving as she has a lot of work to be done. Nasal septal deviation 01/22/2015 7 Last Assessment & Plan: Had a surgery, waiting for her a cpap machine. IBS (irritable bowel syndrome) 09/25/2014 0 05/12/2022 Last Assessment & Plan: Patient has irritable bowel. Currently is having occasional constipation and a lot of cramps that is worsening her hemorrhoids;she would like to be on something. i discussed with her that her anxiety is the cause for this. i asked her to use benefibre OTC and report to me if that helps. Hemorrhoids 09/25/2014 01/04/2017 Last Assessment & Plan: Has constipation from IBS, Asked her to take benefibre OTC, anusol for now. S/P LASIK (laser assisted in situ keratomileusis) of both eyes - Both Eyes 08/19/2014 01/04/2017 Acne vulgaris: Inflammatory Grade II to III 05/1401/04/2017 Milial cyst 05/22/2014 01/04/2017 Xerosis cutis 05/22/2014 01/04/2017 SUMMARY 04/20/2014 05/12/2022 Overview: Patient was on provigil in the past 2008 , adderal, etc for excessive day time sleepiness. She also was on xanax for anxiety Rosacea 04/04/2014 01/04/2017 Steroid acne 04/04/2014 01/04/2017 Flushing reaction 04/04/2014 01/04/2017 Photodermatitis 04/04/2014 01/04/2017 Calculus, tonsil 12/17/2013 01/04/2017 Tonsillitis 12/17/2013 01/04/2017 Irregular sleep-wake rhythm 10/23/201309/14 Last Assessment & Plan: She feels better on the effexor. Seen Dr Schaefer and who also is monitoring to see if any thing else needs to be done. documented as of this encounter (statuses as of 09/13/2022) [facility]03-[facility]22 History of Past illness Narrative* Problem Noted Date Resolved Date Bacterial pneumonia 02/09/2022 05/12/2022 Hx of LASIK 09/16/2020 05/12/2022 LISA (acute kidney injury) 07/11/20202021 Acute non-recurrent maxillary sinusitis 01/30/20 19 05/12/2022 Nasal obstruction 12/27/2018 05/12/2022 Acute vaginitis 10/31/2018 05/12/2022 Abnormal urine odor 08/31/2017 05/12/2022 Vitreous floaters of both eyes 12/27/2016 0 01/04/2017 Dry eye syndrome 12/27/2016 01/04/2017 GERD (gastroesophageal reflux disease) 6 05/12/2022 Acute and chronic cholecystitis 05/13/2016 01/04/2017 Nausea and vomiting 04/22/2016 01/04/2017 Gastroesophageal reflux disease without esophagi tis 04/21/2016 04/21/2016 Weakness of both lower extremities 01/26/2016 01/04/2017 Bilateral low back pain with sciatica 01/26/2016 01/04/2017 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 Currently very tired , but stressed because she is moving as she has a lot of work to be done. Nasal septal deviation 01/22/2015 7 Last Assessment & Plan: Had a surgery, waiting for her a cpap machine. IBS (irritable bowel syndrome) 09/25/2014 0 05/12/2022 Last Assessment & Plan: Patient has irritable bowel. Currently is having occasional constipation and a lot of cramps that is worsening her hemorrhoids;she would like to be on something. i discussed with her that her anxiety is the cause for this. i asked her to use benefibre OTC and report to me if that helps. Hemorrhoids 09/25/2014 01/04/2017 Last Assessment & Plan: Has constipation from IBS, Asked her to take benefibre OTC, anusol for now. S/P LASIK (laser assisted in situ keratomileusis) of both eyes - Both Eyes 08/19/2014 01/04/2017 Acne vulgaris: Inflammatory Grade II to III 05/1401/04/2017 Milial cyst 05/22/2014 01/04/2017 Xerosis cutis 05/22/2014 01/04/2017 SUMMARY 04/20/2014 05/12/2022 Overview: Patient was on provigil in the past 2008 , adderal, etc for excessive day time sleepiness. She also was on xanax for anxiety Rosacea 04/04/2014 01/04/2017 Steroid acne 04/04/2014 01/04/2017 Flushing reaction 04/04/2014 01/04/2017 Photodermatitis 04/04/2014 01/04/2017 Calculus, tonsil 12/17/2013 01/04/2017 Tonsillitis 12/17/2013 01/04/2017 Irregular sleep-wake rhythm 10/23/201309/14 Last Assessment & Plan: She feels better on the effexor. Seen Dr Schaefer and who also is monitoring to see if any thing else needs to be done. documented as of this encounter (statuses as of 09/22/2022) [facility]03[facility]22 History of Past illness Narrative* Problem Noted Date Resolved Date Bacterial pneumonia 02/09/2022 05/12/2022 Hx of LASIK 09/16/2020 05/12/2022 LISA (acute kidney injury) 07/11/20202021 Acute non-recurrent maxillary sinusitis 01/30/20 19 05/12/2022 Nasal obstruction 12/27/2018 05/12/2022 Acute vaginitis 10/31/2018 05/12/2022 Abnormal urine odor 08/31/2017 05/12/2022 Vitreous floaters of both eyes 12/27/2016 0 01/04/2017 Dry eye syndrome 12/27/2016 01/04/2017 GERD (gastroesophageal reflux disease) 6 05/12/2022 Acute and chronic cholecystitis 05/13/2016 01/04/2017 Nausea and vomiting 04/22/2016 01/04/2017 Gastroesophageal reflux disease without esophagi tis 04/21/2016 04/21/2016 Weakness of both lower extremities 01/26/2016 01/04/2017 Bilateral low back pain with sciatica 01/26/2016 01/04/2017 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 Currently very tired , but stressed because she is moving as she has a lot of work to be done. Nasal septal deviation 01/22/2015 7 Last Assessment & Plan: Had a surgery, waiting for her a cpap machine. IBS (irritable bowel syndrome) 09/25/2014 0 05/12/2022 Last Assessment & Plan: Patient has irritable bowel. Currently is having occasional constipation and a lot of cramps that is worsening her hemorrhoids;she would like to be on something. i discussed with her that her anxiety is the cause for this. i asked her to use benefibre OTC and report to me if that helps. Hemorrhoids 09/25/2014 01/04/2017 Last Assessment & Plan: Has constipation from IBS, Asked her to take benefibre OTC, anusol for now. S/P LASIK (laser assisted in situ keratomileusis) of both eyes - Both Eyes 08/19/2014 01/04/2017 Acne vulgaris: Inflammatory Grade II to III 05/1401/04/2017 Milial cyst 05/22/2014 01/04/2017 Xerosis cutis 05/22/2014 01/04/2017 SUMMARY 04/20/2014 05/12/2022 Overview: Patient was on provigil in the past 2008 , adderal, etc for excessive day time sleepiness. She also was on xanax for anxiety Rosacea 04/04/2014 01/04/2017 Steroid acne 04/04/2014 01/04/2017 Flushing reaction 04/04/2014 01/04/2017 Photodermatitis 04/04/2014 01/04/2017 Calculus, tonsil 12/17/2013 01/04/2017 Tonsillitis 12/17/2013 01/04/2017 Irregular sleep-wake rhythm 10/23/201309/14 Last Assessment & Plan: She feels better on the effexor. Seen Dr Schaefer and who also is monitoring to see if any thing else needs to be done. documented as of this encounter (statuses as of 09/23/2022) [facility]03[facility] History of Past illness Narrative* Problem Noted Date Resolved Date Bacterial pneumonia 02/09/2022 05/12/2022 Hx of LASIK 09/16/2020 05/12/2022 LISA (acute kidney injury) 07/11/20202021 Acute non-recurrent maxillary sinusitis 01/30/20 19 05/12/2022 Nasal obstruction 12/27/2018 05/12/2022 Acute vaginitis 10/31/2018 05/12/2022 Abnormal urine odor 08/31/2017 05/12/2022 Vitreous floaters of both eyes 12/27/2016 0 01/04/2017 Dry eye syndrome 12/27/2016 01/04/2017 GERD (gastroesophageal reflux disease) 6 05/12/2022 Acute and chronic cholecystitis 05/13/2016 01/04/2017 Nausea and vomiting 04/22/2016 01/04/2017 Gastroesophageal reflux disease without esophagi tis 04/21/2016 04/21/2016 Weakness of both lower extremities 01/26/2016 01/04/2017 Bilateral low back pain with sciatica 01/26/2016 01/04/2017 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 Currently very tired , but stressed because she is moving as she has a lot of work to be done. Nasal septal deviation 01/22/2015 7 Last Assessment & Plan: Had a surgery, waiting for her a cpap machine. IBS (irritable bowel syndrome) 09/25/2014 0 05/12/2022 Last Assessment & Plan: Patient has irritable bowel. Currently is having occasional constipation and a lot of cramps that is worsening her hemorrhoids;she would like to be on something. i discussed with her that her anxiety is the cause for this. i asked her to use benefibre OTC and report to me if that helps. Hemorrhoids 09/25/2014 01/04/2017 Last Assessment & Plan: Has constipation from IBS, Asked her to take benefibre OTC, anusol for now. S/P LASIK (laser assisted in situ keratomileusis) of both eyes - Both Eyes 08/19/2014 01/04/2017 Acne vulgaris: Inflammatory Grade II to III 05/1401/04/2017 Milial cyst 05/22/2014 01/04/2017 Xerosis cutis 05/22/2014 01/04/2017 SUMMARY 04/20/2014 05/12/2022 Overview: Patient was on provigil in the past 2008 , adderal, etc for excessive day time sleepiness. She also was on xanax for anxiety Rosacea 04/04/2014 01/04/2017 Steroid acne 04/04/2014 01/04/2017 Flushing reaction 04/04/2014 01/04/2017 Photodermatitis 04/04/2014 01/04/2017 Calculus, tonsil 12/17/2013 01/04/2017 Tonsillitis 12/17/2013 01/04/2017 Irregular sleep-wake rhythm 10/23/201309/14 Last Assessment & Plan: She feels better on the effexor. Seen Dr Schaefer and who also is monitoring to see if any thing else needs to be done. documented as of this encounter (statuses as of 11/03/2022) [facility]03[facility] History of Past illness Narrative* Problem Noted Date Resolved Date Bacterial pneumonia 02/09/2022 05/12/2022 Hx of LASIK 09/16/2020 05/12/2022 LISA (acute kidney injury) 07/11/20202021 Acute non-recurrent maxillary sinusitis 01/30/20 19 05/12/2022 Nasal obstruction 12/27/2018 05/12/2022 Acute vaginitis 10/31/2018 05/12/2022 Abnormal urine odor 08/31/2017 05/12/2022 Vitreous floaters of both eyes 12/27/2016 0 01/04/2017 Dry eye syndrome 12/27/2016 01/04/2017 GERD (gastroesophageal reflux disease) 6 05/12/2022 Acute and chronic cholecystitis 05/13/2016 01/04/2017 Nausea and vomiting 04/22/2016 01/04/2017 Gastroesophageal reflux disease without esophagi tis 04/21/2016 04/21/2016 Weakness of both lower extremities 01/26/2016 01/04/2017 Bilateral low back pain with sciatica 01/26/2016 01/04/2017 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 Currently very tired , but stressed because she is moving as she has a lot of work to be done. Nasal septal deviation 01/22/2015 7 Last Assessment & Plan: Had a surgery, waiting for her a cpap machine. IBS (irritable bowel syndrome) 09/25/2014 0 05/12/2022 Last Assessment & Plan: Patient has irritable bowel. Currently is having occasional constipation and a lot of cramps that is worsening her hemorrhoids;she would like to be on something. i discussed with her that her anxiety is the cause for this. i asked her to use benefibre OTC and report to me if that helps. Hemorrhoids 09/25/2014 01/04/2017 Last Assessment & Plan: Has constipation from IBS, Asked her to take benefibre OTC, anusol for now. S/P LASIK (laser assisted in situ keratomileusis) of both eyes - Both Eyes 08/19/2014 01/04/2017 Acne vulgaris: Inflammatory Grade II to III 05/1401/04/2017 Milial cyst 05/22/2014 01/04/2017 Xerosis cutis 05/22/2014 01/04/2017 SUMMARY 04/20/2014 05/12/2022 Overview: Patient was on provigil in the past 2008 , adderal, etc for excessive day time sleepiness. She also was on xanax for anxiety Rosacea 04/04/2014 01/04/2017 Steroid acne 04/04/2014 01/04/2017 Flushing reaction 04/04/2014 01/04/2017 Photodermatitis 04/04/2014 01/04/2017 Calculus, tonsil 12/17/2013 01/04/2017 Tonsillitis 12/17/2013 01/04/2017 Irregular sleep-wake rhythm 10/23/201309/14 Last Assessment & Plan: She feels better on the effexor. Seen Dr Schaefer and who also is monitoring to see if any thing else needs to be done. documented as of this encounter (statuses as of 11/03/2022) [facility] History of Past illness Narrative* Problem Noted Date Resolved Date Bacterial pneumonia 02/09/2022 05/12/2022 Hx of LASIK 09/16/2020 05/12/2022 LISA (acute kidney injury) 07/11/20202021 Acute non-recurrent maxillary sinusitis 01/30/20 19 05/12/2022 Nasal obstruction 12/27/2018 05/12/2022 Acute vaginitis 10/31/2018 05/12/2022 Abnormal urine odor 08/31/2017 05/12/2022 Vitreous floaters of both eyes 12/27/2016 0 01/04/2017 Dry eye syndrome 12/27/2016 01/04/2017 GERD (gastroesophageal reflux disease) 6 05/12/2022 Acute and chronic cholecystitis 05/13/2016 01/04/2017 Nausea and vomiting 04/22/2016 01/04/2017 Gastroesophageal reflux disease without esophagi tis 04/21/2016 04/21/2016 Weakness of both lower extremities 01/26/2016 01/04/2017 Bilateral low back pain with sciatica 01/26/2016 01/04/2017 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 Currently very tired , but stressed because she is moving as she has a lot of work to be done. Nasal septal deviation 01/22/2015 7 Last Assessment & Plan: Had a surgery, waiting for her a cpap machine. IBS (irritable bowel syndrome) 09/25/2014 0 05/12/2022 Last Assessment & Plan: Patient has irritable bowel. Currently is having occasional constipation and a lot of cramps that is worsening her hemorrhoids;she would like to be on something. i discussed with her that her anxiety is the cause for this. i asked her to use benefibre OTC and report to me if that helps. Hemorrhoids 09/25/2014 01/04/2017 Last Assessment & Plan: Has constipation from IBS, Asked her to take benefibre OTC, anusol for now. S/P LASIK (laser assisted in situ keratomileusis) of both eyes - Both Eyes 08/19/2014 01/04/2017 Acne vulgaris: Inflammatory Grade II to III 05/1401/04/2017 Milial cyst 05/22/2014 01/04/2017 Xerosis cutis 05/22/2014 01/04/2017 SUMMARY 04/20/2014 05/12/2022 Overview: Patient was on provigil in the past 2008 , adderal, etc for excessive day time sleepiness. She also was on xanax for anxiety Rosacea 04/04/2014 01/04/2017 Steroid acne 04/04/2014 01/04/2017 Flushing reaction 04/04/2014 01/04/2017 Photodermatitis 04/04/2014 01/04/2017 Calculus, tonsil 12/17/2013 01/04/2017 Tonsillitis 12/17/2013 01/04/2017 Irregular sleep-wake rhythm 10/23/201309/14 Last Assessment & Plan: She feels better on the effexor. Seen Dr Schaefer and who also is monitoring to see if any thing else needs to be done. documented as of this encounter (statuses as of 11/04/2022) [facility] History of Past illness Narrative* Problem Noted Date Resolved Date Bacterial pneumonia 02/09/2022 05/12/2022 Hx of LASIK 09/16/2020 05/12/2022 LISA (acute kidney injury) 07/11/20202021 Acute non-recurrent maxillary sinusitis 01/30/20 19 05/12/2022 Nasal obstruction 12/27/2018 05/12/2022 Acute vaginitis 10/31/2018 05/12/2022 Abnormal urine odor 08/31/2017 05/12/2022 Vitreous floaters of both eyes 12/27/2016 0 01/04/2017 Dry eye syndrome 12/27/2016 01/04/2017 GERD (gastroesophageal reflux disease) 6 05/12/2022 Acute and chronic cholecystitis 05/13/2016 01/04/2017 Nausea and vomiting 04/22/2016 01/04/2017 Gastroesophageal reflux disease without esophagi tis 04/21/2016 04/21/2016 Weakness of both lower extremities 01/26/2016 01/04/2017 Bilateral low back pain with sciatica 01/26/2016 01/04/2017 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 Currently very tired , but stressed because she is moving as she has a lot of work to be done. Nasal septal deviation 01/22/2015 7 Last Assessment & Plan: Had a surgery, waiting for her a cpap machine. IBS (irritable bowel syndrome) 09/25/2014 0 05/12/2022 Last Assessment & Plan: Patient has irritable bowel. Currently is having occasional constipation and a lot of cramps that is worsening her hemorrhoids;she would like to be on something. i discussed with her that her anxiety is the cause for this. i asked her to use benefibre OTC and report to me if that helps. Hemorrhoids 09/25/2014 01/04/2017 Last Assessment & Plan: Has constipation from IBS, Asked her to take benefibre OTC, anusol for now. S/P LASIK (laser assisted in situ keratomileusis) of both eyes - Both Eyes 08/19/2014 01/04/2017 Acne vulgaris: Inflammatory Grade II to III 05/1401/04/2017 Milial cyst 05/22/2014 01/04/2017 Xerosis cutis 05/22/2014 01/04/2017 SUMMARY 04/20/2014 05/12/2022 Overview: Patient was on provigil in the past 2008 , adderal, etc for excessive day time sleepiness. She also was on xanax for anxiety Rosacea 04/04/2014 01/04/2017 Steroid acne 04/04/2014 01/04/2017 Flushing reaction 04/04/2014 01/04/2017 Photodermatitis 04/04/2014 01/04/2017 Calculus, tonsil 12/17/2013 01/04/2017 Tonsillitis 12/17/2013 01/04/2017 Irregular sleep-wake rhythm 10/23/201309/14 Last Assessment & Plan: She feels better on the effexor. Seen Dr Schaefer and who also is monitoring to see if any thing else needs to be done. documented as of this encounter (statuses as of 11/26/2022) [facility] History of Past illness Narrative* Problem Noted Date Resolved Date Bacterial pneumonia 02/09/2022 05/12/2022 Hx of LASIK 09/16/2020 05/12/2022 LISA (acute kidney injury) 07/11/20202021 Acute non-recurrent maxillary sinusitis 01/30/20 19 05/12/2022 Nasal obstruction 12/27/2018 05/12/2022 Acute vaginitis 10/31/2018 05/12/2022 Abnormal urine odor 08/31/2017 05/12/2022 Vitreous floaters of both eyes 12/27/2016 0 01/04/2017 Dry eye syndrome 12/27/2016 01/04/2017 GERD (gastroesophageal reflux disease) 6 05/12/2022 Acute and chronic cholecystitis 05/13/2016 01/04/2017 Nausea and vomiting 04/22/2016 01/04/2017 Gastroesophageal reflux disease without esophagi tis 04/21/2016 04/21/2016 Weakness of both lower extremities 01/26/2016 01/04/2017 Bilateral low back pain with sciatica 01/26/2016 01/04/2017 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 Currently very tired , but stressed because she is moving as she has a lot of work to be done. Nasal septal deviation 01/22/2015 7 Last Assessment & Plan: Had a surgery, waiting for her a cpap machine. IBS (irritable bowel syndrome) 09/25/2014 0 05/12/2022 Last Assessment & Plan: Patient has irritable bowel. Currently is having occasional constipation and a lot of cramps that is worsening her hemorrhoids;she would like to be on something. i discussed with her that her anxiety is the cause for this. i asked her to use benefibre OTC and report to me if that helps. Hemorrhoids 09/25/2014 01/04/2017 Last Assessment & Plan: Has constipation from IBS, Asked her to take benefibre OTC, anusol for now. S/P LASIK (laser assisted in situ keratomileusis) of both eyes - Both Eyes 08/19/2014 01/04/2017 Acne vulgaris: Inflammatory Grade II to III 05/1401/04/2017 Milial cyst 05/22/2014 01/04/2017 Xerosis cutis 05/22/2014 01/04/2017 SUMMARY 04/20/2014 05/12/2022 Overview: Patient was on provigil in the past 2008 , adderal, etc for excessive day time sleepiness. She also was on xanax for anxiety Rosacea 04/04/2014 01/04/2017 Steroid acne 04/04/2014 01/04/2017 Flushing reaction 04/04/2014 01/04/2017 Photodermatitis 04/04/2014 01/04/2017 Calculus, tonsil 12/17/2013 01/04/2017 Tonsillitis 12/17/2013 01/04/2017 Irregular sleep-wake rhythm 10/23/201309/14 Last Assessment & Plan: She feels better on the effexor. Seen Dr Schaefer and who also is monitoring to see if any thing else needs to be done. documented as of this encounter (statuses as of 11/29/2022) [facility]03-29-2022 History of Past illness Narrative* Problem Noted Date Resolved Date Bacterial pneumonia 02/09/2022 05/12/2022 Hx of LASIK 09/16/2020 05/12/2022 LISA (acute kidney injury) 07/11/20202021 Acute non-recurrent maxillary sinusitis 01/30/20 19 05/12/2022 Nasal obstruction 12/27/2018 05/12/2022 Acute vaginitis 10/31/2018 05/12/2022 Abnormal urine odor 08/31/2017 05/12/2022 Vitreous floaters of both eyes 12/27/2016 0 01/04/2017 Dry eye syndrome 12/27/2016 01/04/2017 GERD (gastroesophageal reflux disease) 6 05/12/2022 Acute and chronic cholecystitis 05/13/2016 01/04/2017 Nausea and vomiting 04/22/2016 01/04/2017 Gastroesophageal reflux disease without esophagi tis 04/21/2016 04/21/2016 Weakness of both lower extremities 01/26/2016 01/04/2017 Bilateral low back pain with sciatica 01/26/2016 01/04/2017 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 Currently very tired , but stressed because she is moving as she has a lot of work to be done. Nasal septal deviation 01/22/2015 7 Last Assessment & Plan: Had a surgery, waiting for her a cpap machine. IBS (irritable bowel syndrome) 09/25/2014 0 05/12/2022 Last Assessment & Plan: Patient has irritable bowel. Currently is having occasional constipation and a lot of cramps that is worsening her hemorrhoids;she would like to be on something. i discussed with her that her anxiety is the cause for this. i asked her to use benefibre OTC and report to me if that helps. Hemorrhoids 09/25/2014 01/04/2017 Last Assessment & Plan: Has constipation from IBS, Asked her to take benefibre OTC, anusol for now. S/P LASIK (laser assisted in situ keratomileusis) of both eyes - Both Eyes 08/19/2014 01/04/2017 Acne vulgaris: Inflammatory Grade II to III 05/1401/04/2017 Milial cyst 05/22/2014 01/04/2017 Xerosis cutis 05/22/2014 01/04/2017 SUMMARY 04/20/2014 05/12/2022 Overview: Patient was on provigil in the past 2008 , adderal, etc for excessive day time sleepiness. She also was on xanax for anxiety Rosacea 04/04/2014 01/04/2017 Steroid acne 04/04/2014 01/04/2017 Flushing reaction 04/04/2014 01/04/2017 Photodermatitis 04/04/2014 01/04/2017 Calculus, tonsil 12/17/2013 01/04/2017 Tonsillitis 12/17/2013 01/04/2017 Irregular sleep-wake rhythm 10/23/201309/14 Last Assessment & Plan: She feels better on the effexor. Seen Dr Schaefer and who also is monitoring to see if any thing else needs to be done. documented as of this encounter (statuses as of 11/30/2022) [facility]03-29-[facility]22 History of Past illness Narrative* Problem Noted Date Resolved Date Bacterial pneumonia 02/09/2022 05/12/2022 Hx of LASIK 09/16/2020 05/12/2022 LISA (acute kidney injury) 07/11/20202021 Acute non-recurrent maxillary sinusitis 01/30/20 19 05/12/2022 Nasal obstruction 12/27/2018 05/12/2022 Acute vaginitis 10/31/2018 05/12/2022 Abnormal urine odor 08/31/2017 05/12/2022 Vitreous floaters of both eyes 12/27/2016 0 01/04/2017 Dry eye syndrome 12/27/2016 01/04/2017 GERD (gastroesophageal reflux disease) 6 05/12/2022 Acute and chronic cholecystitis 05/13/2016 01/04/2017 Nausea and vomiting 04/22/2016 01/04/2017 Gastroesophageal reflux disease without esophagi tis 04/21/2016 04/21/2016 Weakness of both lower extremities 01/26/2016 01/04/2017 Bilateral low back pain with sciatica 01/26/2016 01/04/2017 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 Currently very tired , but stressed because she is moving as she has a lot of work to be done. Nasal septal deviation 01/22/2015 7 Last Assessment & Plan: Had a surgery, waiting for her a cpap machine. IBS (irritable bowel syndrome) 09/25/2014 0 05/12/2022 Last Assessment & Plan: Patient has irritable bowel. Currently is having occasional constipation and a lot of cramps that is worsening her hemorrhoids;she would like to be on something. i discussed with her that her anxiety is the cause for this. i asked her to use benefibre OTC and report to me if that helps. Hemorrhoids 09/25/2014 01/04/2017 Last Assessment & Plan: Has constipation from IBS, Asked her to take benefibre OTC, anusol for now. S/P LASIK (laser assisted in situ keratomileusis) of both eyes - Both Eyes 08/19/2014 01/04/2017 Acne vulgaris: Inflammatory Grade II to III 05/1401/04/2017 Milial cyst 05/22/2014 01/04/2017 SUMMARY 04/20/2014 05/12/2022 Overview: Patient was on provigil in the past 2008 , adderal, etc for excessive day time sleepiness. She also was on xanax for anxiety Rosacea 04/04/2014 01/04/2017 Steroid acne 04/04/2014 01/04/2017 Flushing reaction 04/04/2014 01/04/2017 Photodermatitis 04/04/2014 01/04/2017 Calculus, tonsil 12/17/2013 01/04/2017 Tonsillitis 12/17/2013 01/04/2017 Irregular sleep-wake rhythm 10/23/201309/14 Last Assessment & Plan: She feels better on the effexor. Seen Dr Schaefer and who also is monitoring to see if any thing else needs to be done. documented as of this encounter (statuses as of 01/07/2023) [facility]03-29-[facility]22 History of Past illness Narrative* Problem Noted Date Resolved Date Bacterial pneumonia 02/09/2022 05/12/2022 Hx of LASIK 09/16/2020 05/12/2022 LISA (acute kidney injury) 07/11/20202021 Acute non-recurrent maxillary sinusitis 01/30/20 19 05/12/2022 Nasal obstruction 12/27/2018 05/12/2022 Acute vaginitis 10/31/2018 05/12/2022 Abnormal urine odor 08/31/2017 05/12/2022 Vitreous floaters of both eyes 12/27/2016 0 01/04/2017 Dry eye syndrome 12/27/2016 01/04/2017 GERD (gastroesophageal reflux disease) 6 05/12/2022 Acute and chronic cholecystitis 05/13/2016 01/04/2017 Nausea and vomiting 04/22/2016 01/04/2017 Gastroesophageal reflux disease without esophagi tis 04/21/2016 04/21/2016 Weakness of both lower extremities 01/26/2016 01/04/2017 Bilateral low back pain with sciatica 01/26/2016 01/04/2017 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 Currently very tired , but stressed because she is moving as she has a lot of work to be done. Nasal septal deviation 01/22/2015 7 Last Assessment & Plan: Had a surgery, waiting for her a cpap machine. IBS (irritable bowel syndrome) 09/25/2014 0 05/12/2022 Last Assessment & Plan: Patient has irritable bowel. Currently is having occasional constipation and a lot of cramps that is worsening her hemorrhoids;she would like to be on something. i discussed with her that her anxiety is the cause for this. i asked her to use benefibre OTC and report to me if that helps. Hemorrhoids 09/25/2014 01/04/2017 Last Assessment & Plan: Has constipation from IBS, Asked her to take benefibre OTC, anusol for now. S/P LASIK (laser assisted in situ keratomileusis) of both eyes - Both Eyes 08/19/2014 01/04/2017 Acne vulgaris: Inflammatory Grade II to III 05/1401/04/2017 Milial cyst 05/22/2014 01/04/2017 SUMMARY 04/20/2014 05/12/2022 Overview: Patient was on provigil in the past 2008 , adderal, etc for excessive day time sleepiness. She also was on xanax for anxiety Rosacea 04/04/2014 01/04/2017 Steroid acne 04/04/2014 01/04/2017 Flushing reaction 04/04/2014 01/04/2017 Photodermatitis 04/04/2014 01/04/2017 Calculus, tonsil 12/17/2013 01/04/2017 Tonsillitis 12/17/2013 01/04/2017 Irregular sleep-wake rhythm 10/23/201309/14 Last Assessment & Plan: She feels better on the effexor. Seen Dr Schaefer and who also is monitoring to see if any thing else needs to be done. documented as of this encounter (statuses as of 01/11/2023) [facility]03-[facility]22 History of Past illness Narrative* Problem Noted Date Resolved Date Bacterial pneumonia 02/09/2022 05/12/2022 Hx of LASIK 09/16/2020 05/12/2022 LISA (acute kidney injury) 07/11/20202021 Acute non-recurrent maxillary sinusitis 01/30/20 19 05/12/2022 Nasal obstruction 12/27/2018 05/12/2022 Acute vaginitis 10/31/2018 05/12/2022 Abnormal urine odor 08/31/2017 05/12/2022 Vitreous floaters of both eyes 12/27/2016 0 01/04/2017 Dry eye syndrome 12/27/2016 01/04/2017 GERD (gastroesophageal reflux disease) 6 05/12/2022 Acute and chronic cholecystitis 05/13/2016 01/04/2017 Nausea and vomiting 04/22/2016 01/04/2017 Gastroesophageal reflux disease without esophagi tis 04/21/2016 04/21/2016 Weakness of both lower extremities 01/26/2016 01/04/2017 Bilateral low back pain with sciatica 01/26/2016 01/04/2017 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 Currently very tired , but stressed because she is moving as she has a lot of work to be done. Nasal septal deviation 01/22/2015 7 Last Assessment & Plan: Had a surgery, waiting for her a cpap machine. IBS (irritable bowel syndrome) 09/25/2014 0 05/12/2022 Last Assessment & Plan: Patient has irritable bowel. Currently is having occasional constipation and a lot of cramps that is worsening her hemorrhoids;she would like to be on something. i discussed with her that her anxiety is the cause for this. i asked her to use benefibre OTC and report to me if that helps. Hemorrhoids 09/25/2014 01/04/2017 Last Assessment & Plan: Has constipation from IBS, Asked her to take benefibre OTC, anusol for now. S/P LASIK (laser assisted in situ keratomileusis) of both eyes - Both Eyes 08/19/2014 01/04/2017 Acne vulgaris: Inflammatory Grade II to III 05/1401/04/2017 Milial cyst 05/22/2014 01/04/2017 SUMMARY 04/20/2014 05/12/2022 Overview: Patient was on provigil in the past 2008 , adderal, etc for excessive day time sleepiness. She also was on xanax for anxiety Rosacea 04/04/2014 01/04/2017 Steroid acne 04/04/2014 01/04/2017 Flushing reaction 04/04/2014 01/04/2017 Photodermatitis 04/04/2014 01/04/2017 Calculus, tonsil 12/17/2013 01/04/2017 Tonsillitis 12/17/2013 01/04/2017 Irregular sleep-wake rhythm 10/23/201309/14 Last Assessment & Plan: She feels better on the effexor. Seen Dr Schaefer and who also is monitoring to see if any thing else needs to be done. documented as of this encounter (statuses as of 01/31/2023) [facility]03-[facility]22 History of Past illness Narrative* Problem Noted Date Resolved Date Bacterial pneumonia 02/09/2022 05/12/2022 Hx of LASIK 09/16/2020 05/12/2022 LISA (acute kidney injury) 07/11/20202021 Acute non-recurrent maxillary sinusitis 01/30/20 19 05/12/2022 Nasal obstruction 12/27/2018 05/12/2022 Acute vaginitis 10/31/2018 05/12/2022 Abnormal urine odor 08/31/2017 05/12/2022 Vitreous floaters of both eyes 12/27/2016 0 01/04/2017 Dry eye syndrome 12/27/2016 01/04/2017 GERD (gastroesophageal reflux disease) 6 05/12/2022 Acute and chronic cholecystitis 05/13/2016 01/04/2017 Nausea and vomiting 04/22/2016 01/04/2017 Gastroesophageal reflux disease without esophagi tis 04/21/2016 04/21/2016 Weakness of both lower extremities 01/26/2016 01/04/2017 Bilateral low back pain with sciatica 01/26/2016 01/04/2017 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 Currently very tired , but stressed because she is moving as she has a lot of work to be done. Nasal septal deviation 01/22/2015 7 Last Assessment & Plan: Had a surgery, waiting for her a cpap machine. IBS (irritable bowel syndrome) 09/25/2014 0 05/12/2022 Last Assessment & Plan: Patient has irritable bowel. Currently is having occasional constipation and a lot of cramps that is worsening her hemorrhoids;she would like to be on something. i discussed with her that her anxiety is the cause for this. i asked her to use benefibre OTC and report to me if that helps. Hemorrhoids 09/25/2014 01/04/2017 Last Assessment & Plan: Has constipation from IBS, Asked her to take benefibre OTC, anusol for now. S/P LASIK (laser assisted in situ keratomileusis) of both eyes - Both Eyes 08/19/2014 01/04/2017 Acne vulgaris: Inflammatory Grade II to III 05/1401/04/2017 Milial cyst 05/22/2014 01/04/2017 SUMMARY 04/20/2014 05/12/2022 Overview: Patient was on provigil in the past 2008 , adderal, etc for excessive day time sleepiness. She also was on xanax for anxiety Rosacea 04/04/2014 01/04/2017 Steroid acne 04/04/2014 01/04/2017 Flushing reaction 04/04/2014 01/04/2017 Photodermatitis 04/04/2014 01/04/2017 Calculus, tonsil 12/17/2013 01/04/2017 Tonsillitis 12/17/2013 01/04/2017 Irregular sleep-wake rhythm 10/23/201309/14 Last Assessment & Plan: She feels better on the effexor. Seen Dr Schaefer and who also is monitoring to see if any thing else needs to be done. documented as of this encounter (statuses as of 02/16/2023) [facility]03-[facility] History of Past illness Narrative* Problem Noted Date Resolved Date Bacterial pneumonia 02/09/2022 05/12/2022 Hx of LASIK 09/16/2020 05/12/2022 LISA (acute kidney injury) 07/11/20202021 Acute non-recurrent maxillary sinusitis 01/30/20 19 05/12/2022 Nasal obstruction 12/27/2018 05/12/2022 Acute vaginitis 10/31/2018 05/12/2022 Abnormal urine odor 08/31/2017 05/12/2022 Vitreous floaters of both eyes 12/27/2016 0 01/04/2017 Dry eye syndrome 12/27/2016 01/04/2017 GERD (gastroesophageal reflux disease) 6 05/12/2022 Acute and chronic cholecystitis 05/13/2016 01/04/2017 Nausea and vomiting 04/22/2016 01/04/2017 Gastroesophageal reflux disease without esophagi tis 04/21/2016 04/21/2016 Weakness of both lower extremities 01/26/2016 01/04/2017 Bilateral low back pain with sciatica 01/26/2016 01/04/2017 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 Currently very tired , but stressed because she is moving as she has a lot of work to be done. Nasal septal deviation 01/22/2015 7 Last Assessment & Plan: Had a surgery, waiting for her a cpap machine. IBS (irritable bowel syndrome) 09/25/2014 0 05/12/2022 Last Assessment & Plan: Patient has irritable bowel. Currently is having occasional constipation and a lot of cramps that is worsening her hemorrhoids;she would like to be on something. i discussed with her that her anxiety is the cause for this. i asked her to use benefibre OTC and report to me if that helps. Hemorrhoids 09/25/2014 01/04/2017 Last Assessment & Plan: Has constipation from IBS, Asked her to take benefibre OTC, anusol for now. S/P LASIK (laser assisted in situ keratomileusis) of both eyes - Both Eyes 08/19/2014 01/04/2017 Acne vulgaris: Inflammatory Grade II to III 05/1401/04/2017 Milial cyst 05/22/2014 01/04/2017 SUMMARY 04/20/2014 05/12/2022 Overview: Patient was on provigil in the past 2008 , adderal, etc for excessive day time sleepiness. She also was on xanax for anxiety Rosacea 04/04/2014 01/04/2017 Steroid acne 04/04/2014 01/04/2017 Flushing reaction 04/04/2014 01/04/2017 Photodermatitis 04/04/2014 01/04/2017 Calculus, tonsil 12/17/2013 01/04/2017 Tonsillitis 12/17/2013 01/04/2017 Irregular sleep-wake rhythm 10/23/201309/14 Last Assessment & Plan: She feels better on the effexor. Seen Dr Schaefer and who also is monitoring to see if any thing else needs to be done. documented as of this encounter (statuses as of 03/07/2023) [facility] History of Past illness Narrative* Problem Noted Date Resolved Date Bacterial pneumonia 02/09/2022 05/12/2022 Hx of LASIK 09/16/2020 05/12/2022 LISA (acute kidney injury) 07/11/20202021 Acute non-recurrent maxillary sinusitis 01/30/20 19 05/12/2022 Nasal obstruction 12/27/2018 05/12/2022 Acute vaginitis 10/31/2018 05/12/2022 Abnormal urine odor 08/31/2017 05/12/2022 Vitreous floaters of both eyes 12/27/2016 0 01/04/2017 Dry eye syndrome 12/27/2016 01/04/2017 GERD (gastroesophageal reflux disease) 6 05/12/2022 Acute and chronic cholecystitis 05/13/2016 01/04/2017 Nausea and vomiting 04/22/2016 01/04/2017 Gastroesophageal reflux disease without esophagi tis 04/21/2016 04/21/2016 Weakness of both lower extremities 01/26/2016 01/04/2017 Bilateral low back pain with sciatica 01/26/2016 01/04/2017 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 Currently very tired , but stressed because she is moving as she has a lot of work to be done. Nasal septal deviation 01/22/2015 7 Last Assessment & Plan: Had a surgery, waiting for her a cpap machine. IBS (irritable bowel syndrome) 09/25/2014 0 05/12/2022 Last Assessment & Plan: Patient has irritable bowel. Currently is having occasional constipation and a lot of cramps that is worsening her hemorrhoids;she would like to be on something. i discussed with her that her anxiety is the cause for this. i asked her to use benefibre OTC and report to me if that helps. Hemorrhoids 09/25/2014 01/04/2017 Last Assessment & Plan: Has constipation from IBS, Asked her to take benefibre OTC, anusol for now. S/P LASIK (laser assisted in situ keratomileusis) of both eyes - Both Eyes 08/19/2014 01/04/2017 Acne vulgaris: Inflammatory Grade II to III 05/1401/04/2017 Milial cyst 05/22/2014 01/04/2017 SUMMARY 04/20/2014 05/12/2022 Overview: Patient was on provigil in the past 2008 , adderal, etc for excessive day time sleepiness. She also was on xanax for anxiety Rosacea 04/04/2014 01/04/2017 Steroid acne 04/04/2014 01/04/2017 Flushing reaction 04/04/2014 01/04/2017 Photodermatitis 04/04/2014 01/04/2017 Calculus, tonsil 12/17/2013 01/04/2017 Tonsillitis 12/17/2013 01/04/2017 Irregular sleep-wake rhythm 10/23/201309/14 Last Assessment & Plan: She feels better on the effexor. Seen Dr Schaefer and who also is monitoring to see if any thing else needs to be done. documented as of this encounter (statuses as of 03/08/2023) [facility] History of Past illness Narrative* Problem Noted Date Resolved Date Bacterial pneumonia 02/09/2022 05/12/2022 Hx of LASIK 09/16/2020 05/12/2022 LISA (acute kidney injury) 07/11/20202021 Acute non-recurrent maxillary sinusitis 01/30/20 19 05/12/2022 Nasal obstruction 12/27/2018 05/12/2022 Acute vaginitis 10/31/2018 05/12/2022 Abnormal urine odor 08/31/2017 05/12/2022 Vitreous floaters of both eyes 12/27/2016 0 01/04/2017 Dry eye syndrome 12/27/2016 01/04/2017 GERD (gastroesophageal reflux disease) 6 05/12/2022 Acute and chronic cholecystitis 05/13/2016 01/04/2017 Nausea and vomiting 04/22/2016 01/04/2017 Gastroesophageal reflux disease without esophagi tis 04/21/2016 04/21/2016 Weakness of both lower extremities 01/26/2016 01/04/2017 Bilateral low back pain with sciatica 01/26/2016 01/04/2017 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 Currently very tired , but stressed because she is moving as she has a lot of work to be done. Nasal septal deviation 01/22/2015 7 Last Assessment & Plan: Had a surgery, waiting for her a cpap machine. IBS (irritable bowel syndrome) 09/25/2014 0 05/12/2022 Last Assessment & Plan: Patient has irritable bowel. Currently is having occasional constipation and a lot of cramps that is worsening her hemorrhoids;she would like to be on something. i discussed with her that her anxiety is the cause for this. i asked her to use benefibre OTC and report to me if that helps. Hemorrhoids 09/25/2014 01/04/2017 Last Assessment & Plan: Has constipation from IBS, Asked her to take benefibre OTC, anusol for now. S/P LASIK (laser assisted in situ keratomileusis) of both eyes - Both Eyes 08/19/2014 01/04/2017 Acne vulgaris: Inflammatory Grade II to III 05/1401/04/2017 Milial cyst 05/22/2014 01/04/2017 SUMMARY 04/20/2014 05/12/2022 Overview: Patient was on provigil in the past 2008 , adderal, etc for excessive day time sleepiness. She also was on xanax for anxiety Rosacea 04/04/2014 01/04/2017 Steroid acne 04/04/2014 01/04/2017 Flushing reaction 04/04/2014 01/04/2017 Photodermatitis 04/04/2014 01/04/2017 Calculus, tonsil 12/17/2013 01/04/2017 Tonsillitis 12/17/2013 01/04/2017 Irregular sleep-wake rhythm 10/23/201309/14 Last Assessment & Plan: She feels better on the effexor. Seen Dr Schaefer and who also is monitoring to see if any thing else needs to be done. documented as of this encounter (statuses as of 03/15/2023) [facility] History of Past illness Narrative* Problem Noted Date Resolved Date Bacterial pneumonia 02/09/2022 05/12/2022 Hx of LASIK 09/16/2020 05/12/2022 LISA (acute kidney injury) 07/11/20202021 Acute non-recurrent maxillary sinusitis 01/30/20 19 05/12/2022 Nasal obstruction 12/27/2018 05/12/2022 Acute vaginitis 10/31/2018 05/12/2022 Abnormal urine odor 08/31/2017 05/12/2022 Vitreous floaters of both eyes 12/27/2016 0 01/04/2017 Dry eye syndrome 12/27/2016 01/04/2017 GERD (gastroesophageal reflux disease) 6 05/12/2022 Acute and chronic cholecystitis 05/13/2016 01/04/2017 Nausea and vomiting 04/22/2016 01/04/2017 Gastroesophageal reflux disease without esophagi tis 04/21/2016 04/21/2016 Weakness of both lower extremities 01/26/2016 01/04/2017 Bilateral low back pain with sciatica 01/26/2016 01/04/2017 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 Currently very tired , but stressed because she is moving as she has a lot of work to be done. Nasal septal deviation 01/22/2015 7 Last Assessment & Plan: Had a surgery, waiting for her a cpap machine. IBS (irritable bowel syndrome) 09/25/2014 0 05/12/2022 Last Assessment & Plan: Patient has irritable bowel. Currently is having occasional constipation and a lot of cramps that is worsening her hemorrhoids;she would like to be on something. i discussed with her that her anxiety is the cause for this. i asked her to use benefibre OTC and report to me if that helps. Hemorrhoids 09/25/2014 01/04/2017 Last Assessment & Plan: Has constipation from IBS, Asked her to take benefibre OTC, anusol for now. S/P LASIK (laser assisted in situ keratomileusis) of both eyes - Both Eyes 08/19/2014 01/04/2017 Acne vulgaris: Inflammatory Grade II to III 05/1401/04/2017 Milial cyst 05/22/2014 01/04/2017 SUMMARY 04/20/2014 05/12/2022 Overview: Patient was on provigil in the past 2008 , adderal, etc for excessive day time sleepiness. She also was on xanax for anxiety Rosacea 04/04/2014 01/04/2017 Steroid acne 04/04/2014 01/04/2017 Flushing reaction 04/04/2014 01/04/2017 Photodermatitis 04/04/2014 01/04/2017 Calculus, tonsil 12/17/2013 01/04/2017 Tonsillitis 12/17/2013 01/04/2017 Irregular sleep-wake rhythm 10/23/201309/14 Last Assessment & Plan: She feels better on the effexor. Seen Dr Schaefer and who also is monitoring to see if any thing else needs to be done. documented as of this encounter (statuses as of 04/21/2023) [facility]03-29-2022 History of Past illness Narrative* Problem Noted Date Resolved Date Bacterial pneumonia 02/09/2022 05/12/2022 Hx of LASIK 09/16/2020 05/12/2022 LISA (acute kidney injury) 07/11/20202021 Acute non-recurrent maxillary sinusitis 01/30/20 19 05/12/2022 Nasal obstruction 12/27/2018 05/12/2022 Acute vaginitis 10/31/2018 05/12/2022 Abnormal urine odor 08/31/2017 05/12/2022 Vitreous floaters of both eyes 12/27/2016 0 01/04/2017 Dry eye syndrome 12/27/2016 01/04/2017 GERD (gastroesophageal reflux disease) 6 05/12/2022 Acute and chronic cholecystitis 05/13/2016 01/04/2017 Nausea and vomiting 04/22/2016 01/04/2017 Gastroesophageal reflux disease without esophagi tis 04/21/2016 04/21/2016 Weakness of both lower extremities 01/26/2016 01/04/2017 Bilateral low back pain with sciatica 01/26/2016 01/04/2017 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 Currently very tired , but stressed because she is moving as she has a lot of work to be done. Nasal septal deviation 01/22/2015 7 Last Assessment & Plan: Had a surgery, waiting for her a cpap machine. IBS (irritable bowel syndrome) 09/25/2014 0 05/12/2022 Last Assessment & Plan: Patient has irritable bowel. Currently is having occasional constipation and a lot of cramps that is worsening her hemorrhoids;she would like to be on something. i discussed with her that her anxiety is the cause for this. i asked her to use benefibre OTC and report to me if that helps. Hemorrhoids 09/25/2014 01/04/2017 Last Assessment & Plan: Has constipation from IBS, Asked her to take benefibre OTC, anusol for now. S/P LASIK (laser assisted in situ keratomileusis) of both eyes - Both Eyes 08/19/2014 01/04/2017 Acne vulgaris: Inflammatory Grade II to III 05/1401/04/2017 Milial cyst 05/22/2014 01/04/2017 SUMMARY 04/20/2014 05/12/2022 Overview: Patient was on provigil in the past 2008 , adderal, etc for excessive day time sleepiness. She also was on xanax for anxiety Rosacea 04/04/2014 01/04/2017 Steroid acne 04/04/2014 01/04/2017 Flushing reaction 04/04/2014 01/04/2017 Photodermatitis 04/04/2014 01/04/2017 Calculus, tonsil 12/17/2013 01/04/2017 Tonsillitis 12/17/2013 01/04/2017 Irregular sleep-wake rhythm 10/23/201309/14 Last Assessment & Plan: She feels better on the effexor. Seen Dr Schaefer and who also is monitoring to see if any thing else needs to be done. documented as of this encounter (statuses as of 05/02/2023) [facility]03-[facility] History of Past illness Narrative* Problem Noted Date Resolved Date Bacterial pneumonia 02/09/2022 05/12/2022 Hx of LASIK 09/16/2020 05/12/2022 LISA (acute kidney injury) 07/11/20202021 Acute non-recurrent maxillary sinusitis 01/30/20 19 05/12/2022 Nasal obstruction 12/27/2018 05/12/2022 Acute vaginitis 10/31/2018 05/12/2022 Abnormal urine odor 08/31/2017 05/12/2022 Vitreous floaters of both eyes 12/27/2016 0 01/04/2017 Dry eye syndrome 12/27/2016 01/04/2017 GERD (gastroesophageal reflux disease) 6 05/12/2022 Acute and chronic cholecystitis 05/13/2016 01/04/2017 Nausea and vomiting 04/22/2016 01/04/2017 Gastroesophageal reflux disease without esophagi tis 04/21/2016 04/21/2016 Weakness of both lower extremities 01/26/2016 01/04/2017 Bilateral low back pain with sciatica 01/26/2016 01/04/2017 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 Currently very tired , but stressed because she is moving as she has a lot of work to be done. Nasal septal deviation 01/22/2015 7 Last Assessment & Plan: Had a surgery, waiting for her a cpap machine. IBS (irritable bowel syndrome) 09/25/2014 0 05/12/2022 Last Assessment & Plan: Patient has irritable bowel. Currently is having occasional constipation and a lot of cramps that is worsening her hemorrhoids;she would like to be on something. i discussed with her that her anxiety is the cause for this. i asked her to use benefibre OTC and report to me if that helps. Hemorrhoids 09/25/2014 01/04/2017 Last Assessment & Plan: Has constipation from IBS, Asked her to take benefibre OTC, anusol for now. S/P LASIK (laser assisted in situ keratomileusis) of both eyes - Both Eyes 08/19/2014 01/04/2017 Acne vulgaris: Inflammatory Grade II to III 05/1401/04/2017 Milial cyst 05/22/2014 01/04/2017 SUMMARY 04/20/2014 05/12/2022 Overview: Patient was on provigil in the past 2008 , adderal, etc for excessive day time sleepiness. She also was on xanax for anxiety Rosacea 04/04/2014 01/04/2017 Steroid acne 04/04/2014 01/04/2017 Flushing reaction 04/04/2014 01/04/2017 Photodermatitis 04/04/2014 01/04/2017 Calculus, tonsil 12/17/2013 01/04/2017 Tonsillitis 12/17/2013 01/04/2017 Irregular sleep-wake rhythm 10/23/201309/14 Last Assessment & Plan: She feels better on the effexor. Seen Dr Schaefer and who also is monitoring to see if any thing else needs to be done. documented as of this encounter (statuses as of 05/10/2023) [facility]03-[facility] History of Past illness Narrative* Problem Noted Date Diagnosed Date Resolved Date Bacterial pneumonia 02/09/2022 05/12/20 22 Hx of LASIK 09/16/2020 05/12/2022 LISA (acute kidney injury) 07/11/2020 Acute non-recurrent maxillary sinusitis 01/29/2019 05/12/2022 Nasal obstruction 12/27/2018 05/12/2022 Acute vaginitis 10/31/2018 05/12/2022 Abnormal urine odor 08/31/2017 05/12/20 22 Vitreous floaters of both eyes 12/27/2016 01/04/2017 Dry eye syndrome 12/27/2016 01/04/2017 GERD (gastroesophageal reflux disease) 06/17/2016 05/12/2022 Acute and chronic cholecystitis 05/13/2016 01/04/2017 Nausea and vomiting 04/22/2016 01/04/20 17 Gastroesophageal reflux dise ase without esophagitis 04/21/2016 04/21/2016 Weakness of both lower extremities 01/26/2016 01/04/2017 Bilateral low back pain with sciatica 01/26/2016 01/04/2017 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 Currently very tired , but stressed because she is moving as she has a lot of work to be done. Nasal septal deviation 01/22/201501/04 Last Assessment & Plan: Had a surgery, waiting for her a cpap machine. IBS (irritable bowel syndrome) 09/25/2014 05/12/2022 Last Assessment & Plan: Patient has irritable bowel. Currently is having occasional constipation and a lot of cramps that is worsening her hemorrhoids;she would like to be on something. i discussed with her that her anxiety is the cause for this. i asked her to use benefibre OTC and report to me if that helps. Hemorrhoids 09/25/2014 01/04/2017 Last Assessment & Plan: Has constipation from IBS, Asked her to take benefibre OTC, anusol for now. S/P LASIK (laser assisted in situ keratomileusis) of both eyes - Both Eyes 08/19/2014 01/04/2017 Acne vulgaris: Inflammatory Grade II to III 05/25/2014 01/04/2017 Milial cyst 05/22/2014 01/04/2017 SUMMARY 04/20/2014 05/12/2022 Overview: Patient was on provigil in the past 2008 , adderal, etc for excessive day time sleepiness. She also was on xanax for anxiety Rosacea 04/04/2014 01/04/2017 Steroid acne 04/04/2014 01/04/2017 Flushing reaction 04/04/2014 01/04/2017 Photodermatitis 04/04/2014 01/04/2017 Calculus, tonsil 12/17/2013 01/04/2017 Tonsillitis 12/17/2013 01/04/2017 Irregular sleep-wake rhythm 10/23/2013 09/25/2014 Last Assessment & Plan: She feels better on the effexor. Seen Dr Schaefer and who also is monitoring to see if any thing else needs to be done. documented as of this encounter (statuses as of 06/21/2023) [facility]03-[facility]22 History of Past illness Narrative* Problem Noted Date Diagnosed Date Resolved Date Bacterial pneumonia 02/09/2022 05/12/20 Hx of LASIK 09/16/2020 05/12/2022 LISA (acute kidney injury) 07/11/2020 Acute non-recurrent maxillary sinusitis 01/29/2019 05/12/2022 Nasal obstruction 12/27/2018 05/12/2022 Acute vaginitis 10/31/2018 05/12/2022 Abnormal urine odor 08/31/2017 05/12/20 22 Vitreous floaters of both eyes 12/27/2016 01/04/2017 Dry eye syndrome 12/27/2016 01/04/2017 GERD (gastroesophageal reflux disease) 06/17/2016 05/12/2022 Acute and chronic cholecystitis 05/13/2016 01/04/2017 Nausea and vomiting 04/22/2016 01/04/20 17 Gastroesophageal reflux dise ase without esophagitis 04/21/2016 04/21/2016 Weakness of both lower extremities 01/26/2016 01/04/2017 Bilateral low back pain with sciatica 01/26/2016 01/04/2017 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 Currently very tired , but stressed because she is moving as she has a lot of work to be done. Nasal septal deviation 01/22/201501/04 Last Assessment & Plan: Had a surgery, waiting for her a cpap machine. IBS (irritable bowel syndrome) 09/25/2014 05/12/2022 Last Assessment & Plan: Patient has irritable bowel. Currently is having occasional constipation and a lot of cramps that is worsening her hemorrhoids;she would like to be on something. i discussed with her that her anxiety is the cause for this. i asked her to use benefibre OTC and report to me if that helps. Hemorrhoids 09/25/2014 01/04/2017 Last Assessment & Plan: Has constipation from IBS, Asked her to take benefibre OTC, anusol for now. S/P LASIK (laser assisted in situ keratomileusis) of both eyes - Both Eyes 08/19/2014 01/04/2017 Acne vulgaris: Inflammatory Grade II to III 05/25/2014 01/04/2017 Milial cyst 05/22/2014 01/04/2017 SUMMARY 04/20/2014 05/12/2022 Overview: Patient was on provigil in the past 2008 , adderal, etc for excessive day time sleepiness. She also was on xanax for anxiety Rosacea 04/04/2014 01/04/2017 Steroid acne 04/04/2014 01/04/2017 Flushing reaction 04/04/2014 01/04/2017 Photodermatitis 04/04/2014 01/04/2017 Calculus, tonsil 12/17/2013 01/04/2017 Tonsillitis 12/17/2013 01/04/2017 Irregular sleep-wake rhythm 10/23/2013 09/25/2014 Last Assessment & Plan: She feels better on the effexor. Seen Dr Schaefer and who also is monitoring to see if any thing else needs to be done. documented as of this encounter (statuses as of 07/12/2023) [facility]03[facility] History of Past illness Narrative* Problem Noted Date Diagnosed Date Resolved Date Bacterial pneumonia 02/09/2022 05/12/20 22 Hx of LASIK 09/16/2020 05/12/2022 LISA (acute kidney injury) 07/11/2020 Acute non-recurrent maxillary sinusitis 01/29/2019 05/12/2022 Nasal obstruction 12/27/2018 05/12/2022 Acute vaginitis 10/31/2018 05/12/2022 Abnormal urine odor 08/31/2017 05/12/20 22 Vitreous floaters of both eyes 12/27/2016 01/04/2017 Dry eye syndrome 12/27/2016 01/04/2017 GERD (gastroesophageal reflux disease) 06/17/2016 05/12/2022 Acute and chronic cholecystitis 05/13/2016 01/04/2017 Nausea and vomiting 04/22/2016 01/04/20 17 Gastroesophageal reflux dise ase without esophagitis 04/21/2016 04/21/2016 Weakness of both lower extremities 01/26/2016 01/04/2017 Bilateral low back pain with sciatica 01/26/2016 01/04/2017 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 Currently very tired , but stressed because she is moving as she has a lot of work to be done. Nasal septal deviation 01/22/201501/04 Last Assessment & Plan: Had a surgery, waiting for her a cpap machine. IBS (irritable bowel syndrome) 09/25/2014 05/12/2022 Last Assessment & Plan: Patient has irritable bowel. Currently is having occasional constipation and a lot of cramps that is worsening her hemorrhoids;she would like to be on something. i discussed with her that her anxiety is the cause for this. i asked her to use benefibre OTC and report to me if that helps. Hemorrhoids 09/25/2014 01/04/2017 Last Assessment & Plan: Has constipation from IBS, Asked her to take benefibre OTC, anusol for now. Acne vulgaris: Inflammatory Grade II to III 05/25/2014 01/04/2017 Milial cyst 05/22/2014 01/04/2017 SUMMARY 04/20/2014 05/12/2022 Overview: Patient was on provigil in the past 2008 , adderal, etc for excessive day time sleepiness. She also was on xanax for anxiety Steroid acne 04/04/2014 01/04/2017 Flushing reaction 04/04/2014 01/04/2017 Photodermatitis 04/04/2014 01/04/2017 Calculus, tonsil 12/17/2013 01/04/2017 Tonsillitis 12/17/2013 01/04/2017 Irregular sleep-wake rhythm 10/23/2013 09/25/2014 Last Assessment & Plan: She feels better on the effexor. Seen Dr Schaefer and who also is monitoring to see if any thing else needs to be done. documented as of this encounter (statuses as of 08/02/2023) [facility]03-[facility] History of Past illness Narrative* Problem Noted Date Diagnosed Date Resolved Date Bacterial pneumonia 02/09/2022 05/12/20 22 Hx of LASIK 09/16/2020 05/12/2022 LISA (acute kidney injury) 07/11/2020 Acute non-recurrent maxillary sinusitis 01/29/2019 05/12/2022 Nasal obstruction 12/27/2018 05/12/2022 Acute vaginitis 10/31/2018 05/12/2022 Abnormal urine odor 08/31/2017 05/12/20 22 Vitreous floaters of both eyes 12/27/2016 01/04/2017 Dry eye syndrome 12/27/2016 01/04/2017 GERD (gastroesophageal reflux disease) 06/17/2016 05/12/2022 Acute and chronic cholecystitis 05/13/2016 01/04/2017 Nausea and vomiting 04/22/2016 01/04/20 17 Gastroesophageal reflux dise ase without esophagitis 04/21/2016 04/21/2016 Weakness of both lower extremities 01/26/2016 01/04/2017 Bilateral low back pain with sciatica 01/26/2016 01/04/2017 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 Currently very tired , but stressed because she is moving as she has a lot of work to be done. Nasal septal deviation 01/22/201501/04 Last Assessment & Plan: Had a surgery, waiting for her a cpap machine. IBS (irritable bowel syndrome) 09/25/2014 05/12/2022 Last Assessment & Plan: Patient has irritable bowel. Currently is having occasional constipation and a lot of cramps that is worsening her hemorrhoids;she would like to be on something. i discussed with her that her anxiety is the cause for this. i asked her to use benefibre OTC and report to me if that helps. Hemorrhoids 09/25/2014 01/04/2017 Last Assessment & Plan: Has constipation from IBS, Asked her to take benefibre OTC, anusol for now. Acne vulgaris: Inflammatory Grade II to III 05/25/2014 01/04/2017 Milial cyst 05/22/2014 01/04/2017 SUMMARY 04/20/2014 05/12/2022 Overview: Patient was on provigil in the past 2008 , adderal, etc for excessive day time sleepiness. She also was on xanax for anxiety Steroid acne 04/04/2014 01/04/2017 Flushing reaction 04/04/2014 01/04/2017 Photodermatitis 04/04/2014 01/04/2017 Calculus, tonsil 12/17/2013 01/04/2017 Tonsillitis 12/17/2013 01/04/2017 Irregular sleep-wake rhythm 10/23/2013 09/25/2014 Last Assessment & Plan: She feels better on the effexor. Seen Dr Schaefer and who also is monitoring to see if any thing else needs to be done. documented as of this encounter (statuses as of 08/03/2023) [facility] History of Past illness Narrative* Problem Noted Date Diagnosed Date Resolved Date Bacterial pneumonia 02/09/2022 05/12/20 22 Hx of LASIK 09/16/2020 05/12/2022 LISA (acute kidney injury) 07/11/2020 Acute non-recurrent maxillary sinusitis 01/29/2019 05/12/2022 Nasal obstruction 12/27/2018 05/12/2022 Acute vaginitis 10/31/2018 05/12/2022 Abnormal urine odor 08/31/2017 05/12/20 22 Vitreous floaters of both eyes 12/27/2016 01/04/2017 Dry eye syndrome 12/27/2016 01/04/2017 GERD (gastroesophageal reflux disease) 06/17/2016 05/12/2022 Acute and chronic cholecystitis 05/13/2016 01/04/2017 Nausea and vomiting 04/22/2016 01/04/20 17 Gastroesophageal reflux dise ase without esophagitis 04/21/2016 04/21/2016 Weakness of both lower extremities 01/26/2016 01/04/2017 Bilateral low back pain with sciatica 01/26/2016 01/04/2017 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 Currently very tired , but stressed because she is moving as she has a lot of work to be done. Nasal septal deviation 01/22/201501/04 Last Assessment & Plan: Had a surgery, waiting for her a cpap machine. IBS (irritable bowel syndrome) 09/25/2014 05/12/2022 Last Assessment & Plan: Patient has irritable bowel. Currently is having occasional constipation and a lot of cramps that is worsening her hemorrhoids;she would like to be on something. i discussed with her that her anxiety is the cause for this. i asked her to use benefibre OTC and report to me if that helps. Hemorrhoids 09/25/2014 01/04/2017 Last Assessment & Plan: Has constipation from IBS, Asked her to take benefibre OTC, anusol for now. Acne vulgaris: Inflammatory Grade II to III 05/25/2014 01/04/2017 Milial cyst 05/22/2014 01/04/2017 SUMMARY 04/20/2014 05/12/2022 Overview: Patient was on provigil in the past 2008 , adderal, etc for excessive day time sleepiness. She also was on xanax for anxiety Steroid acne 04/04/2014 01/04/2017 Flushing reaction 04/04/2014 01/04/2017 Photodermatitis 04/04/2014 01/04/2017 Calculus, tonsil 12/17/2013 01/04/2017 Tonsillitis 12/17/2013 01/04/2017 Irregular sleep-wake rhythm 10/23/2013 09/25/2014 Last Assessment & Plan: She feels better on the effexor. Seen Dr Schaefer and who also is monitoring to see if any thing else needs to be done. documented as of this encounter (statuses as of 08/03/2023) [facility] History of Past illness Narrative* Problem Noted Date Diagnosed Date Resolved Date Bacterial pneumonia 02/09/2022 05/12/20 22 Hx of LASIK 09/16/2020 05/12/2022 LISA (acute kidney injury) 07/11/2020 Acute non-recurrent maxillary sinusitis 01/29/2019 05/12/2022 Nasal obstruction 12/27/2018 05/12/2022 Acute vaginitis 10/31/2018 05/12/2022 Abnormal urine odor 08/31/2017 05/12/20 22 Vitreous floaters of both eyes 12/27/2016 01/04/2017 Dry eye syndrome 12/27/2016 01/04/2017 GERD (gastroesophageal reflux disease) 06/17/2016 05/12/2022 Acute and chronic cholecystitis 05/13/2016 01/04/2017 Nausea and vomiting 04/22/2016 01/04/20 17 Gastroesophageal reflux dise ase without esophagitis 04/21/2016 04/21/2016 Weakness of both lower extremities 01/26/2016 01/04/2017 Bilateral low back pain with sciatica 01/26/2016 01/04/2017 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 Currently very tired , but stressed because she is moving as she has a lot of work to be done. Nasal septal deviation 01/22/201501/04 Last Assessment & Plan: Had a surgery, waiting for her a cpap machine. IBS (irritable bowel syndrome) 09/25/2014 05/12/2022 Last Assessment & Plan: Patient has irritable bowel. Currently is having occasional constipation and a lot of cramps that is worsening her hemorrhoids;she would like to be on something. i discussed with her that her anxiety is the cause for this. i asked her to use benefibre OTC and report to me if that helps. Hemorrhoids 09/25/2014 01/04/2017 Last Assessment & Plan: Has constipation from IBS, Asked her to take benefibre OTC, anusol for now. Acne vulgaris: Inflammatory Grade II to III 05/25/2014 01/04/2017 Milial cyst 05/22/2014 01/04/2017 SUMMARY 04/20/2014 05/12/2022 Overview: Patient was on provigil in the past 2008 , adderal, etc for excessive day time sleepiness. She also was on xanax for anxiety Steroid acne 04/04/2014 01/04/2017 Flushing reaction 04/04/2014 01/04/2017 Photodermatitis 04/04/2014 01/04/2017 Calculus, tonsil 12/17/2013 01/04/2017 Tonsillitis 12/17/2013 01/04/2017 Irregular sleep-wake rhythm 10/23/2013 09/25/2014 Last Assessment & Plan: She feels better on the effexor. Seen Dr Schaefer and who also is monitoring to see if any thing else needs to be done. documented as of this encounter (statuses as of 08/13/2023) [facility] History of Past illness Narrative* Problem Noted Date Diagnosed Date Resolved Date Bacterial pneumonia 02/09/2022 05/12/20 22 Hx of LASIK 09/16/2020 05/12/2022 LISA (acute kidney injury) 07/11/2020 Acute non-recurrent maxillary sinusitis 01/29/2019 05/12/2022 Nasal obstruction 12/27/2018 05/12/2022 Acute vaginitis 10/31/2018 05/12/2022 Abnormal urine odor 08/31/2017 05/12/20 22 Vitreous floaters of both eyes 12/27/2016 01/04/2017 Dry eye syndrome 12/27/2016 01/04/2017 GERD (gastroesophageal reflux disease) 06/17/2016 05/12/2022 Acute and chronic cholecystitis 05/13/2016 01/04/2017 Nausea and vomiting 04/22/2016 01/04/20 17 Gastroesophageal reflux dise ase without esophagitis 04/21/2016 04/21/2016 Weakness of both lower extremities 01/26/2016 01/04/2017 Bilateral low back pain with sciatica 01/26/2016 01/04/2017 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 Currently very tired , but stressed because she is moving as she has a lot of work to be done. Nasal septal deviation 01/22/201501/04 Last Assessment & Plan: Had a surgery, waiting for her a cpap machine. IBS (irritable bowel syndrome) 09/25/2014 05/12/2022 Last Assessment & Plan: Patient has irritable bowel. Currently is having occasional constipation and a lot of cramps that is worsening her hemorrhoids;she would like to be on something. i discussed with her that her anxiety is the cause for this. i asked her to use benefibre OTC and report to me if that helps. Hemorrhoids 09/25/2014 01/04/2017 Last Assessment & Plan: Has constipation from IBS, Asked her to take benefibre OTC, anusol for now. Acne vulgaris: Inflammatory Grade II to III 05/25/2014 01/04/2017 Milial cyst 05/22/2014 01/04/2017 SUMMARY 04/20/2014 05/12/2022 Overview: Patient was on provigil in the past 2008 , adderal, etc for excessive day time sleepiness. She also was on xanax for anxiety Steroid acne 04/04/2014 01/04/2017 Flushing reaction 04/04/2014 01/04/2017 Photodermatitis 04/04/2014 01/04/2017 Calculus, tonsil 12/17/2013 01/04/2017 Tonsillitis 12/17/2013 01/04/2017 Irregular sleep-wake rhythm 10/23/2013 09/25/2014 Last Assessment & Plan: She feels better on the effexor. Seen Dr Schaefer and who also is monitoring to see if any thing else needs to be done. documented as of this encounter (statuses as of 09/15/2023) [facility]03-29-2022 History of Past illness Narrative* Problem Noted Date Diagnosed Date Resolved Date Bacterial pneumonia 02/09/2022 05/12/20 22 Hx of LASIK 09/16/2020 05/12/2022 LISA (acute kidney injury) 07/11/2020 Acute non-recurrent maxillary sinusitis 01/29/2019 05/12/2022 Nasal obstruction 12/27/2018 05/12/2022 Acute vaginitis 10/31/2018 05/12/2022 Abnormal urine odor 08/31/2017 05/12/20 22 Vitreous floaters of both eyes 12/27/2016 01/04/2017 Dry eye syndrome 12/27/2016 01/04/2017 GERD (gastroesophageal reflux disease) 06/17/2016 05/12/2022 Acute and chronic cholecystitis 05/13/2016 01/04/2017 Nausea and vomiting 04/22/2016 01/04/20 17 Gastroesophageal reflux dise ase without esophagitis 04/21/2016 04/21/2016 Weakness of both lower extremities 01/26/2016 01/04/2017 Bilateral low back pain with sciatica 01/26/2016 01/04/2017 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 Currently very tired , but stressed because she is moving as she has a lot of work to be done. Nasal septal deviation 01/22/201501/04 Last Assessment & Plan: Had a surgery, waiting for her a cpap machine. IBS (irritable bowel syndrome) 09/25/2014 05/12/2022 Last Assessment & Plan: Patient has irritable bowel. Currently is having occasional constipation and a lot of cramps that is worsening her hemorrhoids;she would like to be on something. i discussed with her that her anxiety is the cause for this. i asked her to use benefibre OTC and report to me if that helps. Hemorrhoids 09/25/2014 01/04/2017 Last Assessment & Plan: Has constipation from IBS, Asked her to take benefibre OTC, anusol for now. Acne vulgaris: Inflammatory Grade II to III 05/25/2014 01/04/2017 Milial cyst 05/22/2014 01/04/2017 SUMMARY 04/20/2014 05/12/2022 Overview: Patient was on provigil in the past 2008 , adderal, etc for excessive day time sleepiness. She also was on xanax for anxiety Steroid acne 04/04/2014 01/04/2017 Flushing reaction 04/04/2014 01/04/2017 Photodermatitis 04/04/2014 01/04/2017 Calculus, tonsil 12/17/2013 01/04/2017 Tonsillitis 12/17/2013 01/04/2017 Irregular sleep-wake rhythm 10/23/2013 09/25/2014 Last Assessment & Plan: She feels better on the effexor. Seen Dr Schaefer and who also is monitoring to see if any thing else needs to be done. documented as of this encounter (statuses as of 09/15/2023) [facility]03-29-[facility]22 History of Past illness Narrative* Problem Noted Date Diagnosed Date Resolved Date Bacterial pneumonia 02/09/2022 05/12/20 22 Hx of LASIK 09/16/2020 05/12/2022 LISA (acute kidney injury) 07/11/2020 Acute non-recurrent maxillary sinusitis 01/29/2019 05/12/2022 Nasal obstruction 12/27/2018 05/12/2022 Acute vaginitis 10/31/2018 05/12/2022 Abnormal urine odor 08/31/2017 05/12/20 22 Vitreous floaters of both eyes 12/27/2016 01/04/2017 Dry eye syndrome 12/27/2016 01/04/2017 GERD (gastroesophageal reflux disease) 06/17/2016 05/12/2022 Acute and chronic cholecystitis 05/13/2016 01/04/2017 Nausea and vomiting 04/22/2016 01/04/20 17 Gastroesophageal reflux dise ase without esophagitis 04/21/2016 04/21/2016 Weakness of both lower extremities 01/26/2016 01/04/2017 Bilateral low back pain with sciatica 01/26/2016 01/04/2017 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 Currently very tired , but stressed because she is moving as she has a lot of work to be done. Nasal septal deviation 01/22/201501/04 Last Assessment & Plan: Had a surgery, waiting for her a cpap machine. IBS (irritable bowel syndrome) 09/25/2014 05/12/2022 Last Assessment & Plan: Patient has irritable bowel. Currently is having occasional constipation and a lot of cramps that is worsening her hemorrhoids;she would like to be on something. i discussed with her that her anxiety is the cause for this. i asked her to use benefibre OTC and report to me if that helps. Hemorrhoids 09/25/2014 01/04/2017 Last Assessment & Plan: Has constipation from IBS, Asked her to take benefibre OTC, anusol for now. Acne vulgaris: Inflammatory Grade II to III 05/25/2014 01/04/2017 Milial cyst 05/22/2014 01/04/2017 SUMMARY 04/20/2014 05/12/2022 Overview: Patient was on provigil in the past 2008 , adderal, etc for excessive day time sleepiness. She also was on xanax for anxiety Steroid acne 04/04/2014 01/04/2017 Flushing reaction 04/04/2014 01/04/2017 Photodermatitis 04/04/2014 01/04/2017 Calculus, tonsil 12/17/2013 01/04/2017 Tonsillitis 12/17/2013 01/04/2017 Irregular sleep-wake rhythm 10/23/2013 09/25/2014 Last Assessment & Plan: She feels better on the effexor. Seen Dr Schaefer and who also is monitoring to see if any thing else needs to be done. documented as of this encounter (statuses as of 09/20/2023) [facility]03-[facility]22 History of Past illness Narrative* Problem Noted Date Diagnosed Date Resolved Date Bacterial pneumonia 02/09/2022 05/12/20 22 Hx of LASIK 09/16/2020 05/12/2022 LISA (acute kidney injury) 07/11/2020 Acute non-recurrent maxillary sinusitis 01/29/2019 05/12/2022 Nasal obstruction 12/27/2018 05/12/2022 Acute vaginitis 10/31/2018 05/12/2022 Abnormal urine odor 08/31/2017 05/12/20 22 Vitreous floaters of both eyes 12/27/2016 01/04/2017 Dry eye syndrome 12/27/2016 01/04/2017 GERD (gastroesophageal reflux disease) 06/17/2016 05/12/2022 Acute and chronic cholecystitis 05/13/2016 01/04/2017 Nausea and vomiting 04/22/2016 01/04/20 17 Gastroesophageal reflux dise ase without esophagitis 04/21/2016 04/21/2016 Weakness of both lower extremities 01/26/2016 01/04/2017 Bilateral low back pain with sciatica 01/26/2016 01/04/2017 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 Currently very tired , but stressed because she is moving as she has a lot of work to be done. Nasal septal deviation 01/22/201501/04 Last Assessment & Plan: Had a surgery, waiting for her a cpap machine. IBS (irritable bowel syndrome) 09/25/2014 05/12/2022 Last Assessment & Plan: Patient has irritable bowel. Currently is having occasional constipation and a lot of cramps that is worsening her hemorrhoids;she would like to be on something. i discussed with her that her anxiety is the cause for this. i asked her to use benefibre OTC and report to me if that helps. Hemorrhoids 09/25/2014 01/04/2017 Last Assessment & Plan: Has constipation from IBS, Asked her to take benefibre OTC, anusol for now. Acne vulgaris: Inflammatory Grade II to III 05/25/2014 01/04/2017 Milial cyst 05/22/2014 01/04/2017 SUMMARY 04/20/2014 05/12/2022 Overview: Patient was on provigil in the past 2008 , adderal, etc for excessive day time sleepiness. She also was on xanax for anxiety Steroid acne 04/04/2014 01/04/2017 Flushing reaction 04/04/2014 01/04/2017 Photodermatitis 04/04/2014 01/04/2017 Calculus, tonsil 12/17/2013 01/04/2017 Tonsillitis 12/17/2013 01/04/2017 Irregular sleep-wake rhythm 10/23/2013 09/25/2014 Last Assessment & Plan: She feels better on the effexor. Seen Dr Schaefer and who also is monitoring to see if any thing else needs to be done. documented as of this encounter (statuses as of 09/22/2023) [facility]03-[facility] History of Past illness Narrative* Problem Noted Date Diagnosed Date Resolved Date Bacterial pneumonia 02/09/2022 05/12/20 22 Hx of LASIK 09/16/2020 05/12/2022 LISA (acute kidney injury) 07/11/2020 Acute non-recurrent maxillary sinusitis 01/29/2019 05/12/2022 Nasal obstruction 12/27/2018 05/12/2022 Acute vaginitis 10/31/2018 05/12/2022 Abnormal urine odor 08/31/2017 05/12/20 22 Vitreous floaters of both eyes 12/27/2016 01/04/2017 Dry eye syndrome 12/27/2016 01/04/2017 GERD (gastroesophageal reflux disease) 06/17/2016 05/12/2022 Acute and chronic cholecystitis 05/13/2016 01/04/2017 Nausea and vomiting 04/22/2016 01/04/20 17 Gastroesophageal reflux dise ase without esophagitis 04/21/2016 04/21/2016 Weakness of both lower extremities 01/26/2016 01/04/2017 Bilateral low back pain with sciatica 01/26/2016 01/04/2017 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 Currently very tired , but stressed because she is moving as she has a lot of work to be done. Nasal septal deviation 01/22/201501/04 Last Assessment & Plan: Had a surgery, waiting for her a cpap machine. IBS (irritable bowel syndrome) 09/25/2014 05/12/2022 Last Assessment & Plan: Patient has irritable bowel. Currently is having occasional constipation and a lot of cramps that is worsening her hemorrhoids;she would like to be on something. i discussed with her that her anxiety is the cause for this. i asked her to use benefibre OTC and report to me if that helps. Hemorrhoids 09/25/2014 01/04/2017 Last Assessment & Plan: Has constipation from IBS, Asked her to take benefibre OTC, anusol for now. Acne vulgaris: Inflammatory Grade II to III 05/25/2014 01/04/2017 Milial cyst 05/22/2014 01/04/2017 SUMMARY 04/20/2014 05/12/2022 Overview: Patient was on provigil in the past 2008 , adderal, etc for excessive day time sleepiness. She also was on xanax for anxiety Steroid acne 04/04/2014 01/04/2017 Flushing reaction 04/04/2014 01/04/2017 Photodermatitis 04/04/2014 01/04/2017 Calculus, tonsil 12/17/2013 01/04/2017 Tonsillitis 12/17/2013 01/04/2017 Irregular sleep-wake rhythm 10/23/2013 09/25/2014 Last Assessment & Plan: She feels better on the effexor. Seen Dr Schaefer and who also is monitoring to see if any thing else needs to be done. documented as of this encounter (statuses as of 09/27/2023) [facility]03-[facility]22 History of Past illness Narrative* Problem Noted Date Diagnosed Date Resolved Date Bacterial pneumonia 02/09/2022 05/12/20 Hx of LASIK 09/16/2020 05/12/2022 LISA (acute kidney injury) 07/11/2020 Acute non-recurrent maxillary sinusitis 01/29/2019 05/12/2022 Nasal obstruction 12/27/2018 05/12/2022 Acute vaginitis 10/31/2018 05/12/2022 Abnormal urine odor 08/31/2017 05/12/20 22 Vitreous floaters of both eyes 12/27/2016 01/04/2017 Dry eye syndrome 12/27/2016 01/04/2017 GERD (gastroesophageal reflux disease) 06/17/2016 05/12/2022 Acute and chronic cholecystitis 05/13/2016 01/04/2017 Nausea and vomiting 04/22/2016 01/04/20 17 Gastroesophageal reflux dise ase without esophagitis 04/21/2016 04/21/2016 Weakness of both lower extremities 01/26/2016 01/04/2017 Bilateral low back pain with sciatica 01/26/2016 01/04/2017 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 Currently very tired , but stressed because she is moving as she has a lot of work to be done. Nasal septal deviation 01/22/201501/04 Last Assessment & Plan: Had a surgery, waiting for her a cpap machine. IBS (irritable bowel syndrome) 09/25/2014 05/12/2022 Last Assessment & Plan: Patient has irritable bowel. Currently is having occasional constipation and a lot of cramps that is worsening her hemorrhoids;she would like to be on something. i discussed with her that her anxiety is the cause for this. i asked her to use benefibre OTC and report to me if that helps. Hemorrhoids 09/25/2014 01/04/2017 Last Assessment & Plan: Has constipation from IBS, Asked her to take benefibre OTC, anusol for now. Acne vulgaris: Inflammatory Grade II to III 05/25/2014 01/04/2017 Milial cyst 05/22/2014 01/04/2017 SUMMARY 04/20/2014 05/12/2022 Overview: Patient was on provigil in the past 2008 , adderal, etc for excessive day time sleepiness. She also was on xanax for anxiety Steroid acne 04/04/2014 01/04/2017 Flushing reaction 04/04/2014 01/04/2017 Photodermatitis 04/04/2014 01/04/2017 Calculus, tonsil 12/17/2013 01/04/2017 Tonsillitis 12/17/2013 01/04/2017 Irregular sleep-wake rhythm 10/23/2013 09/25/2014 Last Assessment & Plan: She feels better on the effexor. Seen Dr Schaefer and who also is monitoring to see if any thing else needs to be done. documented as of this encounter (statuses as of 10/13/2023) [facility]03-[facility] History of Past illness Narrative* Problem Noted Date Diagnosed Date Resolved Date Bacterial pneumonia 02/09/2022 05/12/20 22 Hx of LASIK 09/16/2020 05/12/2022 LISA (acute kidney injury) 07/11/2020 Acute non-recurrent maxillary sinusitis 01/29/2019 05/12/2022 Nasal obstruction 12/27/2018 05/12/2022 Acute vaginitis 10/31/2018 05/12/2022 Abnormal urine odor 08/31/2017 05/12/20 22 Vitreous floaters of both eyes 12/27/2016 01/04/2017 Dry eye syndrome 12/27/2016 01/04/2017 GERD (gastroesophageal reflux disease) 06/17/2016 05/12/2022 Acute and chronic cholecystitis 05/13/2016 01/04/2017 Nausea and vomiting 04/22/2016 01/04/20 17 Gastroesophageal reflux dise ase without esophagitis 04/21/2016 04/21/2016 Weakness of both lower extremities 01/26/2016 01/04/2017 Bilateral low back pain with sciatica 01/26/2016 01/04/2017 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 Currently very tired , but stressed because she is moving as she has a lot of work to be done. Nasal septal deviation 01/22/201501/04 Last Assessment & Plan: Had a surgery, waiting for her a cpap machine. IBS (irritable bowel syndrome) 09/25/2014 05/12/2022 Last Assessment & Plan: Patient has irritable bowel. Currently is having occasional constipation and a lot of cramps that is worsening her hemorrhoids;she would like to be on something. i discussed with her that her anxiety is the cause for this. i asked her to use benefibre OTC and report to me if that helps. Hemorrhoids 09/25/2014 01/04/2017 Last Assessment & Plan: Has constipation from IBS, Asked her to take benefibre OTC, anusol for now. Acne vulgaris: Inflammatory Grade II to III 05/25/2014 01/04/2017 Milial cyst 05/22/2014 01/04/2017 SUMMARY 04/20/2014 05/12/2022 Overview: Patient was on provigil in the past 2008 , adderal, etc for excessive day time sleepiness. She also was on xanax for anxiety Steroid acne 04/04/2014 01/04/2017 Flushing reaction 04/04/2014 01/04/2017 Photodermatitis 04/04/2014 01/04/2017 Calculus, tonsil 12/17/2013 01/04/2017 Tonsillitis 12/17/2013 01/04/2017 Irregular sleep-wake rhythm 10/23/2013 09/25/2014 Last Assessment & Plan: She feels better on the effexor. Seen Dr Schaefer and who also is monitoring to see if any thing else needs to be done. documented as of this encounter (statuses as of 11/28/2023) [facility]03[facility] History of Present illness Narrative* Victor Manuel Tyler, DO - 02/09/2022 11:40 AM EDT CC: Sharri Menon is a 36 year old female who presents to the office for follow up HPI: At appt on 08/03/21 Waiting on being set up for breast reduction surgery, looking forward to see if this helps her shoulder and neck and Upper back pain. Feels that recently she has had a lot of intermittent joint pain, b/l shoulders, wrists, hands, knees. Worse in AM. + associated with fatigue. Also with muscle aches as well. Has had a hard time feeling motivated to get anything done around the house due to this. No rashes. Taking her medications as prescribed, hasn't been overexerting with activity and denies any injuries. ADD, chronic fatigue, taking adderall as prescribed, no obvious SE to medication. Ankle pain, right side, would like 2nd opinion since this is still bothering her despite having seen Orthopedics foot/ankle specialist and assembly inspector helper. Right thumb pain, no known injury. No obvious swelling or skin redness, No use of ice or heating pad use or splint use. At last OFFICE VISIT 11/11/21 ADD, chronic fatigue, taking adderall. Likely is what is causing her worsening OCD type symptoms. She is seeing Psychiatry to work on her mood and medication adjustment. She is tapering down on herdose of Trazodone at bedtime. Hasn't seen Gas Specialist or Orthopedics for her left hip pain- has been receiving SI joint and sacral nerve root injections by Dr. Mackenzie with minimal non lasting relief of symptoms. No bowel or bladder changes. Hasn't had inflammation markers rechecked recently Concerned about risk of diabetes, also would like to recheck cholesterol. Has been cutting down on her meat/red meats intake and wonders if this is improved yet. Has been seeing [employer] Dr. Veliz, found to have corn allergy. Is trying to limit exposure to this Heart fluttering, palpitations, comes and goes, no known specific trigger, off and on for weeks/months. No chest pain or pressure or dyspnea. Currently Has been seeing [employer] Dr. Veliz, found to have corn allergy. Is trying to limit exposure to this. Is going to be having food testing when able to stop the Trazodone Mood, stable, working with Alondra [facility] psychiatry with medication adjustments, feeling that the buspirone is helpful for her symptoms. Heart fluttering, palpitations, comes and goes, improved symptoms, did have sensitivity of skin to patch of ZIO, hasn't had repeated yet. no known specific trigger, off and on for weeks/months. No chest pain or pressure or dyspnea. ADD, chronic fatigue, stable, taking adderall without SE to medication Had multifocal pneumonia secondary to covid 19 on CXR, did complete antibiotic and feels symptoms have improved, hasn't had repeat CXR yet PAST MEDICAL HISTORY Diagnosis Date Abnormal biliary HIDA scan 04/22/2016 Acne vulgaris: Inflammatory Grade II to III 05/25/2014 Acute and chronic cholecystitis 05/13/2016 Adjustment disorder with mixed anxiety and depressed mood 11/28/2014 Ankle weakness 07/17/2015 Bilateral low back pain with sciatica 01/26/2016 Calculus, tonsil 12/17/2013 Chronic fatigue Depression, major, recurrent, mild (HCC) 08/14/2015 Deviated nasal septum s/p septoplasty Dry eye syndrome 12/27/2016 Eczematous dermatitis 05/22/2014 Exposure keratopathy 01/01/2016 Fatigue 02/05/2015 Female stress incontinence 10/08/2016 Fibromyalgia Flushing reaction 04/04/2014 GERD (gastroesophageal reflux disease) 06/17/2016 Hemorrhoids 09/25/2014 Hiatal hernia IBS (irritable bowel syndrome) 2006 had EGD, colonoscopy Insomnia 10/23/2014 Irregular periods 10/23/2013 Keratosis pilaris 05/22/2014 Left ankle pain 07/17/2015 Migraines 12/24/2013 Milial cyst 05/22/2014 Nasal septal deviation 01/22/2015 Obesity (BMI 30-39.9) 10/23/2013 JYOTHI (obstructive sleep apnea) ahi 16 52r 01/01/2015 Photodermatitis 04/04/2014 Rosacea 04/04/2014 S/P LASIK (laser assisted in situ keratomileusis) of both eyes - Both Eyes 04/2014 Snoring 11/05/2015 Steroid acne 04/04/2014 Urinary leakage 04/06/2016 Vitreous floaters of both eyes 12/27/2016 Weakness of both lower extremities 01/26/2016 Xerosis cutis 05/22/2014 PAST SURGICAL HISTORY Procedure Laterality Date COLONOSCOPY 2005 COLONOSCOPY FLX DX W/COLLJ SPEC WHEN PFRMD 07/01/2016 Colonoscopy EGD 2006 ESOPHAGOGASTRODUODENOSCOPY TRANSORAL DIAGNOSTIC 04/21/2016 EGD LAPAROSCOPY DIAGNOSTIC 05/06/15 [place] LAPS SURG CHOLECYSTECTOMY W/CHOLANGIOGRAPHY 05/04/16 Normal IOC PAST SURGICAL HISTORY OF 2006 laparoscopy PAST SURGICAL HISTORY OF cystoscopy with hydrodistention for IC PAST SURGICAL HISTORY OF 03/2019 nasal turbinate removed SEPTOPLASTY 02/17/2015 Social History: Social History Tobacco Use Smoking status: Never Smoker Smokeless tobacco: Never Used Vaping Use Vaping Use: Never used Substance Use Topics Alcohol use: Yes Comment: 1 drink per month Drug use: Not Currently Types: Marijuana Comment: has medical marijuana script but gave GI sx FAMILY HISTORY Problem Relation Age of Onset Hypertension Mother high cholestrol Hypertension Father Lipids Father Cataract Father other (drug addiction) Sister Heart Maternal Grandfather Thyroid Paternal Grandmother Cataract Paternal Grandmother Headache Sister Current Outpatient prescriptions: busPIRone (BUSPAR) 10 mg tablet Take 2 tablets by mouth daily at bedtime. famotidine (PEPCID) 10 mg tablet Take 20 mg by mouth twice daily. docusate sodium (COLACE) 100 mg capsule Take 200 mg by mouth twice daily. Lactobacillus acidophilus (ACIDOPHILUS ORAL) Take by mouth. desvenlafaxine ER (PRISTIQ) 25 mg 24 hr tablet Take 1 tablet by mouth once daily. traZODone (DESYREL) 100 mg tablet Take 2 tablets at bedtime lamoTRIgine (LAMICTAL) 200 mg tablet Take 1 tablet by mouth every evening. amphetamine-dextroamphetamine XR (ADDERALL XR) 20 mg 24 hr capsule Take 2 capsules by mouth once daily for 30 days. Do not start before January 22, 2022. amphetamine-dextroamphetamine XR (ADDERALL XR) 20 mg 24 hr capsule Take 2 capsules by mouth once daily for 30 days. Do not start before December 26, 2021. amphetamine-dextroamphetamine XR (ADDERALL XR) 20 mg 24 hr capsule Take 2 capsules by mouth once daily for 30 days. Do not start before November 27, 2021. rizatriptan (MAXALT TAKE OFF WORKER) 5 mg disintegrating tablet Take 1 tablet by mouth as needed. For migraine., May repeat in 2 hours if needed pantoprazole DR (PROTONIX) 40 mg tablet Take 1 tablet by mouth daily before breakfast. Take on empty stomach, 1/2 hr before meal. montelukast (SINGULAIR) 10 mg tablet Take 1 tablet by mouth daily at bedtime. topiramate (TOPAMAX) 25 mg tablet Take 1 tablet by mouth daily at bedtime. Cholecalciferol, Vitamin D3, (VITAMIN D-3) 50 mcg (2,000 unit) cap Take 1 capsule by mouth once daily. dextroamphetamine-amphetamine (ADDERALL) 10 mg tablet Take 1-2 tablets by mouth once daily for 30 days. In the afternoon as needed Do not start before September 21, 2021. dextroamphetamine-amphetamine (ADDERALL) 10 mg tablet Take 1-2 tablets by mouth once daily for 30 days. In the afternoon as needed Do not start before August 22, 2021. diclofenac (VOLTAREN ARTHRITIS PAIN) 1 % topical gel Apply 2 g to affected area four times daily asneeded (right thumb pain). predniSONE (DELTASONE) 10 mg tablet Take 20mg (2 tabs)/day x1 week, then 10mg (1 tab)/day x1 week, then stop Norethindrone Acet-Ethinyl Est (LOESTRIN ,) 1.5-30 mg-mcg Take 1 tablet by mouth once daily. Take continuously. Do not take inactive pills amphetamine-dextroamphetamine XR (ADDERALL XR) 20 mg 24 hr capsule Take 2 capsules by mouth once daily for 30 days. Do not start before July 18, 2021. dextroamphetamine-amphetamine (ADDERALL) 10 mg tablet Take 1-2 tablets by mouth once daily for 30 days. In the afternoon as needed Do not start before June 19, 2021. CREON 36,000-114,000- 180,000 unit capsule TAKE 1 CAPSULE BY MOUTH PRIOR TO ALL MEALS AND SNACKS erythromycin ophthalmic ointment Use 1 application in both eyes daily at bedtime. cyanocobalamin 1,000 mcg/mL 1 mL SQ weekly for 4 weeks, then 1 mL every other week for 2 doses then1 mL SQ monthly fluconazole (DIFLUCAN) 150 mg tablet Take 1 tablet by mouth one time a week. For yeast prophylaxis. cyclobenzaprine (FLEXERIL) 10 mg tablet Take 1 tablet by mouth three times daily as needed for muscle spasm. CPAP New set up: AutoBiPAP Settings IPAP max 12 & EPAP min 4 and PS 4- 6 cm H2O, suitable mask per pt preference, chin strap, head gear, humidity, tubing, lifetime supplies. G47.33 JYOTHI mupirocin (BACTROBAN) 2 % ointment Apply 1 application to affected area three times daily. Insulin Syringe-Needle U-100 (BD INSULIN SYRINGE ULTRA-FINE) 1 mL 31 gauge x 5/16 1 Each as directed. PEG 400-Propylene Glycol (SYSTANE HYDRATION PF) 0.4-0.3 % dpet Use 1 Each in both eyes four times daily. Back Brace misc 1 Device as directed. clobetasol (TEMOVATE) 0.05 % ointment Apply 1 application to affected area twice daily. For 2 weeksthen once a day for 2 weeks CARBOXYMETHYLCELLULOSE SODIUM (REFRESH TEARS OPHTHALMIC) Use 1 Drop in eyes four times daily. as needed Allergies: ALLERGIES Allergen Reactions Jane Inhibitors Contraindication-Medical Surgical Avoid use of JANE inhibitors while patient is on allergy immunotherapy Beta Blockers [Beta* Contraindication-Medical Surgical Avoid use of beta blockers while patient is on allergy immunotherapy [place] Hives Cymbalta [Duloxetin* Other: See Comments Sweating side effect Effexor [Venlafaxin* Other: See Comments Sweating side effect Imitrex [Sumatripta* Vomiting GI upset and vomiting Linzess [Linaclotid* Diarrhea Vomiting, diarrhea Marijuana Intolerance GI distress, diarrhea with oral use -sublingual tincture Seasonal Allergies Unknown Molds and grasses verified by skin testing ROS: See HPI PE: 02/09/22 1125 BP: 100/60 Pulse: 80 Resp: 16 Temp: 37.1 C (98.7 F) TempSrc: Left Tympanic Weight: 92.1 kg (203 lb) Gen: A&O, NAD, non-toxic appearing, Pleasant, cooperative HEENT: NT/AC, PERRLA, EOMs intact b/l, nares clear and patent b/l, pharynx without erythema, exudate or lesions. Uvula midline. MMM Neck: supple, No cervical LAD, no thyromegaly, no carotid bruits CV: RRR, normal S1 and S2, no murmurs, no gallops, no rubs, Pulses 2+ and symmetric in UE and LE b/l Lungs: normal respiratory effort, CTA b/l, no wheezing or rhonchi or rales Abd: soft, bloated appearing MS: FROM all 4 extremities Neuro: CN II-XII intact b/l, strength 5/5 b/l UE and LE, DTRs 2/4 UE and LE, sensation intact. Skin: warm, dry, intact, No rashes or lesions on exposed skin. No edema, normal pulses PDMP website checked and validated. All prescriptions have been APPROPRIATELY filled. No suspiciousactivity was identified. 02/09/2022 by Victor Manuel Tyler DO ASSESSMENT/PLAN: 1. Palpitations - ICD9: 785.1, ICD10: R00.2 (primary diagnosis) Recheck ZIO as ordered when she is able, she is clearing up a reaction rash to the patches. - OUTSIDE VENDOR CARDIAC OUTPATIENT EXTENDED RHYTHM RECORDING (WITHOUT TELEMETRY) 2. Muscle spasms of both lower extremities - ICD9: 728.85, ICD10: M62.838 - rx refilled. - CYCLOBENZAPRINE 10 MG TABLET 3. Fibromyalgia - ICD9: 729.1, ICD10: M79.7 - chronic, stable - TOPIRAMATE 25 MG TABLET - DEXTROAMPHETAMINE-AMPHETAMINE ER 20 MG 24HR CAPSULE,EXTEND RELEASE - DEXTROAMPHETAMINE-AMPHETAMINE ER 20 MG 24HR CAPSULE,EXTEND RELEASE - DEXTROAMPHETAMINE-AMPHETAMINE ER 20 MG 24HR CAPSULE,EXTEND RELEASE - DEXTROAMPHETAMINE-AMPHETAMINE 10 MG TABLET - DEXTROAMPHETAMINE-AMPHETAMINE 10 MG TABLET - DEXTROAMPHETAMINE-AMPHETAMINE 10 MG TABLET 4. Chronic fatigue - ICD9: 780.79, ICD10: R53.82 - chronic, stable - DEXTROAMPHETAMINE-AMPHETAMINE ER 20 MG 24HR CAPSULE,EXTEND RELEASE - DEXTROAMPHETAMINE-AMPHETAMINE ER 20 MG 24HR CAPSULE,EXTEND RELEASE - DEXTROAMPHETAMINE-AMPHETAMINE ER 20 MG 24HR CAPSULE,EXTEND RELEASE - DEXTROAMPHETAMINE-AMPHETAMINE 10 MG TABLET - DEXTROAMPHETAMINE-AMPHETAMINE 10 MG TABLET - DEXTROAMPHETAMINE-AMPHETAMINE 10 MG TABLET 5. Bacterial pneumonia - ICD9: 482.9, ICD10: J15.9 - recheck CXR, had PNA secondary to covid 19 infection - XR CHEST 2V FRONTAL/LAT 6. CRP elevated - ICD9: 790.95, ICD10: R79.82 - recheck labs, f/u with [facility] - CONSULT TO ALLERGY/IMMUNOLOGY 7. Food intolerance - ICD9: 579.8, ICD10: K90.49 - f/u with [facility] for testing once able to be off antihistamines and trazodone - CONSULT TO ALLERGY/IMMUNOLOGY 8. Seasonal allergic rhinitis due to other allergic trigger - ICD9: 477.8, ICD10: J30.89 - rx refilled - CLARITIN-D 12 HOUR 5 MG-120 MG TABLET,EXTENDED RELEASE Victor Manuel Tyler DO To ER if develops chest pain, shortness of breath, or severe worsening of symptoms. Discussed risks, benefits, alternatives, and potential side effects of medications. Patient expressed understanding and agreed with the plan. Victor Manuel Tyler DO [address] [place] [address] [facility] Miscellaneous Notes* Telephone Encounter - Criss Jefferson Pss - 06/23/2021 10:40 AM EDT Patient calling back. She states she is miserable and would like to still proceed with the surgery and would like someone to call her back so that she can move forward with the scheduling and to knowthe out of pocket cost. Please call her at [phone] * Telephone Encounter - Radha Abreu Pss - 06/15/2021 10:41 AM EDT Patient was seen by Dr Kelly on 05/22/21 for breast reduction consult. She did receive denial letterfrom her insurance [facility]. She is asking how to proceed. She can be reached at [phone]. 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 Currently very tired , but stressed because she is moving as she has a lot of work to be done. Nasal septal deviation 01/22/2015 7 Last Assessment & Plan: Had a surgery, waiting for her a cpap machine. Hemorrhoids 09/25/2014 01/04/2017 Last Assessment & Plan: Has constipation from IBS, Asked her to take benefibre OTC, anusol for now. 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 Seen Dr Schaefer and who also is monitoring to see if any thing else needs to be done. 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 Currently very tired , but stressed because she is moving as she has a lot of work to be done. Nasal septal deviation 01/22/2015 7 Last Assessment & Plan: Had a surgery, waiting for her a cpap machine. Hemorrhoids 09/25/2014 01/04/2017 Last Assessment & Plan: Has constipation from IBS, Asked her to take benefibre OTC, anusol for now. 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 Seen Dr Schaefer and who also is monitoring to see if any thing else needs to be done. 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 Currently very tired , but stressed because she is moving as she has a lot of work to be done. Nasal septal deviation 01/22/2015 7 Last Assessment & Plan: Had a surgery, waiting for her a cpap machine. Hemorrhoids 09/25/2014 01/04/2017 Last Assessment & Plan: Has constipation from IBS, Asked her to take benefibre OTC, anusol for now. 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 Seen Dr Schaefer and who also is monitoring to see if any thing else needs to be done. 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 Currently very tired , but stressed because she is moving as she has a lot of work to be done. Nasal septal deviation 01/22/2015 7 Last Assessment & Plan: Had a surgery, waiting for her a cpap machine. Hemorrhoids 09/25/2014 01/04/2017 Last Assessment & Plan: Has constipation from IBS, Asked her to take benefibre OTC, anusol for now. 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 Seen Dr Schaefer and who also is monitoring to see if any thing else needs to be done. 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 Currently very tired , but stressed because she is moving as she has a lot of work to be done. Nasal septal deviation 01/22/2015 7 Last Assessment & Plan: Had a surgery, waiting for her a cpap machine. Hemorrhoids 09/25/2014 01/04/2017 Last Assessment & Plan: Has constipation from IBS, Asked her to take benefibre OTC, anusol for now. 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 Seen Dr Schaefer and who also is monitoring to see if any thing else needs to be done. 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 Currently very tired , but stressed because she is moving as she has a lot of work to be done. Nasal septal deviation 01/22/2015 7 Last Assessment & Plan: Had a surgery, waiting for her a cpap machine. Hemorrhoids 09/25/2014 01/04/2017 Last Assessment & Plan: Has constipation from IBS, Asked her to take benefibre OTC, anusol for now. 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 Seen Dr Schaefer and who also is monitoring to see if any thing else needs to be done. 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 Currently very tired , but stressed because she is moving as she has a lot of work to be done. Nasal septal deviation 01/22/2015 7 Last Assessment & Plan: Had a surgery, waiting for her a cpap machine. Hemorrhoids 09/25/2014 01/04/2017 Last Assessment & Plan: Has constipation from IBS, Asked her to take benefibre OTC, anusol for now. 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 Seen Dr Schaefer and who also is monitoring to see if any thing else needs to be done. 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 Currently very tired , but stressed because she is moving as she has a lot of work to be done. Nasal septal deviation 01/22/2015 7 Last Assessment & Plan: Had a surgery, waiting for her a cpap machine. Hemorrhoids 09/25/2014 01/04/2017 Last Assessment & Plan: Has constipation from IBS, Asked her to take benefibre OTC, anusol for now. 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 Seen Dr Schaefer and who also is monitoring to see if any thing else needs to be done. 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 Currently very tired , but stressed because she is moving as she has a lot of work to be done. Nasal septal deviation 01/22/2015 7 Last Assessment & Plan: Had a surgery, waiting for her a cpap machine. Hemorrhoids 09/25/2014 01/04/2017 Last Assessment & Plan: Has constipation from IBS, Asked her to take benefibre OTC, anusol for now. 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 Seen Dr Schaefer and who also is monitoring to see if any thing else needs to be done. 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 Currently very tired , but stressed because she is moving as she has a lot of work to be done. Nasal septal deviation 01/22/2015 7 Last Assessment & Plan: Had a surgery, waiting for her a cpap machine. Hemorrhoids 09/25/2014 01/04/2017 Last Assessment & Plan: Has constipation from IBS, Asked her to take benefibre OTC, anusol for now. 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 Seen Dr Schaefer and who also is monitoring to see if any thing else needs to be done. 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 Currently very tired , but stressed because she is moving as she has a lot of work to be done. Nasal septal deviation 01/22/2015 7 Last Assessment & Plan: Had a surgery, waiting for her a cpap machine. Hemorrhoids 09/25/2014 01/04/2017 Last Assessment & Plan: Has constipation from IBS, Asked her to take benefibre OTC, anusol for now. 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 Seen Dr Schaefer and who also is monitoring to see if any thing else needs to be done. documented as of this encounter (statuses as of 03/29/2022) [facility]02-13-2017 History of Past illness Narrative* Problem Noted Date Resolved Date Vitreous floaters of both eyes 12/27/2016 0 01/04/2017 Dry eye syndrome 12/27/2016 01/04/2017 Acute and chronic cholecystitis 05/13/2016 01/04/2017 Nausea and vomiting 04/22/2016 01/04/2017 Gastroesophageal reflux disease without esophagi tis 04/21/2016 04/21/2016 Weakness of both lower extremities 01/26/2016 01/04/2017 Bilateral low back pain with sciatica 01/26/2016 01/04/2017 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 Currently very tired , but stressed because she is moving as she has a lot of work to be done. Nasal septal deviation 01/22/2015 7 Last Assessment & Plan: Had a surgery, waiting for her a cpap machine. Hemorrhoids 09/25/2014 01/04/2017 Last Assessment & Plan: Has constipation from IBS, Asked her to take benefibre OTC, anusol for now. 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 Seen Dr Schaefer and who also is monitoring to see if any thing else needs to be done. 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 Currently very tired , but stressed because she is moving as she has a lot of work to be done. Nasal septal deviation 01/22/2015 7 Last Assessment & Plan: Had a surgery, waiting for her a cpap machine. Hemorrhoids 09/25/2014 01/04/2017 Last Assessment & Plan: Has constipation from IBS, Asked her to take benefibre OTC, anusol for now. 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 Seen Dr Schaefer and who also is monitoring to see if any thing else needs to be done. 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 Currently very tired , but stressed because she is moving as she has a lot of work to be done. Nasal septal deviation 01/22/2015 7 Last Assessment & Plan: Had a surgery, waiting for her a cpap machine. Hemorrhoids 09/25/2014 01/04/2017 Last Assessment & Plan: Has constipation from IBS, Asked her to take benefibre OTC, anusol for now. 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 Seen Dr Schaefer and who also is monitoring to see if any thing else needs to be done. 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 Currently very tired , but stressed because she is moving as she has a lot of work to be done. Nasal septal deviation 01/22/2015 7 Last Assessment & Plan: Had a surgery, waiting for her a cpap machine. Hemorrhoids 09/25/2014 01/04/2017 Last Assessment & Plan: Has constipation from IBS, Asked her to take benefibre OTC, anusol for now. 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 Seen Dr Schaefer and who also is monitoring to see if any thing else needs to be done. 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 Currently very tired , but stressed because she is moving as she has a lot of work to be done. Nasal septal deviation 01/22/2015 7 Last Assessment & Plan: Had a surgery, waiting for her a cpap machine. Hemorrhoids 09/25/2014 01/04/2017 Last Assessment & Plan: Has constipation from IBS, Asked her to take benefibre OTC, anusol for now. 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 Seen Dr Schaefer and who also is monitoring to see if any thing else needs to be done. documented as of this encounter (statuses as of 05/10/2022) [facility] Palpitations- Primary Muscle spasms of both lower extremities Fibromyalgia Mylagia and myositis, unspecified Chronic fatigue Other malaise and fatigue Bacterial pneumonia Bacterial pneumonia, unspecified CRP elevated Elevated C-reactive protein (CRP) Food intolerance Other specified intestinal malabsorption Seasonal allergic rhinitis due to other allergic trigger Neck pain Cervicalgia Chronic pain of both shoulders Pain in joint, shoulder region Large breasts Hypertrophy of breast [facility] Diagnosis Bipolar 2 disorder (HCC)- Primary Other bipolar disorders Chronic fatigue Other malaise and fatigue URIEL (generalized anxiety disorder) Generalized anxiety disorder Fibromyalgia Mylagia and myositis, unspecified Neck pain Cervicalgia Chronic pain of both shoulders Pain in joint, shoulder region Large breasts Hypertrophy of breast [facility] Diagnosis Bacterial pneumonia- Primary Bacterial pneumonia, unspecified Neck pain Cervicalgia Chronic pain of both shoulders Pain in joint, shoulder region Large breasts Hypertrophy of breast [facility] noteThere may be information available, but it has not been provided by the sender.[facility] Work Phone: Evaluation note* Diagnosis Bipolar 2 disorder (HCC)- Primary Other bipolar disorders Fibromyalgia Mylagia and myositis, unspecified URIEL (generalized anxiety disorder) Generalized anxiety disorder Neck pain Cervicalgia Chronic pain of both shoulders Pain in joint, shoulder region Large breasts Hypertrophy of breast [facility] Diagnosis Bacterial pneumonia Bacterial pneumonia, unspecified Neck pain Cervicalgia Chronic pain of both shoulders Pain in joint, shoulder region Large breasts Hypertrophy of breast [facility] Diagnosis Facial rash- Primary Rash and other nonspecific skin eruption Papular rash Rash and other nonspecific skin eruption Chronic fatigue Other malaise and fatigue Concentration deficit Attention or concentration deficit Neck pain Cervicalgia Chronic pain of both shoulders Pain in joint, shoulder region Large breasts Hypertrophy of breast [facility] Diagnosis Mixed obsessional thoughts and acts- Primary URIEL (generalized anxiety disorder) Generalized anxiety disorder Fibromyalgia Mylagia and myositis, unspecified Bipolar 2 disorder (HCC) Other bipolar disorders Neck pain Cervicalgia Chronic pain of both shoulders Pain in joint, shoulder region Large breasts Hypertrophy of breast [facility] Diagnosis Bacterial ear infection, bilateral- Primary Chronic fatigue Other malaise and fatigue Concentration deficit Attention or concentration deficit Neck pain Cervicalgia Chronic pain of both shoulders Pain in joint, shoulder region Large breasts Hypertrophy of breast [facility] Diagnosis Preoperative examination- Primary Preoperative examination, unspecified Neck pain Cervicalgia Chronic pain of both shoulders Pain in joint, shoulder region Large breasts Hypertrophy of breast Fibromyalgia Mylagia and myositis, unspecified Chronic fatigue Other malaise and fatigue History of Fagan's palsy Personal history of other disorders of nervous system and sense organs Migraine without status migrainosus, not intractable, unspecified migraine type JYOTHI (obstructive sleep apnea) ahi 16 [id number] Obstructive sleep apnea (adult) (pediatric) Palpitations Pure hypercholesterolemia Irritable bowel syndrome with both constipation and diarrhea Gastroesophageal reflux disease with esophagitis, unspecified whether hemorrhage Adjustment disorder with mixed anxiety and depressed mood Bipolar 2 disorder (HCC) Other bipolar disorders Obesity, Class I, BMI 30-34.9 Obesity, unspecified Neck pain Cervicalgia Chronic pain of both shoulders Pain in joint, shoulder region Large breasts Hypertrophy of breast [facility] Fibromyalgia Mylagia and myositis, unspecified Chronic fatigue Other malaise and fatigue Concentration deficit Attention or concentration deficit Neck pain Cervicalgia Chronic pain of both shoulders Pain in joint, shoulder region Large breasts Hypertrophy of breast [facility]* Diagnosis Macromastia- Primary Hypertrophy of breast Pre-op evaluation Preoperative examination, unspecified Neck pain Cervicalgia Chronic pain of both shoulders Pain in joint, shoulder region Large breasts Hypertrophy of breast [facility] Macromastia- Primary Hypertrophy of breast Post-operative state Other postprocedural status [facility] Diagnosis URIEL (generalized anxiety disorder)- Primary Generalized anxiety disorder Mixed obsessional thoughts and acts Bipolar 2 disorder (HCC) Other bipolar disorders Fibromyalgia Mylagia and myositis, unspecified Chronic fatigue Other malaise and fatigue [facility] Diagnosis Encounter for surveillance of contraceptive pills Surveillance of previously prescribed contraceptive pill [facility] Diagnosis Routine physical examination- Primary Routine general medical examination at a health care facility Fibromyalgia Mylagia and myositis, unspecified Central obesity Localized adiposity Dysmetabolic syndrome Dysmetabolic Syndrome X Dyslipidemia Other and unspecified hyperlipidemia History of hepatitis B vaccination Other specified conditions influencing health status Acute effusion of both middle ears Concentration deficit Attention or concentration deficit Chronic fatigue Other malaise and fatigue Multiple joint pain Pain in joint, multiple sites Obesity, Class I, BMI 30-34.9 Obesity, unspecified [facility]* Diagnosis Post-operative state- Primary Other postprocedural status [facility]* Diagnosis COVID- Primary [facility]* Diagnosis Concentration deficit Attention or concentration deficit [facility]* Diagnosis Animal bite Open wound(s) (multiple) of unspecified site(s), without mention of complication [facility] Diagnosis High serum triiodothyronine (T3)- Primary [facility]* Diagnosis URIEL (generalized anxiety disorder)- Primary Generalized anxiety disorder Mixed obsessional thoughts and acts Bipolar 2 disorder (HCC) Other bipolar disorders Fibromyalgia Mylagia and myositis, unspecified [facility] Diagnosis Irritable bowel syndrome with both constipation and diarrhea- Primary Nausea Nausea alone Internal hemorrhoids Internal hemorrhoids without mention of complication [facility] Diagnosis High serum triiodothyronine (T3)- Primary Skin sore Unspecified disorder of skin and subcutaneous tissue Bacterial ear infection, bilateral Fibromyalgia Mylagia and myositis, unspecified Chronic fatigue Other malaise and fatigue URIEL (generalized anxiety disorder) Generalized anxiety disorder Irritable bowel syndrome with both constipation and diarrhea Dysmetabolic syndrome Dysmetabolic Syndrome X Dyslipidemia Other and unspecified hyperlipidemia Vitamin B12 deficiency Other B-complex deficiencies Vitamin D deficiency Unspecified vitamin D deficiency Multiple joint pain Pain in joint, multiple sites Concentration deficit Attention or concentration deficit [facility] Diagnosis LLQ pain- Primary Abdominal pain, left lower quadrant Irritable bowel syndrome with both constipation and diarrhea Bloating Flatulence, eructation, and gas pain [facility] Diagnosis Bipolar 2 disorder (HCC)- Primary Other bipolar disorders Mixed obsessional thoughts and acts URIEL (generalized anxiety disorder) Generalized anxiety disorder [facility]* Diagnosis Fibromyalgia Mylagia and myositis, unspecified [facility]* Diagnosis APPOINTMENT CANCELLED- Primary [facility]* Diagnosis Bipolar 2 disorder (HCC)- Primary Other bipolar disorders Mixed obsessional thoughts and acts URIEL (generalized anxiety disorder) Generalized anxiety disorder Chronic fatigue Other malaise and fatigue Fibromyalgia Mylagia and myositis, unspecified [facility] Diagnosis Bloating [R14.0 (ICD-10-CM)]- Primary Flatulence, eructation, and gas pain [facility]* Diagnosis Food intolerance- Primary Other specified intestinal malabsorption Other specified dermatitis [facility] Diagnosis Foot pain, bilateral Pain in limb High foot arch Congenital anomalies of foot, not elsewhere classified Radiculopathy, lumbosacral region Thoracic or lumbosacral neuritis or radiculitis, unspecified [facility] Diagnosis Foot pain, bilateral- Primary Pain in limb High foot arch Congenital anomalies of foot, not elsewhere classified Radiculopathy, lumbosacral region Thoracic or lumbosacral neuritis or radiculitis, unspecified [facility]* Diagnosis Ingrown nail of fifth toe of right foot- Primary [facility]* Diagnosis Fibromyalgia- Primary Mylagia and myositis, unspecified Chronic fatigue Other malaise and fatigue Vitamin D deficiency Unspecified vitamin D deficiency Seasonal allergic rhinitis due to other allergic trigger Foot pain, bilateral Pain in limb URIEL (generalized anxiety disorder) Generalized anxiety disorder Dysmetabolic syndrome Dysmetabolic Syndrome X Multiple joint pain Pain in joint, multiple sites Overweight with body mass index (BMI) of 29 to 29.9 in adult [facility] Diagnosis Muscle spasms of both lower extremities [facility] Diagnosis Bipolar 2 disorder (HCC)- Primary Other bipolar disorders Mixed obsessional thoughts and acts URIEL (generalized anxiety disorder) Generalized anxiety disorder Chronic fatigue Other malaise and fatigue Fibromyalgia Mylagia and myositis, unspecified [facility] Diagnosis Dry eye syndrome of both eyes- Primary Meibomian gland dysfunction (MGD) of upper and lower lids of both eyes S/P LASIK (laser assisted in situ keratomileusis) of both eyes [facility]* Diagnosis Epiphora due to insufficient drainage of right side- Primary Epiphora due to insufficient drainage Nldo, acquired (nasolacrimal duct obstruction), right [facility] Diagnosis Foot pain, bilateral Pain in limb High foot arch Congenital anomalies of foot, not elsewhere classified Radiculopathy, lumbosacral region Thoracic or lumbosacral neuritis or radiculitis, unspecified [facility] Diagnosis Bilateral epiphora- Primary Epiphora, unspecified as to cause Obstruction of lacrimal canaliculus of left lower lid S/P LASIK (laser assisted in situ keratomileusis) of both eyes - Both Eyes Fibromyalgia Mylagia and myositis, unspecified [facility] Diagnosis Muscle spasms of both lower extremities- Primary Fibromyalgia Mylagia and myositis, unspecified Chronic fatigue Other malaise and fatigue Hyperlipidemia, mixed Mixed hyperlipidemia Vitamin D deficiency Unspecified vitamin D deficiency URIEL (generalized anxiety disorder) Generalized anxiety disorder Multiple joint pain Pain in joint, multiple sites High serum triiodothyronine (T3) Vitamin B12 deficiency Other B-complex deficiencies documented in this encounter [facility] note* Diagnosis Bipolar 2 disorder (HCC)- Primary Other bipolar disorders URIEL (generalized anxiety disorder) Generalized anxiety disorder Mixed obsessional thoughts and acts Memory difficulties Memory loss documented in this encounter [facility] for referral (narrative)* Diagnostic Procedure Only (Routine) - Pending Review Specialty Diagnoses / Procedures Referred By Contac t Referred To Contact XR IMAGING Diagnoses Irritable bowel syndrome with both constipation and diarrhea Nausea Procedures XR ABDOMEN 2V ROUTINE SUPINE W UPRIGHT/DECUB/CTL RADIOLOGIC EXAM ABDOMEN 2 VIEWS Emily Alicea PA-C [address] [place] [address] Xr Imaging Referral ID Status Reason Start Date Expiration Date Visits Requested Visits Authorized [id number] Pending Review Auto-Generat ed Referral 11/30/2022 12/30/[address] [facility] for referral (narrative)* Diagnostic Procedure Only (Routine) - Closed Specialty Diagnoses / Procedures Referred By Contac t Referred To Contact XR IMAGING Diagnoses Foot pain, bilateral High foot arch Radiculopathy, lumbosacral region Procedures XR LUMBAR GENERAL 3V AP/LAT/L5-S1 RADEX SPINE LUMBOSACRAL 2/3 VIEWS Yue Alexandre [address] [place] [address] [place] [address] Referral ID Status Reason Start Date Expiration Date V isits Requested Visits Authorized [id number] Closed Auto-Generate d Referral 04/07/2023 05/06/2024 1 1 * Diagnostic Procedure Only (Routine) - Closed Specialty Diagnoses / Procedures Referred By Contac t Referred To Contact XR IMAGING Diagnoses Foot pain, bilateral High foot arch Radiculopathy, lumbosacral region Procedures XR FOOT GENERAL 3V AP/LAT/OBL BILATERAL RADEX FOOT COMPLETE MINIMUM 3 VIEWS Yue Alexandre [address] [place] [address] [place] [address] Referral ID Status Reason Start Date Expiration Date V isits Requested Visits Authorized [id number] Closed Auto-Generate d Referral 04/07/2023 05/06/[address] [facility] for visit Narrative* Outpatient Procedure (Routine) - Closed Specialty Diagnoses / Procedures Referred By Annie t Referred To [facility] Diagnoses Foot pain, bilateral High foot arch Radiculopathy, lumbosacral region Procedures EMG(NEURO/NI) NERVE CONDUCTION STUDIES 9-10 STUDIES Yue [address] [place] [address] [facility] [place] [address] [place] [address] Referral ID Status Reason Start Date Expiration Date V isits Requested Visits Authorized [id number] Closed Auto-Generate d Referral 04/07/2023 04/07/[address] [facility] for visit Narrative* Diagnostic Procedure Only (Routine) - Closed Specialty Diagnoses / Procedures Referred By Contac t Referred To Contact XR IMAGING Diagnoses Foot pain, bilateral High foot arch Radiculopathy, lumbosacral region Procedures XR LUMBAR GENERAL 3V AP/LAT/L5-S1 RADEX SPINE LUMBOSACRAL 2/3 VIEWS Yue Alexandre [address] [place] [address] [place] [address] Referral ID Status Reason Start Date Expiration Date V isits Requested Visits Authorized [id number] Closed Auto-Generate d Referral 04/07/2023 05/06/2024 1 1 [facility] Summary Purpose Family History No Family History Records FoundNo Family History Records FoundThere may be information available, but it has not been provided by the sender.No Family History Records Found Advance Directives No Advanced Directives Records FoundDocuments on File Type Date Recorded Patient Operating Room Specialist Expl anation Advance Directive(s) 01/05/2022 2:56 PM Advance Directive(s) 07/01/2016 3:06 PM Advance Directive(s) 06/21/2016 2:16 PM Advance Directive(s) 05/04/2016 9:44 AM Advance Directive(s) 04/29/2016 2:22 PM Documents on File Type Date Recorded Patient Operating Room Specialist Expl anation Advance Directive(s) 01/05/2022 2:56 PM Advance Directive(s) 07/01/2016 3:06 PM Advance Directive(s) 06/21/2016 2:16 PM Advance Directive(s) 05/04/2016 9:44 AM Advance Directive(s) 04/29/2016 2:22 PM Documents on File Type Date Recorded Patient Operating Room Specialist Expl anation Advance Directive(s) 05/27/2022 9:47 AM Advance Directive(s) 01/05/2022 2:56 PM Advance Directive(s) 07/01/2016 3:06 PM Advance Directive(s) 06/21/2016 2:16 PM Advance Directive(s) 05/04/2016 9:44 AM Advance Directive(s) 04/29/2016 2:22 PM Reason for Referral Specialty Diagnoses / Procedures Referred By Annie t Referred To Contact Allergy Diagnoses CRP elevated Food intolerance Procedures CONSULT TO ALLERGY/IMMUNOLOGY OFFICE/OUTPATIENT NEW HIGH MDM 60-74 MINUTES Victor Manuel Tyler, DO [address] [place] [address] Referral ID Status Reason Start Date Expiration Date Visits Requested Visits Authorized [id number] Authorized PCP Requested Referral 02/09/2022 02/09/2023 1 1 Specialty Diagnoses / Procedures Referred By Contac t Referred To Contact Mayte Cha MD [address] [place] [address] Referral ID Status Reason Start Date Expiration Date V isits Requested Visits Authorized [id number] Authorized 04/27/2022 04/27/2023 1 1 Specialty Diagnoses / Procedures Referred By Contac t Referred To Contact Diagnoses Fibromyalgia Chronic fatigue Victor Manuel Tyler, DO [address] [place] [address] Referral ID Status Reason Start Date Expiration Date Visits Re quested Visits Authorized [id number] Closed 1 1 Specialty Diagnoses / Procedures Referred By Contac t Referred To Contact Diagnoses Bacterial ear infection, bilateral Victor Manuel Tyler, DO [address] [place] [address] Referral ID Status Reason Start Date Expiration Date Visits Re quested Visits Authorized [id number] Closed 1 1 Specialty Diagnoses / Procedures Referred By Contac t Referred To Contact Allergy Diagnoses Other specified dermatitis Food intolerance Procedures CONSULT TO ALLERGY/IMMUNOLOGY OFFICE/OUTPATIENT [facility]3] 60-74 MINUTES Yonis Lloyd MD [address] [place] [address] Referral ID Status Reason Start Date Expiration Date Visits Requested Visits Authorized [id number] Authorized PCP Requested Referral 04/21/2023 04/20/2024 1 1 Referral ID Status Reason Start Date Expiration Date Visits Re quested Visits Authorized [id number] Closed 1 1 Referral ID Status Reason Start Date Expiration Date Visits Re quested Visits Authorized [id number] Closed 1 1 Referral ID Status Reason Start Date Expiration Date Visits Re quested Visits Authorized [id number] Closed 1 1 Chief Complaint Chief Complaint Description Start Date right wrist Preliminary chief co mplaint data, not yet signed by the author as of Additional Source Comments INFORMATION SOURCE (unrecogn ized section and content) DATE CREATED AUTHOR AUTHOR'S ORGANIZ ATION 01/06/2022 [facility] DATE CREATED AUTHOR AUTHOR'S ORGANIZ ATION 11/28/2023 [facility] Comments (unrecognize d section and content) In the event this informatio n is protected by the Federal Confidentiality of Alcohol and Drug Abuse Patient Records regulations: The Federal rules restrict any use of the information to criminally investigate or prosecute any alcohol or drug abuse patient.[facility] the event this information is protected by the Federal Confidentiality of Alcohol and Drug Abuse Patient Records regulations: The Federal rules restrict any use of the information to criminally investigate or prosecute any alcohol or drug abuse patient.[facility] HospitalIn the event this information is protected by the Federal Confidentiality of Alcohol and Drug Abuse Patient Records regulations: The Federal rules restrict any use of the information to criminally investigate or prosecute any alcohol or drug abuse patient.[facility] HospitalIn the event this information is protected by the Federal Confidentiality of Alcohol and Drug Abuse Patient Records regulations: The Federal rules restrict any use of the information to criminally investigate or prosecute any alcohol or drug abuse patient.[facility] HospitalIn the event this information is protected by the Federal Confidentiality of Alcohol and Drug Abuse Patient Records regulations: The Federal rules restrict any use of the information to criminally investigate or prosecute any alcohol or drug abuse patient.[facility] HospitalIn the event this information is protected by the Federal Confidentiality of Alcohol and Drug Abuse Patient Records regulations: The Federal rules restrict any use of the information to criminally investigate or prosecute any alcohol or drug abuse patient.[facility] HospitalIn the event this information is protected by the Federal Confidentiality of Alcohol and Drug Abuse Patient Records regulations: The Federal rules restrict any use of the information to criminally investigate or prosecute any alcohol or drug abuse patient.[facility] HospitalIn the event this information is protected by the Federal Confidentiality of Alcohol and Drug Abuse Patient Records regulations: The Federal rules restrict any use of the information to criminally investigate or prosecute any alcohol or drug abuse patient.[facility] HospitalIn the event this information is protected by the Federal Confidentiality of Alcohol and Drug Abuse Patient Records regulations: The Federal rules restrict any use of the information to criminally investigate or prosecute any alcohol or drug abuse patient.[facility] HospitalIn the event this information is protected by the Federal Confidentiality of Alcohol and Drug Abuse Patient Records regulations: The Federal rules restrict any use of the information to criminally investigate or prosecute any alcohol or drug abuse patient.[facility] HospitalIn the event this information is protected by the Federal Confidentiality of Alcohol and Drug Abuse Patient Records regulations: The Federal rules restrict any use of the information to criminally investigate or prosecute any alcohol or drug abuse patient.[facility] HospitalIn the event this information is protected by the Federal Confidentiality of Alcohol and Drug Abuse Patient Records regulations: The Federal rules restrict any use of the information to criminally investigate or prosecute any alcohol or drug abuse patient.[facility] HospitalIn the event this information is protected by the Federal Confidentiality of Alcohol and Drug Abuse Patient Records regulations: The Federal rules restrict any use of the information to criminally investigate or prosecute any alcohol or drug abuse patient.[facility] the event this information is protected by the Federal Confidentiality of Alcohol and Drug Abuse Patient Records regulations: The Federal rules restrict any use of the information to criminally investigate or prosecute any alcohol or drug abuse patient.[facility] HospitalIn the event this information is protected by the Federal Confidentiality of Alcohol and Drug Abuse Patient Records regulations: The Federal rules restrict any use of the information to criminally investigate or prosecute any alcohol or drug abuse patient.[facility] HospitalIn the event this information is protected by the Federal Confidentiality of Alcohol and Drug Abuse Patient Records regulations: The Federal rules restrict any use of the information to criminally investigate or prosecute any alcohol or drug abuse patient.[facility] HospitalIn the event this information is protected by the Federal Confidentiality of Alcohol and Drug Abuse Patient Records regulations: The Federal rules restrict any use of the information to criminally investigate or prosecute any alcohol or drug abuse patient.[facility] HospitalIn the event this information is protected by the Federal Confidentiality of Alcohol and Drug Abuse Patient Records regulations: The Federal rules restrict any use of the information to criminally investigate or prosecute any alcohol or drug abuse patient.[facility] HospitalIn the event this information is protected by the Federal Confidentiality of Alcohol and Drug Abuse Patient Records regulations: The Federal rules restrict any use of the information to criminally investigate or prosecute any alcohol or drug abuse patient.[facility] HospitalIn the event this information is protected by the Federal Confidentiality of Alcohol and Drug Abuse Patient Records regulations: The Federal rules restrict any use of the information to criminally investigate or prosecute any alcohol or drug abuse patient.[facility] HospitalIn the event this information is protected by the Federal Confidentiality of Alcohol and Drug Abuse Patient Records regulations: The Federal rules restrict any use of the information to criminally investigate or prosecute any alcohol or drug abuse patient.[facility] HospitalIn the event this information is protected by the Federal Confidentiality of Alcohol and Drug Abuse Patient Records regulations: The Federal rules restrict any use of the information to criminally investigate or prosecute any alcohol or drug abuse patient.[facility] HospitalIn the event this information is protected by the Federal Confidentiality of Alcohol and Drug Abuse Patient Records regulations: The Federal rules restrict any use of the information to criminally investigate or prosecute any alcohol or drug abuse patient.[facility] HospitalIn the event this information is protected by the Federal Confidentiality of Alcohol and Drug Abuse Patient Records regulations: The Federal rules restrict any use of the information to criminally investigate or prosecute any alcohol or drug abuse patient.[facility] HospitalIn the event this information is protected by the Federal Confidentiality of Alcohol and Drug Abuse Patient Records regulations: The Federal rules restrict any use of the information to criminally investigate or prosecute any alcohol or drug abuse patient.[facility] HospitalIn the event this information is protected by the Federal Confidentiality of Alcohol and Drug Abuse Patient Records regulations: The Federal rules restrict any use of the information to criminally investigate or prosecute any alcohol or drug abuse patient.[facility] HospitalIn the event this information is protected by the Federal Confidentiality of Alcohol and Drug Abuse Patient Records regulations: The Federal rules restrict any use of the information to criminally investigate or prosecute any alcohol or drug abuse patient.[facility] HospitalIn the event this information is protected by the Federal Confidentiality of Alcohol and Drug Abuse Patient Records regulations: The Federal rules restrict any use of the information to criminally investigate or prosecute any alcohol or drug abuse patient.[facility] HospitalIn the event this information is protected by the Federal Confidentiality of Alcohol and Drug Abuse Patient Records regulations: The Federal rules restrict any use of the information to criminally investigate or prosecute any alcohol or drug abuse patient.[facility] HospitalIn the event this information is protected by the Federal Confidentiality of Alcohol and Drug Abuse Patient Records regulations: The Federal rules restrict any use of the information to criminally investigate or prosecute any alcohol or drug abuse patient.[facility] HospitalIn the event this information is protected by the Federal Confidentiality of Alcohol and Drug Abuse Patient Records regulations: The Federal rules restrict any use of the information to criminally investigate or prosecute any alcohol or drug abuse patient.[facility] HospitalIn the event this information is protected by the Federal Confidentiality of Alcohol and Drug Abuse Patient Records regulations: The Federal rules restrict any use of the information to criminally investigate or prosecute any alcohol or drug abuse patient.[facility] HospitalIn the event this information is protected by the Federal Confidentiality of Alcohol and Drug Abuse Patient Records regulations: The Federal rules restrict any use of the information to criminally investigate or prosecute any alcohol or drug abuse patient.[facility] HospitalIn the event this information is protected by the Federal Confidentiality of Alcohol and Drug Abuse Patient Records regulations: The Federal rules restrict any use of the information to criminally investigate or prosecute any alcohol or drug abuse patient.[facility] HospitalIn the event this information is protected by the Federal Confidentiality of Alcohol and Drug Abuse Patient Records regulations: The Federal rules restrict any use of the information to criminally investigate or prosecute any alcohol or drug abuse patient.[facility] HospitalIn the event this information is protected by the Federal Confidentiality of Alcohol and Drug Abuse Patient Records regulations: The Federal rules restrict any use of the information to criminally investigate or prosecute any alcohol or drug abuse patient.[facility] HospitalIn the event this information is protected by the Federal Confidentiality of Alcohol and Drug Abuse Patient Records regulations: The Federal rules restrict any use of the information to criminally investigate or prosecute any alcohol or drug abuse patient.[facility] HospitalIn the event this information is protected by the Federal Confidentiality of Alcohol and Drug Abuse Patient Records regulations: The Federal rules restrict any use of the information to criminally investigate or prosecute any alcohol or drug abuse patient.[facility] HospitalIn the event this information is protected by the Federal Confidentiality of Alcohol and Drug Abuse Patient Records regulations: The Federal rules restrict any use of the information to criminally investigate or prosecute any alcohol or drug abuse patient.[facility] HospitalIn the event this information is protected by the Federal Confidentiality of Alcohol and Drug Abuse Patient Records regulations: The Federal rules restrict any use of the information to criminally investigate or prosecute any alcohol or drug abuse patient.[facility] HospitalIn the event this information is protected by the Federal Confidentiality of Alcohol and Drug Abuse Patient Records regulations: The Federal rules restrict any use of the information to criminally investigate or prosecute any alcohol or drug abuse patient.[facility] HospitalIn the event this information is protected by the Federal Confidentiality of Alcohol and Drug Abuse Patient Records regulations: The Federal rules restrict any use of the information to criminally investigate or prosecute any alcohol or drug abuse patient.[facility] HospitalIn the event this information is protected by the Federal Confidentiality of Alcohol and Drug Abuse Patient Records regulations: The Federal rules restrict any use of the information to criminally investigate or prosecute any alcohol or drug abuse patient.[facility] HospitalIn the event this information is protected by the Federal Confidentiality of Alcohol and Drug Abuse Patient Records regulations: The Federal rules restrict any use of the information to criminally investigate or prosecute any alcohol or drug abuse patient.[facility] HospitalIn the event this information is protected by the Federal Confidentiality of Alcohol and Drug Abuse Patient Records regulations: The Federal rules restrict any use of the information to criminally investigate or prosecute any alcohol or drug abuse patient.[facility] HospitalIn the event this information is protected by the Federal Confidentiality of Alcohol and Drug Abuse Patient Records regulations: The Federal rules restrict any use of the information to criminally investigate or prosecute any alcohol or drug abuse patient.[facility] HospitalIn the event this information is protected by the Federal Confidentiality of Alcohol and Drug Abuse Patient Records regulations: The Federal rules restrict any use of the information to criminally investigate or prosecute any alcohol or drug abuse patient.[facility] HospitalIn the event this information is protected by the Federal Confidentiality of Alcohol and Drug Abuse Patient Records regulations: The Federal rules restrict any use of the information to criminally investigate or prosecute any alcohol or drug abuse patient.[facility] HospitalIn the event this information is protected by the Federal Confidentiality of Alcohol and Drug Abuse Patient Records regulations: The Federal rules restrict any use of the information to criminally investigate or prosecute any alcohol or drug abuse patient.[facility] HospitalIn the event this information is protected by the Federal Confidentiality of Alcohol and Drug Abuse Patient Records regulations: The Federal rules restrict any use of the information to criminally investigate or prosecute any alcohol or drug abuse patient.[facility] HospitalIn the event this information is protected by the Federal Confidentiality of Alcohol and Drug Abuse Patient Records regulations: The Federal rules restrict any use of the information to criminally investigate or prosecute any alcohol or drug abuse patient.[facility] HospitalIn the event this information is protected by the Federal Confidentiality of Alcohol and Drug Abuse Patient Records regulations: The Federal rules restrict any use of the information to criminally investigate or prosecute any alcohol or drug abuse patient.[facility] HospitalIn the event this information is protected by the Federal Confidentiality of Alcohol and Drug Abuse Patient Records regulations: The Federal rules restrict any use of the information to criminally investigate or prosecute any alcohol or drug abuse patient.[facility] HospitalIn the event this information is protected by the Federal Confidentiality of Alcohol and Drug Abuse Patient Records regulations: The Federal rules restrict any use of the information to criminally investigate or prosecute any alcohol or drug abuse patient.[facility] HospitalIn the event this information is protected by the Federal Confidentiality of Alcohol and Drug Abuse Patient Records regulations: The Federal rules restrict any use of the information to criminally investigate or prosecute any alcohol or drug abuse patient.[facility] HospitalIn the event this information is protected by the Federal Confidentiality of Alcohol and Drug Abuse Patient Records regulations: The Federal rules restrict any use of the information to criminally investigate or prosecute any alcohol or drug abuse patient.[facility] HospitalIn the event this information is protected by the Federal Confidentiality of Alcohol and Drug Abuse Patient Records regulations: The Federal rules restrict any use of the information to criminally investigate or prosecute any alcohol or drug abuse patient.[facility] HospitalIn the event this information is protected by the Federal Confidentiality of Alcohol and Drug Abuse Patient Records regulations: The Federal rules restrict any use of the information to criminally investigate or prosecute any alcohol or drug abuse patient.[facility] HospitalIn the event this information is protected by the Federal Confidentiality of Alcohol and Drug Abuse Patient Records regulations: The Federal rules restrict any use of the information to criminally investigate or prosecute any alcohol or drug abuse patient.[facility] HospitalIn the event this information is protected by the Federal Confidentiality of Alcohol and Drug Abuse Patient Records regulations: The Federal rules restrict any use of the information to criminally investigate or prosecute any alcohol or drug abuse patient.[facility] HospitalIn the event this information is protected by the Federal Confidentiality of Alcohol and Drug Abuse Patient Records regulations: The Federal rules restrict any use of the information to criminally investigate or prosecute any alcohol or drug abuse patient.[facility] HospitalIn the event this information is protected by the Federal Confidentiality of Alcohol and Drug Abuse Patient Records regulations: The Federal rules restrict any use of the information to criminally investigate or prosecute any alcohol or drug abuse patient.[facility] HospitalIn the event this information is protected by the Federal Confidentiality of Alcohol and Drug Abuse Patient Records regulations: The Federal rules restrict any use of the information to criminally investigate or prosecute any alcohol or drug abuse patient.[facility] Reason for Visit (unrecogniz ed section and content) Reason Comments Follow Up Reason Comments disk request Reason Comments Results Reason For Visit Description Start Date New/Est - 1st visit with physician 03/04 Preliminary reason f or visit data, not yet signed by the author as of right wrist Reason Comments Bipolar Disorder Sleep Problem Specialty Diagnoses / Procedures Referred By Annie conley Referred To Contact Radiology / RADIO MRI [facility] MOB Diagnoses Tendonitis involving left hip abductors tendonitis involving left hip abductors Procedures MRI ANY JT LOWER EXTREM W/O CONTRAST MATRL MRI WO [id number] 300 Derrek Stewart MD [address] [place] [address] [facility] [address] [place] [address] Referral ID Status Reason Start Date Expiration Date Visits Re quested Visits Authorized [id number] Closed 02/22/2022 04/08/2022 1 1 Reason Comments Rash x 2 months Reason Comments Follow Up Obsessive-Compulsive Disorder Anxiety Depression Reason Comments Refill Request Reason Comments Patient Update Reason Comments Ear Problem Reason Comments Consult Reason Comments Pre-Op Exam Reason Comments Post Op Reason Comments Obsessive-Compulsive Disorder Anxiety Bipolar Disorder Reason Onset Date Comments Refill Request 06/28/2022 Reason Comments Yearly Exam Reason Comments Medication Problem Reason Comments COVID positive home test Reason Comments Covid19 Concern Reason Comments medication concern not sleeping/restles s legs Reason Comments medication clarification Reason Onset Date Comments Refill Request 09/20/2022 Reason Onset Date Comments Refill Request 11/03/2022 Reason Comments Irritable Bowel Syndrome Labs 11/24/22. A te lots of red meat on Barbie causing left sided abdominal pain, fatigue and nausea. Has not had a solid BM since Aug. Had another left sided abdominal pain attack last week. Specialty Diagnoses / Procedures Referred By Annie conley Referred To Contact Gastroenterology Diagnoses Irritable bowel syndrome with both constipation and diarrhea Procedures CONSULT TO GASTROENTEROLOGY OFFICE/OUTPATIENT NEW HIGH MDM 60-74 MINUTES Ivett Quintana APRN.WAREHOUSE OPERATOR [address] [place] [address] Referral ID Status Reason Start Date Expiration Date V isits Requested Visits Authorized [id number] Closed PCP Requested Referral 11/24/2022 11/24/2023 1 1 Reason Comments F/U 3 Month Reason Comments Recheck IBS-stool testing an d xray done Deisy Reason Onset Date Comments Refill Request 02/15/2023 Reason Comments Appointment Rescheduled Reason Comments Consult Appt today Reason Comments Established Patient Follow Up Pain Reason Comments Toe Injury Kicked a door stoop by accident carrying things a week ago hurt second toe on rt foot Reason Comments F/U 3 Month Reason Onset Date Comments Refill Request 08/02/2023 Reason Comments Dry Eye Syndrome Follow Up Reason Comments Epiphora Evaluation History of constant tearing OS when she wears makeup. Dr. Ponce found blocked tear duct LLL 07/13/23. Wants to have bilateral tearducts evaluated today. Specialty Diagnoses / Procedures Referred By Annie conley Referred To Contact Diagnoses Spondylosis without myelopathy or radiculopathy, lumbosacral region M47.817 Procedures MRI SPINAL CANAL LUMBAR W/O CONTRAST MATERIAL MRI Lumbar Without Contrast Soham Henyr [address] [place] [address] Radio Mri [facility] [address] [address] Referral ID Status Reason Start Date Expiration Date Visits Re quested Visits Authorized [id number] Closed 06/20/2023 08/04/2023 1 1 Reason Comments Patient Request Reason Onset Date Comments Refill Request 09/22/2023 Reason Comments Obstruction of lacrimal canaliculus of l eft lower eyelid Dry Eye(s) Both Eyes Epiphora Follow Up Reason Comments F/U 3 Month Care Teams (unrecognized sec tion and content) Specialty Plant Supervisor Relationship Specialty Start Date End Date Victor Manuel Tyler DO [address] [place] [address] PCP - General Family Practice 11/03/15 Specialty Plant Supervisor Relationship Specialty Start Date End Date Victor Manuel Tyler, DO [address] [place] [address] PCP - General Family Practice 11/03/15 Specialty Plant Supervisor Relationship Specialty Start Date End Date Victor Manuel Tyler, DO [address] [facility] [place] [address] PCP - General Family Practice 11/03/15 Specialty Plant Supervisor Relationship Specialty Start Date End Date Victor Manuel Tyler, DO [address] [facility] [place] [address] PCP - General Family Practice 11/03/15 Specialty Plant Supervisor Relationship Specialty Start Date End Date Victor Manuel Tyler, DO [address] [facility] [place] [address] PCP - General Family Practice 11/03/15 Specialty Plant Supervisor Relationship Specialty Start Date End Date Victor Manuel Tyler, DO [address] [facility] [place] [address] PCP - General Family Practice 11/03/15 Specialty Plant Supervisor Relationship Specialty Start Date End Date Victor Manuel Tyler, DO [address] [facility] [place] [address] PCP - General Family Practice 11/03/15 Specialty Plant Supervisor Relationship Specialty Start Date End Date Victor Manuel Tyler, DO [address] [place] [address] PCP - General Family Practice 11/03/15 Specialty Plant Supervisor Relationship Specialty Start Date End Date Victor Manuel Tyler, DO [address] [place] [address] PCP - General Family Practice 11/03/15 Specialty Plant Supervisor Relationship Specialty Start Date End Date Victor Manuel Tyler, DO [address] [place] [address] PCP - General Family Practice 11/03/15 Specialty Plant Supervisor Relationship Specialty Start Date End Date Victor Manuel Tyler, DO [address] [place] [address] PCP - General Family Practice 11/03/15 Specialty Plant Supervisor Relationship Specialty Start Date End Date Victor Manuel Tyler, DO [address] [place] [address] PCP - General Family Practice 11/03/15 Specialty Plant Supervisor Relationship Specialty Start Date End Date Victor Manuel Tyler, DO [address] [place] [address] PCP - General Family Practice 11/03/15 Specialty Plant Supervisor Relationship Specialty Start Date End Date Victor Manuel Tyler, DO [address] [place] [address] PCP - General Family Practice 11/03/15 Specialty Plant Supervisor Relationship Specialty Start Date End Date Victor Manuel Tyler, DO [address] [place] [address] PCP - General Family Practice 11/03/15 Specialty Plant Supervisor Relationship Specialty Start Date End Date Victor Manuel Tyler, DO [address] [place] [address] PCP - General Family Practice 11/03/15 Specialty Plant Supervisor Relationship Specialty Start Date End Date Victor Manuel Tyler, DO [address] [place] [address] PCP - General Family Practice 11/03/15 Specialty Plant Supervisor Relationship Specialty Start Date End Date Victor Manuel Tyler, DO [address] [place] [address] PCP - General Family Practice 11/03/15 Specialty Plant Supervisor Relationship Specialty Start Date End Date Victor Manuel Tyler, DO [address] [place] [address] PCP - General Family Practice 11/03/15 Specialty Plant Supervisor Relationship Specialty Start Date End Date Victor Manuel Tyler, DO [address] [place] [address] PCP - General Family Medicine 11/03/15 Specialty Plant Supervisor Relationship Specialty Start Date End Date Victor Manuel Tyler, DO [address] [place] [address] PCP - General Family Medicine 11/03/15 Specialty Plant Supervisor Relationship Specialty Start Date End Date Victor Manuel Tyler, DO [address] [place] [address] PCP - General Family Medicine 11/03/15 Specialty Plant Supervisor Relationship Specialty Start Date End Date Victor Manuel Tyler, DO [address] [place] [address] PCP - General Family Medicine 11/03/15 Specialty Plant Supervisor Relationship Specialty Start Date End Date Victor Manuel Tyler, DO [address] [place] [address] PCP - General Family Medicine 11/03/15 Specialty Plant Supervisor Relationship Specialty Start Date End Date Victor Manuel Tyler, DO [address] [place] [address] PCP - General Family Medicine 11/03/15 Specialty Plant Supervisor Relationship Specialty Start Date End Date Victor Manuel Tyler, DO [address] [place] [address] PCP - General Family Medicine 11/03/15 Specialty Plant Supervisor Relationship Specialty Start Date End Date Victor Manuel Tyler, DO [address] [place] [address] PCP - General Family Medicine 11/03/15 Specialty Plant Supervisor Relationship Specialty Start Date End Date Victor Manuel Tyler, DO [address] [place] [address] PCP - General Family Medicine 11/03/15 Specialty Plant Supervisor Relationship Specialty Start Date End Date Victor Manuel Tyler, DO [address] [place] [address] PCP - General Family Medicine 11/03/15 Specialty Plant Supervisor Relationship Specialty Start Date End Date Victor Manuel Tyler, DO [address] [place] [address] PCP - General Family Medicine 11/03/15 Specialty Plant Supervisor Relationship Specialty Start Date End Date Victor Manuel Tyler, DO [address] [place] [address] PCP - General Family Medicine 11/03/15 Specialty Plant Supervisor Relationship Specialty Start Date End Date Victor Manuel Tyler, DO [address] [place] [address] PCP - General Family Medicine 11/03/15 Specialty Plant Supervisor Relationship Specialty Start Date End Date Victor Manuel Tyler, DO [address] [place] [address] PCP - General Family Medicine 11/03/15 Specialty Plant Supervisor Relationship Specialty Start Date End Date Victor Manuel Tyler, DO [address] [place] [address] PCP - General Family Medicine 11/03/15 Specialty Plant Supervisor Relationship Specialty Start Date End Date Victor Manuel Tyler, DO [address] [place] [address] PCP - General Family Medicine 11/03/15 Specialty Plant Supervisor Relationship Specialty Start Date End Date Victor Manuel Tyler, DO [address] [place] [address] PCP - General Family Medicine 11/03/15 Specialty Plant Supervisor Relationship Specialty Start Date End Date Victor Manuel Tyler DO [address] [place] [address] PCP - General Family Medicine 11/03/15 Specialty Plant Supervisor Relationship Specialty Start Date End Date Victor Manuel Tyler DO [address] [facility] [address] PCP - General Family Medicine 11/03/15 Specialty Plant Supervisor Relationship Specialty Start Date End Date Victor Manuel Tyler DO [address] [place] [address] PCP - General Family Medicine 11/03/15 Specialty Plant Supervisor Relationship Specialty Start Date End Date Victor Manuel Tyler DO [address] [place] [address] PCP - General Family Medicine 11/03/15 Specialty Plant Supervisor Relationship Specialty Start Date End Date Victor Manuel Tyler DO [address] [place] [address] PCP - General Family Medicine 11/03/15 Specialty Plant Supervisor Relationship Specialty Start Date End Date Victor Manuel Tyler DO [address] [facility] [place] [address] PCP - General Family Medicine 11/03/15 Specialty Plant Supervisor Relationship Specialty Start Date End Date Victor Manuel Tyler DO [address] [place] [address] PCP - General Family Medicine 11/03/15 Specialty Plant Supervisor Relationship Specialty Start Date End Date Victor Manuel Tyler DO [address] [place] [address] PCP - General Family Medicine 11/03/15 Specialty Plant Supervisor Relationship Specialty Start Date End Date Victor Manuel Tyler, DO [address] [place] [address] PCP - General Family Medicine 11/03/15 Specialty Plant Supervisor Relationship Specialty Start Date End Date Victor Manuel Tyler, DO [address] [facility] [place] [address] PCP - General Family Medicine 11/03/15 Specialty Plant Supervisor Relationship Specialty Start Date End Date Victor Manuel Tyler, DO [address] [place] [address] PCP - General Family Medicine 11/03/15 Specialty Plant Supervisor Relationship Specialty Start Date End Date Victor Manuel Tyler, DO [address] [facility] [place] [address] PCP - General Family Medicine 11/03/15 Specialty Plant Supervisor Relationship Specialty Start Date End Date Victor Manuel Tyler, DO [address] [place] [address] PCP - General Family Medicine 11/03/15 FOR RECORDS PERTAINING TO PATIENTS WHO ARE OR HAVE BEEN ENROLLED IN A CHEMICAL DEPENDENCY/SUBSTANCEABUSE PROGRAM, SOME INFORMATION MAY BE OMITTED. This clinical summary was aggregated from multiple sources. Caution should be exercised in using it in the provision of clinical care. This summary normalizes information from multiple sources, and as a consequence, information in this document may materially change the coding, format and clinical context of patient data. In addition, data may be omitted in some cases. CLINICAL DECISIONS SHOULD BE BASED ON THE PRIMARY CLINICAL RECORDS. [facility]. provides no warranty or guarantee of the accuracy or completeness of information in this document.
== END | disposition home or self-care (01) ==
LOC: CT 07:02
PROVIDERS: PCP Student in an Organized Health Care Education/Training Program; Referring Provider Obstetrics & Gynecology; Visit Provider Obstetrics & Gynecology
DX: K59.00 Constipation, unspecified (principal); R10.2 Pelvic and perineal pain
CPT/HCPCS: 74176